=== PATIENT | male | born 1955 | race Caucasian/White ===

== ENCOUNTER 2018-03-23 12:25 | Emergency (ER) | payer MEDICARE, MEDICAID ==
--- NOTE | 2018-03-23 12:54 | ER Document Report ---
HPI - HPI Patient complains to provider of: tripped and fell in kitchen Pain Level: 3 Past Medical History - Past Medical History Cardiac Medical History: Reports: Hx Heart Attack Denies: Hx Congestive Heart Failure, Hx Hypertension, Hx Heart Murmur Pulmonary Medical History: Denies: Hx Asthma, Hx Bronchitis, Hx COPD, Hx Pneumonia, Hx Tuberculosis Neurological Medical History: Denies: Hx Cerebrovascular Accident, Hx Seizures Endocrine Medical History: Reports: Hx Diabetes Mellitus Type 2 GI Medical History: Reports: Hx Gastroesophageal Reflux Disease. Denies: Hx Hepatitis, Hx Hiatal Hernia, Hx Ulcer Musculoskeltal Medical History: Psychiatric Medical History: Reports: Hx Depression Infectious Medical History: Denies: Hx Hepatitis Past Surgical History: Reports: Hx Cardiac Catheterization, Hx Cardiac Surgery - stents, Hx Oral Surgery. Denies: Hx Open Heart Surgery, Hx Pacemaker - Immunizations Hx Diphtheria, Pertussis, Tetanus Vaccination: Yes Vertical Provider Document - INFECTION CONTROL TRAVEL OUTSIDE OF THE [place] IN LAST 30 DAYS: No Course - Vital Signs Vital signs: Temp Pulse Resp BP Pulse Ox 98.9 F 97 16 147/79 H 96 03/23/18 12:29 03/23/18 12:29 03/23/18 12:29 03/23/18 12:29 03/23/18 12:29 Discharge - Discharge Referrals: LEN LOMBARDO MD [Primary Care Provider] - Follow up as needed
--- NOTE | 2018-03-23 12:58 | ER Document Report ---
ED Medical Screen (RME) - General Chief Complaint: Elbow Injury Stated Complaint: ELBOW PAIN Time Seen by Provider: 03/23/18 12:51 Mode of Arrival: Ambulatory Information source: Patient Notes: 62-year-old male tripped in the kitchen and fell on his right elbow on Saturday. Since then his olecranon has gotten red warm and swollen. He does have a crusted abrasion over the olecranon. I cannot tell if this is inflamed bursitis or infected bursitis by physical exam. TRAVEL OUTSIDE OF THE [place] IN LAST 30 DAYS: No - Related Data Allergies/Adverse Reactions: chlorpromazine HCl [From Thorazine] Allergy (Verified 03/23/18 12:26) faints Past Medical History - Past Medical History Cardiac Medical History: Reports: Hx Heart Attack Denies: Hx Congestive Heart Failure, Hx Hypertension, Hx Heart Murmur Pulmonary Medical History: Denies: Hx Asthma, Hx Bronchitis, Hx COPD, Hx Pneumonia, Hx Tuberculosis Neurological Medical History: Denies: Hx Cerebrovascular Accident, Hx Seizures Endocrine Medical History: Reports: Hx Diabetes Mellitus Type 2 GI Medical History: Reports: Hx Gastroesophageal Reflux Disease. Denies: Hx Hepatitis, Hx Hiatal Hernia, Hx Ulcer Musculoskeltal Medical History: Psychiatric Medical History: Reports: Hx Depression Infectious Medical History: Denies: Hx Hepatitis Past Surgical History: Reports: Hx Cardiac Catheterization, Hx Cardiac Surgery - stents, Hx Oral Surgery. Denies: Hx Open Heart Surgery, Hx Pacemaker - Immunizations Hx Diphtheria, Pertussis, Tetanus Vaccination: Yes Physical Exam - Vital signs Vitals: Temp Pulse Resp BP Pulse Ox 98.9 F 97 16 147/79 H 96 03/23/18 12:29 03/23/18 12:29 03/23/18 12:29 03/23/18 12:29 03/23/18 12:29 Course - Vital Signs Vital signs: Temp Pulse Resp BP Pulse Ox 98.9 F 97 16 147/79 H 96 03/23/18 12:29 03/23/18 12:29 03/23/18 12:29 03/23/18 12:29 03/23/18 12:29 Doctor's Discharge - Discharge Referrals: LEN LOMBARDO MD [Primary Care Provider] - Follow up as needed
[2018-03-23 13:30] LABS: ABSOLUTE LYMPHOCYTES (AUTO) 2.1 10^3/uL (0.5-4.7); ABSOLUTE MONOCYTES (AUTO) 0.9 10^3/uL (0.1-1.4); ABSOLUTE NEUT (AUTO) 9.6 10^3/uL (1.7-8.2); BASOPHILS % (AUTO) 0.4 % (0-2); EOSINOPHILS % (AUTO) 0.3 % (0-6); HEMATOCRIT 42.5 % (37.9-51.0); HEMOGLOBIN 14.5 g/dL (13.5-17.0); LYMPHOCYTES % (AUTO) 16.6 % (13-45); MEAN CORPUSCULAR HEMOGLOBIN 32.1 pg (27.0-33.4); MEAN CORPUSCULAR VOLUME 95 fl (80-97); MONOCYTES % (AUTO) 7.2 % (3-13); PLATELET COUNT 230 10^3/uL (150-450); RED CELL DISTRIBUTION WIDTH 14.6 % (11.5-14.0); SEGMENTED NEUTROPHILS % (AUTO) 75.5 % (42-78); TOTAL CELLS COUNTED % (AUTO) 100 %; WHITE BLOOD COUNT 12.7 10^3/uL (4.0-10.5)
[2018-03-23] MEDS ORDERED: FENTANYL CITRATE INJ/PF 100 MCG/2 ML AMPUL IV ONE ×2 (13:44→15:34)
[2018-03-23 13:46] LABS: ALANINE AMINOTRANSFERASE 42 U/L (21-72); ALBUMIN 3.8 g/dL (3.5-5.0); ALKALINE PHOSPHATASE 136 U/L (38-126); ANION GAP 14 (5-19); ASPARTATE AMINO TRANSFERASE 20 U/L (17-59); BILIRUBIN,DIRECT 0.3 mg/dL (0.0-0.4); BILIRUBIN,TOTAL 0.6 mg/dL (0.2-1.3); BLOOD UREA NITROGEN 15 mg/dL (7-20); CALCIUM 10.2 mg/dL (8.4-10.2); CARBON DIOXIDE 27 mmol/L (22-30); CHLORIDE 97 mmol/L (98-107); POTASSIUM 4.6 mmol/L (3.6-5.0); SODIUM 137.5 mmol/L (137-145)
[2018-03-23 13:59] LABS: GLUCOSE 584 mg/dL (75-110)
[2018-03-23] MEDS ORDERED: NORMAL SALINE 1000 ML 2,000 ML IV PRN (14:04)
[2018-03-23 14:06] LABS: ERYTHROCYTE SEDIMENTATION RATE 42 mm/hr (0-20)
[2018-03-23] MEDS ORDERED: INSULIN REG, HUMAN 100 UNIT/ML 3 ML VIAL (PYX) IV ONE ×2 (14:06→14:07)
[2018-03-23] MEDS: NORMAL SALINE 1000 ML 1,000 ML IV PRN ×3 (14:25→15:55)
--- NOTE | 2018-03-23 14:31 | RADIOLOGY REPORT (SQ) ---
EXAM DESCRIPTION: ELBOW RIGHT OVER 2 VIEWS COMPLETED DATE/TIME: 03/23/2018 1:28 pm REASON FOR STUDY: fell on wed COMPARISON: None. NUMBER OF VIEWS: Four views right elbow. LIMITATIONS: None. FINDINGS: Soft tissue swelling overlying the olecranon. No underlying fracture. No suggestion of r etained radiopaque foreign body. Slight elevation of the anterior fat pad may reflect a small joint effusion. This can be seen with occult fracture among other etiologies. No fracture identified. OTHER: No other significant finding. IMPRESSION: Small joint effusion. Olecranon soft tissue swelling without underlying fracture. TECHNICAL DOCUMENTATION: JOB ID: [id number] Reading location - IP/workstation name: [email or web address]
--- NOTE | 2018-03-23 15:28 | ER Document Report ---
ED General - General Chief Complaint: Elbow Injury Stated Complaint: ELBOW PAIN Time Seen by Provider: 03/23/18 12:51 Mode of Arrival: Ambulatory Information source: Patient Notes: 62-year-old male diabetic presents with complaints of right elbow injury. Patient notes he had a mechanical fall landing on his elbow and that is swollen since. He denies any fevers or chills denies any nausea vomiting or area. Patient notes pain with range of motion of the elbow. TRAVEL OUTSIDE OF THE [place] IN LAST 30 DAYS: No - HPI Onset: Other Onset/Duration: Persistent Quality of pain: Achy Severity: Moderate Pain Level: 2 Associated symptoms: Body/muscle aches Exacerbated by: Movement Relieved by: Denies Similar symptoms previously: No Recently seen / treated by doctor: No - Related Data Allergies/Adverse Reactions: chlorpromazine HCl [From Thorazine] Allergy (Verified 03/23/18 12:26) faints Past Medical History - General Information source: Patient - Social History Smoking Status: Current Every Day Smoker Cigarette use (# per day): Yes Chew tobacco use (# tins/day): No Smoking Education Provided: No Frequency of alcohol use: None Drug Abuse: None Family History: Reviewed & Not Pertinent Patient has suicidal ideation: No Patient has homicidal ideation: No - Past Medical History Cardiac Medical History: Reports: Hx Heart Attack Denies: Hx Congestive Heart Failure, Hx Hypertension, Hx Heart Murmur Pulmonary Medical History: Denies: Hx Asthma, Hx Bronchitis, Hx COPD, Hx Pneumonia, Hx Tuberculosis Neurological Medical History: Denies: Hx Cerebrovascular Accident, Hx Seizures Endocrine Medical History: Reports: Hx Diabetes Mellitus Type 2 Renal/ Medical History: Denies: Hx Peritoneal Dialysis GI Medical History: Reports: Hx Gastroesophageal Reflux Disease. Denies: Hx Hepatitis, Hx Hiatal Hernia, Hx Ulcer Musculoskeltal Medical History: Psychiatric Medical History: Reports: Hx Depression Infectious Medical History: Denies: Hx Hepatitis Past Surgical History: Reports: Hx Cardiac Catheterization, Hx Cardiac Surgery - stents, Hx Oral Surgery. Denies: Hx Open Heart Surgery, Hx Pacemaker - Immunizations Hx Diphtheria, Pertussis, Tetanus Vaccination: Yes Review of Systems - Review of Systems Notes: REVIEW OF SYSTEMS: CONSTITUTIONAL : Denies fever, chills, or sweats. Denies recent illness. EENT: Denies eye, ear, throat, or mouth pain or symptoms. Denies nasal or sinus congestion or discharge. Denies throat, tongue, or mouth swelling or difficulty swallowing. CARDIOVASCULAR: Denies chest pain. Denies palpitations or racing or irregular heart beat. Denies ankle edema. RESPIRATORY: Denies cough, cold, or chest congestion. Denies shortness of breath, difficulty breathing, or wheezing. GASTROINTESTINAL: Denies abdominal pain or distention. Denies nausea, vomiting , or diarrhea. Denies blood in vomitus, stools, or per rectum. Denies black, tarry stools. Denies constipation. GENITOURINARY: Denies difficulty urinating, painful urination, burning, frequency, blood in urine, or discharge. MUSCULOSKELETAL: Right upper extremity pain SKIN: Denies rash, lesions or sores. HEMATOLOGIC : Denies easy bruising or bleeding. LYMPHATIC: Denies swollen, enlarged glands. NEUROLOGICAL: Denies confusion or altered mental status. Denies passing out or loss of consciousness. Denies dizziness or lightheadedness. Denies headache. Denies weakness or paralysis or loss of use of either side. Denies problems with gait or speech. Denies sensory loss, numbness, or tingling. Denies seizures. PSYCHIATRIC: Denies anxiety or stress. Denies depression, suicidal ideation, or homicidal ideation. ALL OTHER SYSTEMS REVIEWED AND NEGATIVE. Dictation was performed using [facility] voice recognition software PHYSICAL EXAMINATION: GENERAL: Well-appearing, well-nourished and in no acute distress. HEAD: Atraumatic, normocephalic. EYES: Pupils equal round and reactive to light, extraocular movements intact, sclera anicteric, conjunctiva are normal. ENT: Nares patent, oropharynx clear without exudates. Moist mucous membranes. NECK: Normal range of motion, supple without lymphadenopathy LUNGS: Breath sounds clear to auscultation bilaterally and equal. No wheezes rales or rhonchi. HEART: Regular rate and rhythm without murmurs ABDOMEN: Soft, nontender, nondistended abdomen. No guarding, no rebound. No masses appreciated. Musculoskeletal: Limited range of motion of right elbow secondary to pain NEUROLOGICAL: Cranial nerves grossly intact. Normal speech, normal gait. Normal sensory, motor exams PSYCH: Normal mood, normal affect. SKIN: Swelling of the right elbow bursae noted no erythema no drainage Physical Exam - Vital signs Vitals: Temp Pulse Resp BP Pulse Ox 98.9 F 97 16 147/79 H 96 06/10/18 12:29 03/23/18 12:29 03/23/18 12:29 03/23/18 12:29 03/23/18 12:29 Course - Re-evaluation Re-evalutation: 03/23/18 15:27 I spoke with the patient in regards to his significant hyperglycemia, he refuses to be admitted, I will treat him with IV fluids and insulin, Accu-Chek has been ordered he does not appear to have any signs of an infected bursitis, I believe the patient does have a fracture of his olecranon 03/23/18 16:46 Patient blood sugar has improved significantly, I have spoken to him in regards to my concerns about his blood sugar being so elevated and his hemoglobin A1c being greater than 14, patient instructed to follow-up with both orthopedics for the elbow as well as his primary care physician. I believe there is no occult fracture of the ulnar olecranon region and will have see them for this evaluation. I do not believe there is an infected bursitis the ESR is noted to be elevated though but there is no fever no drainage After performing a Medical Screening Examination, I estimate there is LOW risk for OPEN FRACTURE, COMPARTMENT SYNDROME, TENDON RUPTURE, ACUTE NEUROVASCULAR INJURY, or RETAINED FOREIGN BODY, thus I consider the discharge disposition reasonable. Also, there is no evidence or peritonitis, sepsis, or toxicity. I have reevaluated this patient multiple times and no significant life threatening changes are noted. The patient and I have discussed the diagnosis and risks, and we agree with discharging home with close follow-up with the understanding that symptoms and presentations can change. We also discussed returning to the Emergency Department immediately if new or worsening symptoms occur. We have discussed the symptoms which are most concerning (e.g., changing or worsening pain, fever, numbness, weakness, cool or painful digits) that necessitate immediate return. - Vital Signs Vital signs: Temp Pulse Resp BP Pulse Ox 98.9 F 97 16 147/79 H 96 03/23/18 12:29 03/23/18 12:29 03/23/18 12:29 03/23/18 12:29 03/23/18 12:29 - Laboratory Result Diagrams: 03/23/18 13:17 03/23/18 13:17 Laboratory results interpreted by me: 03/23/18 03/23/18 03/23/18 13:17 13:17 13:17 WBC 12.7 H RDW 14.6 H Absolute Neutrophils 9.6 H ESR 42 H Chloride 97 L Glucose 584 H* POC Glucose Hemoglobin A1c % > 14.0 H Alkaline Phosphatase 136 H 03/23/18 15:30 WBC RDW Absolute Neutrophils ESR Chloride Glucose POC Glucose 312 H Hemoglobin A1c % Alkaline Phosphatase - Diagnostic Test Radiology reviewed: Image reviewed - Possible occult fracture noted on x-ray right elbow 3 view, Reports reviewed Procedures - Immobilization Right Upper Elbow Time completed: 16:40 Pre-Proc Neuro Vasc Exam: Normal Immobilizer type: Long arm posterior Performed by: PCT Post-Proc Neuro Vasc Exam: Normal Alignment checked and good: Yes Critical Care Note - Critical Care Note Total time excluding time spent on procedures (mins): 35 Comments: 35 minutes of critical care time spent in direct contact evaluating and reevaluating the patient, treating symptoms, reviewing labs and studies and speaking with family and consultants excluding any procedures Discharge - Discharge Clinical Impression: Hyperglycemia Olecranon bursitis Qualifiers: Laterality: right Qualified Code(s): M70.21 - Olecranon bursitis, right elbow Elbow fracture, right Qualifiers: Encounter type: initial encounter Fracture type: closed Qualified Code(s): S42.401A - Unspecified fracture of lower end of right humerus, initial encounter for closed fracture Condition: Stable Disposition: HOME, SELF-CARE Instructions: Hyperglycemia ([facility]) Referrals: LEN LOMBARDO MD [EMERITUS] - Follow up as needed DIONISIO GUERRERO DO [Primary Care Provider] - Follow up tomorrow ERMELINDA COSME DO [ACTIVE STAFF] - Follow up tomorrow
[2018-03-23] MEDS ORDERED: NORMAL SALINE 1000 ML 1,000 ML IV PRN (15:34)
[2018-03-23 16:29] VITALS: BP 137/80
== END 2018-03-23 17:02 | disposition home or self-care (01) ==
LOC: ER 12:25
DX: S42.401A Unspecified fracture of lower end of right humerus, initial encounter for closed fracture (principal); W19.XXXA Unspecified fall, initial encounter; M70.21 Olecranon bursitis, right elbow; E11.65 Type 2 diabetes mellitus with hyperglycemia; F17.210 Nicotine dependence, cigarettes, uncomplicated; Z88.8 Allergy status to other drugs, medicaments and biological substances
CPT/HCPCS: 96376; 99285; 96361; 96374; 36415; 82962; 85025; 85652; 80053; 83036; 73080; 29105; J3010; A9270; J7030; J1815

== ENCOUNTER 2018-03-28 19:13 | Inpatient (IN) | payer MEDICARE, MEDICAID ==
--- NOTE | 2018-03-28 20:08 | ER Document Report ---
HPI - HPI Pain Level: 5 - ROS Systems Reviewed and Negative: Yes All other systems reviewed and negative Past Medical History - Social History Smoking Status: Unknown if Ever Smoked Family History: Reviewed & Not Pertinent - Past Medical History Cardiac Medical History: Reports: Hx Heart Attack Denies: Hx Congestive Heart Failure, Hx Hypertension, Hx Heart Murmur Pulmonary Medical History: Denies: Hx Asthma, Hx Bronchitis, Hx COPD, Hx Pneumonia, Hx Tuberculosis Neurological Medical History: Denies: Hx Cerebrovascular Accident, Hx Seizures Endocrine Medical History: Reports: Hx Diabetes Mellitus Type 2 Renal/ Medical History: Denies: Hx Peritoneal Dialysis GI Medical History: Reports: Hx Gastroesophageal Reflux Disease. Denies: Hx Hepatitis, Hx Hiatal Hernia, Hx Ulcer Musculoskeltal Medical History: Psychiatric Medical History: Reports: Hx Depression Infectious Medical History: Denies: Hx Hepatitis Past Surgical History: Reports: Hx Cardiac Catheterization, Hx Cardiac Surgery - stents, Hx Oral Surgery. Denies: Hx Open Heart Surgery, Hx Pacemaker - Immunizations Hx Diphtheria, Pertussis, Tetanus Vaccination: Yes Vertical Provider Document - CONSTITUTIONAL Agree With Documented VS: Yes - INFECTION CONTROL TRAVEL OUTSIDE OF THE [place] IN LAST 30 DAYS: No Course - Vital Signs Vital signs: Temp Pulse Resp BP Pulse Ox 98.8 F 94 16 125/82 97 03/28/18 19:28 03/28/18 19:28 03/28/18 19:28 03/28/18 19:28 03/28/18 19:28 Discharge - Discharge Referrals: DIONISIO GUERRERO DO [Primary Care Provider] - Follow up as needed
[2018-03-28] MEDS ORDERED: NORMAL SALINE 1000 ML 1,000 ML IV ONE (20:15)
--- NOTE | 2018-03-28 20:21 | ER Document Report ---
ED Medical Screen (RME) - General Chief Complaint: Arm Injury Stated Complaint: RIGHT ARM SWELLING Time Seen by Provider: 03/28/18 20:02 TRAVEL OUTSIDE OF THE [place] IN LAST 30 DAYS: No - HPI Notes: 03/28/18 20:18 Patient is a 62-year-old male with a history of hypertension, coronary artery disease, insulin-dependent diabetes who presents to the ED complaining of increasing swelling in his right hand over the last 2-3 days after his visit with orthopedics. Patient states that he was seen by or so earlier this week and they found the olecranon fracture in his elbow and placed him in a splint. Patient states that Ortho cannot place a cast until his swelling improves. Patient states that there was concern of possible infection to his elbow so I did start him on an antibiotic which she cannot remember the name of. Patient states that he does continue to have soreness and pain to the elbow, but is otherwise able to move his fingers any difficulties. He is still eating and drinking without difficulties. He is urinating normally and having normal bowel movements. Patient states that his sugars have been under better control since last week when he was seen in the ED. Patient states that his sugar this afternoon was 118. He has no other concerns or complaints at this time. Denies any headache, fever, URI, sore throat, chest pain, palpitations, syncope , cough, shortness of breath, wheeze, dyspnea, abdominal pain, nausea/vomiting/ diarrhea, urinary retention, dysuria, hematuria, numbness/tingling, muscle paralysis/weakness, or rash. I have treated and performed a rapid initial assessment of this patient. A comprehensive ED assessment and evaluation of the patient, analysis of test results and completion of medical decision making process will be conducted by additional ED providers. Dr. Bonner also eval'd this patient and is in agreement plan currently. PHYSICAL EXAMINATION: GENERAL: Well-appearing, well-nourished and in no acute distress. LUNGS: Breath sounds clear to auscultation bilaterally and equal. No wheezes rales or rhonchi. HEART: Regular rate and rhythm without murmurs, rubs, gallops. Musculoskeletal: Rt elbow: + swelling, erythema, warmth, tenderness. + pitting edema to hand. N/V intact distal otherwise. FROM to passive/active at the wrist/fingers. LROM to the elbow. Strength 5+/5. Extremities: + pitting edema to the Rt hand, No edema to LE's b/l. Peripheral pulses 2+. Capillary refill less than 3 seconds. NEUROLOGICAL: Normal speech, normal gait. Normal sensory, motor exams PSYCH: Normal mood, normal affect. SKIN: see above. - Related Data Allergies/Adverse Reactions: chlorpromazine HCl [From Thorazine] Allergy (Verified 03/23/18 12:26) faints Past Medical History - Past Medical History Cardiac Medical History: Reports: Hx Heart Attack Denies: Hx Congestive Heart Failure, Hx Hypertension, Hx Heart Murmur Pulmonary Medical History: Denies: Hx Asthma, Hx Bronchitis, Hx COPD, Hx Pneumonia, Hx Tuberculosis Neurological Medical History: Denies: Hx Cerebrovascular Accident, Hx Seizures Endocrine Medical History: Reports: Hx Diabetes Mellitus Type 2 Renal/ Medical History: Denies: Hx Peritoneal Dialysis GI Medical History: Reports: Hx Gastroesophageal Reflux Disease. Denies: Hx Hepatitis, Hx Hiatal Hernia, Hx Ulcer Musculoskeltal Medical History: Psychiatric Medical History: Reports: Hx Depression Infectious Medical History: Denies: Hx Hepatitis Past Surgical History: Reports: Hx Cardiac Catheterization, Hx Cardiac Surgery - stents, Hx Oral Surgery. Denies: Hx Open Heart Surgery, Hx Pacemaker - Immunizations Hx Diphtheria, Pertussis, Tetanus Vaccination: Yes Physical Exam - Vital signs Vitals: Temp Pulse Resp BP Pulse Ox 98.8 F 94 16 125/82 97 03/28/18 19:28 03/28/18 19:28 03/28/18 19:28 03/28/18 19:28 03/28/18 19:28 Course - Re-evaluation Re-evalutation: 03/28/18 20:37 [address] did speak [address] Dr[address] Morley for a quick consult. He recommends blood work and he wanted images texted to him which I sent. He believes that he may be able to remain as an outpatient with PO antibiotics and f/u Saturday in the office pending work up vs inpatient with IV antibiotics. - Vital Signs Vital signs: Temp Pulse Resp BP Pulse Ox 98.8 F 94 16 125/82 97 03/28/18 19:28 03/28/18 19:28 03/28/18 19:28 03/28/18 19:28 03/28/18 19:28 Doctor's Discharge - Discharge Referrals: DIONISIO GUERRERO DO [Primary Care Provider] - Follow up as needed
[2018-03-28] MEDS ORDERED: MORPHINE SULFATE 10 MG/ML INJ IV ONE (20:22)
[2018-03-28 20:52] LABS: ABSOLUTE LYMPHOCYTES (AUTO) 1.8 10^3/uL (0.5-4.7); ABSOLUTE MONOCYTES (AUTO) 0.8 10^3/uL (0.1-1.4); ABSOLUTE NEUT (AUTO) 7.1 10^3/uL (1.7-8.2); BASOPHILS % (AUTO) 0.4 % (0-2); EOSINOPHILS % (AUTO) 0.4 % (0-6); HEMATOCRIT 38.6 % (37.9-51.0); HEMOGLOBIN 12.9 g/dL (13.5-17.0); LYMPHOCYTES % (AUTO) 18.2 % (13-45); MEAN CORPUSCULAR HEMOGLOBIN 31.9 pg (27.0-33.4); MEAN CORPUSCULAR HGB CONC 33.5 g/dL (32.0-36.0); MEAN CORPUSCULAR VOLUME 95 fl (80-97); MONOCYTES % (AUTO) 8.3 % (3-13); PLATELET COUNT 297 10^3/uL (150-450); RED BLOOD COUNT 4.06 10^6/uL (4.35-5.55); RED CELL DISTRIBUTION WIDTH 14.8 % (11.5-14.0); SEGMENTED NEUTROPHILS % (AUTO) 72.7 % (42-78); TOTAL CELLS COUNTED % (AUTO) 100 %; VENOUS BLOOD BASE EXCESS 2.3 mmol/L; VENOUS BLOOD HCO3 28.3 mmol/L (20-32); VENOUS BLOOD PCO2 49.5 mmHg (35-63); VENOUS BLOOD PH 7.38 (7.30-7.42); WHITE BLOOD COUNT 9.8 10^3/uL (4.0-10.5)
--- NOTE | 2018-03-28 21:09 | ER Document Report ---
ED General - General Chief Complaint: Arm Injury Stated Complaint: RIGHT ARM SWELLING Time Seen by Provider: 03/28/18 20:02 Notes: The patient is a 62-year-old male, PMHx poorly controlled DM (A1C >14%), who presents with swelling and redness of his right elbow and arm over the past day. He had a elbow injury after a fall 5 days ago. When he followed up with orthopedics at [facility], he was told he had an olecranon fracture and splinted. Patient is continued to have worsening pain and now painful range of motion. Denies fevers, numbness, tingling, difficulty moving his hand or any other rash. TRAVEL OUTSIDE OF THE [place] IN LAST 30 DAYS: No - Related Data Allergies/Adverse Reactions: chlorpromazine HCl [From Thorazine] Allergy (Verified 03/23/18 12:26) faints Past Medical History - General Information source: Patient - Social History Smoking Status: Unknown if Ever Smoked Family History: Reviewed & Not Pertinent Patient has suicidal ideation: No Patient has homicidal ideation: No - Past Medical History Cardiac Medical History: Reports: Hx Heart Attack Denies: Hx Congestive Heart Failure, Hx Hypertension, Hx Heart Murmur Pulmonary Medical History: Denies: Hx Asthma, Hx Bronchitis, Hx COPD, Hx Pneumonia, Hx Tuberculosis Neurological Medical History: Denies: Hx Cerebrovascular Accident, Hx Seizures Endocrine Medical History: Reports: Hx Diabetes Mellitus Type 2 Renal/ Medical History: Denies: Hx Peritoneal Dialysis GI Medical History: Reports: Hx Gastroesophageal Reflux Disease. Denies: Hx Hepatitis, Hx Hiatal Hernia, Hx Ulcer Musculoskeltal Medical History: Psychiatric Medical History: Reports: Hx Depression Infectious Medical History: Denies: Hx Hepatitis Past Surgical History: Reports: Hx Cardiac Catheterization, Hx Cardiac Surgery - stents, Hx Oral Surgery. Denies: Hx Open Heart Surgery, Hx Pacemaker - Immunizations Hx Diphtheria, Pertussis, Tetanus Vaccination: Yes Review of Systems - Review of Systems Notes: REVIEW OF SYSTEMS: CONSTITUTIONAL: -fevers, -chills EENT: -eye pain, -difficulty swallowing, -nasal congestion CARDIOVASCULAR: -chest pain, -syncope. RESPIRATORY: -cough, -SOB GASTROINTESTINAL: -abdominal pain, -nausea, -vomiting, -diarrhea GENITOURINARY: -dysuria, -hematuria MUSCULOSKELETAL: +right elbow pain and swelling, -back pain, -neck pain SKIN: +right arm rash HEMATOLOGIC: -easy bruising or bleeding. LYMPHATIC: -swollen, enlarged glands. NEUROLOGICAL: -altered mental status or loss of consciousness, -headache, - neurologic symptoms PSYCHIATRIC: -anxiety, -depression. ALL OTHER SYSTEMS REVIEWED AND NEGATIVE. Physical Exam - Vital signs Vitals: Temp Pulse Resp BP Pulse Ox 98.8 F 94 16 125/82 97 03/28/18 19:28 03/28/18 19:28 03/28/18 19:28 03/28/18 19:28 03/28/18 19:28 - Notes Notes: PHYSICAL EXAMINATION: GENERAL: Well-appearing, well-nourished and in no acute distress. HEAD: Atraumatic, normocephalic. EYES: Pupils equal round and reactive to light, extraocular movements intact, sclera anicteric, conjunctiva are normal. ENT: nares patent, oropharynx clear without exudates. Moist mucous membranes. NECK: Normal range of motion, supple without lymphadenopathy LUNGS: Breath sounds clear to auscultation bilaterally and equal. No wheezes rales or rhonchi. HEART: Regular rate and rhythm without murmurs ABDOMEN: Soft, nontender, normoactive bowel sounds. No guarding, no rebound. No masses appreciated. EXTREMITIES: Swollen right elbow with streaking redness down the arm to mid forearm and to mid biceps. Painful right elbow flexion and extension. Strong radial pulses and brisk capillary refill. NEUROLOGICAL: Cranial nerves grossly intact. Normal speech, normal gait. Normal sensory and motor exams. PSYCH: Normal mood, normal affect. Course - Re-evaluation Re-evalutation: 03/28/18 21:50 Concern for septic joint with streaking redness, swelling and painful right elbow ROM. ESR and CRP are elevated. Patient is a very poorly controlled diabetic. Spoke to Dr. Morley (Ortho) and he will consult on the patient. Unable to tap the elbow in the ED due to the overlying cellulitis. With his poorly controlled diabetes, rapidly spreading cellulitis and concern for septic joint, will begin clindamycin and admit patient to the hospitalist. 03/28/18 22:[address] Serna who has agreed to admit the patient to Medicine floor. - Vital Signs Vital signs: Temp Pulse Resp BP Pulse Ox 98.8 F 94 16 125/82 97 03/28/18 19:28 03/28/18 19:28 03/28/18 19:28 03/28/18 19:28 03/28/18 19:28 - Laboratory Result Diagrams: 03/28/18 20:37 03/28/18 20:37 Laboratory results interpreted by me: 03/28/18 03/28/18 20:37 20:37 RBC 4.06 L Hgb 12.9 L RDW 14.8 H ESR 96 H Glucose 175 H C-Reactive Protein 86.2 H Albumin 3.1 L Discharge - Discharge Clinical Impression: Concern for Septic Joint, Cellulitis of arm, right, Poorly controlled diabetes mellitus Elbow fracture, right Qualifiers: Encounter type: initial encounter Fracture type: closed Qualified Code(s): S42.401A - Unspecified fracture of lower end of right humerus, initial encounter for closed fracture Condition: Stable Disposition: ADMITTED INPATIENT Admitting Provider: Hospitalist - [facility] Unit Admitted: Medical Floor Referrals: DIONISIO GUERRERO DO [Primary Care Provider] - Follow up as needed
[2018-03-28 21:10] LABS: ALANINE AMINOTRANSFERASE 28 U/L (21-72); ALBUMIN 3.1 g/dL (3.5-5.0); ALKALINE PHOSPHATASE 102 U/L (38-126); ANION GAP 10 (5-19); ASPARTATE AMINO TRANSFERASE 24 U/L (17-59); BILIRUBIN,DIRECT 0.3 mg/dL (0.0-0.4); BILIRUBIN,TOTAL 0.3 mg/dL (0.2-1.3); BLOOD UREA NITROGEN 12 mg/dL (7-20); C-REACTIVE PROTEIN 86.2 mg/L (<10.0); CALCIUM 9.3 mg/dL (8.4-10.2); CARBON DIOXIDE 30 mmol/L (22-30); CHLORIDE 103 mmol/L (98-107); GLUCOSE 175 mg/dL (75-110); POTASSIUM 4.5 mmol/L (3.6-5.0); SODIUM 143.2 mmol/L (137-145); TOTAL PROTEIN 6.5 g/dL (6.3-8.2)
[2018-03-28 21:29] LABS: ERYTHROCYTE SEDIMENTATION RATE 96 mm/hr (0-20)
[2018-03-28] MEDS ORDERED: FENTANYL CITRATE INJ/PF 100 MCG/2 ML AMPUL IV ONE (21:48)
[2018-03-28] MEDS ORDERED: ONDANSETRON HCL INJ/PF 4 MG/2 ML SDV IV PRN (22:37)
[2018-03-28] MEDS ORDERED: ACETAMINOPHEN 325 MG TABLET PO PRN (22:37)
[2018-03-28] MEDS ORDERED: AMPICILLIN SOD/SULBACTAM 3 GM VIAL IV ONE (22:41)
[2018-03-28] MEDS ORDERED: DEXTROSE 50%-WATER 25 GM/50 ML DISP.SYRIN IV PRN ×2 (22:42)
[2018-03-28] MEDS ORDERED: GLUCAGON,HUMAN RECOMB 1 MG INJ IM PRN (22:42)
[2018-03-28] MEDS ORDERED: DEXTROSE 40% GEL 15 GM TUBE PO PRN ×2 (22:42)
[2018-03-28] MEDS ORDERED: AMPICILLIN SOD/SULBACTAM 3 GM VIAL IV PRN (22:51)
--- NOTE | 2018-03-28 23:28 | PDOC H&P ---
History of Present Illness Admission Date/PCP: 03/28/18 22:45 DIONISIO GUERRERO DO History of Present Illness: GÓMEZ ENRIQUEZ is a 62 year old male patient with past medical history of hypertension, anxiety, active smoker, and poorly controlled diabetes mellitus with hemoglobin A1c of 14 presents with chief complaint of right arm swelling and tenderness. Patient reports this accidental fall 5 days ago and he injured his right arm for which he had seen orthopedic surgeon and he was found to have fracture of the right olecranon. The last 2 days patient continued to have tenderness worsening pain and full range of motion. He has subjective fever but no chills, cough, chest pain, nausea, vomiting or diarrhea. No headache or dizziness or blurry vision. Past Medical History Cardiac Medical History: Reports: Myocardial Infarction Denies: Congestive Heart Failure, Hypertension, Heart Murmur Pulmonary Medical History: Denies: Asthma, Bronchitis, Chronic Obstructive Pulmonary Disease (COPD), Pneumonia, Tuberculosis Neurological Medical History: Denies: Seizures Endocrine Medical History: Reports: Diabetes Mellitus Type 2 GI Medical History: Reports: Gastroesophageal Reflux Disease Denies: Hepatitis, Hiatal Hernia Musculoskeltal Medical History: Psychiatric Medical History: Reports: Depression Hematology: Denies: Anemia, Sickle Cell Disease Past Surgical History Past Surgical History: Reports: Cardiac Catheterization Denies: Pacemaker Social History Smoking Status: Current Every Day Smoker Hx Recreational Drug Use: No Hx Prescription Drug Abuse: No Family History Family History: Reviewed & Not Pertinent, DM, Hypertension Parental Family History Reviewed: Yes Children Family History Reviewed: Yes Sibling(s) Family History Reviewed.: Yes Medication/Allergy Home Medications: Citalopram Hydrobromide [Celexa 20 Mg Tablet] 20 mg PO DAILY 04/19/12 Glipizide [Glucotrol Xl] 10 mg PO DAILY 04/19/12 Metformin HCl [Glucophage 500 Mg Tablet] 500 mg PO DAILY 04/19/12 Omeprazole [Prilosec 40 mg Capsule] 40 mg PO DAILY 04/19/12 Nitroglycerin [Nitrostat SL 0.4 mg Tablet] 0.4 mg SL PRN PRN 06/11/12 Oxycodone HCl [Oxycodone HCl 10 MG Tablet] 5 mg PO Q6H #25 tablet 06/11/12 Simvastatin [Zocor 20 mg Tablet] 20 mg PO QHS 06/11/12 Allergies/Adverse Reactions: chlorpromazine HCl [From Thorazine] Allergy (Verified 03/23/18 12:26) faints Review of Systems Constitutional: ABSENT: chills, fever(s), headache(s), weight gain, weight loss Eyes: ABSENT: visual disturbances Cardiovascular: ABSENT: chest pain, dyspnea on exertion, edema, orthropnea, palpitations Respiratory: ABSENT: cough, hemoptysis Gastrointestinal: ABSENT: abdominal pain, constipation, diarrhea, hematemesis, hematochezia, nausea, vomiting Musculoskeletal: PRESENT: as per HPI Neurological: PRESENT: as per HPI Physical Exam Vital Signs: Temp Pulse Resp BP Pulse Ox 98.8 F 94 16 125/82 97 03/28/18 19:28 03/28/18 19:28 03/28/18 19:28 03/28/18 19:28 03/28/18 19:28 General appearance: PRESENT: no acute distress, well-developed, well-nourished Head exam: PRESENT: atraumatic, normocephalic Ear exam: PRESENT: normal external ear exam Neck exam: ABSENT: carotid bruit, JVD, lymphadenopathy, thyromegaly Respiratory exam: PRESENT: clear to auscultation divya. ABSENT: rales, rhonchi, wheezes Cardiovascular exam: PRESENT: RRR. ABSENT: diastolic murmur, rubs, systolic murmur GI/Abdominal exam: PRESENT: normal bowel sounds, soft. ABSENT: distended, guarding, mass, organolmegaly, rebound, tenderness Extremities exam: PRESENT: other - Right arm tender swollen particularly at the elbow joint and extending to his upper Neurological exam: PRESENT: alert, awake, oriented to time, oriented to situation Psychiatric exam: PRESENT: normal mood Assessment & Plan - Diagnosis (1) Cellulitis of arm, right Is this a current diagnosis for this admission?: Yes Plan: Patient has been started on Unasyn. Pain control. (2) Elbow fracture, right Qualifiers: Encounter type: initial encounter Fracture type: closed Qualified Code(s) : S42.401A - Unspecified fracture of lower end of right humerus, initial encounter for closed fracture Is this a current diagnosis for this admission?: Yes Plan: Gentle has follow-up with orthopedic surgeon. (3) Poorly controlled diabetes mellitus Is this a current diagnosis for this admission?: Yes Plan: We will put him on sliding scale and started his home medications. - Inpatient Certification Medical Necessity: Need for IV Antibiotics
[2018-03-29] MEDS ORDERED: AMPICILLIN SOD/SULBACTAM 3 GM VIAL ONE (00:48)
[2018-03-29] MEDS: OXYCODONE-ACETAMINOPHEN 5-325 MG TABLET PO PRN ×2 (01:16→09:27)
[2018-03-29 06:08] LABS: ABSOLUTE EOSINOPHILS # (AUTO) 0.1 10^3/uL (0.0-0.6); ABSOLUTE LYMPHOCYTES (AUTO) 2.4 10^3/uL (0.5-4.7); ABSOLUTE NEUT (AUTO) 6.3 10^3/uL (1.7-8.2); BASOPHILS % (AUTO) 0.5 % (0-2); EOSINOPHILS % (AUTO) 0.9 % (0-6); HEMATOCRIT 35.4 % (37.9-51.0); HEMOGLOBIN 11.8 g/dL (13.5-17.0); LYMPHOCYTES % (AUTO) 24.1 % (13-45); MEAN CORPUSCULAR HEMOGLOBIN 32.1 pg (27.0-33.4); MEAN CORPUSCULAR HGB CONC 33.3 g/dL (32.0-36.0); MEAN CORPUSCULAR VOLUME 96 fl (80-97); MONOCYTES % (AUTO) 10.2 % (3-13); PLATELET COUNT 265 10^3/uL (150-450); RED BLOOD COUNT 3.68 10^6/uL (4.35-5.55); RED CELL DISTRIBUTION WIDTH 14.5 % (11.5-14.0); SEGMENTED NEUTROPHILS % (AUTO) 64.3 % (42-78); TOTAL CELLS COUNTED % (AUTO) 100 %; WHITE BLOOD COUNT 9.8 10^3/uL (4.0-10.5)
[2018-03-29 06:18] LABS: ANION GAP 8 (5-19); BLOOD UREA NITROGEN 9 mg/dL (7-20); CALCIUM 8.6 mg/dL (8.4-10.2); CARBON DIOXIDE 28 mmol/L (22-30); CHLORIDE 104 mmol/L (98-107); GLUCOSE 262 mg/dL (75-110); POTASSIUM 4.4 mmol/L (3.6-5.0); SODIUM 139.5 mmol/L (137-145)
[2018-03-29] MEDS: ENOXAPARIN SODIUM INJ 40 MG/0.4 ML DISP.SYRIN SUBCUT SCH (09:23)
[2018-03-29] MEDS ORDERED: MORPHINE SULFATE 10 MG/ML INJ IV PRN (10:35)
[2018-03-29] MEDS ORDERED: IBUPROFEN 800 MG TABLET PO PRN (10:35)
[2018-03-29] MEDS ORDERED: VANCOMYCIN HCL 0 MG in DEXTROSE 5%-WATER 250 ML IV NR (10:45)
[2018-03-29] MEDS ORDERED: CEFTRIAXONE 1 GM/D5W RTU 1 GM/50 ML RTUPB IV SCH (11:00)
[2018-03-29] MEDS ORDERED: CEFTRIAXONE SODIUM 1,000 MG in DEXTROSE 5%-WATER 50 ML IV SCH ×2 (12:00→13:00)
[2018-03-29] MEDS: INSULIN LISPRO 100 UNIT/ML 3 ML VIAL SUBCUT PRN (12:26)
--- NOTE | 2018-03-29 12:38 | RADIOLOGY REPORT (SQ) ---
EXAM DESCRIPTION: ELBOW RIGHT AP/LAT COMPLETED DATE/TIME: 03/29/2018 11:52 am REASON FOR STUDY: history of fracture COMPARISON: Right elbow four views 03/23/2018 NUMBER OF VIEWS: Four views. TECHNIQUE: AP, lateral, and both oblique radiographic images acquired of the right elbow. LIMITATIONS: None. FINDINGS: MINERALIZATION: Normal. BONES: There is a nondisplaced right olecranon fracture with extension into the elbow joint space. R adial head, distal humerus intact. JOINT: No effusion. SOFT TISSUES: Dorsal elbow soft tissue swelling. No foreign body. OTHER: No other significant finding. IMPRESSION: Nondisplaced right olecranon fracture with intra-articular extension. Overlying soft ti ssue swelling. TECHNICAL DOCUMENTATION: JOB ID: [id number] [employer]- All Rights Reserved Reading location - IP/workstation name: [email or web address]
[2018-03-29] MEDS ORDERED: HYDROMORPHONE HCL INJ/PF 2 MG/ML AMPULE ONE (12:54)
--- NOTE | 2018-03-29 12:57 | PDOC CONSULTATION ---
Consultation Consult Date: 03/29/18 Consult reason:: Right olecranon fracture and concern cellulitis versus septic arthritis History of Present Illness Admission Date/PCP: 03/28/18 22:45 DIONISIO GUERRERO DO Patient complains of: Right elbow pain History of Present Illness: GÓMEZ ENRIQUEZ is a 62 year old male status post fall a week ago onto his right elbow. Diagnosed with a small olecranon process fracture of the right elbow. He started developing redness and swelling of the elbow. Complains of decreased range of motion. No complaints of fevers or chills. Denies any numbness or tingling or paresthesias. Came to the [facility] last night and admitted for IV antibiotics for cellulitis. Orthopedic consulted for the fracture and concern for septic arthritis. Past Medical History Cardiac Medical History: Reports: Myocardial Infarction Denies: Congestive Heart Failure, Hypertension, Heart Murmur Pulmonary Medical History: Denies: Asthma, Bronchitis, Chronic Obstructive Pulmonary Disease (COPD), Pneumonia, Tuberculosis Neurological Medical History: Denies: Seizures Endocrine Medical History: Reports: Diabetes Mellitus Type 2 GI Medical History: Reports: Gastroesophageal Reflux Disease Denies: Hepatitis, Hiatal Hernia Musculoskeltal Medical History: Psychiatric Medical History: Reports: Depression Hematology: Denies: Anemia, Sickle Cell Disease Past Surgical History Past Surgical History: Reports: Cardiac Catheterization Denies: Pacemaker Social History Smoking Status: Current Every Day Smoker Cigarettes Packs Per Day: 1 Number of Years Smokin Last Time Smoked: 03/28/18 Frequency of Alcohol Use: Occasional Hx Recreational Drug Use: No Hx Prescription Drug Abuse: No - Advance Directive Resuscitation Status: Full Code Family History Family History: Reviewed & Not Pertinent, DM, Hypertension Parental Family History Reviewed: No Children Family History Reviewed: No Sibling(s) Family History Reviewed.: No Medication/Allergy Home Medications: Nitroglycerin [Nitrostat SL 0.4 mg Tablet] 0.4 mg SL DAILYP PRN 06/11/12 Simvastatin [Zocor 20 mg Tablet] 20 mg PO QHS 06/11/12 Albuterol Sulfate [Ventolin Hfa] 2 puff IH Q4HP PRN 03/29/18 Citalopram Hydrobromide [Celexa 40 mg Tablet] 1 tab PO DAILY 03/29/18 Gabapentin [Neurontin 300 mg Capsule] 300 mg PO Q12 03/29/18 Insulin Aspart [Novolog Flexpen] 10 unit SQ AC 03/29/18 Insulin Glargine,Hum.rec.anlog [Basaglar Kwikpen U-100] 55 unit SQ QHS 03/29/18 Isosorbide Mononitrate [Isosorbide Mononitrate ER] 30 mg PO DAILY 03/29/18 Naproxen 500 mg PO Q12 03/29/18 Omeprazole 20 mg PO Q12 03/29/18 Oxycodone HCl/Acetaminophen [Percocet 10-325 mg Tablet] 1 tab PO Q6HP PRN Sitagliptin Phosphate [Januvia] 100 mg PO DAILY 03/29/18 Zolpidem Tartrate [Ambien] 10 mg PO QHS 03/29/18 Allergies/Adverse Reactions: chlorpromazine HCl [From Thorazine] Allergy (Verified 03/23/18 12:26) faints Review of Systems Constitutional: ABSENT: fever(s), headache(s), night sweats Eyes: ABSENT: visual disturbances Ears: ABSENT: hearing changes Nose, Mouth, and Throat: ABSENT: headache(s), sore throat Cardiovascular: ABSENT: chest pain, orthropnea, palpitations Respiratory: ABSENT: dyspnea, hemoptysis Gastrointestinal: ABSENT: diarrhea, nausea, vomiting Genitourinary: ABSENT: dysuria, hematuria Musculoskeletal: PRESENT: as per HPI Integumentary: PRESENT: as per HPI Neurological: ABSENT: abnormal gait, numbness, paresthesias Psychiatric: ABSENT: homidical ideation, suicidal ideation Endocrine: ABSENT: cold intolerance, heat intolerance Hematologic/Lymphatic: ABSENT: lymphadenopathy Allergic/Immunologic: ABSENT: seasonal rhinorrhea Physical Exam Vital Signs: Temp Pulse Resp BP Pulse Ox 36.8 C 77 16 130/85 H 100 03/29/18 07:25 03/29/18 07:25 03/29/18 07:25 03/29/18 07:25 03/29/18 07:25 Intake & Output 03/28/18 03/29/18 03/30/18 06:59 06:59 06:59 Intake Total 210 Balance 210 General appearance: PRESENT: no acute distress Head exam: PRESENT: atraumatic, normocephalic Eye exam: PRESENT: EOMI, PERRLA. ABSENT: nystagmus Ear exam: PRESENT: normal external ear exam Mouth exam: PRESENT: neck supple Neck exam: ABSENT: lymphadenopathy, thyromegaly Cardiovascular exam: PRESENT: RRR Pulses: PRESENT: normal radial pulses Vascular exam: PRESENT: normal capillary refill GI/Abdominal exam: PRESENT: soft. ABSENT: organolmegaly, tenderness Neurological exam: PRESENT: alert, awake, oriented to person, oriented to place , oriented to time, oriented to situation Psychiatric exam: PRESENT: appropriate affect, normal mood Adult Front & Back Image: 1 - Patient's right elbow range of motion is about -30 of extension to about 100 of flexion. Pronation and supination are intact. Good sensation to light touch distally with intact motor to the radial,ulnar, median nerve distribution. Patient does have a little dry peeling going on the olecranon process that I think inoculated the skin and has erythema over the olecranon process and proximal forearm. There is minimal collection to no collection in the olecranon bursa. The erythema looks that has receded from the original markings. Patient admits to this as well. Results Laboratory Results: 03/29/18 05:16 03/29/18 05:16 18 03/29/18 05:16 05:16 WBC 9.8 RBC 3.68 L Hgb 11.8 L Hct 35.4 L MCV 96 MCH 32.1 MCHC 33.3 RDW 14.5 H Plt Count 265 Seg Neutrophils % 64.3 Lymphocytes % 24.1 Monocytes % 10.2 Eosinophils % 0.9 Basophils % 0.5 Absolute Neutrophils 6.3 Absolute Lymphocytes 2.4 Absolute Monocytes 1.0 Absolute Eosinophils 0.1 Absolute Basophils 0.0 Sodium 139.5 Potassium 4.4 Chloride 104 Carbon Dioxide 28 Anion Gap 8 BUN 9 Creatinine 0.55 Est GFR ( Amer) > 60 Est GFR (Non-Af Amer) > 60 Glucose 262 H Calcium 8.6 Impressions: Elbow X-Ray 03/29/18 00:00 IMPRESSION: Nondisplaced right olecranon fracture with intra-articular extension. Overlying soft tissue swelling. Status: Image reviewed by me Assessment & Plan - Diagnosis (1) Cellulitis of arm, right Is this a current diagnosis for this admission?: Yes Plan: 62-year-old gentleman who has diabetes who suffered a nondisplaced olecranon fracture. He did have a scab over the olecranon process which I think caused a cellulitis and therefore IV antibiotics is appropriate. The meantime all he needs is a sling for the fracture. At this moment I think the patient has minimal to no olecranon bursitis and I think that he does not need any surgical excision of the bursa or incision of the bursa. At this point I think that just medical management with IV antibiotics and likely p.o. antibiotics should suffice. If symptoms plateau or worsen despite antibiotics I would be happy to come back and reevaluate and see the patient again.
[2018-03-29] MEDS: HYDROMORPHONE HCL INJ/PF 2 MG/ML AMPULE IV PRN ×2 (12:59→21:47)
--- NOTE | 2018-03-29 16:10 | PDOC PROGRESS REPORT ---
Subjective Progress Note for:: 03/29/18 Subjective:: GÓMEZ ENRIQUEZ is a 62 year old male patient with past medical history of HTN, anxiety, active smoker, and poorly controlled DM (Hgb A1c 14) presents with chief complaint of R elbow swelling and tenderness. Patient endorses an accidental fall 5 days ago, xrays revealed right olecranon fracture. The patient went to see orthopedic surgeon at [facility] who placed a splint. The patient states he came to the ED because he was experiencing increasing pain and worsening range of motion to the right elbow, as well as swelling and pain to his right hand. The patient was seen this morning on rounds, he is sitting up in bed on room air. He complains of right elbow pain, states that his pain is not being well controlled. The right elbow is erythematous with surrounding edema and red streaking down the forearm and up the posterior RUE. There is a small area of broken skin over the elbow, which the patient states formed within the last few days. The patient states it looked "kind of like a wart" and he states he was scratching and picking at it. There is no obvious drainage or puss. Reason For Visit: CELLULITIS OF RIGHT ARM Physical Exam Vital Signs: Temp Pulse Resp BP Pulse Ox 98.2 F 84 16 134/75 H 99 03/29/18 15:21 03/29/18 15:21 03/29/18 15:21 03/29/18 15:21 03/29/18 15:21 Intake & Output 03/28/18 03/29/18 03/30/18 06:59 06:59 06:59 Intake Total 210 Balance 210 General appearance: PRESENT: no acute distress, well-developed Eye exam: PRESENT: conjunctiva pink, PERRLA Mouth exam: PRESENT: moist Teeth exam: PRESENT: poor dentation Neck exam: PRESENT: full ROM Respiratory exam: PRESENT: clear to auscultation divya, symmetrical, unlabored Cardiovascular exam: PRESENT: +S1, +S2 Pulses: PRESENT: normal radial pulses, normal dorsalis pedis pul GI/Abdominal exam: PRESENT: normal bowel sounds, soft. ABSENT: tenderness Rectal exam: PRESENT: deferred Extremities exam: PRESENT: joint swelling - Right elbow. ABSENT: full ROM - Limited R OM 2 right elbow Musculoskeletal exam: PRESENT: ambulatory. ABSENT: full ROM - Limited R OM to right elbow Neurological exam: PRESENT: alert, awake, oriented to person, oriented to place , oriented to time, oriented to situation Psychiatric exam: PRESENT: appropriate affect Skin exam: PRESENT: dry. ABSENT: intact Results Laboratory Results: 03/29/18 05:16 03/29/18 05:16 03/29/18 03/29/18 05:16 05:16 WBC 9.8 RBC 3.68 L Hgb 11.8 L Hct 35.4 L MCV 96 MCH 32.1 MCHC 33.3 RDW 14.5 H Plt Count 265 Seg Neutrophils % 64.3 Lymphocytes % 24.1 Monocytes % 10.2 Eosinophils % 0.9 Basophils % 0.5 Absolute Neutrophils 6.3 Absolute Lymphocytes 2.4 Absolute Monocytes 1.0 Absolute Eosinophils 0.1 Absolute Basophils 0.0 Sodium 139.5 Potassium 4.4 Chloride 104 Carbon Dioxide 28 Anion Gap 8 BUN 9 Creatinine 0.55 Est GFR ( Amer) > 60 Est GFR (Non-Af Amer) > 60 Glucose 262 H Calcium 8.6 Impressions: Elbow X-Ray 03/29/18 00:00 IMPRESSION: Nondisplaced right olecranon fracture with intra-articular extension. Overlying soft tissue swelling. Status: Imported from PACS Assessment & Plan - Diagnosis (1) Cellulitis of arm, right Is this a current diagnosis for this admission?: Yes Plan: Secondary to infected abrasion over olecranon No evidence of drainage from abrasion. No leukocytosis, afebrile, nontoxic-appearing Initiated vancomycin and Rocephin for treatment of cellulitis (2) Elbow fracture, right Qualifiers: Encounter type: initial encounter Fracture type: closed Qualified Code(s) : S42.401A - Unspecified fracture of lower end of right humerus, initial encounter for closed fracture Is this a current diagnosis for this admission?: Yes Plan: Right olecranon fracture seen on x-ray. Ortho consulted, patient seen by Dr. Morley Does not recommend splint at the current time, states patient only requires RUE sling. No plan for surgical intervention, only IV antibiotics to treat suspected cellulitis IV dilaudid, Tylenol, and Mortin as needed for pain control (3) Poorly controlled diabetes mellitus Is this a current diagnosis for this admission?: Yes Plan: Initial Hgb A1c 14 Accu-Cheks before meals at bedtime Humalog sliding scale - Time Time Spent with patient: 15-24 minutes Medications reviewed and adjusted accordingly: Yes Anticipated discharge: Home - Inpatient Certification Based on my medical assessment, after consideration of the patient's comorbidities, presenting symptoms, or acuity I expect that the services needed warrant INPATIENT care.: Yes I certify that my determination is in accordance with my understanding of Medicare's requirements for reasonable and necessary INPATIENT services [42 CFR 412.3e].: Yes Medical Necessity: Need for IV Antibiotics - Plan Summary Plan Summary: IV antibiotic therapy to treat right elbow cellulitis
[2018-03-29] MEDS: VANCOMYCIN HCL 1,000 MG in DEXTROSE 5%-WATER 250 ML IV SCH ×2 (17:00→21:48)
[2018-03-29] MEDS ORDERED: ALBUTEROL SULFATE HFA (90 MCG/PUFF) 8 GM MDI (1 MDI/ER DISP) IH PRN (17:10)
[2018-03-29] MEDS: SIMVASTATIN 10 MG TABLET PO SCH (21:48)
[2018-03-29] MEDS: GABAPENTIN 300 MG CAPSULE PO SCH (21:48)
[2018-03-29] MEDS: ZOLPIDEM TARTRATE 5 MG TABLET PO SCH (21:48)
[2018-03-30] MEDS: VANCOMYCIN HCL 1,000 MG in DEXTROSE 5%-WATER 250 ML IV SCH ×3 (06:17→22:08)
[2018-03-30] MEDS: HYDROMORPHONE HCL INJ/PF 2 MG/ML AMPULE IV PRN ×2 (06:36→11:28)
[2018-03-30 07:09] LABS: HEMATOCRIT 39.2 % (37.9-51.0); HEMOGLOBIN 13.2 g/dL (13.5-17.0); MEAN CORPUSCULAR HEMOGLOBIN 31.9 pg (27.0-33.4); MEAN CORPUSCULAR HGB CONC 33.7 g/dL (32.0-36.0); MEAN CORPUSCULAR VOLUME 95 fl (80-97); PLATELET COUNT 324 10^3/uL (150-450); RED BLOOD COUNT 4.13 10^6/uL (4.35-5.55); RED CELL DISTRIBUTION WIDTH 14.1 % (11.5-14.0); WHITE BLOOD COUNT 9.7 10^3/uL (4.0-10.5)
[2018-03-30] MEDS: LANSOPRAZOLE 15 MG TAB.RAP.DR PO SCH ×2 (08:17→15:26)
[2018-03-30] MEDS ORDERED: ALBUTEROL SULFATE HFA (90 MCG/PUFF) 200 PUFF/8.5 GM MDI IH PRN (08:21)
[2018-03-30] MEDS: CITALOPRAM HYDROBROMIDE 20 MG TABLET PO SCH (09:04)
[2018-03-30] MEDS: ISOSORBIDE MONONITRATE 30 MG TAB.ER.24H PO SCH (09:04)
[2018-03-30] MEDS: ENOXAPARIN SODIUM INJ 40 MG/0.4 ML DISP.SYRIN SUBCUT SCH (09:04)
[2018-03-30] MEDS ORDERED: (PENDING PHARMACY ID) (Citalopram Hydrobromide [Celexa 40 Mg Tablet] 1 TAB) PO SCH (10:00)
[2018-03-30] MEDS: INSULIN LISPRO 100 UNIT/ML 3 ML VIAL SUBCUT PRN ×2 (12:45→17:37)
[2018-03-30 14:38] LABS: VANCOMYCIN,TROUGH 13.7 ug/mL (5.0-20.0)
[2018-03-30] MEDS: OXYCODONE HCL IR 5 MG TABLET PO PRN ×2 (15:26→22:10)
[2018-03-30] MEDS: FENTANYL CITRATE INJ/PF 100 MCG/2 ML AMPUL IV PRN ×2 (17:32→22:08)
[2018-03-30] MEDS: IMIPENEM/CILASTATIN SODIUM 500 MG in NORMAL SALINE 100 ML IV SCH (17:33)
--- NOTE | 2018-03-30 17:56 | PDOC PROGRESS REPORT ---
Subjective Progress Note for:: 03/30/18 Subjective:: GÓMEZ ENRIQUEZ is a 62 year old male patient with past medical history of HTN, anxiety, active smoker, and poorly controlled DM (Hgb A1c 14) presents with chief complaint of R elbow swelling and tenderness. Patient endorses an accidental fall 5 days ago, xrays revealed right olecranon fracture. The patient went to see orthopedic surgeon at [facility] who placed a splint. The patient states he came to the ED because he was experiencing increasing pain and worsening range of motion to the right elbow, as well as swelling and pain to his right hand. The patient was seen this morning on rounds, he is sitting up in bed on room air. He complains of right elbow pain, states that his pain is still not being well controlled. The right elbow looks worse today, the erythema and surrounding edema over the olecranon have worsened, however the red streaking down the forearm and up the posterior RUE has not spread. Reason For Visit: CELLULITIS OF RIGHT ARM Physical Exam Vital Signs: Temp Pulse Resp BP Pulse Ox 97.9 F 87 16 103/62 92 03/30/18 15:23 03/30/18 15:23 03/30/18 15:23 03/30/18 15:23 03/30/18 15:23 Intake & Output 03/29/18 03/30/18 03/31/18 06:59 06:59 06:59 Intake Total 1160 940 Output Total 400 Balance 760 940 General appearance: PRESENT: no acute distress Eye exam: PRESENT: PERRLA Teeth exam: PRESENT: poor dentation Neck exam: PRESENT: full ROM Respiratory exam: PRESENT: clear to auscultation divya, symmetrical, unlabored Cardiovascular exam: PRESENT: +S1, +S2 Pulses: PRESENT: normal radial pulses Vascular exam: PRESENT: normal capillary refill GI/Abdominal exam: PRESENT: normal bowel sounds, soft. ABSENT: tenderness Rectal exam: PRESENT: deferred Extremities exam: PRESENT: full ROM, joint swelling - R ELBOW, tenderness Musculoskeletal exam: PRESENT: ambulatory, full ROM Neurological exam: PRESENT: alert, awake, oriented to person, oriented to place , oriented to time, oriented to situation Psychiatric exam: PRESENT: appropriate affect Skin exam: PRESENT: dry, intact, warm Results Laboratory Results: 03/30/18 07:00 03/29/18 05:16 03/30/18 07:00 WBC 9.7 RBC 4.13 L Hgb 13.2 L Hct 39.2 MCV 95 MCH 31.9 MCHC 33.7 RDW 14.1 H Plt Count 324 Impressions: Elbow X-Ray 03/29/18 00:00 IMPRESSION: Nondisplaced right olecranon fracture with intra-articular extension. Overlying soft tissue swelling. Status: Imported from PACS Assessment & Plan - Diagnosis (1) Cellulitis of arm, right Is this a current diagnosis for this admission?: Yes Plan: Erythema and swelling over right elbow appears worse today. Secondary to infected abrasion over olecranon No evidence of drainage from abrasion. No leukocytosis, afebrile, nontoxic-appearing Continue vancomycin and d/c Rocephin, initiate imipenem for broader coverage of cellulitis in a diabetic patient (2) Elbow fracture, right Qualifiers: Encounter type: initial encounter Fracture type: closed Qualified Code(s) : S42.401A - Unspecified fracture of lower end of right humerus, initial encounter for closed fracture Is this a current diagnosis for this admission?: Yes Plan: Right olecranon fracture seen on x-ray. Ortho consulted, patient seen by Dr. Morley Does not recommend splint at the current time, states patient only requires RUE sling. No plan for surgical intervention, only IV antibiotics to treat suspected cellulitis IV fentanyl, oxycodone, and Motin as needed for pain control (3) Poorly controlled diabetes mellitus Is this a current diagnosis for this admission?: Yes Plan: Initial Hgb A1c 14 Accu-Cheks before meals at bedtime Humalog sliding scale (4) Pain management Is this a current diagnosis for this admission?: Yes Plan: Patient endorses history of chronic pain related to lower back injury. Reports he takes oxycodone 10 mg every 4-6 hours as needed for pain. The patient states he was taking his home dose pain medication in hopes of treating his right elbow pain, but it offered no relief. Initiated oxycodone 15mg every 46 hours as needed for pain as well as IV fentanyl for breakthrough pain - Time Time Spent with patient: 15-24 minutes Medications reviewed and adjusted accordingly: Yes Anticipated discharge: Home - Inpatient Certification Based on my medical assessment, after consideration of the patient's comorbidities, presenting symptoms, or acuity I expect that the services needed warrant INPATIENT care.: Yes I certify that my determination is in accordance with my understanding of Medicare's requirements for reasonable and necessary INPATIENT services [42 CFR 412.3e].: Yes Medical Necessity: Need for IV Antibiotics, Risk of Complication if Not Cared For in Hospital - Plan Summary Plan Summary: Expand antibiotic coverage. Continue to monitor.
[2018-03-30] MEDS ORDERED: OXYCODONE HCL SR 10 MG TABLET PO SCH (22:00)
[2018-03-30] MEDS: GABAPENTIN 300 MG CAPSULE PO SCH (22:09)
[2018-03-30] MEDS: SIMVASTATIN 10 MG TABLET PO SCH (22:09)
[2018-03-30] MEDS: ZOLPIDEM TARTRATE 5 MG TABLET PO SCH (22:10)
[2018-03-31] MEDS: IMIPENEM/CILASTATIN SODIUM 500 MG in NORMAL SALINE 100 ML IV SCH ×5 (00:04→23:51)
[2018-03-31] MEDS: OXYCODONE HCL IR 5 MG TABLET PO PRN ×3 (06:16→20:30)
[2018-03-31] MEDS: INSULIN LISPRO 100 UNIT/ML 3 ML VIAL SUBCUT PRN ×4 (06:17→22:59)
[2018-03-31] MEDS: VANCOMYCIN HCL 1,000 MG in DEXTROSE 5%-WATER 250 ML IV SCH ×3 (06:18→21:59)
[2018-03-31] MEDS: LANSOPRAZOLE 15 MG TAB.RAP.DR PO SCH ×2 (08:13→15:05)
[2018-03-31] MEDS: ISOSORBIDE MONONITRATE 30 MG TAB.ER.24H PO SCH (09:25)
[2018-03-31] MEDS: FENTANYL CITRATE INJ/PF 100 MCG/2 ML AMPUL IV PRN ×2 (09:25→15:00)
[2018-03-31] MEDS: CITALOPRAM HYDROBROMIDE 20 MG TABLET PO SCH (09:25)
[2018-03-31] MEDS: ENOXAPARIN SODIUM INJ 40 MG/0.4 ML DISP.SYRIN SUBCUT SCH (09:27)
--- NOTE | 2018-03-31 15:23 | RADIOLOGY REPORT (SQ) ---
EXAM DESCRIPTION: MRI RT UPPER EXTREMITY COMBO COMPLETED DATE/TIME: 03/31/2018 2:08 pm REASON FOR STUDY: poss abscess of r elbow COMPARISON: Right elbow films 03/23/2018, 03/29/2018 TECHNIQUE: Right elbow images acquired and stored on PACS. Multiplanar images to include fat sensit elli sequences as T1, fluid sensitive sequences as T2/STIR, cartilage sensitive sequences as FSPD, and gradient echo sequences. LIMITATIONS: None. FINDINGS: The olecranon soft tissues are diffusely abnormal. There is a 6.3 cm long by 3.4 cm trans verse by 1.8 cm AP fluid collection over the olecranon bursa with surrounding edema, skin thickening and surrounding contrast enhancement. This is worrisome for an infected olecranon bursa. Diffuse sk in thickening, and subcutaneous edema throughout the distal upper arm and proximal forearm is present from cellulitis. There is very subtle edema and contrast enhancement along the proximal aspect of the anconeus and fle xor digitorum profundus muscles, best shown on axial series 10, images 19-29. No intramuscular absce ss in the field of view. No underlying abnormal marrow edema or contrast enhancement of the bony olecranon. There is no under lying olecranon fracture. There is high signal in the distal triceps tendon on STIR image 19 and T1 image 19 without full-thick ness tendon tear. No significant elbow joint effusion. BONE MARROW: No olecranon fracture. No marrow signal abnormality worrisome for osteomyelitis JOINT EFFUSION: None noted. No loose bodies. ARTICULAR SURFACES: Normal. MEDIAL COLLATERAL LIGAMENT COMPLEX: Intact without edema or tear. MEDIAL EPICONDYLE AND COMMON FLEXOR TENDON: No tendinopathy. No partial or full-thickness tear. LATERAL COLLATERAL LIGAMENT: Intact without edema or tear. LATERAL EPICONDYLE AND COMMON EXTENSOR TENDON: No tendinopathy. No partial or full-thickness tear. LATERAL ULNAR COLLATERAL LIGAMENT: Intact without evidence for tear. BICEPS TENDON: Intact. No partial or full-thickness tendon tear. No muscle edema. TRICEPS TENDON: As above ULNAR NERVE: Grossly unremarkable ADJACENT SOFT TISSUES: As above OTHER: No other significant finding. IMPRESSION: Olecranon and fluid collection with surrounding inflammation/enhancement worrisome for i nfected olecranon bursa. Diffuse distal upper arm/proximal forearm cellulitis. No underlying bony olecranon marrow signal abnormalities or enhancement worrisome for osteomyelitis. No olecranon fracture. Minimal high signal in the distal most triceps tendon without full-thickness tendon tear. TECHNICAL DOCUMENTATION: JOB ID: [id number] [employer]- All Rights Reserved Reading location - IP/workstation name: [email or web address]
--- NOTE | 2018-03-31 17:05 | PDOC PROGRESS REPORT ---
Subjective Progress Note for:: 03/31/18 Subjective:: GÓMEZ ENRIQUEZ is a 62 year old male patient with past medical history of HTN, anxiety, active smoker, and poorly controlled DM (Hgb A1c 14) presents with chief complaint of R elbow swelling and tenderness. Patient endorses an accidental fall 5 days ago, xrays revealed right olecranon fracture. The patient went to see orthopedic surgeon at [facility] who placed a splint. The patient states he came to the ED because he was experiencing increasing pain and worsening range of motion to the right elbow, as well as swelling and pain to his right hand. The patient is seen on morning rounds; he is found resting in bed comfortably on room air. He complains of continued right elbow pain that is limiting his range of motion. He does report that this is slightly improved as compared to time of admission. He he tells me that the orthopedic surgeon today has recommended he have an MRI as there is concern that he may be developing an abscess. The patient's primary complaint is uncontrolled pain related to medication wearing off too quickly. He denies fever, chills, body aches, chest pain, dyspnea, abdominal pain, nausea , vomiting, diarrhea. Reason For Visit: CELLULITIS OF RIGHT ARM Physical Exam Vital Signs: Temp Pulse Resp BP Pulse Ox 98.5 F 81 12 118/68 98 03/31/18 11:59 03/31/18 11:59 03/31/18 11:59 03/31/18 11:59 03/31/18 11:59 Intake & Output 03/30/18 03/31/18 04/01/18 06:59 06:59 06:59 Intake Total 1160 6376 Output Total 400 Balance 760 6376 Weight 63.4 kg General appearance: PRESENT: no acute distress, thin, well-developed, well- nourished Head exam: PRESENT: atraumatic, normocephalic Eye exam: PRESENT: conjunctiva pink, EOMI, PERRLA. ABSENT: scleral icterus Mouth exam: PRESENT: moist, tongue midline Neck exam: ABSENT: carotid bruit, JVD, lymphadenopathy, thyromegaly Respiratory exam: PRESENT: clear to auscultation divya, symmetrical, unlabored. ABSENT: rales, rhonchi, wheezes Cardiovascular exam: PRESENT: RRR, +S1, +S2. ABSENT: diastolic murmur, rubs, systolic murmur Pulses: PRESENT: normal dorsalis pedis pul Vascular exam: PRESENT: normal capillary refill GI/Abdominal exam: PRESENT: normal bowel sounds, soft. ABSENT: distended, guarding, mass, organolmegaly, rebound, tenderness Rectal exam: PRESENT: deferred Extremities exam: PRESENT: joint swelling - Right elbow, other - Erythema extending from distal posterior third of right upper arm to mid forearm. ABSENT : calf tenderness, clubbing, full ROM - Limited range of motion right elbow, pedal edema Neurological exam: PRESENT: alert, awake, oriented to person, oriented to place , oriented to time, oriented to situation, CN II-XII grossly intact. ABSENT: motor sensory deficit Psychiatric exam: PRESENT: appropriate affect, normal mood. ABSENT: homicidal ideation, suicidal ideation Skin exam: PRESENT: dry, intact, warm. ABSENT: cyanosis, rash Results Laboratory Results: 03/30/18 07:00 03/29/18 05:16 Impressions: Elbow X-Ray 03/29/18 00:00 IMPRESSION: Nondisplaced right olecranon fracture with intra-articular extension. Overlying soft tissue swelling. Upper Extremity MRI 03/31/18 08:23 IMPRESSION: Olecranon and fluid collection with surrounding inflammation/ enhancement worrisome for infected olecranon bursa. Diffuse distal upper arm/ proximal forearm cellulitis. No underlying bony olecranon marrow signal abnormalities or enhancement worrisome for osteomyelitis. No olecranon fracture. Minimal high signal in the distal most triceps tendon without full-thickness tendon tear. Assessment & Plan - Diagnosis (1) Cellulitis of arm, right Is this a current diagnosis for this admission?: Yes Plan: Possibly worsening. T-max in last 48 hours is 99.0; WBC is normal. Erythema and edema to right elbow; extends from distal third of the upper arm to mid forearm. Erythema is most intense to the posterior side with edema of the olecranon process noted. Questionable area of drainage versus underlying purulent fluid (non-blanchable, fluctuant 0.5 cm round area noted to the posterior elbow) Blood cultures are negative at 48 hours. MRI reveals likely infected olecranon bursa. Continue vancomycin and imipenem. Aggressive blood sugar control. Orthopedics has been consulted; appreciate their evaluation recommendations. Pain management adjusted as follows: OxyContin 10 mg twice daily, oxycodone 15 mg every 6 hours as needed, IV fentanyl 25 mcg every 4 hours breakthrough pain only. Ideally will be able to discontinue fentanyl tomorrow, however, this may be dependent upon orthopedic surgery's plans for intervention. (2) Elbow fracture, right Qualifiers: Encounter type: initial encounter Fracture type: closed Qualified Code(s) : S42.401A - Unspecified fracture of lower end of right humerus, initial encounter for closed fracture Is this a current diagnosis for this admission?: Yes Plan: Right olecranon fracture seen on x-ray. Ortho consulted, patient seen by Dr. Morley Does not recommend splint at the current time, states patient only requires RUE sling. Remaining plan as above. (3) Poorly controlled diabetes mellitus Is this a current diagnosis for this admission?: Yes Plan: Hemoglobin A1c 14% Patient is placed on a consistent carb diet. Accu-Cheks before meals and at bedtime with Humalog for sliding scale coverage. Have resumed long acting insulin; Lantus 20 mg nightly. Holding oral antidiabetic's while inpatient. Will ask the prosthodontist/educator and advanced registered nurse to meet with patient. (4) Opiate dependence, continuous Is this a current diagnosis for this admission?: Yes Plan: Chronic opiate dependence with continuous use. The patient endorses a history of chronic back pain that is managed by oxycodone 10 mg 3-4 times daily. Recent oxycodone prescription was verified through the [place] controlled database system. Pain control now worsened secondary to recent right elbow fracture with overlying cellulitis. Pain medications adjusted as follows: OxyContin 10 mg twice daily, oxycodone 15 mg every 6 hours as needed, fentanyl 25 mcg for breakthrough pain only. Ideally will be able to discontinue fentanyl tomorrow, this may depend upon potential surgical interventions. Also anticipate patient may require increased OxyContin dosing to achieve effect. Recommend patient follow-up with outpatient paintings conservator at discharge. (5) Tobacco dependence Is this a current diagnosis for this admission?: Yes Plan: Smoking cessation is encouraged. Nicotine replacement therapies are offered; patient declines. - Time Time Spent with patient: 25-34 minutes Medications reviewed and adjusted accordingly: Yes Anticipated discharge: Home - Inpatient Certification Based on my medical assessment, after consideration of the patient's comorbidities, presenting symptoms, or acuity I expect that the services needed warrant INPATIENT care.: Yes I certify that my determination is in accordance with my understanding of Medicare's requirements for reasonable and necessary INPATIENT services [42 CFR 412.3e].: Yes Medical Necessity: Need for IV Antibiotics
--- NOTE | 2018-03-31 17:35 | PDOC PROGRESS REPORT ---
Subjective Progress Note for:: 03/31/18 Subjective:: Patient had no issues overnight. States that the swelling and erythema has not changed since yesterday. Reason For Visit: CELLULITIS OF RIGHT ARM Physical Exam Vital Signs: Temp Pulse Resp BP Pulse Ox 36.9 C 81 12 118/68 98 03/31/18 11:59 03/31/18 11:59 03/31/18 11:59 03/31/18 11:59 03/31/18 11:59 Intake & Output 03/30/18 03/31/18 04/01/18 06:59 06:59 06:59 Intake Total 1160 6376 Output Total 400 Balance 760 6376 Weight 63.4 kg General appearance: PRESENT: no acute distress Head exam: PRESENT: normocephalic Adult Front & Back Image: 1 - Patient has palpable olecranon bursal fluid with a 0.5 cm sinus drainage with just a tinge of purulent drainage. He is tender palpation of the olecranon process. Erythema improved since admission but now has plateaued and localized to the olecranon process and bursal region. Range of motion still is intact but painful with terminal flexion. Neurovascular intact distally. Results Laboratory Results: 03/30/18 07:00 03/29/18 05:16 Impressions: Elbow X-Ray 03/29/18 00:00 IMPRESSION: Nondisplaced right olecranon fracture with intra-articular extension. Overlying soft tissue swelling. Upper Extremity MRI 03/31/18 08:23 IMPRESSION: Olecranon and fluid collection with surrounding inflammation/ enhancement worrisome for infected olecranon bursa. Diffuse distal upper arm/ proximal forearm cellulitis. No underlying bony olecranon marrow signal abnormalities or enhancement worrisome for osteomyelitis. No olecranon fracture. Minimal high signal in the distal most triceps tendon without full-thickness tendon tear. Status: Image reviewed by me Assessment & Plan - Diagnosis (1) Cellulitis of arm, right Is this a current diagnosis for this admission?: Yes (2) Olecranon bursa abscess Qualifiers: Laterality: right Qualified Code(s): M71.021 - Abscess of bursa, right elbow Is this a current diagnosis for this admission?: Yes Plan: 62-year-old gentleman with cellulitis and a Vicryl bursitis second to infectious process. MRI was ordered today concerning purulent drainage and fluctuance in the olecranon process. Patient also has plateaued with these improvement with the antibiotics. MRI showed fluid collection in the olecranon bursal tissue and therefore will probably need I&D with bursectomy. Discussed the case with my partner Dr. Morgan who agreed to proceed to do the surgery tomorrow. I discussed the plan of action with the patient and he seems to understand and will consent for surgery. We will make him n.p.o. and consent him for surgery.
[2018-03-31] MEDS: ZOLPIDEM TARTRATE 5 MG TABLET PO SCH (21:58)
[2018-03-31] MEDS: GABAPENTIN 300 MG CAPSULE PO SCH (21:58)
[2018-03-31] MEDS: SIMVASTATIN 10 MG TABLET PO SCH (21:59)
[2018-03-31] MEDS: OXYCODONE HCL SR 10 MG TABLET PO SCH (21:59)
[2018-03-31] MEDS ORDERED: INSULIN GLARGINE,HUM.REC.ANLOG 300 UNIT/3 ML INSULN.PEN SUBCUT SCH (22:00)
[2018-04-01] MEDS: VANCOMYCIN HCL 1,000 MG in DEXTROSE 5%-WATER 250 ML IV SCH ×3 (05:48→22:27)
[2018-04-01 06:14] LABS: HEMATOCRIT 36.7 % (37.9-51.0); HEMOGLOBIN 12.4 g/dL (13.5-17.0); MEAN CORPUSCULAR HEMOGLOBIN 31.8 pg (27.0-33.4); MEAN CORPUSCULAR HGB CONC 33.7 g/dL (32.0-36.0); MEAN CORPUSCULAR VOLUME 95 fl (80-97); PLATELET COUNT 354 10^3/uL (150-450); RED BLOOD COUNT 3.88 10^6/uL (4.35-5.55); RED CELL DISTRIBUTION WIDTH 14.4 % (11.5-14.0); WHITE BLOOD COUNT 9.9 10^3/uL (4.0-10.5)
[2018-04-01] MEDS: FENTANYL CITRATE INJ/PF 100 MCG/2 ML AMPUL IV PRN (06:17)
[2018-04-01] MEDS: IMIPENEM/CILASTATIN SODIUM 500 MG in NORMAL SALINE 100 ML IV SCH ×3 (06:17→19:00)
[2018-04-01 06:30] LABS: ANION GAP 13 (5-19); BLOOD UREA NITROGEN 12 mg/dL (7-20); CALCIUM 9.9 mg/dL (8.4-10.2); CARBON DIOXIDE 30 mmol/L (22-30); CHLORIDE 97 mmol/L (98-107); GLUCOSE 265 mg/dL (75-110); POTASSIUM 4.5 mmol/L (3.6-5.0); SODIUM 139.5 mmol/L (137-145)
[2018-04-01] MEDS ORDERED: RINGERS SOLUTION,LACTATED 1,000 ML IV PRN (09:22)
[2018-04-01] MEDS: OXYCODONE HCL SR 10 MG TABLET PO SCH ×2 (11:36→22:27)
[2018-04-01] MEDS: CITALOPRAM HYDROBROMIDE 20 MG TABLET PO SCH (11:36)
[2018-04-01] MEDS: LANSOPRAZOLE 15 MG TAB.RAP.DR PO SCH ×2 (11:36→15:05)
[2018-04-01] MEDS: ISOSORBIDE MONONITRATE 30 MG TAB.ER.24H PO SCH (11:41)
[2018-04-01] MEDS: OXYCODONE HCL IR 5 MG TABLET PO PRN ×2 (14:25→22:27)
[2018-04-01] MEDS: INSULIN GLARGINE,HUM.REC.ANLOG 300 UNIT/3 ML INSULN.PEN SUBCUT ONE (14:25)
[2018-04-01] MEDS ORDERED: LORAZEPAM INJ 2 MG/1 ML VIAL IV PRN (14:39)
[2018-04-01] MEDS ORDERED: BACITRACIN INJ 50,000 UNIT VIAL ONE (14:41)
--- NOTE | 2018-04-01 14:47 | PDOC PROGRESS REPORT ---
Subjective Progress Note for:: 04/01/18 Subjective:: GÓMEZ ENRIQUEZ is a 62 year old male patient with past medical history of HTN, anxiety, active smoker, and poorly controlled DM (Hgb A1c 14) presents with chief complaint of R elbow swelling and tenderness. Patient endorses an accidental fall 5 days ago, xrays revealed right olecranon fracture. The patient went to see orthopedic surgeon at [facility] who placed a splint. The patient states he came to the ED because he was experiencing increasing pain and worsening range of motion to the right elbow, as well as swelling and pain to his right hand. The patient is seen on morning rounds; he is found resting in bed comfortably on room air. He complains of continued right elbow pain that is limiting his range of motion. He states that the current medication regiment is not controlling his pain; however, review of the MAR reveals that the patient is reporting 0-2 pain on the pain scale and has not been receiving the frequency of medications available to him. He is encouraged to talk with his nursing staff more openly about his comfort. He has no other questions or concerns today. He denies fever, chills, body aches, chest pain, dyspnea, abdominal pain, nausea , vomiting, diarrhea. Plan to go to OR with Orthopedics today. Reason For Visit: CELLULITIS OF RIGHT ARM Physical Exam Vital Signs: Temp Pulse Resp BP Pulse Ox 98.6 F 99 20 124/66 97 03/31/18 23:24 03/31/18 23:24 03/31/18 23:24 03/31/18 23:24 03/31/18 23:24 Intake & Output 03/31/18 04/01/18 04/02/18 06:59 06:59 06:59 Intake Total 6376 2411 Balance 6376 2411 Weight 63.4 kg 63.4 kg General appearance: PRESENT: no acute distress, thin, well-developed, well- nourished. ABSENT: cooperative Head exam: PRESENT: atraumatic, normocephalic Eye exam: PRESENT: conjunctiva pink, EOMI, PERRLA. ABSENT: scleral icterus Ear exam: PRESENT: normal external ear exam Mouth exam: PRESENT: moist, tongue midline Neck exam: ABSENT: carotid bruit, JVD, lymphadenopathy, thyromegaly Respiratory exam: PRESENT: clear to auscultation divya, symmetrical, unlabored. ABSENT: rales, rhonchi, wheezes Cardiovascular exam: PRESENT: RRR. ABSENT: diastolic murmur, rubs, systolic murmur Pulses: PRESENT: normal dorsalis pedis pul Vascular exam: PRESENT: normal capillary refill GI/Abdominal exam: PRESENT: normal bowel sounds, soft. ABSENT: distended, guarding, mass, organolmegaly, rebound, tenderness Rectal exam: PRESENT: deferred Extremities exam: PRESENT: joint swelling - R elbow, other - Erythema extending from distal posterior third of right upper arm to mid forearm. Fluctuant area to posterior elbow; no drainage.. ABSENT: calf tenderness, clubbing, pedal edema Neurological exam: PRESENT: alert, awake, oriented to person, oriented to place , oriented to time, oriented to situation, CN II-XII grossly intact. ABSENT: motor sensory deficit Psychiatric exam: PRESENT: agitated, appropriate affect, normal mood. ABSENT: homicidal ideation, suicidal ideation Skin exam: PRESENT: dry, intact, warm. ABSENT: cyanosis, rash Results Laboratory Results: 04/01/18 05:16 04/01/18 05:16 04/01/18 04/01/18 05:16 05:16 WBC 9.9 RBC 3.88 L Hgb 12.4 L Hct 36.7 L MCV 95 MCH 31.8 MCHC 33.7 RDW 14.4 H Plt Count 354 Sodium 139.5 Potassium 4.5 Chloride 97 L Carbon Dioxide 30 Anion Gap 13 BUN 12 Creatinine 0.59 Est GFR ( Amer) > 60 Est GFR (Non-Af Amer) > 60 Glucose 265 H Calcium 9.9 Impressions: Elbow X-Ray 03/29/18 00:00 IMPRESSION: Nondisplaced right olecranon fracture with intra-articular extension. Overlying soft tissue swelling. Upper Extremity MRI 03/31/18 08:23 IMPRESSION: Olecranon and fluid collection with surrounding inflammation/ enhancement worrisome for infected olecranon bursa. Diffuse distal upper arm/ proximal forearm cellulitis. No underlying bony olecranon marrow signal abnormalities or enhancement worrisome for osteomyelitis. No olecranon fracture. Minimal high signal in the distal most triceps tendon without full-thickness tendon tear. Assessment & Plan - Diagnosis (1) Cellulitis of arm, right Is this a current diagnosis for this admission?: Yes Plan: Unchanged. T-max in last 48 hours is 99.0; WBC is normal. Erythema and edema to right elbow; extends from distal third of the upper arm to mid forearm. Erythema is most intense to the posterior side with edema of the olecranon process noted. Non-blanchable, fluctuant 0.5 cm round area noted to the posterior elbow). Blood cultures are negative at 72 hours. MRI reveals likely infected olecranon bursa. Continue vancomycin and imipenem. Aggressive blood sugar control. Orthopedics has been consulted; appreciate their evaluation recommendations. Orthopedics plans to take patient to OR today. Pain management adjusted as follows: OxyContin 10 mg twice daily, oxycodone 15 mg every 6 hours as needed, IV fentanyl 25 mcg every 4 hours breakthrough pain only. (2) Elbow fracture, right Qualifiers: Encounter type: initial encounter Fracture type: closed Qualified Code(s) : S42.401A - Unspecified fracture of lower end of right humerus, initial encounter for closed fracture Is this a current diagnosis for this admission?: Yes Plan: Right olecranon fracture seen on x-ray. Ortho consulted, appreciate their evaluation and recommendation. Does not recommend splint at the current time, states patient only requires RUE sling. Remaining plan as above. (3) Poorly controlled diabetes mellitus Is this a current diagnosis for this admission?: Yes Plan: Hemoglobin A1c 13% Patient is placed on a consistent carb diet. Accu-Cheks before meals and at bedtime with Humalog for sliding scale coverage. Increased long acting insulin; Lantus 20 mg twice daily. Holding oral antidiabetic's while inpatient. Will ask the tobacco prevention health educator and registered radiologic technologist to meet with patient. Per nursing, patient has frequently been refusing insulin. (4) Opiate dependence, continuous Is this a current diagnosis for this admission?: Yes Plan: Chronic opiate dependence with continuous use. The patient endorses a history of chronic back pain that is managed by oxycodone 10 mg 3-4 times daily. Recent oxycodone prescription was verified through the [place] [employer] database system. Pain control now worsened secondary to recent right elbow fracture with overlying cellulitis. Pain medications adjusted as follows: OxyContin 10 mg twice daily, oxycodone 15 mg every 6 hours as needed, fentanyl 25 mcg for breakthrough pain only. Recommend patient follow-up with outpatient scene painter at discharge. (5) Tobacco dependence Is this a current diagnosis for this admission?: Yes Plan: Smoking cessation is encouraged. Nicotine replacement therapies are offered; patient declines. (6) Agitation Is this a current diagnosis for this admission?: Yes Plan: The patient is very confrontational and agitated today. Per nursing, he has been refusing insulin. Nursing also reports that the patient has been complaining that staff members are not communicating well between each other or with him and so he is being told numerous different things by different providers. Patient reports that his pain is uncontrolled, however, it appears that his pain is mostly reported as 0-2 and that his pain medication orders are not being utilized to their fullest extent. I have some unconfirmed suspicion that the patient may have more frequent alcohol use then was indicated on admission (informed nursing staff that he has occasional EtOH intake). Today would be day 3 of admission and so it is not unreasonable to prepare for potential EtOH withdrawal. We will have IV Ativan 1 mg every 4 available as needed for anxiety and agitation. Will escalate therapy should overt signs of withdrawal become present. Low threshold for Patient Advocacy involvement. - Time Time Spent with patient: 15-24 minutes Medications reviewed and adjusted accordingly: Yes Anticipated discharge: Home with Homehealth - Inpatient Certification Based on my medical assessment, after consideration of the patient's comorbidities, presenting symptoms, or acuity I expect that the services needed warrant INPATIENT care.: Yes I certify that my determination is in accordance with my understanding of Medicare's requirements for reasonable and necessary INPATIENT services [42 CFR 412.3e].: Yes Medical Necessity: Need for IV Antibiotics, Need for Surgery
[2018-04-01] MEDS ORDERED: MIDAZOLAM 2 MG/2 ML INJ ONE (17:01)
[2018-04-01] MEDS ORDERED: FENTANYL CITRATE INJ/PF 100 MCG/2 ML AMPUL ONE (17:02)
[2018-04-01] MEDS ORDERED: MORPHINE SULFATE 10 MG/ML INJ IV PRN (17:23)
[2018-04-01] MEDS ORDERED: FENTANYL CITRATE INJ/PF 100 MCG/2 ML AMPUL IV PRN ×3 (17:23)
[2018-04-01] MEDS ORDERED: DIPHENHYDRAMINE HCL 50 MG/ML VIAL IV PRN (17:23)
[2018-04-01] MEDS ORDERED: PROPOFOL INJ 200 MG/20 ML VIAL IV ONE (17:30)
[2018-04-01] MEDS: FENTANYL CITRATE INJ/PF 100 MCG/2 ML AMPUL ONE ×2 (18:00→18:05)
--- NOTE | 2018-04-01 18:16 | PDOC PROGRESS REPORT ---
Subjective Progress Note for:: 04/01/18 Subjective:: Patient seen on rounds this AM. Complains of pain in his right elbow. Pain is not improved over the past 24 hours. Notes fever and chills. Reason For Visit: CELLULITIS OF RIGHT ARM Physical Exam Vital Signs: Temp Pulse Resp BP Pulse Ox 98.2 F 87 16 120/81 98 04/01/18 17:45 04/01/18 17:55 04/01/18 17:55 04/01/18 17:55 04/01/18 17:55 Intake & Output 03/31/18 04/01/18 04/02/18 06:59 06:59 06:59 Intake Total 6376 2411 Balance 6376 2411 Weight 63.4 kg 63.4 kg Musculoskeletal exam: PRESENT: other - Right elbow: Small draining wound laterally. Palpable fluctuance with tenderness palpation. Notable erythema. Pain with attempted range of motion. No elbow effusion appreciated. Erythema distally slightly improved. Results Laboratory Results: 04/01/18 05:16 04/01/18 05:16 04/01/18 04/01/18 05:16 05:16 WBC 9.9 RBC 3.88 L Hgb 12.4 L Hct 36.7 L MCV 95 MCH 31.8 MCHC 33.7 RDW 14.4 H Plt Count 354 Sodium 139.5 Potassium 4.5 Chloride 97 L Carbon Dioxide 30 Anion Gap 13 BUN 12 Creatinine 0.59 Est GFR ( Amer) > 60 Est GFR (Non-Af Amer) > 60 Glucose 265 H Calcium 9.9 Impressions: Elbow X-Ray 03/29/18 00:00 IMPRESSION: Nondisplaced right olecranon fracture with intra-articular extension. Overlying soft tissue swelling. Upper Extremity MRI 03/31/18 08:23 IMPRESSION: Olecranon and fluid collection with surrounding inflammation/ enhancement worrisome for infected olecranon bursa. Diffuse distal upper arm/ proximal forearm cellulitis. No underlying bony olecranon marrow signal abnormalities or enhancement worrisome for osteomyelitis. No olecranon fracture. Minimal high signal in the distal most triceps tendon without full-thickness tendon tear. Assessment & Plan - Diagnosis (1) Olecranon bursa abscess Qualifiers: Laterality: right Qualified Code(s): M71.021 - Abscess of bursa, right elbow Is this a current diagnosis for this admission?: Yes Plan: Patient has evidence of septic olecranon bursitis. Attempted conservative measures without resolution. Patient had MRI demonstrating fluid collection. At this point we discussed treatment options and decision was made to proceed with operative treatment which includes irrigation and debridement right olecranon bursa. Risks and benefits were explained the patient risks including recurrent infection, postoperative pain, postoperative stiffness and need for future surgical intervention he has verbalized understanding consented for the procedure.
--- NOTE | 2018-04-01 18:19 | Operative Report ---
Operative Report DATE OF SURGERY: 04/01/18 PREOPERATIVE DIAGNOSIS: Right septic olecranon bursitis POSTOPERATIVE DIAGNOSIS: Same OPERATION: Excisional debridement right olecranon bursa with bursectomy SURGEON: ERMELINDA kaminski ANESTHESIA: GA TISSUE REMOVED OR ALTERED: Culture sent for aerobic, anaerobic, AFB and fungal COMPLICATIONS: None ESTIMATED BLOOD LOSS: Minimal PROCEDURE: Indication for above procedure: 62-year-old male who developed redness swelling and pain in his right elbow. Patient attempted conservative measures including IV antibiotics but failed to see improvement. MRI was done demonstrating nondisplaced fracture with underlying fluid collection at that point decision was made to proceed with operative treatment. Risks and benefits were explained to the patient, patient verbalized understanding consented for the procedure. Procedure In Detail: Patient was seen and evaluated in the preoperative holding area. The RIGHT upper extremity was initialized and marked. Patient received 2g of Ancef IV for bacterial prophylaxis. Patient was taken back to the operative room where transferred to the operative table and placed under general anesthesia. Once they were adequately anesthetized a nonsterile tourniquet was placed on the upper extremity. A surgical team debriefing was performed ensuring all instrumentation was available, the surgical procedure was discussed with possible concerns reviewed. The upper extremity was prepped with Betadine and draped in a sterile fashion. A timeout was done identifying correct patient, procedure and extremity everyone in attendance agree with this and verbalized no concerns. The extremity was elevated the tourniquet was inflated to 250 mmHg. Longitudinal skin incision was made along the olecranon bursa. Blunt dissection was performed. Copious amounts of purulence were encountered. The underlying olecranon bursa was identified and isolated. It was then removed until normal-appearing tissue was noted. Patient's fracture was not appreciated on direct visualization. Aerobic and anaerobic cultures were sent via swab. Soft tissue was sent for AFB and fungal. The wound was copiously irrigated with normal saline. It did track along the lateral border about 5 cm. I then placed a large [place] drains out the lateral aspect. Incision was closed with interrupted 3-0 nylon suture. Sponge counts, instrument counts, needle counts counts were correct. Patient was then awoken from anesthesia. Transferred from the operating room table to the operating room stretcher. There was no intraoperative complications patient tolerated procedure well stable to PACU. Postoperative plan: Patient will continue IV antibiotics. Anticipate discharge home on p.o. antibiotics in 48 hours.
[2018-04-01] MEDS: SIMVASTATIN 10 MG TABLET PO SCH (22:27)
[2018-04-01] MEDS: GABAPENTIN 300 MG CAPSULE PO SCH (22:27)
[2018-04-01] MEDS: ZOLPIDEM TARTRATE 5 MG TABLET PO SCH (22:27)
[2018-04-01] MEDS: INSULIN GLARGINE,HUM.REC.ANLOG 300 UNIT/3 ML INSULN.PEN SUBCUT SCH (22:32)
[2018-04-01] MEDS: INSULIN LISPRO 100 UNIT/ML 3 ML VIAL SUBCUT PRN (22:34)
[2018-04-02] MEDS: IMIPENEM/CILASTATIN SODIUM 500 MG in NORMAL SALINE 100 ML IV SCH ×3 (01:57→15:33)
[2018-04-02] MEDS: VANCOMYCIN HCL 1,000 MG in DEXTROSE 5%-WATER 250 ML IV SCH ×2 (06:42→15:33)
[2018-04-02 08:01] LABS: HEMATOCRIT 35.9 % (37.9-51.0); MEAN CORPUSCULAR HEMOGLOBIN 31.5 pg (27.0-33.4); MEAN CORPUSCULAR HGB CONC 33.5 g/dL (32.0-36.0); MEAN CORPUSCULAR VOLUME 94 fl (80-97); PLATELET COUNT 421 10^3/uL (150-450); RED BLOOD COUNT 3.82 10^6/uL (4.35-5.55); RED CELL DISTRIBUTION WIDTH 14.4 % (11.5-14.0); WHITE BLOOD COUNT 9.6 10^3/uL (4.0-10.5)
[2018-04-02] MEDS: INSULIN LISPRO 100 UNIT/ML 3 ML VIAL SUBCUT PRN ×4 (09:22→22:19)
[2018-04-02] MEDS: LANSOPRAZOLE 15 MG TAB.RAP.DR PO SCH ×2 (09:22→15:35)
[2018-04-02] MEDS: ISOSORBIDE MONONITRATE 30 MG TAB.ER.24H PO SCH (09:23)
[2018-04-02] MEDS: CITALOPRAM HYDROBROMIDE 20 MG TABLET PO SCH (09:23)
[2018-04-02] MEDS: OXYCODONE HCL SR 10 MG TABLET PO SCH ×2 (09:23→22:04)
[2018-04-02] MEDS: INSULIN GLARGINE,HUM.REC.ANLOG 300 UNIT/3 ML INSULN.PEN SUBCUT SCH ×2 (09:23→22:19)
--- NOTE | 2018-04-02 12:59 | PDOC PROGRESS REPORT ---
Subjective Progress Note for:: 04/02/18 Subjective:: No issues overnight. Patient states the pain is well controlled. He is eating bedside without issues. Reason For Visit: CELLULITIS OF RIGHT ARM Physical Exam Vital Signs: Temp Pulse Resp BP Pulse Ox 36.8 C 80 14 125/68 96 04/02/18 11:47 04/02/18 11:47 04/02/18 11:47 04/02/18 11:47 04/02/18 11:47 Intake & Output 04/01/18 04/02/18 04/03/18 06:59 06:59 06:59 Intake Total 2411 2802 Output Total 910 Balance 2411 1892 Weight 63.4 kg Adult Front & Back Image: 1 - Dressing is dry clean and intact. Good range of motion of the elbow. Neurovascular intact distally. Results Laboratory Results: 04/02/18 07:12 04/01/18 05:16 04/02/18 07:12 WBC 9.6 RBC 3.82 L Hgb 12.0 L Hct 35.9 L MCV 94 MCH 31.5 MCHC 33.5 RDW 14.4 H Plt Count 421 Impressions: Elbow X-Ray 03/29/18 00:00 IMPRESSION: Nondisplaced right olecranon fracture with intra-articular extension. Overlying soft tissue swelling. Upper Extremity MRI 03/31/18 08:23 IMPRESSION: Olecranon and fluid collection with surrounding inflammation/ enhancement worrisome for infected olecranon bursa. Diffuse distal upper arm/ proximal forearm cellulitis. No underlying bony olecranon marrow signal abnormalities or enhancement worrisome for osteomyelitis. No olecranon fracture. Minimal high signal in the distal most triceps tendon without full-thickness tendon tear. Assessment & Plan - Diagnosis (1) Cellulitis of arm, right Is this a current diagnosis for this admission?: Yes (2) Olecranon bursa abscess Qualifiers: Laterality: right Qualified Code(s): M71.021 - Abscess of bursa, right elbow Is this a current diagnosis for this admission?: Yes - Plan Summary Plan Summary: Patient will stay overnight for 1 more day of IV antibiotics and check of cultures. Okay to transition to p.o. and discharge tomorrow. Will change dressing prior to discharge. will follow-up and 7-10 days
--- NOTE | 2018-04-02 15:12 | Progress Note ---
Provider Note Provider Note: ID Consult Note Asked to review patient's chart. Pt not seen or examined. Mr. Herrera is a 62 year old man with HTN, tobacco use and poorly controlled DM who is admitted with septic R olecranon bursitis. Pt presented on 03/28/18 with redness, pain and swelling involving his R elbow following a fall at home. He also has a nondisplaced R olecranon fx that was managed with splinting. He was suspected of having an infection as an outpatient and was prescribed Keflex two days prior to admission, but the pain, redness and swelling persisted or worsened. Plain films showed the olecranon fx and overlying soft tissue swelling. MRI showed enhancement and inflammation about a fluid collection overlying the olecranon bursa. Blood cultures obtained on presentation have been negative. Unasyn was started on 03/28, then changed to Rocephin and vancomycin on 03/29, then to Primaxin and vancomycin on 03/30 to present. On 04/01, patient underwent excisional debridement and bursectomy for R septic olecranon bursitis, and culture from this has grown nothing in the past 1 day but the Gram stain shows GPCs. Impression/Recommendations The majority of septic bursitis cases are due to infection with Staph aureus, less commonly Strep species. Antibiotic therapy should be aimed at addressing these organisms. Typically treatment duration is 2 weeks, although if pt is immunocompetent and has had a bursectomy, even as little as one week may be curative. The patient's Gram stain from the OR showed GPCs. Without culture growth, it is not known whether these GPCs might represent MRSA. Recommend treating the patient with PO Bactrim 1 DS BID for 2 weeks to address the likely pathogens, including MRSA. If there ends up being culture growth and either MSSA or Strep species are recovered, PO dicloxacillin 500 mg PO QID could be an option. Aidan Montez MD [facility] Infectious Diseases pager [phone]
[2018-04-02] MEDS: OXYCODONE HCL IR 5 MG TABLET PO PRN (17:51)
--- NOTE | 2018-04-02 18:04 | PDOC PROGRESS REPORT ---
Subjective Progress Note for:: 04/02/18 Subjective:: GÓMEZ ENRIQUEZ is a 62 year old male patient with past medical history of HTN, anxiety, active smoker, and poorly controlled DM (Hgb A1c 14) presents with chief complaint of R elbow swelling and tenderness. Patient endorses an accidental fall 5 days ago, xrays revealed right olecranon fracture. The patient went to see orthopedic surgeon at [facility] who placed a splint. The patient states he came to the ED because he was experiencing increasing pain and worsening range of motion to the right elbow, as well as swelling and pain to his right hand. The patient is seen on morning rounds; he is found sitting up to the edge of the bed eating his lunch. He appears to be in better spirits today. He reports that his pain is much improved following incision and drainage by orthopedics last night. He does report intermittent chest wall discomfort is reproducible with deep breaths and cough. He denies cardiac typical symptoms of chest pain, palpitations, dyspnea, orthopnea. Overall, he is feeling much better and is hopeful to be discharged home later today. Late this afternoon, I received a phone call from patient's nurse reporting that his chest pain has worsened. He is now complaining of constant anterior chest pain, radiating to shoulders. Denies associated symptoms. Reason For Visit: CELLULITIS OF RIGHT ARM Physical Exam Vital Signs: Temp Pulse Resp BP Pulse Ox 98 F 78 14 140/71 H 97 04/02/18 16:34 04/02/18 16:34 04/02/18 16:34 04/02/18 16:34 04/02/18 16:34 Intake & Output 04/01/18 04/02/18 04/03/18 06:59 06:59 06:59 Intake Total 2411 2802 Output Total 910 Balance 2411 1892 Weight 63.4 kg General appearance: PRESENT: no acute distress, well-developed, well-nourished Head exam: PRESENT: atraumatic, normocephalic Eye exam: PRESENT: conjunctiva pink, EOMI, PERRLA. ABSENT: scleral icterus Mouth exam: PRESENT: moist, tongue midline Neck exam: ABSENT: carotid bruit, JVD, lymphadenopathy, thyromegaly Respiratory exam: PRESENT: clear to auscultation divya, symmetrical, unlabored. ABSENT: rales, rhonchi, wheezes Cardiovascular exam: PRESENT: RRR. ABSENT: diastolic murmur, rubs, systolic murmur Vascular exam: PRESENT: normal capillary refill GI/Abdominal exam: PRESENT: normal bowel sounds, soft. ABSENT: distended, guarding, mass, organolmegaly, rebound, tenderness Rectal exam: PRESENT: deferred Extremities exam: ABSENT: calf tenderness, clubbing, full ROM - Right elbow limited secondary to pain, pedal edema Neurological exam: PRESENT: alert, awake, oriented to person, oriented to place , oriented to time, oriented to situation, CN II-XII grossly intact. ABSENT: motor sensory deficit Psychiatric exam: PRESENT: appropriate affect, normal mood. ABSENT: homicidal ideation, suicidal ideation Skin exam: PRESENT: dry, warm. ABSENT: cyanosis, intact - Surgical incision not visualized; surgical dressing and Tommy wrap in place., rash Results Laboratory Results: 04/02/18 07:12 04/01/18 05:16 04/02/18 07:12 WBC 9.6 RBC 3.82 L Hgb 12.0 L Hct 35.9 L MCV 94 MCH 31.5 MCHC 33.5 RDW 14.4 H Plt Count 421 Impressions: Elbow X-Ray 03/29/18 00:00 IMPRESSION: Nondisplaced right olecranon fracture with intra-articular extension. Overlying soft tissue swelling. Upper Extremity MRI 03/31/18 08:23 IMPRESSION: Olecranon and fluid collection with surrounding inflammation/ enhancement worrisome for infected olecranon bursa. Diffuse distal upper arm/ proximal forearm cellulitis. No underlying bony olecranon marrow signal abnormalities or enhancement worrisome for osteomyelitis. No olecranon fracture. Minimal high signal in the distal most triceps tendon without full-thickness tendon tear. Assessment & Plan - Diagnosis (1) Cellulitis of arm, right Is this a current diagnosis for this admission?: Yes Plan: Improved; now status post surgical I&D by orthopedics. Afebrile 48 hours, WBCs normal. Blood cultures are negative at 4 days. Wound culture positive for gram-positive cocci. MRI reveals likely infected olecranon bursa. Infectious disease consulted secondary to limited microbial information and multiple IV antibiotics used prior to clinical improvement. Dr. Montez recommends initial trial of p.o. Bactrim. IV vancomycin and imipenem discontinued; initiating Bactrim. Aggressive blood sugar control. Orthopedics has been consulted; appreciate their evaluation recommendations. Pain management adjusted as follows: OxyContin 10 mg twice daily, oxycodone 15 mg every 6 hours as needed (2) Elbow fracture, right Qualifiers: Encounter type: initial encounter Fracture type: closed Qualified Code(s) : S42.401A - Unspecified fracture of lower end of right humerus, initial encounter for closed fracture Is this a current diagnosis for this admission?: Yes Plan: Right olecranon fracture seen on x-ray. Ortho consulted, appreciate their evaluation and recommendation. Does not recommend splint at the current time, states patient only requires RUE sling. Remaining plan as above. (3) Poorly controlled diabetes mellitus Is this a current diagnosis for this admission?: Yes Plan: Hemoglobin A1c 13% Patient is placed on a consistent carb diet. Accu-Cheks before meals and at bedtime with Humalog for sliding scale coverage. Increased long acting insulin; Lantus 22 mg twice daily. Holding oral antidiabetic's while inpatient. Will ask the ict educator and screening unit registered nurse to meet with patient. (4) Opiate dependence, continuous Is this a current diagnosis for this admission?: Yes Plan: Chronic opiate dependence with continuous use. The patient endorses a history of chronic back pain that is managed by oxycodone 10 mg 3-4 times daily. Recent oxycodone prescription was verified through the [place] controlled database system. Pain control now worsened secondary to recent right elbow fracture with overlying cellulitis. Pain medications adjusted as follows: OxyContin 10 mg twice daily, oxycodone 15 mg every 6 hours as needed Recommend patient follow-up with outpatient interior painter at discharge. Patient appears to be doing well with OxyContin use; may benefit from long- acting opiate medications as outpatient. (5) Tobacco dependence Is this a current diagnosis for this admission?: Yes Plan: Smoking cessation is encouraged. Nicotine replacement therapies are offered; patient declines. (6) Agitation Is this a current diagnosis for this admission?: Yes Plan: Much improved today; agitation was likely related to uncontrolled pain. IV Ativan as needed remains in place for acute anxiety or agitation. (7) Chest pain Qualifiers: Chest pain type: unspecified Qualified Code(s): R07.9 - Chest pain, unspecified Is this a current diagnosis for this admission?: Yes Plan: Atypical chest pain reported as anterior chest wall pain exacerbated by deep inspiration, cough, movements. The patient reports that his pain has gradually been worsening throughout the day and now radiates to bilateral shoulders. He denies associated symptoms. Although chest pain is most likely related to muscuoskeletal discomfort (recent right elbow fracture, cellulitis, surgical procedure positioning), he does have significant risk factors including male, age, tobacco history, hypertension, and diabetes mellitus. We will obtain EKG, chest x-ray, and trend troponins. - Time Time Spent with patient: 25-34 minutes Medications reviewed and adjusted accordingly: Yes Anticipated discharge: Home Within: within 24 hours
--- NOTE | 2018-04-02 18:55 | RADIOLOGY REPORT (SQ) ---
EXAM DESCRIPTION: CHEST SINGLE VIEW COMPLETED DATE/TIME: 04/02/2018 6:45 pm REASON FOR STUDY: chest pain COMPARISON: April 2011 EXAM PARAMETERS: NUMBER OF VIEWS: One view. TECHNIQUE: Single frontal radiographic view of the chest acquired. RADIATION DOSE: NA LIMITATIONS: None. FINDINGS: LUNGS AND PLEURA: No opacities, masses or pneumothorax. No pleural effusion. There is a m ild nonspecific prominence of the interstitial markings. MEDIASTINUM AND HILAR STRUCTURES: No masses. Contour normal. HEART AND VASCULAR STRUCTURES: Heart normal in size. Normal vasculature. BONES: No acute findings. HARDWARE: None in the chest. OTHER: No other significant finding. IMPRESSION: NO ACUTE RADIOGRAPHIC FINDING IN THE CHEST. TECHNICAL DOCUMENTATION: JOB ID: [id number] [employer]- All Rights Reserved Reading location - IP/workstation name: [email or web address]
[2018-04-02] MEDS: GABAPENTIN 300 MG CAPSULE PO SCH (22:04)
[2018-04-02] MEDS: SULFAMETHOXAZOLE/TRIMETHOPRIM 800-160 MG TABLET PO SCH (22:04)
[2018-04-02] MEDS: ZOLPIDEM TARTRATE 5 MG TABLET PO SCH (22:04)
[2018-04-02] MEDS: SIMVASTATIN 10 MG TABLET PO SCH (22:04)
--- NOTE | 2018-04-02 22:12 | EKG REPORT ---
SEVERITY:- NORMAL ECG - SINUS RHYTHM : Confirmed by: Divya Medellin 02-Apr-2018 22:11:40
[2018-04-03 06:41] LABS: HEMATOCRIT 36.1 % (37.9-51.0); HEMOGLOBIN 12.4 g/dL (13.5-17.0); MEAN CORPUSCULAR HEMOGLOBIN 32.3 pg (27.0-33.4); MEAN CORPUSCULAR HGB CONC 34.5 g/dL (32.0-36.0); MEAN CORPUSCULAR VOLUME 94 fl (80-97); PLATELET COUNT 371 10^3/uL (150-450); RED BLOOD COUNT 3.85 10^6/uL (4.35-5.55); RED CELL DISTRIBUTION WIDTH 14.4 % (11.5-14.0); WHITE BLOOD COUNT 9.1 10^3/uL (4.0-10.5)
[2018-04-03] MEDS: ISOSORBIDE MONONITRATE 30 MG TAB.ER.24H PO SCH (10:41)
[2018-04-03] MEDS: LANSOPRAZOLE 15 MG TAB.RAP.DR PO SCH ×2 (10:41→17:06)
[2018-04-03] MEDS: SULFAMETHOXAZOLE/TRIMETHOPRIM 800-160 MG TABLET PO SCH (10:41)
[2018-04-03] MEDS: CITALOPRAM HYDROBROMIDE 20 MG TABLET PO SCH (10:41)
[2018-04-03] MEDS: INSULIN GLARGINE,HUM.REC.ANLOG 300 UNIT/3 ML INSULN.PEN SUBCUT SCH (10:42)
[2018-04-03] MEDS: INSULIN LISPRO 100 UNIT/ML 3 ML VIAL SUBCUT PRN ×2 (10:42→17:06)
[2018-04-03] MEDS: OXYCODONE HCL SR 10 MG TABLET PO SCH (10:43)
--- NOTE | 2018-04-03 12:07 | PDOC CONSULTATION ---
Consultation Consult Date: 04/03/18 Attending physician:: JEROME AMARO Consult reason:: Chest pain History of Present Illness Admission Date/PCP: 03/28/18 22:45 DIONISIO GUERRERO DO Patient complains of: Patient claims to be doing fine from cardiac standpoint. History of Present Illness: GÓMEZ ENRIQUEZ is a 62 year old male patient with past medical history of hypertension, anxiety, active smoker, and poorly controlled diabetes mellitus with hemoglobin A1c of 14 presents with chief complaint of right arm swelling and tenderness. Patient reports this accidental fall 5 days ago and he injured his right arm for which he had seen orthopedic surgeon and he was found to have fracture of the right olecranon. The last 2 days patient continued to have tenderness worsening pain and full range of motion. He has subjective fever but no chills, cough, chest pain, nausea, vomiting or diarrhea. No headache or dizziness or blurry vision. This history obtained by the hospitalist on admission was reviewed with the patient and confirmed. Patient was noted to have some soreness in his both shoulders area and therefore a cardiology consult was obtained. So far his cardiac enzymes has been negative. EKGs has been relatively unremarkable. Patient on questioning claims that he has no heart problems. He describes that the soreness in his shoulders result from doing some pull-ups he has done by hooking his feet to the end of the bed rails and then doing sit ups. Patient does not want any cardiac evaluation at this point. Patient was informed that he does have significant cardiac risk factors therefore he may have underlying CAD. Past Medical History Cardiac Medical History: Reports: Myocardial Infarction Denies: Congestive Heart Failure, Hypertension, Heart Murmur Pulmonary Medical History: Denies: Asthma, Bronchitis, Chronic Obstructive Pulmonary Disease (COPD), Pneumonia, Tuberculosis Neurological Medical History: Denies: Seizures Endocrine Medical History: Reports: Diabetes Mellitus Type 2 GI Medical History: Reports: Gastroesophageal Reflux Disease Denies: Hepatitis, Hiatal Hernia Musculoskeltal Medical History: Psychiatric Medical History: Reports: Depression Hematology: Denies: Anemia, Sickle Cell Disease Past Surgical History Past Surgical History: Reports: Cardiac Catheterization Denies: Pacemaker Social History Information Source: Patient Smoking Status: Current Every Day Smoker Cigarettes Packs Per Day: 1 Number of Years Smokin Last Time Smoked: 03/28/18 Frequency of Alcohol Use: Occasional Hx Recreational Drug Use: No Hx Prescription Drug Abuse: No - Advance Directive Resuscitation Status: Full Code Family History Family History: Reviewed & Not Pertinent, DM, Hypertension Parental Family History Reviewed: Yes Children Family History Reviewed: Yes Sibling(s) Family History Reviewed.: Yes Medication/Allergy Home Medications: Nitroglycerin [Nitrostat SL 0.4 mg Tablet] 0.4 mg SL DAILYP PRN 06/11/12 Simvastatin [Zocor 20 mg Tablet] 20 mg PO QHS 06/11/12 Albuterol Sulfate [Ventolin Hfa] 2 puff IH Q4HP PRN 03/29/18 Citalopram Hydrobromide [Celexa 40 mg Tablet] 1 tab PO DAILY 03/29/18 Gabapentin [Neurontin 300 mg Capsule] 300 mg PO Q12 03/29/18 Insulin Aspart [Novolog Flexpen] 10 unit SQ AC 03/29/18 Insulin Glargine,Hum.rec.anlog [Basaglar Kwikpen U-100] 55 unit SQ QHS 03/29/18 Isosorbide Mononitrate [Isosorbide Mononitrate ER] 30 mg PO DAILY 03/29/18 Naproxen 500 mg PO Q12 03/29/18 Omeprazole 20 mg PO Q12 03/29/18 Oxycodone HCl/Acetaminophen [Percocet 10-325 mg Tablet] 1 tab PO Q6HP PRN Sitagliptin Phosphate [Januvia] 100 mg PO DAILY 03/29/18 Zolpidem Tartrate [Ambien] 10 mg PO QHS 03/29/18 Allergies/Adverse Reactions: chlorpromazine HCl [From Thorazine] Allergy (Verified 03/23/18 12:26) faints Review of Systems Review of Systems: Please see history of present illness and past medical history as wall. Constitutional: No fever or chills reported. Head : No recent chronic headaches, recent head injury. Eyes: No recent eye pain, diplopia, redness, discharge, acute visual changes. Ears: No recent chronic ear pain, acute hearing loss, ear discharge. Oral cavity: No recent ulcerations, bleeding, oral cavity discomfort. Neck: No recent acute neck pain reported. Hematologic: No recent easy bruising or bleeding. Lymphatic: No recent lymph node enlargement reported. Cardiovascular system review: See history of present illness. Respiratory system review: No hemoptysis or blood clots in the lungs reported. Mild Shortness of breath on exertion Gastrointestinal system review: Negative for any recent acute hematemesis, melena. Genitourinary system review: No recent acute or chronic hematuria, flank pain, UTI etc. reported. Skin system review: Negative for any recent abnormal bruising, no rash, no pruritus reported. Neurologic: No prior history of strokes, mini strokes, seizure disorder. Psychologic: No history of major psychosis or major depression reported. Musculoskeletal: Minor aches and pains reported. No acute joint swelling reported. Currently being treated for right elbow problem and infection. Endocrine: No recent polyuria, polydipsia, recent heat or cold intolerance. Physical Exam Vital Signs: Temp Pulse Resp BP Pulse Ox 98.6 F 74 16 115/81 99 04/03/18 08:34 04/03/18 08:34 04/03/18 08:34 04/03/18 08:34 04/03/18 08:34 Intake & Output 04/02/18 04/03/18 04/04/18 06:59 06:59 06:59 Intake Total 2802 1734 Output Total 910 Balance 1892 1734 Weight 66.6 kg Exam: GENERAL: well-nourished and in no acute distress. Alert and oriented x3 HEAD: Atraumatic, normocephalic. EYES: Pupils equal round and reactive to light, extraocular movements intact, sclera anicteric, conjunctiva are normal. ENT: TMs normal, nares patent, oropharynx clear without exudates. Moist mucous membranes. No oral ulcerations or bleeding gums noted NECK: supple without lymphadenopathy. Trachea is central. No cervical or axillary lymphadenopathy noted. Carotids are 2+, JVD WNL LUNGS: Respiration seems nonlabored, no significant accessory muscle action noted. Breath sounds clear to auscultation bilaterally and equal noted. No wheezes rales or rhonchi noted. No significant dullness noted on percussion. CHEST: Palpation of the chest wall shows no significant chest wall tenderness. HEART: [place] [employer], No PSH, 1/6 KYLE aortic area, 1/6 chi systolic murmur mitral area, no rubs, no gallops. ABDOMEN: Soft, no significant tenderness appreciated, normoactive bowel sounds. No guarding, no rebound. No rigidity noted . No masses appreciated. EXTREMITIES: Pedal pulses are 1-2+, no calf tenderness noted. No clubbing or cyanosis. negative pedal edema noted NEUROLOGICAL: Focused neurological exam showed no significant neurologic deficit. Normal speech, no focal weakness appreciated. PSYCH: Normal mood, normal affect. Judgment and insight within normal limits. SKIN: No significant ecchymosis, skin is noted to be warm. MUSCULOSKELETAL EXAM: No significant acute joint swelling noted. Patient has a open wound with some swelling and redness in the right elbow area. Results Laboratory Results: 04/03/18 05:39 04/01/18 05:16 04/03/18 05:39 WBC 9.1 RBC 3.85 L Hgb 12.4 L Hct 36.1 L MCV 94 MCH 32.3 MCHC 34.5 RDW 14.4 H Plt Count 371 04/02/18 04/03/18 04/03/18 17:54 00:12 05:39 Troponin I < 0.012 < 0.012 < 0.012 EKG Comments: Twelve-lead EKG was obtained. It shows sinus rhythm, no acute ST-T wave changes noted. Prior twelve-lead EKG was also reviewed and was noted to be unremarkable. Impressions: Elbow X-Ray 03/29/18 00:00 IMPRESSION: Nondisplaced right olecranon fracture with intra-articular extension. Overlying soft tissue swelling. Upper Extremity MRI 03/31/18 08:23 IMPRESSION: Olecranon and fluid collection with surrounding inflammation/ enhancement worrisome for infected olecranon bursa. Diffuse distal upper arm/ proximal forearm cellulitis. No underlying bony olecranon marrow signal abnormalities or enhancement worrisome for osteomyelitis. No olecranon fracture. Minimal high signal in the distal most triceps tendon without full-thickness tendon tear. Chest X-Ray 04/02/18 00:00 IMPRESSION: NO ACUTE RADIOGRAPHIC FINDING IN THE CHEST. Assessment & Plan - Diagnosis (1) Chest pain Qualifiers: Chest pain type: unspecified Qualified Code(s): R07.9 - Chest pain, unspecified Is this a current diagnosis for this admission?: Yes (2) Cellulitis of arm, right Is this a current diagnosis for this admission?: Yes (3) Olecranon bursa abscess Qualifiers: Laterality: right Qualified Code(s): M71.021 - Abscess of bursa, right elbow Is this a current diagnosis for this admission?: Yes (4) Poorly controlled diabetes mellitus Is this a current diagnosis for this admission?: Yes (5) Tobacco dependence Is this a current diagnosis for this admission?: Yes - Notes Notes: Chest pain: Patient does have significant cardiac risk factors. So far cardiac enzymes and EKGs have been unremarkable. Patient most likely has musculoskeletal pain given the exercise he did described in HPI. Patient nevertheless was advised to have a nuclear stress test because of his risk factors but he claims that he does not have a heart problem and does not want to pursue this. I believe that it can be done as an outpatient if he changes his mind. Patient in the meantime should be treated with statins, good control of his risk factors, tobacco cessation etc. Cellulitis of the right arm/olecranon bursa abscess: This is being managed by orthopedic surgeon. Tobacco dependence: Patient advised tobacco cessation but I believe he is not interested in it at this point. May need to be addressed as an outpatient and later on. Continue nicotine patch while inpatient. Diabetes mellitus: This is being expertly managed by the hospitalist. - Time Time Spent: 30 to 50 Minutes - More than 50% of the time spent coordinating care , discussing management plans with involved caregivers. Management plans discussed with involved personnels. Medical decision making was of moderate to high complexity, patient's has multiple comorbidities. Will sign off. Please reconsult if needed. Patient given my card should he wish to see me as an outpatient. May also consider making an appointment with my office on discharge. Medications reviewed and adjusted accordingly: Yes
[2018-04-03 17:40] VITALS: BP 128/68
--- NOTE | 2018-04-03 22:48 | EKG REPORT ---
SEVERITY:- NORMAL ECG - SINUS RHYTHM : Confirmed by: Divya Medellin 03-Apr-2018 22:47:55
--- NOTE | 2018-04-03 22:49 | PDOC DISCHARGE SUMMARY ---
General - Admit/Disc Date/PCP Admission Date/Primary Care Provider: 03/28/18 22:45 DIONISIO GUERRERODO Discharge Date: 04/03/18 - Discharge Diagnosis (1) Cellulitis of arm, right Is this a current diagnosis for this admission?: Yes Summary: Secondary to abrasion over the right olecranon process with underlying olecranon fracture. Blood cultures negative at 5 days. Wound culture (preliminary): gram positive cocci. The patient was initially placed on IV Unasyn. This was advanced to IV Vancamycin and Rocephin. The patient continued to have clinical worsening; therefore antibiotics were further escalated. Rocephin was discontinued, Vancomycin continued, and Imipenem initiated. Orthopedics was consulted; MRI was obtained and revealed infected olecranon bursa. The patient was taken to the OR for incision and drainage. Infectious disease was consulted; recommendations for po Bactrim. IV antibiotics were discontinued and Bactrim started. The patient was observed for an additional 24 hours. He remained afebrile with normal WBCs and continued clinical improvement. At time of discharge, the patient is in stable condition, afebrile, with well controlled pain. He is instructed to complete his course of antibiotics and to seek immediate care for worsening appearance of arm. He is advised to follow up with his primary care provider within 1 week and with orthopedics within 2 weeks. (2) Elbow fracture, right Is this a current diagnosis for this admission?: Yes Summary: Right olecranon fracture seen on x-ray. Orthopedics consulted and recommended wearing sling. (3) Poorly controlled diabetes mellitus Is this a current diagnosis for this admission?: Yes Summary: Hemoglobin A1c 13% Patient was placed on a consistent carb diet. He was placed on Lantus 22 units twice daily; dose slowly increased related to continued elevated fasting glucose. Accuchecks were monitored and sliding scale humalog provided. The patient educated and pediatric registered nurse were consulted. At discharge, the patient is instructed to continue Basaglar 28 units twice daily and to resume his home dosed humalog and Januvia. (4) Opiate dependence, continuous Is this a current diagnosis for this admission?: Yes Summary: Chronic opiate dependence with continuous use. The patient endorses a history of chronic back pain that is managed by oxycodone 10 mg 3-4 times daily. Recent oxycodone prescription was verified through the [place] controlled database system. Pain control now worsened secondary to recent right elbow fracture with overlying cellulitis. Pain medications were adjusted to OxyContin 10 mg twice daily and oxycodone 15 mg every 6 hours as needed, with fentanyl for breakthrough pain. Once Oxycontin was initiated, the patient no longer required fentanyl and his oxycodone requests were decreased to once daily; his pain was exceptionally well controlled with long acting Oxycontin. Recommend following up with primary care provider or set painter to discuss Oxycontin as a part of his chronic pain management plan. (5) Tobacco dependence Is this a current diagnosis for this admission?: Yes (6) Agitation Is this a current diagnosis for this admission?: Yes Summary: Resolved with adequate pain control. (7) Chest pain Is this a current diagnosis for this admission?: Yes Summary: Atypical chest pain reported as anterior chest wall pain exacerbated by deep inspiration, cough, movements. The patient reports that his pain has gradually been worsening throughout the day and now radiates to bilateral shoulders. He denies associated symptoms. Although chest pain is most likely related to muscuoskeletal discomfort (recent right elbow fracture, cellulitis, surgical procedure positioning), he does have significant risk factors including male, age, tobacco history, hypertension, and diabetes mellitus. EKG demonstrated NSR without evidence of ST segment elevation of depression. Chest xray was negative for acute findings. Serial troponins were negative x 3. The patient met with cardiology; declined to have stress testing done. The patient was advised on lifestyle modifications and encouraged to follow up with Cardiology as needed or report to the Emergency Department for acute chest pain. - Additional Information Resuscitation Status: Full Code Discharge Diet: Diabetic Discharge Activity: Activity As Tolerated, Balance Activity w/Rest Prescriptions: Insulin Glargine,Hum.rec.anlog [Basaglar Kwikpen U-100] 28 unit SQ BID #1 insuln.pen Oxycodone HCl [Oxy-Ir 5 mg Tablet] 5 mg PO Q4HP PRN #12 tablet PRN Reason: For Pain Oxycodone HCl [Oxycontin Sr 10 mg Tablet] 10 mg PO Q12 #6 tab.sr.12h Sulfamethoxazole/Trimethoprim [Septra-Ds 800-160 mg Tablet] 1 tab PO Q12 #28 tablet Home Medications: Nitroglycerin [Nitrostat 0.4 mg (1/150 Gr) Tabs 25/Bottle] 0.4 mg SL DAILYP PRN 06/11/12 Simvastatin [Zocor 20 mg Tablet] 20 mg PO QHS 06/11/12 Albuterol Sulfate [Ventolin Hfa] 2 puff IH Q4HP PRN 03/29/18 Citalopram Hydrobromide [Celexa 40 mg Tablet] 1 tab PO DAILY 03/29/18 Gabapentin [Neurontin 300 mg Capsule] 300 mg PO Q12 03/29/18 Insulin Aspart [Novolog Flexpen] 10 unit SQ AC 03/29/18 Isosorbide Mononitrate [Isosorbide Mononitrate ER] 30 mg PO DAILY 03/29/18 Naproxen 500 mg PO Q12 03/29/18 Omeprazole 20 mg PO Q12 03/29/18 Oxycodone HCl/Acetaminophen [Percocet 10-325 mg Tablet] 1 tab PO Q6HP PRN Sitagliptin Phosphate [Januvia] 100 mg PO DAILY 03/29/18 Zolpidem Tartrate [Ambien] 10 mg PO QHS 03/29/18 Acetaminophen [Tylenol 325 mg Tablet] 650 mg PO Q4HP PRN tablet 04/03/18 Insulin Glargine,Hum.rec.anlog [Basaglar Kwikpen U-100] 28 unit SQ BID #1 insuln.pen 04/03/18 Oxycodone HCl [Oxy-Ir 5 mg Tablet] 5 mg PO Q4HP PRN #12 tablet 04/03/18 Oxycodone HCl [Oxycontin Sr 10 mg Tablet] 10 mg PO Q12 #6 tab.sr.12h 04/03/18 Sulfamethoxazole/Trimethoprim [Septra-Ds 800-160 mg Tablet] 1 tab PO Q12 #28 tablet 04/03/18 History of Present Illness History of Present Illness: Per H&P by Dr. Alonzo: GÓMEZ ENRIQUEZ is a 62 year old male patient with past medical history of hypertension, anxiety, active smoker, and poorly controlled diabetes mellitus with hemoglobin A1c of 14 presents with chief complaint of right arm swelling and tenderness. Patient reports this accidental fall 5 days ago and he injured his right arm for which he had seen orthopedic surgeon and he was found to have fracture of the right olecranon. The last 2 days patient continued to have tenderness worsening pain and full range of motion. He has subjective fever but no chills, cough, chest pain, nausea, vomiting or diarrhea. No headache or dizziness or blurry vision. Physical Exam Vital Signs: Temp Pulse Resp BP Pulse Ox 98.4 F 88 16 128/68 H 99 04/03/18 17:38 04/03/18 17:38 04/03/18 17:38 04/03/18 17:38 04/03/18 17:38 Intake & Output 04/02/18 04/03/18 04/04/18 06:59 06:59 06:59 Intake Total 2802 1734 Output Total 910 Balance 1892 1734 Weight 66.6 kg General appearance: PRESENT: no acute distress, well-developed, well-nourished Head exam: PRESENT: atraumatic, normocephalic Eye exam: PRESENT: conjunctiva pink, EOMI, PERRLA. ABSENT: scleral icterus Mouth exam: PRESENT: moist, tongue midline Neck exam: ABSENT: carotid bruit, JVD, lymphadenopathy, thyromegaly Respiratory exam: PRESENT: clear to auscultation divya, symmetrical, unlabored. ABSENT: rales, rhonchi, wheezes Cardiovascular exam: PRESENT: RRR, +S1, +S2. ABSENT: diastolic murmur, rubs, systolic murmur Vascular exam: PRESENT: normal capillary refill Rectal exam: PRESENT: deferred Extremities exam: PRESENT: joint swelling - Rt elbow, other - Rt elbow ROM limited 2/2 pain and edema. Rt elbow erythema and edema; significant improvement from yesterday. Scant serosangenous drainage from I&D site.. ABSENT: calf tenderness, clubbing, full ROM, pedal edema Neurological exam: PRESENT: alert, awake, oriented to person, oriented to place , oriented to time, oriented to situation, CN II-XII grossly intact. ABSENT: motor sensory deficit Psychiatric exam: PRESENT: appropriate affect, normal mood. ABSENT: homicidal ideation, suicidal ideation Skin exam: PRESENT: dry, intact, warm. ABSENT: cyanosis, rash Results Laboratory Results: 04/03/18 05:39 04/01/18 05:16 04/03/18 05:39 WBC 9.1 RBC 3.85 L Hgb 12.4 L Hct 36.1 L MCV 94 MCH 32.3 MCHC 34.5 RDW 14.4 H Plt Count 371 04/02/18 04/03/18 04/03/18 17:54 00:12 05:39 Troponin I < 0.012 < 0.012 < 0.012 Impressions: Elbow X-Ray 03/29/18 00:00 IMPRESSION: Nondisplaced right olecranon fracture with intra-articular extension. Overlying soft tissue swelling. Upper Extremity MRI 03/31/18 08:23 IMPRESSION: Olecranon and fluid collection with surrounding inflammation/ enhancement worrisome for infected olecranon bursa. Diffuse distal upper arm/ proximal forearm cellulitis. No underlying bony olecranon marrow signal abnormalities or enhancement worrisome for osteomyelitis. No olecranon fracture. Minimal high signal in the distal most triceps tendon without full-thickness tendon tear. Chest X-Ray 04/02/18 00:00 IMPRESSION: NO ACUTE RADIOGRAPHIC FINDING IN THE CHEST. Qualifiers - * PATIENT BEING DISCHARGED WITH ANY OF THE FOLLOWING DIAGNOSIS: No Plan Discharge Plan: Discharge to home with Home Health nursing. Follow up with primary care provider within 1 week. Follow up with Orthopedics within 2 weeks or sooner as needed.
== END 2018-04-03 18:17 | disposition home health service (06) | DRG 501 ==
LOC: ER 19:13 → EH 22:45 → 4S 23:25
PROVIDERS: ADMIT Internal Medicine; ATTEND Internal Medicine
PROC: 0MB30ZZ Excision of Right Elbow Bursa and Ligament, Open Approach (ICD-10-PCS; principal; 2018-04-01 17:45)
DX: M71.021 Abscess of bursa, right elbow (principal); L03.113 Cellulitis of right upper limb; F11.20 Opioid dependence, uncomplicated; S52.024A Nondisplaced fracture of olecranon process without intraarticular extension of right ulna, initial encounter for closed fracture; M79.89 Other specified soft tissue disorders; E11.65 Type 2 diabetes mellitus with hyperglycemia; K21.9 Gastro-esophageal reflux disease without esophagitis; B95.61 Methicillin susceptible Staphylococcus aureus infection as the cause of diseases classified elsewhere; I10 Essential (primary) hypertension; R45.1 Restlessness and agitation; R07.9 Chest pain, unspecified; F41.9 Anxiety disorder, unspecified; F17.210 Nicotine dependence, cigarettes, uncomplicated; I25.2 Old myocardial infarction; W19.XXXA Unspecified fall, initial encounter; Y93.89 Activity, other specified; Y92.89 Other specified places as the place of occurrence of the external cause; Z79.84 Long term (current) use of oral hypoglycemic drugs; Z79.899 Other long term (current) drug therapy; Z91.14 Patient's other noncompliance with medication regimen
CPT/HCPCS: 01710; 36415; 71045; 80048; 80053; 80202; 82803; 82962; 83036; 83605; 84484; 85025; 85027; 85652; 86140; 87015; 87040; 87070; 87075; 87077; 87101; 87116; 87186; 87205; 87206; 93005; 93010; 96361; 96374; 96375; 99284; A9576; J0295; J0696; J0743; J1170; J1650; J1815; J2250; J2270; J2704; J3010; J3370; J3490; J7030; J7060; L3650

== ENCOUNTER 2018-06-30 12:26 | Emergency (ER) | payer MEDICARE, MEDICAID ==
[2018-06-30 13:19] VITALS: BP 114/77
[2018-06-30] MEDS ORDERED: KETOROLAC TROMETHAMINE 60 MG/2 ML SDV IM ONE (14:37)
--- NOTE | 2018-06-30 16:23 | RADIOLOGY REPORT (SQ) ---
EXAM DESCRIPTION: HIP RIGHT AP/LATERAL COMPLETED DATE/TIME: 06/30/2018 4:16 pm REASON FOR STUDY: right hip COMPARISON: None. NUMBER OF VIEWS: Two views. TECHNIQUE: AP pelvis and additional AP and frog-leg view of the right hip. LIMITATIONS: None. FINDINGS: MINERALIZATION: Normal. RIGHT HIP: No fracture or dislocation. No worrisome bone lesions. LEFT HIP: No fracture or dislocation. No worrisome bone lesions. PUBIS AND ISCHIUM: No fracture. PELVIS: No fracture. SACRUM: No fracture or dislocation. No worrisome bone lesions. LOWER LUMBAR SPINE: No fracture or dislocation. No worrisome bone lesions. No significant disc disea se. SOFT TISSUES: No findings. OTHER: No other significant finding. IMPRESSION: NEGATIVE STUDY OF THE RIGHT HIP. NO RADIOGRAPHIC EVIDENCE OF ACUTE INJURY. TECHNICAL DOCUMENTATION: JOB ID: [id number] [employer]- All Rights Reserved Reading location - IP/workstation name: [email or web address]
[2018-06-30] MEDS ORDERED: DEXAMETHASONE 4 MG TABLET PO ONE (16:31)
[2018-06-30] MEDS ORDERED: LIDOCAINE 5% (700 MG) TRANSDERMAL ADH..PATCH TP ONE (16:35)
--- NOTE | 2018-06-30 16:35 | ER Document Report ---
ED General - General Chief Complaint: Hip Injury Stated Complaint: FALL/RIGHT HIP PAIN Time Seen by Provider: 06/30/18 14:07 TRAVEL OUTSIDE OF THE [place] IN LAST 30 DAYS: No - HPI Patient complains to provider of: Right hip pain Notes: Patient has a history of DDD states had a fall a few days prior to evaluation here patient states follows greater than 48 hours. Patient denies any loss constant but states continues to have right hip pain. Patient denies any fevers chills nausea by diarrhea. Patient able to stand up despite stating that he is having difficulty in standing and difficulty walking. Patient was to be no obvious distress. - Related Data Allergies/Adverse Reactions: chlorpromazine HCl [From Thorazine] Allergy (Verified 06/30/18 12:37) faints Past Medical History - Social History Smoking Status: Current Some Day Smoker Chew tobacco use (# tins/day): No Frequency of alcohol use: Occasional Drug Abuse: None Family History: Reviewed & Not Pertinent, DM, Hypertension Patient has suicidal ideation: No Patient has homicidal ideation: No - Past Medical History Cardiac Medical History: Reports: Hx Heart Attack Denies: Hx Congestive Heart Failure, Hx Hypertension, Hx Heart Murmur Pulmonary Medical History: Denies: Hx Asthma, Hx Bronchitis, Hx COPD, Hx Pneumonia, Hx Tuberculosis Neurological Medical History: Denies: Hx Cerebrovascular Accident, Hx Seizures Endocrine Medical History: Reports: Hx Diabetes Mellitus Type 2 Renal/ Medical History: Denies: Hx Peritoneal Dialysis GI Medical History: Reports: Hx Gastroesophageal Reflux Disease. Denies: Hx Hepatitis, Hx Hiatal Hernia, Hx Ulcer Musculoskeletal Medical History: Psychiatric Medical History: Reports: Hx Depression Infectious Medical History: Denies: Hx Hepatitis Past Surgical History: Reports: Hx Cardiac Catheterization - +2 stents, Hx Cardiac Surgery - stents, Hx Oral Surgery. Denies: Hx Open Heart Surgery, Hx Pacemaker - Immunizations Hx Diphtheria, Pertussis, Tetanus Vaccination: Yes Review of Systems - Review of Systems Constitutional: No symptoms reported EENT: No symptoms reported Cardiovascular: No symptoms reported Respiratory: No symptoms reported Gastrointestinal: No symptoms reported Genitourinary: No symptoms reported Male Genitourinary: No symptoms reported Musculoskeletal: Other - Right hip pain Skin: No symptoms reported Hematologic/Lymphatic: No symptoms reported Neurological/Psychological: No symptoms reported Physical Exam - Vital signs Vitals: Temp Pulse Resp BP Pulse Ox 97.7 F 106 H 16 114/77 96 06/30/18 13:17 06/30/18 13:17 06/30/18 13:17 06/30/18 13:17 06/30/18 13:17 Interpretation: Normal - General General appearance: Appears well, Alert - HEENT Head: Normocephalic, Atraumatic Eyes: Normal Pupils: PERRL - Respiratory Respiratory status: No respiratory distress Chest status: Nontender Breath sounds: Normal Chest palpation: Normal - Cardiovascular Rhythm: Regular Heart sounds: Normal auscultation Murmur: No - Abdominal Inspection: Normal Distension: No distension Bowel sounds: Normal Tenderness: Nontender Organomegaly: No organomegaly - Back Back: Normal, Nontender - Extremities General upper extremity: Normal inspection, Nontender, Normal color, Normal ROM , Normal temperature General lower extremity: Normal inspection, Nontender, Normal color, Normal ROM , Normal temperature, Normal weight bearing. No: Kendra's sign - Neurological Neuro grossly intact: Yes Cognition: Normal Orientation: AAOx4 [place] Coma Scale Eye Opening: Spontaneous [place] Coma Scale Verbal: Oriented [place] Coma Scale Motor: Obeys Commands [place] Coma Scale Total: 15 Speech: Normal Motor strength normal: LUE, RUE, LLE, RLE Sensory: Normal - Psychological Associated symptoms: Normal affect, Normal mood - Skin Skin Temperature: Warm Skin Moisture: Dry Skin Color: Normal Course - Re-evaluation Re-evalutation: 06/30/18 21:05 Patient coming in for right hip pain. Patient receives oxycodone from his PCP 90 tablets each month. He normally fills in on the to the . Patient receives 90 tablets on June 06, 1990 tablets on May 09, 1990 tablets on April 07. Explained to patient that with his chronic pain being controlled by his PCP would recommend follow-up with PCP will try nonnarcotic methods of controlling his pain patient is to be discharged home follow-up with PCP - Vital Signs Vital signs: Temp Pulse Resp BP Pulse Ox 97.8 F 98 13 114/77 98 06/30/18 17:47 06/30/18 17:47 06/30/18 17:47 06/30/18 17:47 06/30/18 17:47 Discharge - Discharge Clinical Impression: Right hip pain Condition: Good Disposition: HOME, SELF-CARE Instructions: Arthralgia ([facility]), Sciatica ([facility]) Additional Instructions: X-ray does not showing signs of fracture or dislocation. Your examination is consistent with sciatic pain. We recommend continuing her home prescribed oxycodone. Please follow-up with your primary care physician at your next appointment. Return to ER symptoms worsen. Take the ketorolac as prescribed for pain control. Prescriptions: Ketorolac Tromethamine 10 mg PO TID #9 tablet Ketorolac Tromethamine 10 mg PO TID #12 tablet Referrals: DIONISIO GUERRERO DO [Primary Care Provider] - Follow up as needed
== END 2018-06-30 17:49 | disposition home or self-care (01) ==
LOC: ER 12:26
DX: M25.551 Pain in right hip (principal); W19.XXXA Unspecified fall, initial encounter; Y92.009 Unspecified place in unspecified non-institutional (private) residence as the place of occurrence of the external cause; G89.29 Other chronic pain; Z79.891 Long term (current) use of opiate analgesic; R26.2 Difficulty in walking, not elsewhere classified; F17.200 Nicotine dependence, unspecified, uncomplicated; E11.9 Type 2 diabetes mellitus without complications; I25.2 Old myocardial infarction; Z95.5 Presence of coronary angioplasty implant and graft; Z88.8 Allergy status to other drugs, medicaments and biological substances
CPT/HCPCS: 99283; 96372; 73502; A9270; J1885

== ENCOUNTER 2018-07-24 18:58 | Inpatient (IN) | payer MEDICARE, MEDICAID ==
[2018-07-24 19:34] LABS: ABSOLUTE BASOPHILS # (AUTO) 0.1 10^3/uL (0.0-0.2); ABSOLUTE EOSINOPHILS # (AUTO) 0.2 10^3/uL (0.0-0.6); ABSOLUTE LYMPHOCYTES (AUTO) 2.4 10^3/uL (0.5-4.7); ABSOLUTE MONOCYTES (AUTO) 1.2 10^3/uL (0.1-1.4); ABSOLUTE NEUT (AUTO) 9.5 10^3/uL (1.7-8.2); BASOPHILS % (AUTO) 0.5 % (0-2); EOSINOPHILS % (AUTO) 1.3 % (0-6); HEMATOCRIT 41.6 % (37.9-51.0); HEMOGLOBIN 13.7 g/dL (13.5-17.0); LYMPHOCYTES % (AUTO) 17.9 % (13-45); MEAN CORPUSCULAR HEMOGLOBIN 29.8 pg (27.0-33.4); MEAN CORPUSCULAR HGB CONC 33.1 g/dL (32.0-36.0); MEAN CORPUSCULAR VOLUME 90 fl (80-97); MONOCYTES % (AUTO) 8.7 % (3-13); PLATELET COUNT 422 10^3/uL (150-450); RED BLOOD COUNT 4.61 10^6/uL (4.35-5.55); RED CELL DISTRIBUTION WIDTH 16.7 % (11.5-14.0); SEGMENTED NEUTROPHILS % (AUTO) 71.6 % (42-78); TOTAL CELLS COUNTED % (AUTO) 100 %; WHITE BLOOD COUNT 13.3 10^3/uL (4.0-10.5)
[2018-07-24 19:36] LABS: VENOUS BLOOD BASE EXCESS -0.4 mmol/L; VENOUS BLOOD HCO3 26.1 mmol/L (20-32); VENOUS BLOOD PH 7.35 (7.30-7.42)
[2018-07-24 19:39] LABS: INTERNATIONAL RATION (INR) 1.05; PROTHROMBIN TIME 14.2 SEC (11.4-15.4)
[2018-07-24 19:51] LABS: ALANINE AMINOTRANSFERASE 23 U/L (21-72); ALBUMIN 3.3 g/dL (3.5-5.0); ALKALINE PHOSPHATASE 147 U/L (38-126); ANION GAP 13 (5-19); ASPARTATE AMINO TRANSFERASE 18 U/L (17-59); BILIRUBIN,DIRECT 0.4 mg/dL (0.0-0.4); BILIRUBIN,TOTAL 0.9 mg/dL (0.2-1.3); BLOOD UREA NITROGEN 27 mg/dL (7-20); CARBON DIOXIDE 27 mmol/L (22-30); CHLORIDE 91 mmol/L (98-107); CREATINE KINASE 41 U/L (55-170); POTASSIUM 5.1 mmol/L (3.6-5.0); SODIUM 130.9 mmol/L (137-145); TOTAL PROTEIN 6.8 g/dL (6.3-8.2)
[2018-07-24 19:59] LABS: GLUCOSE 503 mg/dL (75-110)
[2018-07-24 20:03] LABS: CREATINE KINASE MB 0.88 ng/mL (<4.55)
[2018-07-24] MEDS ORDERED: ONDANSETRON HCL INJ/PF 4 MG/2 ML SDV IV ONE (20:03)
[2018-07-24] MEDS ORDERED: NORMAL SALINE 1000 ML 1,000 ML IV ONE (20:03)
--- NOTE | 2018-07-24 20:05 | ER Document Report ---
ED General - General Chief Complaint: High Blood Sugar Stated Complaint: BLOOD SUGAR PROBLEM Time Seen by Provider: 07/24/18 19:40 Notes: Patient is a 62-year-old male with a past medical history of hypertension, hyperlipidemia, current smoker, who presents with multiple vague complaints. His primary complaint is 2 weeks of nausea, lack of appetite, weight loss, as well as several days of left lower abdominal pain. Describes it as an aching, cramping pain. Nothing improves or worsens his symptoms. He is unsure of whether or not he has had similar symptoms in the past. He has not seen his general doctor regarding today's concerns. He denies fever, vomiting, but has been quite nauseated. No chest pain. He states he always feels somewhat short of breath. TRAVEL OUTSIDE OF THE [place] IN LAST 30 DAYS: No - Related Data Allergies/Adverse Reactions: chlorpromazine HCl [From Thorazine] Allergy (Verified 06/30/18 12:37) faints Past Medical History - General Information source: Patient - Social History Smoking Status: Current Every Day Smoker Chew tobacco use (# tins/day): No Frequency of alcohol use: Occasional Drug Abuse: Marijuana Lives with: Family Family History: Reviewed & Not Pertinent, DM, Hypertension Patient has suicidal ideation: No Patient has homicidal ideation: No - Past Medical History Cardiac Medical History: Reports: Hx Heart Attack Denies: Hx Congestive Heart Failure, Hx Hypertension, Hx Heart Murmur Pulmonary Medical History: Denies: Hx Asthma, Hx Bronchitis, Hx COPD, Hx Pneumonia, Hx Tuberculosis Neurological Medical History: Denies: Hx Cerebrovascular Accident, Hx Seizures Endocrine Medical History: Reports: Hx Diabetes Mellitus Type 2 Renal/ Medical History: Denies: Hx Peritoneal Dialysis GI Medical History: Reports: Hx Gastroesophageal Reflux Disease. Denies: Hx Hepatitis, Hx Hiatal Hernia, Hx Ulcer Musculoskeletal Medical History: Psychiatric Medical History: Reports: Hx Depression Infectious Medical History: Denies: Hx Hepatitis Past Surgical History: Reports: Hx Cardiac Catheterization - +2 stents, Hx Cardiac Surgery - stents, Hx Oral Surgery. Denies: Hx Open Heart Surgery, Hx Pacemaker - Immunizations Hx Diphtheria, Pertussis, Tetanus Vaccination: Yes Review of Systems - Review of Systems Notes: Constitutional: Negative for fever. HENT: Negative for sore throat. Eyes: Negative for visual changes. Cardiovascular: Negative for chest pain. Respiratory: Positive for shortness of breath. Gastrointestinal: Positive for abdominal pain and nausea Genitourinary: Negative for dysuria. Musculoskeletal: Negative for back pain. Skin: Negative for rash. Neurological: Negative for headaches, weakness or numbness. 10 point ROS negative except as marked above and in HPI. Physical Exam - Vital signs Interpretation: Tachycardic Notes: PHYSICAL EXAMINATION: GENERAL: Well-appearing, well-nourished and in no acute distress. HEAD: Atraumatic, normocephalic. EYES: Pupils equal round and reactive to light, extraocular movements intact, sclera anicteric, conjunctiva are normal. ENT: nares patent, oropharynx clear without exudates. Mildly dry mucous membranes. NECK: Normal range of motion, supple without lymphadenopathy LUNGS: Breath sounds clear to auscultation bilaterally and equal. No wheezes rales or rhonchi. HEART: Irregular regular tachycardia without murmurs ABDOMEN: Soft, mild tenderness to the left lower quadrant with rebound tenderness, normoactive bowel sounds. No guarding no masses appreciated. EXTREMITIES: Normal range of motion, no pitting or edema. No cyanosis. NEUROLOGICAL: No focal neurological deficits. Moves all extremities spontaneously and on command. PSYCH: Normal mood, normal affect. SKIN: Warm, Dry, normal turgor, no rashes or lesions noted. Course - Re-evaluation Re-evalutation: 07/24/18 20:04 Patient presents with hyperglycemia, tachycardia with associated bigeminy, and multiple additional vague complaints including nausea, left lower quadrant abdominal pain and chronic low back and hip pain. Exam is notable for focal tenderness to the left lower quadrant, dry mucous membranes, irregular tachycardia. Broad differential given multiple complaints and lack of focality. Initial laboratories do show a mild leukocytosis, hyperglycemia without evidence of DKA or HHS. Will obtain CT abdomen pelvis to evaluate for the possibility of acute diverticulitis, abscess or colonic perforation. Will also obtain a chest x-ray. IV fluids have been initiated. 07/24/18 21:58 CT scan of the chest abdomen pelvis is unfortunately very worrisome for, stage IV lung cancer. The patient has multiple lymph nodes bilaterally in the lungs as well as in the adrenal glands that appear to be consistent with metastatic disease as well as a primary tumor in the left lung. Patient's laboratories do show a mildly elevated troponin at 0.049, patient does deny any chest pain. His heart rate continues to show bigeminy. Patient will require hospitalization given his elevated heart rate, new diagnosis of metastatic disease, elevated troponin. - Laboratory Result Diagrams: 07/24/18 19:13 07/24/18 19:13 Laboratory results interpreted by me: 07/24/18 07/24/18 07/24/18 19:13 19:13 20:16 WBC 13.3 H RDW 16.7 H Absolute Neutrophils 9.5 H Sodium 130.9 L Potassium 5.1 H Chloride 91 L BUN 27 H Glucose 503 H* Calcium 11.0 H Alkaline Phosphatase 147 H Creatine Kinase 41 L Albumin 3.3 L Urine Glucose (UA) >=500 H Urine Ketones 20 H Urine Blood SMALL H - Diagnostic Test Radiology reviewed: Reports reviewed Discharge - Discharge Clinical Impression: Elevated troponin, Tobacco dependence, Poorly controlled diabetes mellitus, Hyperglycemia Metastatic lung cancer (metastasis from lung to other site) Qualifiers: Laterality: left Qualified Code(s): C34.92 - Malignant neoplasm of unspecified part of left bronchus or lung Condition: Fair Disposition: ADMITTED INPATIENT Admitting Provider: Hospitalist Unit Admitted: Telemetry Referrals: DIONISIO GUERRERO DO [Primary Care Provider] - Follow up as needed
[2018-07-24 20:11] LABS: TROPONIN I 0.049 ng/mL
[2018-07-24] MEDS ORDERED: INSULIN REG, HUMAN 100 UNIT/ML 3 ML VIAL (PYX) SUBCUT ONE (20:24)
--- NOTE | 2018-07-24 20:26 | RADIOLOGY REPORT (SQ) ---
EXAM DESCRIPTION: CHEST SINGLE VIEW COMPLETED DATE/TIME: 07/24/2018 7:46 pm REASON FOR STUDY: sob COMPARISON: 04/02/2018 TECHNIQUE: Single frontal radiographic view of the chest acquired. NUMBER OF VIEWS: One view. LIMITATIONS: None. FINDINGS: LUNGS AND PLEURA: Increased left parahilar opacities -fullness. No pneumothorax. No pleur al effusion. MEDIASTINUM AND HILAR STRUCTURES: Increased left parahilar opacities -fullness. HEART AND VASCULAR STRUCTURES: Stable. BONES: No acute findings. HARDWARE: None in the chest. OTHER: No other significant finding. IMPRESSION: Increased left parahilar opacities -fullness. TECHNICAL DOCUMENTATION: JOB ID: [id number] [id number] 2010 [employer]- All Rights Reserved Reading location - IP/workstation name: [email or web address]
--- NOTE | 2018-07-24 21:29 | RADIOLOGY REPORT (SQ) ---
PROCEDURE: CT OF THE CHEST WITH INTRAVENOUS CONTRAST HISTORY: eval perihilar fullness ?mass Indication: Same as above Comparison: None Technique: The study was done on 07/24/2018 at 8:[address] of the chest was done with intravenous contrast, followed by orthogonal reconstructions. The patient was injected with radiographic contrast intravenously, without any documented immediate adverse reactions. This exam was performed according to our departmental dose-optimization program, which includes automated exposure control, adjustment of the mA and/or KV according to the patient's size and/or use of iterative reconstruction technique. FINDINGS: There are underlying changes of COPD. In addition there is presence of pathologically enlarged lymph nodes in the mediastinum and the subcarinal region, the largest of these lymph nodes measuring 21 mm in short axis dimension seen in the right paratracheal region and the largest subcarinal lymph node measuring 2.8 cm in short axis dimension. Pathologically enlarged lymph nodes are also seen in the bilateral hilar regions, worse on the left side. There is a 1.8 x 2.1 x 1.8 cm mass lesion in the left hilum surrounding the left lower lobe pulmonary artery and suspicious for a malignancy. There is presence of moderate size infiltrate/atelectasis in the left lower lobe of the lung extending to the left hilum. Minimal interstitial infiltrates are also seen in the lingula of the left lung. Note is made of a small ill-defined opacity in the right lung apex. There is no gross evidence of pulmonary embolism. There is no pleural effusion or pneumothorax There is no clinically significant thoracic aortic aneurysm or dissection. There is no clinically significant pericardial effusion. The visualized thoracic bony rib cage appears unremarkable. In the visualized upper abdomen there is presence of 13 mm right adrenal nodule and 18 mm left adrenal nodule IMPRESSION: There is presence of pathologically enlarged lymph nodes in the mediastinum and the subcarinal region, the largest of these lymph nodes measuring 21 mm in short axis dimension seen in the right paratracheal region and the largest subcarinal lymph node measuring 2.8 cm in short axis dimension. Pathologically enlarged lymph nodes are also seen in the bilateral hilar regions, worse on the left side. These lymph nodes are suspicious for a malignant process There is a 1.8 x 2.1 x 1.8 cm mass lesion in the left hilum surrounding the left lower lobe pulmonary artery and suspicious for a malignancy. There is presence of moderate size infiltrate/atelectasis in the left lower lobe of the lung extending to the left hilum. Minimal interstitial infiltrates are also seen in the lingula of the left lung. Note is made of a small ill-defined opacity in the right lung apex. Changes of COPD are seen in the bilateral lung mccoy In the visualized upper abdomen there is presence of 13 mm right adrenal nodule and 18 mm left adrenal nodule
--- NOTE | 2018-07-24 21:39 | RADIOLOGY REPORT (SQ) ---
PROCEDURE: CT OF THE ABDOMEN AND PELVIS WITH INTRAVENOUS CONTRAST HISTORY: llq pain Indication: Same as above Comparison: CT of the chest done concurrently . Technique: The study was done on 07/24/2018 at 8:[address] of the abdomen and pelvis was done with intravenous contrast. Images were obtained from the lung base to the level of the pubic symphysis in axial plane, followed by orthogonal sagittal and coronal reconstruction. Oral contrast was not given for the study. The patient was injected with radiographic contrast intravenously, without any documented immediate adverse reactions. This exam was performed according to our departmental dose-optimization program, which includes automated exposure control, adjustment of the mA and/or KV according to the patient's size and/or use of iterative reconstruction technique. FINDINGS: Images through the lung bases shows enlarged subcarinal lymph nodes and left lower lobe infiltrate/atelectasis. In the right anterior abdomen in the peritoneal cavity there is a 2.2 x 3.1 x 3.3 cm intraperitoneal mass abutting the proximal transverse colon. This lesion has slightly irregular margins and may represent an intraperitoneal desmoid tumor and less likely metastatic disease. In the adjacent anterior right subcutaneous fat there is an additional 13 mm well-circumscribed lesion, etiology uncertain. There is presence of a 13 mm right adrenal nodule and 18 mm left adrenal nodule. These could represent benign adrenal adenomas or metastatic disease and can be further assessed with dedicated CT of the adrenal glands using adrenal adenoma protocol. There is a 2.7 cm infrarenal abdominal aortic aneurysm, which can be followed up at five yearly intervals based on the size criteria. Extensive atherosclerotic changes are seen in the abdominal aorta and the bilateral common iliac and external iliac arteries The liver, gallbladder, pancreas and the spleen appear unremarkable. The bilateral kidneys enhance with contrast in a normal fashion. A benign cortical cyst is seen in the lateral upper pole of the right kidney The urinary bladder is unremarkable . The bilateral ureters and the bilateral periureteral soft tissues and fat planes are unremarkable. The small bowel appears unremarkable, without any evidence of small bowel obstruction or bowel wall thickening. The appendix is not visualized The ileocecal junction appears unremarkable. There is no CT evidence of acute colonic diverticulitis or colitis or large bowel obstruction. The splenic and portal veins are of normal caliber, without any filling defects. There is no pathological lymphadenopathy in the retroperitoneum or in the pelvic region. There is no evidence of free fluid or free air in the abdomen or the pelvic region. There is no clinically significant abdominal aortic aneurysm. There is no clinically significant inguinal or ventral hernia. The visualized lumbar spine shows multilevel degenerative change . The paravertebral soft tissues are unremarkable. The remainder of the pelvic structures are unremarkable. IMPRESSION: Images through the lung bases shows enlarged subcarinal lymph nodes and left lower lobe infiltrate/atelectasis. In the right anterior abdomen in the peritoneal cavity there is a 2.2 x 3.1 x 3.3 cm intraperitoneal mass abutting the proximal transverse colon. This lesion has slightly irregular margins and may represent an intraperitoneal desmoid tumor and less likely metastatic disease. In the adjacent anterior right subcutaneous fat there is an additional 13 mm well-circumscribed lesion, etiology uncertain. The findings in the CT chest, abdomen and pelvis can be further assessed with a CT PET examination There is presence of a 13 mm right adrenal nodule and 18 mm left adrenal nodule. These could represent benign adrenal adenomas or metastatic disease and can be further assessed with dedicated CT of the adrenal glands using adrenal adenoma protocol. There is a 2.7 cm infrarenal abdominal aortic aneurysm, which can be followed up at five yearly intervals based on the size criteria.. Location of Interpretation: [facility]iology
[2018-07-24 21:54] LABS: APPEARANCE,URINE CLEAR; BILIRUBIN,URINE NEGATIVE (NEGATIVE); COLOR,URINE STRAW; GLUCOSE, URINE >=500 mg/dL (NEGATIVE); KETONES,URINE 20 mg/dL (NEGATIVE); LEUKOCYTE ESTERASE,URINE NEGATIVE (NEGATIVE); NITRITE,URINE NEGATIVE (NEGATIVE); PROTEIN,URINE NEGATIVE (NEGATIVE); URINE SPECIFIC GRAVITY 1.028; UROBILINOGEN,URINE NEGATIVE mg/dL (<2.0)
[2018-07-24] MEDS ORDERED: IPRATROPIUM/ALBUTEROL 0.5-2.5 MG/3 ML AMPUL NEB PRN (22:09)
[2018-07-24] MEDS ORDERED: MAGNESIUM HYDROXIDE SUSP 30 ML UDCUP PO PRN (22:09)
[2018-07-24] MEDS ORDERED: ACETAMINOPHEN 325 MG TABLET PO PRN (22:09)
[2018-07-24] MEDS ORDERED: DEXTROSE 50%-WATER 25 GM/50 ML DISP.SYRIN IV PRN ×2 (22:09)
[2018-07-24] MEDS ORDERED: GLUCAGON,HUMAN RECOMB 1 MG INJ IM PRN (22:09)
[2018-07-24] MEDS ORDERED: MAG HYDROX/AL HYDROX/SIMETH SUSP 30 ML UDCUP PO PRN (22:09)
[2018-07-24] MEDS ORDERED: DEXTROSE 40% GEL 15 GM TUBE PO PRN ×2 (22:09)
[2018-07-24] MEDS ORDERED: NORMAL SALINE 1000 ML 1,000 ML IV SCH (22:15)
--- NOTE | 2018-07-24 22:26 | EKG REPORT ---
SEVERITY:- ABNORMAL ECG - SINUS TACHYCARDIA SUPRAVENTRICULAR BIGEMINY : Confirmed by: Yazmin Myers MD 24-Jul-2018 22:25:39
[2018-07-24] MEDS ORDERED: METOPROLOL TARTRATE PF/INJ 5 MG/5 ML SDV IV ONE (22:59)
[2018-07-24] MEDS ORDERED: METOPROLOL TARTRATE PF/INJ 5 MG/5 ML SDV IV PRN (23:17)
[2018-07-24] MEDS ORDERED: TRAZODONE HCL 50 MG TABLET PO PRN (23:19)
[2018-07-25] MEDS: IPRATROPIUM/ALBUTEROL 0.5-2.5 MG/3 ML AMPUL NEB SCH ×4 (00:28→23:43)
[2018-07-25] MEDS ORDERED: DILTIAZEM HCL 30 MG TABLET PO ONE ×2 (02:15→04:45)
[2018-07-25] MEDS ORDERED: DILTIAZEM HCL 30 MG TABLET ONE ×2 (02:59→04:51)
[2018-07-25] MEDS ORDERED: AMIODARONE HCL 150 MG in DEXTROSE 5%-WATER 100 ML IV ONE ×2 (04:40→10:45)
[2018-07-25] MEDS ORDERED: NORMAL SALINE 1000 ML 1,000 ML IV ONE (04:45)
[2018-07-25 05:10] LABS: ABSOLUTE BASOPHILS # (AUTO) 0.1 10^3/uL (0.0-0.2); ABSOLUTE EOSINOPHILS # (AUTO) 0.2 10^3/uL (0.0-0.6); ABSOLUTE LYMPHOCYTES (AUTO) 1.8 10^3/uL (0.5-4.7); ABSOLUTE MONOCYTES (AUTO) 0.9 10^3/uL (0.1-1.4); ABSOLUTE NEUT (AUTO) 7.5 10^3/uL (1.7-8.2); BASOPHILS % (AUTO) 0.6 % (0-2); EOSINOPHILS % (AUTO) 1.9 % (0-6); HEMATOCRIT 39.1 % (37.9-51.0); HEMOGLOBIN 12.7 g/dL (13.5-17.0); LYMPHOCYTES % (AUTO) 16.9 % (13-45); MEAN CORPUSCULAR HEMOGLOBIN 29.4 pg (27.0-33.4); MEAN CORPUSCULAR HGB CONC 32.5 g/dL (32.0-36.0); MEAN CORPUSCULAR VOLUME 91 fl (80-97); MONOCYTES % (AUTO) 8.8 % (3-13); PLATELET COUNT 316 10^3/uL (150-450); RED BLOOD COUNT 4.32 10^6/uL (4.35-5.55); RED CELL DISTRIBUTION WIDTH 16.3 % (11.5-14.0); SEGMENTED NEUTROPHILS % (AUTO) 71.8 % (42-78); TOTAL CELLS COUNTED % (AUTO) 100 %; WHITE BLOOD COUNT 10.5 10^3/uL (4.0-10.5)
[2018-07-25 05:34] LABS: ALANINE AMINOTRANSFERASE 22 U/L (21-72); ALBUMIN 2.9 g/dL (3.5-5.0); ALKALINE PHOSPHATASE 128 U/L (38-126); ANION GAP 10 (5-19); ASPARTATE AMINO TRANSFERASE 15 U/L (17-59); BILIRUBIN,DIRECT 0.2 mg/dL (0.0-0.4); BILIRUBIN,TOTAL 0.5 mg/dL (0.2-1.3); BLOOD UREA NITROGEN 19 mg/dL (7-20); CALCIUM 10.3 mg/dL (8.4-10.2); CARBON DIOXIDE 25 mmol/L (22-30); CHLORIDE 98 mmol/L (98-107); CREATINE KINASE 39 U/L (55-170); POTASSIUM 5.1 mmol/L (3.6-5.0); SODIUM 132.6 mmol/L (137-145)
[2018-07-25 05:43] LABS: GLUCOSE 471 mg/dL (75-110)
[2018-07-25] MEDS ORDERED: HEPARIN SOD (PORCINE) 5,000 UNIT/ML 1 ML SYRINGE SUBCUT SCH (06:00)
--- NOTE | 2018-07-25 06:31 | PDOC H&P ---
History of Present Illness Admission Date/PCP: 07/24/18 22:12 DIONISIO GUERRERO DO Patient complains of: Hyperglycemia and fatigue History of Present Illness: GÓMEZ ENRIQUEZ is a 62 year old male with a past medical history of diabetes, hypertension, COPD, opiate dependent chronic pain, tobacco dependence and noncompliance. He presents with 2-3 weeks of abdominal discomfort, fatigue, anorexia, nausea and weight loss. In the emergency room is found to have A. fib with RVR, hyperglycemia without acidosis, chest x-ray with hilar fullness prompting a CT revealing bilateral adenopathy, adrenal masses, intraperitoneal versus colonic mass. He denies chest pain. He is referred to the hospitalist for admission. Past Medical History Cardiac Medical History: Reports: Myocardial Infarction Denies: Congestive Heart Failure, Hypertension, Heart Murmur Pulmonary Medical History: Denies: Asthma, Bronchitis, Chronic Obstructive Pulmonary Disease (COPD), Pneumonia, Tuberculosis Neurological Medical History: Denies: Seizures Endocrine Medical History: Reports: Diabetes Mellitus Type 2 GI Medical History: Reports: Gastroesophageal Reflux Disease Denies: Hepatitis, Hiatal Hernia Musculoskeltal Medical History: Psychiatric Medical History: Reports: Depression, Substance Abuse, Tobacco Dependency Hematology: Denies: Anemia, Sickle Cell Disease Past Surgical History Past Surgical History: Reports: Cardiac Catheterization - +2 stents Denies: Pacemaker Social History Information Source: Patient Lives with: Family Smoking Status: Former Smoker Cigarettes Packs Per Day: 1 Number of Years Smokin Last Time Smoked: 4 days Frequency of Alcohol Use: Occasional Hx Recreational Drug Use: Yes Drugs: Marijuana Hx Prescription Drug Abuse: No Family History Family History: DM, Hypertension Parental Family History Reviewed: Yes - Negative for malignancy Children Family History Reviewed: Yes Sibling(s) Family History Reviewed.: Yes Medication/Allergy Home Medications: Nitroglycerin [Nitrostat 0.4 mg (1/150 Gr) Tabs 25/Bottle] 0.4 mg SL DAILYP PRN 06/11/12 Simvastatin [Zocor 20 mg Tablet] 20 mg PO QHS 06/11/12 Albuterol Sulfate [Ventolin Hfa] 2 puff IH Q4HP PRN 03/29/18 Citalopram Hydrobromide [Celexa 40 mg Tablet] 1 tab PO DAILY 03/29/18 Gabapentin [Neurontin 300 mg Capsule] 300 mg PO Q12 03/29/18 Insulin Aspart [Novolog Flexpen] 10 unit SQ AC 03/29/18 Isosorbide Mononitrate [Isosorbide Mononitrate ER] 30 mg PO DAILY 03/29/18 Naproxen 500 mg PO Q12 03/29/18 Omeprazole 20 mg PO Q12 03/29/18 Oxycodone HCl/Acetaminophen [Percocet 10-325 mg Tablet] 1 tab PO Q6HP PRN Sitagliptin Phosphate [Januvia] 100 mg PO DAILY 03/29/18 Zolpidem Tartrate [Ambien] 10 mg PO QHS 03/29/18 Acetaminophen [Tylenol 325 mg Tablet] 650 mg PO Q4HP PRN tablet 04/03/18 Insulin Glargine,Hum.rec.anlog [Basaglar Kwikpen U-100] 28 unit SQ BID #1 insuln.pen 04/03/18 Oxycodone HCl [Oxy-Ir 5 mg Tablet] 5 mg PO Q4HP PRN #12 tablet 04/03/18 Oxycodone HCl [Oxycontin Sr 10 mg Tablet] 10 mg PO Q12 #6 tab.sr.12h 04/03/18 Sulfamethoxazole/Trimethoprim [Septra-Ds 800-160 mg Tablet] 1 tab PO Q12 #28 tablet 04/03/18 Ketorolac Tromethamine 10 mg PO TID #12 tablet 06/30/18 Ketorolac Tromethamine 10 mg PO TID #9 tablet 06/30/18 Allergies/Adverse Reactions: chlorpromazine HCl [From Thorazine] Allergy (Verified 06/30/18 12:37) faints Review of Systems Constitutional: PRESENT: as per HPI, anorexia, fatigue, weight loss. ABSENT: fever(s), headache(s) Eyes: ABSENT: visual disturbances Ears: ABSENT: hearing changes Cardiovascular: PRESENT: dyspnea on exertion, palpitations. ABSENT: chest pain , edema, orthropnea Respiratory: PRESENT: cough, dyspnea Gastrointestinal: PRESENT: as per HPI, bloating, nausea. ABSENT: vomiting Genitourinary: ABSENT: dysuria, hematuria Musculoskeletal: PRESENT: muscle weakness. ABSENT: joint swelling Integumentary: ABSENT: rash, wounds Neurological: ABSENT: abnormal gait, abnormal speech, confusion, dizziness, focal weakness, syncope Psychiatric: ABSENT: anxiety, depression, homidical ideation, suicidal ideation Endocrine: ABSENT: cold intolerance, heat intolerance, polydipsia, polyuria Hematologic/Lymphatic: ABSENT: easy bleeding, easy bruising Physical Exam Vital Signs: Temp Pulse Resp BP Pulse Ox 98 F 126 H 17 101/57 L 93 07/25/18 04:00 07/25/18 04:00 07/25/18 04:00 07/25/18 04:00 07/25/18 04:00 Intake & Output 07/23/18 07/24/18 07/25/18 11:59 11:59 11:59 Intake Total 1242 Balance 1242 Weight 73.7 kg General appearance: PRESENT: cooperative, mild distress, thin. ABSENT: disheveled Head exam: PRESENT: atraumatic, normocephalic Eye exam: PRESENT: conjunctiva pink, EOMI, PERRLA. ABSENT: scleral icterus Ear exam: PRESENT: normal external ear exam Mouth exam: PRESENT: moist, tongue midline Neck exam: ABSENT: carotid bruit, JVD, lymphadenopathy, thyromegaly Respiratory exam: PRESENT: crackles, prolonged expiratory phas, symmetrical, unlabored. ABSENT: accessory muscle use, rales, retraction Cardiovascular exam: PRESENT: irregular rhythm, +S1, +S2, tachycardia. ABSENT: systolic murmur Pulses: PRESENT: normal dorsalis pedis pul Vascular exam: PRESENT: normal capillary refill GI/Abdominal exam: PRESENT: normal bowel sounds, soft. ABSENT: distended, guarding, mass, organolmegaly, rebound, tenderness Rectal exam: PRESENT: deferred Extremities exam: PRESENT: full ROM. ABSENT: calf tenderness, clubbing, pedal edema Musculoskeletal exam: PRESENT: other - Global muscular atrophy Neurological exam: PRESENT: alert, awake, oriented to person, oriented to place , oriented to time, oriented to situation, CN II-XII grossly intact. ABSENT: motor sensory deficit Psychiatric exam: PRESENT: appropriate affect, normal mood. ABSENT: homicidal ideation, suicidal ideation Skin exam: PRESENT: dry, intact, warm. ABSENT: cyanosis, rash Results Laboratory Results: 07/25/18 04:53 07/25/18 04:53 07/25/18 07/25/18 04:53 04:53 WBC 10.5 RBC 4.32 L Hgb 12.7 L Hct 39.1 MCV 91 MCH 29.4 MCHC 32.5 RDW 16.3 H Plt Count 316 Seg Neutrophils % 71.8 Lymphocytes % 16.9 Monocytes % 8.8 Eosinophils % 1.9 Basophils % 0.6 Absolute Neutrophils 7.5 Absolute Lymphocytes 1.8 Absolute Monocytes 0.9 Absolute Eosinophils 0.2 Absolute Basophils 0.1 Sodium 132.6 L Potassium 5.1 H Chloride 98 Carbon Dioxide 25 Anion Gap 10 BUN 19 Creatinine 0.80 Est GFR ( Amer) > 60 Est GFR (Non-Af Amer) > 60 Glucose 471 H* Calcium 10.3 H Total Bilirubin 0.5 AST 15 L ALT 22 Alkaline Phosphatase 128 H Total Protein 6.0 L Albumin 2.9 L 07/24/18 07/24/18 07/25/18 22:43 22:43 04:53 Creatine Kinase 35 L 39 L Troponin I 0.051 07/25/18 04:53 Creatine Kinase Troponin I 0.027 Impressions: Chest X-Ray 07/24/18 00:00 IMPRESSION: Increased left parahilar opacities -fullness. Abdomen/Pelvis CT 07/24/18 20:03 IMPRESSION: Images through the lung bases shows enlarged subcarinal lymph nodes and left lower lobe infiltrate/atelectasis. In the right anterior abdomen in the peritoneal cavity there is a 2.2 x 3.1 x 3.3 cm intraperitoneal mass abutting the proximal transverse colon. This lesion has slightly irregular margins and may represent an intraperitoneal desmoid tumor and less likely metastatic disease. In the adjacent anterior right subcutaneous fat there is an additional 13 mm well-circumscribed lesion, etiology uncertain. The findings in the CT chest, abdomen and pelvis can be further assessed with a CT PET examination There is presence of a 13 mm right adrenal nodule and 18 mm left adrenal nodule. These could represent benign adrenal adenomas or metastatic disease and can be further assessed with dedicated CT of the adrenal glands using adrenal adenoma protocol. There is a 2.7 cm infrarenal abdominal aortic aneurysm, which can be followed up at five yearly intervals based on the size criteria.. Location of Interpretation: T[facility]iology Chest CT 07/24/18 20:31 IMPRESSION: There is presence of pathologically enlarged lymph nodes in the mediastinum and the subcarinal region, the largest of these lymph nodes measuring 21 mm in short axis dimension seen in the right paratracheal region and the largest subcarinal lymph node measuring 2.8 cm in short axis dimension. Pathologically enlarged lymph nodes are also seen in the bilateral hilar regions, worse on the left side. These lymph nodes are suspicious for a malignant process There is a 1.8 x 2.1 x 1.8 cm mass lesion in the left hilum surrounding the left lower lobe pulmonary artery and suspicious for a malignancy. There is presence of moderate size infiltrate/atelectasis in the left lower lobe of the lung extending to the left hilum. Minimal interstitial infiltrates are also seen in the lingula of the left lung. Note is made of a small ill-defined opacity in the right lung apex. Changes of COPD are seen in the bilateral lung mccoy In the visualized upper abdomen there is presence of 13 mm right adrenal nodule and 18 mm left adrenal nodule Assessment & Plan - Diagnosis (1) Atrial fibrillation Is this a current diagnosis for this admission?: Yes Plan: Complicated by new diagnosis of stage IV lung cancer. Hydration, trial Cardizem consider amiodarone (2) Hyponatremia Is this a current diagnosis for this admission?: Yes Plan: Multifactorial secondary to hyperglycemia and chronic lung disease, follow-up chemistry (3) Elevated troponin Is this a current diagnosis for this admission?: Yes Plan: Secondary to #1, serial cardiac enzymes (4) Hyperglycemia Is this a current diagnosis for this admission?: Yes Plan: Secondary to diabetic noncompliance, outpatient regiment with Humalog sliding scale (5) Metastatic lung cancer (metastasis from lung to other site) Qualifiers: Laterality: left Qualified Code(s): C34.92 - Malignant neoplasm of unspecified part of left bronchus or lung Is this a current diagnosis for this admission?: Yes Plan: Follow-up oncology consult - Time Time Spent: 50 to 70 Minutes - Inpatient Certification Medical Necessity: Need Close Monitoring Due to Risk of Patient Decompensation
[2018-07-25] MEDS: INSULIN LISPRO 100 UNIT/ML 3 ML VIAL SUBCUT PRN ×3 (06:40→21:29)
--- NOTE | 2018-07-25 09:27 | PDOC CONSULTATION ---
Consultation Consult Date: 07/25/18 Consult reason:: Hematology/Oncology consultation was requested for patient with abnormal CT scans and hypercalcemia, suspicious for possible cancer. History of Present Illness Admission Date/PCP: 07/24/18 22:12 DIONISIO WILOCX DO History of Present Illness: GÓMEZ ENRIQUEZ is a 62 year old male who follows with Dr. Wilcox. He states that he was not feeling well at home and found his blood sugar to be >600. He presented to the ED and was found to be in A.fib. Otherwise, patient cannot tell me much and gets frustrated with my questioning him. He admits to some abdominal pain, poor appetite, but otherwise, only chronic issues including dizziness and back pain. Past Medical History Cardiac Medical History: Reports: Myocardial Infarction Denies: Congestive Heart Failure, Hypertension, Heart Murmur Pulmonary Medical History: Denies: Asthma, Bronchitis, Chronic Obstructive Pulmonary Disease (COPD), Pneumonia, Tuberculosis Neurological Medical History: Denies: Seizures Endocrine Medical History: Reports: Diabetes Mellitus Type 2 GI Medical History: Reports: Gastroesophageal Reflux Disease Denies: Hepatitis, Hiatal Hernia Musculoskeltal Medical History: Psychiatric Medical History: Reports: Depression, Substance Abuse, Tobacco Dependency Hematology: Denies: Anemia, Sickle Cell Disease Past Surgical History Past Surgical History: Reports: Cardiac Catheterization - +2 stents Denies: Pacemaker Social History Lives with: Family, Spouse/Significant other Smoking Status: Former Smoker Cigarettes Packs Per Day: 1 Number of Years Smokin Last Time Smoked: 4 days Frequency of Alcohol Use: Occasional Hx Recreational Drug Use: Yes Drugs: Marijuana Hx Prescription Drug Abuse: No Past Social History Note: 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 He has 1 child and 1 dog. Family History Family History: DM, Hypertension Parental Family History Reviewed: Yes - Both parents are , but patient unsure how. Children Family History Reviewed: Yes Sibling(s) Family History Reviewed.: Yes - He has 1 brother and 3 sisters, but is unaware of medical problems. Medication/Allergy Home Medications: Albuterol Sulfate [Ventolin HFA MDI 18 GM] 2 puff IH Q6HP PRN 07/25/18 Gabapentin [Neurontin 300 mg Capsule] 300 mg PO Q12 07/25/18 Insulin Aspart [Novolog Flexpen] 0 units SQ .SLIDINGSCALE 07/25/18 Insulin Glargine,Hum.rec.anlog [Basaglgisselle Metzgerpen U-100] 55 units SQ QHS Isosorbide Mononitrate [Isosorbide Mononitrate ER] 30 mg PO QAM 07/25/18 Naproxen [Naprosyn] 500 mg PO Q12 07/25/18 Nitroglycerin [Nitrostat] 0.4 mg SL Q5MP PRN 07/25/18 Omeprazole 20 mg PO BIDACBS 07/25/18 Oxycodone HCl/Acetaminophen [Endocet 5-325 Tablet] 1 tab PO Q6HP PRN 07/25/18 Simvastatin [Zocor 20 mg Tablet] 20 mg PO QHS 07/25/18 Sitagliptin Phosphate [Januvia] 100 mg PO DAILY 07/25/18 Zolpidem Tartrate [Ambien] 10 mg PO QHS 07/25/18 Allergies/Adverse Reactions: chlorpromazine HCl [From Thorazine] Allergy (Verified 06/30/18 12:37) faints Review of Systems Constitutional: PRESENT: headache(s). ABSENT: fever(s) Eyes: ABSENT: visual disturbances Ears: ABSENT: hearing changes Nose, Mouth, and Throat: ABSENT: sore throat Cardiovascular: ABSENT: chest pain Respiratory: ABSENT: dyspnea Gastrointestinal: PRESENT: abdominal pain Genitourinary: ABSENT: dysuria Musculoskeletal: PRESENT: back pain Integumentary: ABSENT: rash Neurological: PRESENT: vertigo Endocrine: PRESENT: flushing Hematologic/Lymphatic: ABSENT: lymphadenopathy Physical Exam Vital Signs: Temp Pulse Resp BP Pulse Ox 98 F 83 17 101/57 L 93 07/25/18 04:00 07/25/18 07:00 07/25/18 04:00 07/25/18 04:00 07/25/18 04:00 Intake & Output 07/24/18 07/25/18 07/26/18 06:59 06:59 06:59 Intake Total 1242 Balance 1242 Weight 73.7 kg General appearance: PRESENT: no acute distress, well-developed, well-nourished Exam: 62 year old male. Head exam: PRESENT: atraumatic, normocephalic Eye exam: PRESENT: EOMI Mouth exam: PRESENT: tongue midline Neck exam: ABSENT: lymphadenopathy, tenderness Respiratory exam: PRESENT: unlabored, wheezes Cardiovascular exam: PRESENT: RRR, systolic murmur Pulses: PRESENT: normal dorsalis pedis pul GI/Abdominal exam: PRESENT: soft. ABSENT: tenderness Extremities exam: ABSENT: pedal edema Musculoskeletal exam: PRESENT: normal inspection Neurological exam: PRESENT: alert, awake Psychiatric exam: PRESENT: appropriate affect Focused psych exam: ABSENT: restlessness Skin exam: PRESENT: normal color Results Laboratory Results: 07/25/18 04:53 07/25/18 04:53 07/25/18 07/25/18 04:53 04:53 WBC 10.5 RBC 4.32 L Hgb 12.7 L Hct 39.1 MCV 91 MCH 29.4 MCHC 32.5 RDW 16.3 H Plt Count 316 Seg Neutrophils % 71.8 Lymphocytes % 16.9 Monocytes % 8.8 Eosinophils % 1.9 Basophils % 0.6 Absolute Neutrophils 7.5 Absolute Lymphocytes 1.8 Absolute Monocytes 0.9 Absolute Eosinophils 0.2 Absolute Basophils 0.1 Sodium 132.6 L Potassium 5.1 H Chloride 98 Carbon Dioxide 25 Anion Gap 10 BUN 19 Creatinine 0.80 Est GFR ( Amer) > 60 Est GFR (Non-Af Amer) > 60 Glucose 471 H* Calcium 10.3 H Total Bilirubin 0.5 AST 15 L ALT 22 Alkaline Phosphatase 128 H Total Protein 6.0 L Albumin 2.9 L 07/24/18 07/24/18 07/25/18 22:43 22:43 04:53 Creatine Kinase 35 L 39 L Troponin I 0.051 07/25/18 04:53 Creatine Kinase Troponin I 0.027 Impressions: Chest X-Ray 07/24/18 00:00 IMPRESSION: Increased left parahilar opacities -fullness. Abdomen/Pelvis CT 07/24/18 20:03 IMPRESSION: Images through the lung bases shows enlarged subcarinal lymph nodes and left lower lobe infiltrate/atelectasis. In the right anterior abdomen in the peritoneal cavity there is a 2.2 x 3.1 x 3.3 cm intraperitoneal mass abutting the proximal transverse colon. This lesion has slightly irregular margins and may represent an intraperitoneal desmoid tumor and less likely metastatic disease. In the adjacent anterior right subcutaneous fat there is an additional 13 mm well-circumscribed lesion, etiology uncertain. The findings in the CT chest, abdomen and pelvis can be further assessed with a CT PET examination There is presence of a 13 mm right adrenal nodule and 18 mm left adrenal nodule. These could represent benign adrenal adenomas or metastatic disease and can be further assessed with dedicated CT of the adrenal glands using adrenal adenoma protocol. There is a 2.7 cm infrarenal abdominal aortic aneurysm, which can be followed up at five yearly intervals based on the size criteria.. Location of Interpretation: T[facility]adiology Chest CT 07/24/18 20:31 IMPRESSION: There is presence of pathologically enlarged lymph nodes in the mediastinum and the subcarinal region, the largest of these lymph nodes measuring 21 mm in short axis dimension seen in the right paratracheal region and the largest subcarinal lymph node measuring 2.8 cm in short axis dimension. Pathologically enlarged lymph nodes are also seen in the bilateral hilar regions, worse on the left side. These lymph nodes are suspicious for a malignant process There is a 1.8 x 2.1 x 1.8 cm mass lesion in the left hilum surrounding the left lower lobe pulmonary artery and suspicious for a malignancy. There is presence of moderate size infiltrate/atelectasis in the left lower lobe of the lung extending to the left hilum. Minimal interstitial infiltrates are also seen in the lingula of the left lung. Note is made of a small ill-defined opacity in the right lung apex. Changes of COPD are seen in the bilateral lung mccoy In the visualized upper abdomen there is presence of 13 mm right adrenal nodule and 18 mm left adrenal nodule Status: Image reviewed by me Assessment & Plan - Diagnosis (1) Atrial fibrillation Is this a current diagnosis for this admission?: Yes Plan: Heart now sounds regular. Most likely secondary to another metabolic process. (2) Hypercalcemia Is this a current diagnosis for this admission?: Yes Plan: I will repeat BMP, check Ionized calcium and check PTH. (3) Acute hyperkalemia Is this a current diagnosis for this admission?: Yes Plan: Repeat BMP now and treat as appropriate. He has been receiving fluids. (4) Abnormal CT of the chest Is this a current diagnosis for this admission?: Yes Plan: Patient denies prior history of cancer. I discussed possible biopsy with the patient. This may be lung cancer, or lymphoma, or a benign process. I spoke with Dr. Bey and she believe she will be able to biopsy the periumbilical LN. I will arrange today. (5) Tobacco dependence Is this a current diagnosis for this admission?: Yes - Plan Summary Plan Summary: Patient was discussed with Dr. Morales. Further recommendations based on biopsy results. I will continue to follow. Please call me with questions or concerns.
[2018-07-25] MEDS ORDERED: DEXTROSE 50%-WATER 25 GM/50 ML DISP.SYRIN IV PRN ×2 (09:46)
[2018-07-25] MEDS ORDERED: GLUCAGON,HUMAN RECOMB 1 MG INJ SUBCUT PRN (09:46)
[2018-07-25] MEDS ORDERED: DEXTROSE 40% GEL 15 GM TUBE PO PRN ×2 (09:46)
[2018-07-25] MEDS ORDERED: INSULIN GLARGINE,HUM.REC.ANLOG 300 UNIT/3 ML INSULN.PEN SUBCUT SCH (10:00)
[2018-07-25] MEDS: INSULIN LISPRO 100 UNIT/ML 3 ML VIAL SUBCUT SCH ×3 (10:48→17:58)
[2018-07-25] MEDS: DOCUSATE SODIUM 100 MG CAPSULE PO SCH ×2 (10:48→18:06)
[2018-07-25] MEDS: GABAPENTIN 300 MG CAPSULE PO SCH ×2 (10:48→21:09)
[2018-07-25] MEDS: CITALOPRAM HYDROBROMIDE 20 MG TABLET PO SCH (10:48)
[2018-07-25] MEDS: ISOSORBIDE MONONITRATE 30 MG TAB.ER.24H PO SCH (10:48)
[2018-07-25] MEDS: DEXTROSE 5%-WATER 500 ML with AMIODARONE HCL 900 MG IV PRN ×2 (10:51)
[2018-07-25 11:16] LABS: ALANINE AMINOTRANSFERASE 20 U/L (21-72); ALBUMIN 2.8 g/dL (3.5-5.0); ALKALINE PHOSPHATASE 134 U/L (38-126); ANION GAP 9 (5-19); ASPARTATE AMINO TRANSFERASE 19 U/L (17-59); BILIRUBIN,DIRECT 0.3 mg/dL (0.0-0.4); BILIRUBIN,TOTAL 0.7 mg/dL (0.2-1.3); BLOOD UREA NITROGEN 15 mg/dL (7-20); CALCIUM 10.4 mg/dL (8.4-10.2); CARBON DIOXIDE 25 mmol/L (22-30); CHLORIDE 99 mmol/L (98-107); POTASSIUM 4.3 mmol/L (3.6-5.0); SODIUM 133.3 mmol/L (137-145); TOTAL PROTEIN 6.1 g/dL (6.3-8.2)
[2018-07-25 11:21] LABS: GLUCOSE 443 mg/dL (75-110)
[2018-07-25] MEDS ORDERED: INSULIN LISPRO 100 UNIT/ML 3 ML VIAL SUBCUT ONE (11:30)
--- NOTE | 2018-07-25 13:00 | PDOC PROGRESS REPORT ---
Subjective Progress Note for:: 07/25/18 Subjective:: OTILIA ENRIQUEZ is a 62 year old male with a past medical history of diabetes, hypertension, COPD, opiate dependent chronic pain, tobacco dependence and noncompliance. He presents with 2-3 weeks of abdominal discomfort, fatigue, anorexia, nausea and weight loss. In the emergency room is found to have A. fib with RVR, hyperglycemia without acidosis, chest x-ray with hilar fullness prompting a CT revealing bilateral adenopathy, adrenal masses, intraperitoneal versus colonic mass. He denies chest pain. He is referred to the hospitalist for admission. Patient is currently on amiodarone drip due to persistent A. fib. I have requested cardiology consult. Patient is also scheduled to have biopsy done today. After being seen by Dr. Gonzales she thinks this may be possibly lymphoma and so she suggested an excisional biopsy to be done. His heparin will be placed on hold pending biopsy. Reason For Visit: LUNG MASS W METS, HYPERKALEMIA, HYPONATREMIA Physical Exam Vital Signs: Temp Pulse Resp BP Pulse Ox 98 F 83 17 101/57 L 93 07/25/18 04:00 07/25/18 07:00 07/25/18 04:00 07/25/18 04:00 07/25/18 04:00 Intake & Output 07/24/18 07/25/18 07/26/18 06:59 06:59 06:59 Intake Total 1242 Balance 1242 Weight 73.7 kg General appearance: PRESENT: no acute distress, well-developed, well-nourished Head exam: PRESENT: atraumatic, normocephalic Eye exam: PRESENT: conjunctiva pink, EOMI, PERRLA. ABSENT: scleral icterus Ear exam: PRESENT: normal external ear exam Mouth exam: PRESENT: moist, tongue midline Neck exam: ABSENT: carotid bruit, JVD, lymphadenopathy, thyromegaly Respiratory exam: PRESENT: clear to auscultation divya. ABSENT: rales, rhonchi, wheezes Cardiovascular exam: PRESENT: irregular rhythm, +S1, +S2. ABSENT: diastolic murmur, rubs, systolic murmur Pulses: PRESENT: normal dorsalis pedis pul Vascular exam: PRESENT: normal capillary refill GI/Abdominal exam: PRESENT: normal bowel sounds, soft. ABSENT: distended, guarding, mass, organolmegaly, rebound, tenderness Rectal exam: PRESENT: deferred Extremities exam: PRESENT: full ROM. ABSENT: calf tenderness, clubbing, pedal edema Neurological exam: PRESENT: alert, awake, oriented to person, oriented to place , oriented to time, oriented to situation, CN II-XII grossly intact. ABSENT: motor sensory deficit Psychiatric exam: PRESENT: appropriate affect, normal mood. ABSENT: homicidal ideation, suicidal ideation Skin exam: PRESENT: dry, intact, warm. ABSENT: cyanosis, rash Results Laboratory Results: 07/25/18 04:53 07/25/18 04:53 07/25/18 07/25/18 04:53 04:53 WBC 10.5 RBC 4.32 L Hgb 12.7 L Hct 39.1 MCV 91 MCH 29.4 MCHC 32.5 RDW 16.3 H Plt Count 316 Seg Neutrophils % 71.8 Lymphocytes % 16.9 Monocytes % 8.8 Eosinophils % 1.9 Basophils % 0.6 Absolute Neutrophils 7.5 Absolute Lymphocytes 1.8 Absolute Monocytes 0.9 Absolute Eosinophils 0.2 Absolute Basophils 0.1 Sodium 132.6 L Potassium 5.1 H Chloride 98 Carbon Dioxide 25 Anion Gap 10 BUN 19 Creatinine 0.80 Est GFR ( Amer) > 60 Est GFR (Non-Af Amer) > 60 Glucose 471 H* Calcium 10.3 H Total Bilirubin 0.5 AST 15 L ALT 22 Alkaline Phosphatase 128 H Total Protein 6.0 L Albumin 2.9 L 07/24/18 07/24/18 07/25/18 22:43 22:43 04:53 Creatine Kinase 35 L 39 L Troponin I 0.051 07/25/18 04:53 Creatine Kinase Troponin I 0.027 Impressions: Chest X-Ray 07/24/18 00:00 IMPRESSION: Increased left parahilar opacities -fullness. Abdomen/Pelvis CT 07/24/18 20:03 IMPRESSION: Images through the lung bases shows enlarged subcarinal lymph nodes and left lower lobe infiltrate/atelectasis. In the right anterior abdomen in the peritoneal cavity there is a 2.2 x 3.1 x 3.3 cm intraperitoneal mass abutting the proximal transverse colon. This lesion has slightly irregular margins and may represent an intraperitoneal desmoid tumor and less likely metastatic disease. In the adjacent anterior right subcutaneous fat there is an additional 13 mm well-circumscribed lesion, etiology uncertain. The findings in the CT chest, abdomen and pelvis can be further assessed with a CT PET examination There is presence of a 13 mm right adrenal nodule and 18 mm left adrenal nodule. These could represent benign adrenal adenomas or metastatic disease and can be further assessed with dedicated CT of the adrenal glands using adrenal adenoma protocol. There is a 2.7 cm infrarenal abdominal aortic aneurysm, which can be followed up at five yearly intervals based on the size criteria.. Location of Interpretation: [facility]iology Chest CT 07/24/18 20:31 IMPRESSION: There is presence of pathologically enlarged lymph nodes in the mediastinum and the subcarinal region, the largest of these lymph nodes measuring 21 mm in short axis dimension seen in the right paratracheal region and the largest subcarinal lymph node measuring 2.8 cm in short axis dimension. Pathologically enlarged lymph nodes are also seen in the bilateral hilar regions, worse on the left side. These lymph nodes are suspicious for a malignant process There is a 1.8 x 2.1 x 1.8 cm mass lesion in the left hilum surrounding the left lower lobe pulmonary artery and suspicious for a malignancy. There is presence of moderate size infiltrate/atelectasis in the left lower lobe of the lung extending to the left hilum. Minimal interstitial infiltrates are also seen in the lingula of the left lung. Note is made of a small ill-defined opacity in the right lung apex. Changes of COPD are seen in the bilateral lung mccoy In the visualized upper abdomen there is presence of 13 mm right adrenal nodule and 18 mm left adrenal nodule Assessment & Plan - Diagnosis (1) Atrial fibrillation Is this a current diagnosis for this admission?: Yes Plan: Cardiology consult pending. This is likely secondary to his acute illness. (2) Elevated troponin Is this a current diagnosis for this admission?: Yes Plan: Likely secondary to atrial fibrillation with a rapid ventricular response his troponin has peaked and it is coming down. (3) Hyponatremia Is this a current diagnosis for this admission?: Yes (4) Metastatic lung cancer (metastasis from lung to other site) Qualifiers: Laterality: left Qualified Code(s): C34.92 - Malignant neoplasm of unspecified part of left bronchus or lung Is this a current diagnosis for this admission?: Yes Plan: Biopsy scheduled for this afternoon. I appreciate Dr. Gonzales's input (5) Poorly controlled diabetes mellitus Is this a current diagnosis for this admission?: Yes Plan: We will readjust his insulin for optimal blood sugar control (6) Hypercalcemia Is this a current diagnosis for this admission?: Yes Plan: Either HHM or secondary to dehydration. We will just hydrate him and recheck. Other management will depend on his response to IV fluids. - Time Time Spent with patient: 15-24 minutes Medications reviewed and adjusted accordingly: Yes Anticipated discharge: Home Within: within 72 hours - Inpatient Certification Based on my medical assessment, after consideration of the patient's comorbidities, presenting symptoms, or acuity I expect that the services needed warrant INPATIENT care.: Yes Medical Necessity: Need For Continuous Telemetry Monitoring, Risk of Complication if Not Cared For in Hospital
[2018-07-25] MEDS ORDERED: LIDOCAINE 1% INJ-PF (10 MG/ML) 30 ML SDV ONE (13:06)
[2018-07-25] MEDS ORDERED: METOPROLOL TARTRATE PF/INJ 5 MG/5 ML SDV IV PRN (13:07)
[2018-07-25] MEDS: METOPROLOL SUCCINATE 25 MG TAB.SR.24H PO SCH ×2 (14:32→21:10)
--- NOTE | 2018-07-25 14:42 | RADIOLOGY REPORT (SQ) ---
EXAM DESCRIPTION: U/S BIOPSY SUPERFIC LYMPH NODE COMPLETED DATE/TIME: 07/25/2018 2:25 pm REASON FOR STUDY: abnormal LN. Discussed with Dr. Bey. COMPARISON: CT abdomen pelvis 07/24/2018 TECHNIQUE: The procedure was discussed with the patient and the patient agreed to proceed. The patient was scanned and the nodule of interest in the periumbilical right anterior abdominal wall was localized. This correlates with the area of concern on prior imaging studies. This area was tar geted for ultrasound-guided core biopsy. After sterile skin prep and 5 mL local lidocaine 1% for skin and deep tissue anesthesia, a 14 gauge c oaxial core biopsy needle was used to obtain two cores of tissue from the lesion. Under ultrasound g uidance, a ribbon clip was placed in the areas sampled. There were no immediate post-procedure compl ications. Specimens were received by Mandy from cytology Pathology is pending at the time of dictation LIMITATIONS: None. FINDINGS: Ultrasound guided anterior abdominal wall nodule biopsy as described above. Pathology is pending IMPRESSION: ULTRASOUND-GUIDED CORE BIOPSY OF THE PERIUMBILICAL SOFT TISSUE NODULE IN THE ANTERIOR AB DOMINAL WALL. POST BIOPSY CLIP PLACEMENT. PATHOLOGY IS PENDING COMMENT: Patient medication list reviewed: Yes- Quality ID# [id number]:Eligible professional attests to doc umenting in the medical record they obtained, updated, or reviewed the patient's current medications. TECHNICAL DOCUMENTATION: JOB ID: [id number] [employer]- All Rights Reserved Reading location - IP/workstation name: [facility]-RR
[2018-07-25] MEDS: OXYCODONE-ACETAMINOPHEN 5-325 MG TABLET PO PRN ×2 (15:01→19:26)
[2018-07-25 16:01] LABS: APPEARANCE,URINE CLEAR; BILIRUBIN,URINE NEGATIVE (NEGATIVE); COLOR,URINE STRAW; GLUCOSE, URINE >=500 mg/dL (NEGATIVE); KETONES,URINE NEGATIVE (NEGATIVE); LEUKOCYTE ESTERASE,URINE NEGATIVE (NEGATIVE); NITRITE,URINE NEGATIVE (NEGATIVE); PROTEIN,URINE NEGATIVE (NEGATIVE); URINE SPECIFIC GRAVITY 1.023; UROBILINOGEN,URINE NEGATIVE mg/dL (<2.0)
[2018-07-25] MEDS: INSULIN GLARGINE,HUM.REC.ANLOG 300 UNIT/3 ML INSULN.PEN SUBCUT SCH (17:59)
[2018-07-25] MEDS: ENOXAPARIN SODIUM INJ 80 MG/0.8 ML DISP.SYRIN SUBCUT SCH (21:11)
[2018-07-25] MEDS ORDERED: NORMAL SALINE 1000 ML 1,000 ML IV PRN (21:19)
--- NOTE | 2018-07-25 22:37 | EKG REPORT ---
SEVERITY:- OTHERWISE NORMAL ECG - SINUS RHYTHM LOW VOLTAGE IN FRONTAL LEADS : Confirmed by: Yazmin Myers MD 25-Jul-2018 22:36:53
[2018-07-26 05:36] LABS: ANION GAP 8 (5-19); BLOOD UREA NITROGEN 10 mg/dL (7-20); CALCIUM 10.7 mg/dL (8.4-10.2); CARBON DIOXIDE 28 mmol/L (22-30); CHLORIDE 100 mmol/L (98-107); GLUCOSE 200 mg/dL (75-110)
[2018-07-26] MEDS: INSULIN LISPRO 100 UNIT/ML 3 ML VIAL SUBCUT SCH ×3 (07:48→16:59)
[2018-07-26] MEDS ORDERED: PAMIDRONATE DISODIUM INJ 30 MG/10 ML VIAL IV ONE (08:08)
[2018-07-26] MEDS: IPRATROPIUM/ALBUTEROL 0.5-2.5 MG/3 ML AMPUL NEB SCH ×3 (08:40→23:44)
[2018-07-26] MEDS: ISOSORBIDE MONONITRATE 30 MG TAB.ER.24H PO SCH (09:00)
[2018-07-26] MEDS: INSULIN GLARGINE,HUM.REC.ANLOG 300 UNIT/3 ML INSULN.PEN SUBCUT SCH ×2 (09:04→17:00)
[2018-07-26] MEDS: ENOXAPARIN SODIUM INJ 80 MG/0.8 ML DISP.SYRIN SUBCUT SCH ×2 (09:04→22:33)
[2018-07-26] MEDS: GABAPENTIN 300 MG CAPSULE PO SCH ×2 (09:04→21:57)
[2018-07-26] MEDS: METOPROLOL SUCCINATE 25 MG TAB.SR.24H PO SCH (09:04)
[2018-07-26] MEDS: DOCUSATE SODIUM 100 MG CAPSULE PO SCH (09:04)
[2018-07-26] MEDS: CITALOPRAM HYDROBROMIDE 20 MG TABLET PO SCH (09:04)
--- NOTE | 2018-07-26 09:27 | PDOC PROGRESS REPORT ---
Subjective Progress Note for:: 07/26/18 Subjective:: Patient states that he is still feeling terrible. He had episode of vomiting and diarrhea in the night. He is still not feeling like eating. He has some pain in his side. Otherwise, very vague answers to my questions. ROS: no cough. No swelling. Reason For Visit: LUNG MASS W METS, HYPERKALEMIA, HYPONATREMIA Physical Exam Vital Signs: Temp Pulse Resp BP Pulse Ox 98.4 F 84 16 114/73 95 07/26/18 07:37 07/26/18 08:41 07/26/18 08:41 07/26/18 07:37 07/26/18 08:41 Intake & Output 07/25/18 07/26/18 07/27/18 06:59 06:59 06:59 Intake Total 1242 2748 Output Total 1825 Balance 1242 923 Weight 73.7 kg 75.1 kg General appearance: PRESENT: no acute distress, thin Head exam: PRESENT: normocephalic Respiratory exam: PRESENT: unlabored Extremities exam: ABSENT: pedal edema Neurological exam: PRESENT: alert, awake Psychiatric exam: PRESENT: appropriate affect Skin exam: PRESENT: normal color Results Laboratory Results: 07/25/18 04:53 07/26/18 04:24 07/25/18 07/25/18 07/25/18 10:28 10:28 15:40 Sodium 133.3 L Potassium 4.3 Chloride 99 Carbon Dioxide 25 Anion Gap 9 BUN 15 Creatinine 0.65 Est GFR ( Amer) > 60 Est GFR (Non-Af Amer) > 60 Glucose 443 H* Calcium 10.4 H Ionized Calcium Jessica 1.37 H Magnesium Total Bilirubin 0.7 AST 19 ALT 20 L Alkaline Phosphatase 134 H Total Protein 6.1 L Albumin 2.8 L Urine Color STRAW Urine Appearance CLEAR Urine pH 5.0 Ur Specific Halsey 1.023 Urine Protein NEGATIVE Urine Glucose (UA) >=500 H Urine Ketones NEGATIVE Urine Blood SMALL H Urine Nitrite NEGATIVE Ur Leukocyte Esterase NEGATIVE Urine RBC (Auto) 1 07/26/18 04:24 Sodium 136.0 L Potassium 5.0 Chloride 100 Carbon Dioxide 28 Anion Gap 8 BUN 10 Creatinine 0.66 Est GFR ( Amer) > 60 Est GFR (Non-Af Amer) > 60 Glucose 200 H Calcium 10.7 H Ionized Calcium Jessica Magnesium 1.7 Total Bilirubin AST ALT Alkaline Phosphatase Total Protein Albumin Urine Color Urine Appearance Urine pH Ur Specific Halsey Urine Protein Urine Glucose (UA) Urine Ketones Urine Blood Urine Nitrite Ur Leukocyte Esterase Urine RBC (Auto) 07/24/18 07/24/18 07/25/18 22:43 22:43 04:53 Creatine Kinase 35 L 39 L Troponin I 0.051 07/25/18 07/25/18 07/25/18 04:53 10:28 10:28 Creatine Kinase 34 L Troponin I 0.027 0.022 Impressions: Chest X-Ray 07/24/18 00:00 IMPRESSION: Increased left parahilar opacities -fullness. Abdomen/Pelvis CT 07/24/18 20:03 IMPRESSION: Images through the lung bases shows enlarged subcarinal lymph nodes and left lower lobe infiltrate/atelectasis. In the right anterior abdomen in the peritoneal cavity there is a 2.2 x 3.1 x 3.3 cm intraperitoneal mass abutting the proximal transverse colon. This lesion has slightly irregular margins and may represent an intraperitoneal desmoid tumor and less likely metastatic disease. In the adjacent anterior right subcutaneous fat there is an additional 13 mm well-circumscribed lesion, etiology uncertain. The findings in the CT chest, abdomen and pelvis can be further assessed with a CT PET examination There is presence of a 13 mm right adrenal nodule and 18 mm left adrenal nodule. These could represent benign adrenal adenomas or metastatic disease and can be further assessed with dedicated CT of the adrenal glands using adrenal adenoma protocol. There is a 2.7 cm infrarenal abdominal aortic aneurysm, which can be followed up at five yearly intervals based on the size criteria.. Location of Interpretation: [facility]iology Chest CT 07/24/18 20:31 IMPRESSION: There is presence of pathologically enlarged lymph nodes in the mediastinum and the subcarinal region, the largest of these lymph nodes measuring 21 mm in short axis dimension seen in the right paratracheal region and the largest subcarinal lymph node measuring 2.8 cm in short axis dimension. Pathologically enlarged lymph nodes are also seen in the bilateral hilar regions, worse on the left side. These lymph nodes are suspicious for a malignant process There is a 1.8 x 2.1 x 1.8 cm mass lesion in the left hilum surrounding the left lower lobe pulmonary artery and suspicious for a malignancy. There is presence of moderate size infiltrate/atelectasis in the left lower lobe of the lung extending to the left hilum. Minimal interstitial infiltrates are also seen in the lingula of the left lung. Note is made of a small ill-defined opacity in the right lung apex. Changes of COPD are seen in the bilateral lung mccoy In the visualized upper abdomen there is presence of 13 mm right adrenal nodule and 18 mm left adrenal nodule Lymph Node Biopsy Ultrasound 07/25/18 09:46 IMPRESSION: ULTRASOUND-GUIDED CORE BIOPSY OF THE PERIUMBILICAL SOFT TISSUE NODULE IN THE ANTERIOR ABDOMINAL WALL. POST BIOPSY CLIP PLACEMENT. PATHOLOGY IS PENDING Assessment & Plan - Diagnosis (1) Atrial fibrillation Is this a current diagnosis for this admission?: Yes (2) Hypercalcemia Is this a current diagnosis for this admission?: Yes Plan: May be hypercalcemia of malignancy. I have ordered Pamidronate today. PTH still pending. (3) Acute hyperkalemia Is this a current diagnosis for this admission?: Yes (4) Abnormal CT of the chest Is this a current diagnosis for this admission?: Yes Plan: Underwent biopsy yesterday. Await final pathology report and I will be happy to review these results with the patient once available, either here or as outpatient. (5) Tobacco dependence Is this a current diagnosis for this admission?: Yes - Plan Summary Plan Summary: All of patient's questions were answered to the best of my ability. I will be available by phone tomorrow and will return on Saturday. Please call me if needed.
--- NOTE | 2018-07-26 10:41 | XCELERA REPORT ---
[address] [address] Transthoracic Echocardiogram Report Name: GÓMEZ ENRIQUEZ Age: 62 yrs Gender: Male : 1955 Patient Status: Inpatient Patient Location: [address] [place], [place] [address] Study Date: 07/25/2018 08:09 PM Height: 70 in Weight: 155 lb BSA: 1.9 m2 Procedure: A complete two-dimensional transthoracic echocardiogram was performed (2D, M-mode, spectral and color flow Doppler). The study was technically adequate with some images being suboptimal in quality. Reason For Study: afib with rvr Ordering Physician: DIVYA MCCORMICK Performed By: Briseida Meyer Interpretation Summary The left ventricular ejection fraction is normal. There is borderline concentric left ventricular hypertrophy. The left ventricle is grossly normal size. Doppler measurements suggest impaired left ventricular relaxation, which is associated with grade I/IV or mild diastolic dysfunction Wall motion cannot be accurately commented on, but no definite regional wall motion abnormalities noted. The right ventricular systolic function is normal. The right ventricle is grossly normal size. The right atrium is normal in size The left atrial size is normal. There is a mild amount of mitral regurgitation There is no mitral valve stenosis. There is no aortic valve stenosis No aortic regurgitation is present. There is no tricuspid stenosis. No tricuspid regurgitation. The aortic root is not well visualized but is probably normal size. The inferior vena cava appeared normal and decreased > 50% with respiration (RAP 5-10 mmHg) There is no pericardial effusion. MMode/2D Measurements & Calculations RVDd: 2.8 cm LVIDd: 4.3 cm FS: 33.4 % Ao root diam: 2.9 cm IVSd: 1.1 cm LVIDs: 2.8 cm EDV(Teich): 82.0 ml Ao root area: 6.4 cm2 LVPWd: 1.0 cm ESV(Teich): 30.8 ml LA dimension: 3.4 cm EF(Teich): 62.4 % Doppler Measurements & Calculations MV E max lacho: MV P1/2t max lacho: Ao V2 max: LV V1 max P.7 cm/sec 73.3 cm/sec 152.2 cm/sec 4.6 mmHg MV A max lacho: MV P1/2t: 52.0 msec Ao max PG: LV V1 max: 70.1 cm/sec MVA(P1/2t): 4.2 cm2 9.3 mmHg 107.6 cm/sec MV E/A: 0.85 MV dec slope: 413.0 cm/sec2 MV dec time: 0.19 sec PA V2 max: PI end-d lacho: TR max lacho: MV P1/2t-pr_phl: 92.0 cm/sec 101.0 cm/sec 185.5 cm/sec 52.0 msec PA max PG: TR max P.4 mmHg 13.8 mmHg Left Ventricle The left ventricle is grossly normal size. There is borderline concentric left ventricular hypertrophy. The left ventricular ejection fraction is normal. Doppler measurements suggest impaired left ventricular relaxation, which is associated with grade I/IV or mild diastolic dysfunction. Wall motion cannot be accurately commented on, but no definite regional wall motion abnormalities noted. Right Ventricle The right ventricle is grossly normal size. There is normal right ventricular wall thickness. The right ventricular systolic function is normal. Atria The right atrium is normal in size. The left atrial size is normal. Interarterial septum not well visualized and not well dopplered. Cannot comment on ASD/PFO presence. Mitral Valve The mitral valve is grossly normal. There is no mitral valve stenosis. There is a mild amount of mitral regurgitation. Aortic Valve The aortic valve is grossly normal. There is no aortic valve stenosis. No aortic regurgitation is present. Tricuspid Valve The tricuspid valve is not well visualized, but is grossly normal. There is no tricuspid stenosis. No tricuspid regurgitation. Pulmonic Valve The pulmonic valve is not well visualized. Great Vessels The aortic root is not well visualized but is probably normal size. The inferior vena cava appeared normal and decreased > 50% with respiration (RAP 5-10 mmHg). Effusions There is no pericardial effusion. : DIVYA MCCORMICK > Divya Mccormick
[2018-07-26] MEDS: DEXTROSE 5%-WATER 500 ML with AMIODARONE HCL 900 MG IV PRN ×2 (10:50)
--- NOTE | 2018-07-26 10:54 | PDOC CONSULTATION ---
Consultation Consult Date: 07/25/18 Attending physician:: HENRRY BRUNER Consult reason:: Atrial fibrillation with rapid ventricular response History of Present Illness Admission Date/PCP: 07/24/18 22:12 DIONISIO GUERRERO DO Patient complains of: Palpitations History of Present Illness: GÓMEZ ENRIQUEZ is a 62 year old male with a past medical history of diabetes, hypertension, COPD, opiate dependent chronic pain, tobacco dependence and noncompliance. He presents with 2-3 weeks of abdominal discomfort, fatigue, anorexia, nausea and weight loss. In the emergency room is found to have A. fib with RVR, hyperglycemia without acidosis, chest x-ray with hilar fullness prompting a CT revealing bilateral adenopathy, adrenal masses, intraperitoneal versus colonic mass. He denies chest pain. He is referred to the hospitalist for admission. This history obtained by the hospitalist was reviewed and confirmed. On repeated questioning patient denied any chest pain. When initially seen he will had heart rate in the 140s with atrial fibrillation. Patient was already started on amiodarone bolus and drip protocol by the hospitalist. I wrote orders for IV Lopressor 5 mg every 5 minutes x3 until heart rate less than 110. Patient also given metoprolol succinate 25 mg p.o. twice daily. Orders for as needed Lopressor also given. A 2D echo was also ordered. Past Medical History Cardiac Medical History: Reports: Myocardial Infarction Denies: Congestive Heart Failure, Hypertension, Heart Murmur Pulmonary Medical History: Denies: Asthma, Bronchitis, Chronic Obstructive Pulmonary Disease (COPD), Pneumonia, Tuberculosis Neurological Medical History: Denies: Seizures Endocrine Medical History: Reports: Diabetes Mellitus Type 2 GI Medical History: Reports: Gastroesophageal Reflux Disease Denies: Hepatitis, Hiatal Hernia Musculoskeltal Medical History: Psychiatric Medical History: Reports: Depression, Substance Abuse, Tobacco Dependency Hematology: Denies: Anemia, Sickle Cell Disease Past Surgical History Past Surgical History: Reports: Cardiac Catheterization - +2 stents Denies: Pacemaker Social History Information Source: Patient Lives with: Family, Spouse/Significant other Smoking Status: Former Smoker Cigarettes Packs Per Day: 1 Number of Years Smokin Last Time Smoked: 4 days Frequency of Alcohol Use: Occasional Hx Recreational Drug Use: Yes Drugs: Marijuana Hx Prescription Drug Abuse: No - Advance Directive Resuscitation Status: Full Code Surrogate healthcare decision maker:: Patient's Family History Family History: DM, Hypertension Parental Family History Reviewed: Yes Children Family History Reviewed: Yes Sibling(s) Family History Reviewed.: Yes Medication/Allergy Home Medications: Albuterol Sulfate [Ventolin HFA MDI 18 GM] 2 puff IH Q6HP PRN 07/25/18 Gabapentin [Neurontin 300 mg Capsule] 300 mg PO Q12 07/25/18 Insulin Aspart [Novolog Flexpen] 0 units SQ .SLIDINGSCALE 07/25/18 Insulin Glargine,Hum.rec.anlog [Basaglar Kwikpen U-100] 55 units SQ QHS Isosorbide Mononitrate [Isosorbide Mononitrate ER] 30 mg PO QAM 07/25/18 Naproxen [Naprosyn] 500 mg PO Q12 07/25/18 Nitroglycerin [Nitrostat] 0.4 mg SL Q5MP PRN 07/25/18 Omeprazole 20 mg PO BIDACBS 07/25/18 Oxycodone HCl/Acetaminophen [Endocet 5-325 Tablet] 1 tab PO Q6HP PRN 07/25/18 Simvastatin [Zocor 20 mg Tablet] 20 mg PO QHS 07/25/18 Sitagliptin Phosphate [Januvia] 100 mg PO DAILY 07/25/18 Zolpidem Tartrate [Ambien] 10 mg PO QHS 07/25/18 Allergies/Adverse Reactions: chlorpromazine HCl [From Thorazine] Allergy (Verified 06/30/18 12:37) faints Review of Systems Review of Systems: Please see history of present illness and past medical history as wall. Constitutional: No fever or chills reported. Head : No recent chronic headaches, recent head injury. Eyes: No recent eye pain, diplopia, redness, discharge, acute visual changes. Ears: No recent chronic ear pain, acute hearing loss, ear discharge. Oral cavity: No recent ulcerations, bleeding, oral cavity discomfort. Neck: No recent acute neck pain reported. Hematologic: No recent easy bruising or bleeding. Lymphatic: No recent lymph node enlargement reported. Cardiovascular system review: See history of present illness. Respiratory system review: No hemoptysis or blood clots in the lungs reported. Mild Shortness of breath on exertion Gastrointestinal system review: Negative for any recent acute hematemesis, melena. Genitourinary system review: No recent acute or chronic hematuria, flank pain, UTI etc. reported. Skin system review: Negative for any recent abnormal bruising, no rash, no pruritus reported. Neurologic: No prior history of strokes, mini strokes, seizure disorder. Psychologic: No history of major psychosis or major depression reported. Musculoskeletal: Minor aches and pains reported. No acute joint swelling reported. Endocrine: No recent polyuria, polydipsia, recent heat or cold intolerance. Physical Exam Vital Signs: Temp Pulse Resp BP Pulse Ox 98.4 F 91 16 119/67 95 07/26/18 07:37 07/26/18 10:00 07/26/18 08:41 07/26/18 10:00 07/26/18 08:41 Intake & Output 07/25/18 07/26/18 07/27/18 06:59 06:59 06:59 Intake Total 1242 2748 Output Total 1825 Balance 1242 923 Weight 73.7 kg 75.1 kg Exam: GENERAL: well-nourished and in no acute distress. Alert and oriented x3 HEAD: Atraumatic, normocephalic. EYES: Pupils equal round and reactive to light, extraocular movements intact, sclera anicteric, conjunctiva are normal. ENT: TMs normal, nares patent, oropharynx clear without exudates. Moist mucous membranes. No oral ulcerations or bleeding gums noted NECK: supple without lymphadenopathy. Trachea is central. No cervical or axillary lymphadenopathy noted. Carotids are 2+, JVD WNL LUNGS: Respiration seems nonlabored, no significant accessory muscle action noted. Breath sounds clear to auscultation bilaterally and equal noted. No wheezes rales or rhonchi noted. No significant dullness noted on percussion. CHEST: Palpation of the chest wall shows no significant chest wall tenderness. 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 ABDOMEN: Soft, no significant tenderness appreciated, normoactive bowel sounds. No guarding, no rebound. No rigidity noted . No masses appreciated. EXTREMITIES: Pedal pulses are 1-2+, no calf tenderness noted. No clubbing or cyanosis. negative pedal edema noted NEUROLOGICAL: Focused neurological exam showed no significant neurologic deficit. Normal speech, no focal weakness appreciated. PSYCH: Normal mood, normal affect. Judgment and insight within normal limits. SKIN: No significant ecchymosis, skin is noted to be warm. MUSCULOSKELETAL EXAM: No significant acute joint swelling noted. Results Laboratory Results: 07/25/18 04:53 07/26/18 04:24 07/25/18 07/25/18 07/25/18 10:28 10:28 15:40 Sodium 133.3 L Potassium 4.3 Chloride 99 Carbon Dioxide 25 Anion Gap 9 BUN 15 Creatinine 0.65 Est GFR ( Amer) > 60 Est GFR (Non-Af Amer) > 60 Glucose 443 H* Calcium 10.4 H Ionized Calcium Jessica 1.37 H Magnesium Total Bilirubin 0.7 AST 19 ALT 20 L Alkaline Phosphatase 134 H Total Protein 6.1 L Albumin 2.8 L Urine Color STRAW Urine Appearance CLEAR Urine pH 5.0 Ur Specific [place] 1.023 Urine Protein NEGATIVE Urine Glucose (UA) >=500 H Urine Ketones NEGATIVE Urine Blood SMALL H Urine Nitrite NEGATIVE Ur Leukocyte Esterase NEGATIVE Urine RBC (Auto) 1 07/26/18 04:24 Sodium 136.0 L Potassium 5.0 Chloride 100 Carbon Dioxide 28 Anion Gap 8 BUN 10 Creatinine 0.66 Est GFR ( Amer) > 60 Est GFR (Non-Af Amer) > 60 Glucose 200 H Calcium 10.7 H Ionized Calcium Jessica Magnesium 1.7 Total Bilirubin AST ALT Alkaline Phosphatase Total Protein Albumin Urine Color Urine Appearance Urine pH Ur Specific [place] Urine Protein Urine Glucose (UA) Urine Ketones Urine Blood Urine Nitrite Ur Leukocyte Esterase Urine RBC (Auto) 07/24/18 07/24/18 07/25/18 22:43 22:43 04:53 Creatine Kinase 35 L 39 L Troponin I 0.051 07/25/18 07/25/18 07/25/18 04:53 10:28 10:28 Creatine Kinase 34 L Troponin I 0.027 0.022 EKG Comments: EKG strip shows atrial fibrillation. EKG shows sinus rhythm with frequent APCs , which was noted on admission. Impressions: Chest X-Ray 07/24/18 00:00 IMPRESSION: Increased left parahilar opacities -fullness. Abdomen/Pelvis CT 07/24/18 20:03 IMPRESSION: Images through the lung bases shows enlarged subcarinal lymph nodes and left lower lobe infiltrate/atelectasis. In the right anterior abdomen in the peritoneal cavity there is a 2.2 x 3.1 x 3.3 cm intraperitoneal mass abutting the proximal transverse colon. This lesion has slightly irregular margins and may represent an intraperitoneal desmoid tumor and less likely metastatic disease. In the adjacent anterior right subcutaneous fat there is an additional 13 mm well-circumscribed lesion, etiology uncertain. The findings in the CT chest, abdomen and pelvis can be further assessed with a CT PET examination There is presence of a 13 mm right adrenal nodule and 18 mm left adrenal nodule. These could represent benign adrenal adenomas or metastatic disease and can be further assessed with dedicated CT of the adrenal glands using adrenal adenoma protocol. There is a 2.7 cm infrarenal abdominal aortic aneurysm, which can be followed up at five yearly intervals based on the size criteria.. Location of Interpretation: [facility] Chest CT 07/24/18 20:31 IMPRESSION: There is presence of pathologically enlarged lymph nodes in the mediastinum and the subcarinal region, the largest of these lymph nodes measuring 21 mm in short axis dimension seen in the right paratracheal region and the largest subcarinal lymph node measuring 2.8 cm in short axis dimension. Pathologically enlarged lymph nodes are also seen in the bilateral hilar regions, worse on the left side. These lymph nodes are suspicious for a malignant process There is a 1.8 x 2.1 x 1.8 cm mass lesion in the left hilum surrounding the left lower lobe pulmonary artery and suspicious for a malignancy. There is presence of moderate size infiltrate/atelectasis in the left lower lobe of the lung extending to the left hilum. Minimal interstitial infiltrates are also seen in the lingula of the left lung. Note is made of a small ill-defined opacity in the right lung apex. Changes of COPD are seen in the bilateral lung mccoy In the visualized upper abdomen there is presence of 13 mm right adrenal nodule and 18 mm left adrenal nodule Lymph Node Biopsy Ultrasound 07/25/18 09:46 IMPRESSION: ULTRASOUND-GUIDED CORE BIOPSY OF THE PERIUMBILICAL SOFT TISSUE NODULE IN THE ANTERIOR ABDOMINAL WALL. POST BIOPSY CLIP PLACEMENT. 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 transplanted heart: [place] heart Associated angina: angina presence unspecified Qualified Code(s): I25.10 - Atherosclerotic heart disease of [place] coronary artery without angina pectoris Is this a current diagnosis for this admission?: Yes (5) Lung mass Is this a current diagnosis for this admission?: Yes - Notes Notes: Atrial fibrillation: New onset, possibly precipitated by lung mass, atelectasis. A stat 2D echo ordered. Agree with amiodarone therapy. Since patient has history of coronary artery disease, beta-blockers would be preferred agent for rate control. This was started. As regards chronic anticoagulation, patient would be considered a candidate for chronic anticoagulation. This decision will be made after review of 2D echo. Right now patient may end up needing lot of procedures as he is been diagnosed to have lung mass. In the short-term just use Lovenox or heparin. Long-term anticoagulation to be decided later after full discussion with the patient. Recommend Eliquis/Xarelto/Pradaxa therapy to be considered on discharge. Diabetes: Currently uncontrolled but coming under better control. Hypertension: Satisfactorily controlled. Coronary artery disease: Currently stable without any angina or angina equivalent symptoms. Treat with statins, aspirin, beta-kamilah. Lung mass: To be evaluated further, oncology following. - Time Time Spent: 30 to 50 Minutes - CODE STATUS was discussed, patient remains full code. Multiple medical problems were addressed. More than 50% of the time spent coordinating care, discussing management plans with involved caregivers. Management plans discussed with involved personnels. Medical decision making was of moderate to high complexity, patient's has multiple comorbidities. Medications reviewed and adjusted accordingly: Yes
[2018-07-26] MEDS ORDERED: PAMIDRONATE DISODIUM 90 MG in NORMAL SALINE 1000 ML 1,000 ML IV ONE (11:00)
[2018-07-26] MEDS: AMIODARONE HCL 200 MG TABLET PO SCH ×2 (11:36→17:00)
[2018-07-26] MEDS ORDERED: ALBUTEROL SULFATE HFA (90 MCG/PUFF) 8 GM MDI (1 MDI/ER DISP) IH PRN (11:46)
[2018-07-26] MEDS ORDERED: HYDROMORPHONE HCL INJ/PF 2 MG/ML AMPULE IV SCH (12:00)
--- NOTE | 2018-07-26 13:22 | PDOC PROGRESS REPORT ---
Subjective Progress Note for:: 07/26/18 Subjective:: Patient is struggling with some nausea and vomiting. He has not been able to eat well. He is taking his regular oxycodone but without food that makes him nauseated. No significant chest pain or difficulty breathing. He is having some right flank discomfort. No dysuria or hematuria. No confusion. No fever or chills. No palpitations, no cough. He and his are extremely concerned about the possibility of widely metastatic cancer. Reason For Visit: LUNG MASS W METS, HYPERKALEMIA, HYPONATREMIA Physical Exam Vital Signs: Temp Pulse Resp BP Pulse Ox 98.7 F 90 19 108/67 97 07/26/18 11:44 07/26/18 11:44 07/26/18 11:44 07/26/18 11:44 07/26/18 11:44 Intake & Output 07/25/18 07/26/18 07/27/18 06:59 06:59 06:59 Intake Total 1242 2748 1827 Output Total 1825 250 Balance 5396 143 4103 Weight 73.7 kg 75.1 kg General appearance: PRESENT: cooperative, mild distress Head exam: PRESENT: atraumatic, normocephalic Eye exam: PRESENT: EOMI. ABSENT: scleral icterus Ear exam: PRESENT: normal external ear exam Mouth exam: PRESENT: moist Respiratory exam: PRESENT: decreased breath sounds, unlabored. ABSENT: rales, rhonchi, wheezes Cardiovascular exam: PRESENT: RRR. ABSENT: systolic murmur Pulses: PRESENT: normal radial pulses GI/Abdominal exam: PRESENT: hyperactive bowel sounds, soft. ABSENT: distended, tenderness Rectal exam: PRESENT: deferred Extremities exam: ABSENT: pedal edema Musculoskeletal exam: ABSENT: deformity Neurological exam: PRESENT: alert, awake, oriented to person, oriented to place , oriented to situation, CN II-XII grossly intact Psychiatric exam: PRESENT: appropriate affect. ABSENT: anxious Skin exam: PRESENT: dry, intact, warm, other - Few scattered bruises Results Laboratory Results: 07/25/18 04:53 07/26/18 04:24 07/25/18 07/26/18 15:40 04:24 Sodium 136.0 L Potassium 5.0 Chloride 100 Carbon Dioxide 28 Anion Gap 8 BUN 10 Creatinine 0.66 Est GFR ( Amer) > 60 Est GFR (Non-Af Amer) > 60 Glucose 200 H Calcium 10.7 H Magnesium 1.7 Urine Color STRAW Urine Appearance CLEAR Urine pH 5.0 Ur Specific [place] 1.023 Urine Protein NEGATIVE Urine Glucose (UA) >=500 H Urine Ketones NEGATIVE Urine Blood SMALL H Urine Nitrite NEGATIVE Ur Leukocyte Esterase NEGATIVE Urine RBC (Auto) 1 07/24/18 07/24/18 07/25/18 22:43 22:43 04:53 Creatine Kinase 35 L 39 L Troponin I 0.051 07/25/18 07/25/18 07/25/18 04:53 10:28 10:28 Creatine Kinase 34 L Troponin I 0.027 0.022 Impressions: Chest X-Ray 07/24/18 00:00 IMPRESSION: Increased left parahilar opacities -fullness. Abdomen/Pelvis CT 07/24/18 20:03 IMPRESSION: Images through the lung bases shows enlarged subcarinal lymph nodes and left lower lobe infiltrate/atelectasis. In the right anterior abdomen in the peritoneal cavity there is a 2.2 x 3.1 x 3.3 cm intraperitoneal mass abutting the proximal transverse colon. This lesion has slightly irregular margins and may represent an intraperitoneal desmoid tumor and less likely metastatic disease. In the adjacent anterior right subcutaneous fat there is an additional 13 mm well-circumscribed lesion, etiology uncertain. The findings in the CT chest, abdomen and pelvis can be further assessed with a CT PET examination There is presence of a 13 mm right adrenal nodule and 18 mm left adrenal nodule. These could represent benign adrenal adenomas or metastatic disease and can be further assessed with dedicated CT of the adrenal glands using adrenal adenoma protocol. There is a 2.7 cm infrarenal abdominal aortic aneurysm, which can be followed up at five yearly intervals based on the size criteria.. [facility] 07/24/18 20:31 IMPRESSION: There is presence of pathologically enlarged lymph nodes in the mediastinum and the subcarinal region, the largest of these lymph nodes measuring 21 mm in short axis dimension seen in the right paratracheal region and the largest subcarinal lymph node measuring 2.8 cm in short axis dimension. Pathologically enlarged lymph nodes are also seen in the bilateral hilar regions, worse on the left side. These lymph nodes are suspicious for a malignant process There is a 1.8 x 2.1 x 1.8 cm mass lesion in the left hilum surrounding the left lower lobe pulmonary artery and suspicious for a malignancy. There is presence of moderate size infiltrate/atelectasis in the left lower lobe of the lung extending to the left hilum. Minimal interstitial infiltrates are also seen in the lingula of the left lung. Note is made of a small ill-defined opacity in the right lung apex. Changes of COPD are seen in the bilateral lung mccoy In the visualized upper abdomen there is presence of 13 mm right adrenal nodule and 18 mm left adrenal nodule Lymph Node Biopsy Ultrasound 07/25/18 09:46 IMPRESSION: ULTRASOUND-GUIDED CORE BIOPSY OF THE PERIUMBILICAL SOFT TISSUE NODULE IN THE ANTERIOR ABDOMINAL WALL. POST BIOPSY CLIP PLACEMENT. PATHOLOGY IS PENDING Assessment & Plan - Diagnosis (1) Abdominal mass Qualifiers: Abdominal location: other location Qualified Code(s): R19.09 - Other intra- abdominal and pelvic swelling, mass and lump Is this a current diagnosis for this admission?: Yes Plan: There is a mass in the intra-abdominal cavity abutting the transverse colon, possibly the cause of his right flank pain. He also has bilateral adrenal masses. He has a lung mass and signal and adenopathy. Patient is being evaluated for etiology. Lymph node biopsy performed yesterday and results are still pending. Patient is being followed by Dr. Pickering. (2) Lung mass Is this a current diagnosis for this admission?: Yes Plan: Please see "abdominal mass" (3) Atrial fibrillation Qualifiers: Atrial fibrillation type: unspecified Qualified Code(s): I48.91 - Unspecified atrial fibrillation Is this a current diagnosis for this admission?: Yes Plan: Patient is now rate controlled on diltiazem and amiodarone. He is anticoagulated with therapeutic Lovenox and will not transition to orals until we know what treatments will be indicated for his possible cancer. (4) Coronary artery disease Qualifiers: Coronary Disease-Associated Artery/Lesion type: [place] artery [place] vs. transplanted heart: [place] heart Associated angina: angina presence unspecified Qualified Code(s): I25.10 - Atherosclerotic heart disease of [place] coronary artery without angina pectoris Is this a current diagnosis for this admission?: Yes Plan: Patient may have had a non-ST elevation [place]. Mild. Symptom free. Continue his cardiac meds. Continue cardiology consult. 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 We will continue with long-acting Lantus, pre- meal short-acting and bolus short acting. Of note today I changed his diet to a regular diet as he is having a hard time eating much of anything and so I wanted to liberalize his options. We will keep close track of blood sugar. He agrees with this change and understands that it may impact his blood sugar. (6) Elevated troponin Is this a current diagnosis for this admission?: Yes Plan: Possible non-ST elevation GA, resolving, continue cardiac meds and now is hemodynamically stable. (7) Opiate dependence, continuous Is this a current diagnosis for this admission?: Yes Plan: Secondary to nausea and vomiting she has been unable to tolerate his oxycodone which she normally takes for chronic pain. I have converted his oxycodone to Dilaudid 0.5 mg IV every 6 hours scheduled and 0.5 mg IV every 4 hours as needed severe pain. I have also ordered hold parameters for the Dilaudid. - Time Time Spent with patient: 25-34 minutes Medications reviewed and adjusted accordingly: Yes - Inpatient Certification Based on my medical assessment, after consideration of the patient's comorbidities, presenting symptoms, or acuity I expect that the services needed warrant INPATIENT care.: Yes I certify that my determination is in accordance with my understanding of Medicare's requirements for reasonable and necessary INPATIENT services [42 CFR 412.3e].: Yes Medical Necessity: Significant Comorbidiites Make Outpatient Treatment Too Risky , Need Close Monitoring Due to Risk of Patient Decompensation
[2018-07-26] MEDS ORDERED: AMIODARONE HCL INJ 150 MG/3 ML VIAL IV ONE (17:17)
[2018-07-26] MEDS ORDERED: METOPROLOL TARTRATE PF/INJ 5 MG/5 ML SDV IV ONE (17:57)
[2018-07-26] MEDS ORDERED: METOPROLOL SUCCINATE 25 MG TAB.SR.24H PO SCH (17:59)
[2018-07-26] MEDS ORDERED: METOPROLOL SUCCINATE 25 MG TAB.SR.24H PO ONE (18:00)
[2018-07-26] MEDS ORDERED: AMIODARONE HCL 150 MG in DEXTROSE 5%-WATER 100 ML IV ONE (18:00)
--- NOTE | 2018-07-26 18:00 | PDOC PROGRESS REPORT ---
Subjective Progress Note for:: 07/26/18 Subjective:: Patient seems to be doing better with gradual improvement. Pt is denying any chest arm or neck discomfort. Patient denying any PND, orthopnea. Patient denied any sustained palpitations, dizziness, syncope, near syncope. Patient denying any fever chills. Patient denying any other significant discomfort. Patient is maintaining sinus rhythm. Review of systems: Rest review of systems negative. Medications: Medications have been reviewed. Reason For Visit: LUNG MASS W METS, HYPERKALEMIA, HYPONATREMIA Physical Exam Vital Signs: Temp Pulse Resp BP Pulse Ox 98.1 F 83 16 110/67 96 07/26/18 15:12 07/26/18 15:56 07/26/18 15:56 07/26/18 15:12 07/26/18 15:56 Intake & Output 07/25/18 07/26/18 07/27/18 06:59 06:59 06:59 Intake Total 1242 2748 2804 Output Total 1825 750 Balance 9614 906 4285 Weight 73.7 kg 75.1 kg Exam: GENERAL: well-nourished and in no acute distress. Alert and oriented x3 HEAD: Atraumatic, normocephalic. EYES: Pupils equal round and reactive to light, extraocular movements intact, sclera anicteric, conjunctiva are normal. ENT: TMs normal, nares patent, oropharynx clear without exudates. Moist mucous membranes. No oral ulcerations or bleeding gums noted NECK: supple without lymphadenopathy. Trachea is central. No cervical or axillary lymphadenopathy noted. Carotids are 2+, JVD WNL LUNGS: Respiration seems nonlabored, no significant accessory muscle action noted. Breath sounds clear to auscultation bilaterally and equal noted. No wheezes rales or rhonchi noted. No significant dullness noted on percussion. CHEST: Palpation of the chest wall shows no significant chest wall tenderness. HEART: [place] [employer], No PSH, 1/6 KYLE aortic area, 1/6 chi systolic murmur mitral area, no rubs, no gallops. ABDOMEN: Soft, no significant tenderness appreciated, normoactive bowel sounds. No guarding, no rebound. No rigidity noted . No masses appreciated. EXTREMITIES: Pedal pulses are 1-2+, no calf tenderness noted. No clubbing or cyanosis. negative pedal edema noted NEUROLOGICAL: Focused neurological exam showed no significant neurologic deficit. Normal speech, no focal weakness appreciated. PSYCH: Normal mood, normal affect. Judgment and insight within normal limits. SKIN: No significant ecchymosis, skin is noted to be warm. MUSCULOSKELETAL EXAM: No significant acute joint swelling noted. Results Laboratory Results: 07/25/18 04:53 07/26/18 04:24 07/26/18 04:24 Sodium 136.0 L Potassium 5.0 Chloride 100 Carbon Dioxide 28 Anion Gap 8 BUN 10 Creatinine 0.66 Est GFR ( Amer) > 60 Est GFR (Non-Af Amer) > 60 Glucose 200 H Calcium 10.7 H Magnesium 1.7 07/24/18 07/24/18 07/25/18 22:43 22:43 04:53 Creatine Kinase 35 L 39 L Troponin I 0.051 07/25/18 07/25/18 07/25/18 04:53 10:28 10:28 Creatine Kinase 34 L Troponin I 0.027 0.022 EKG Comments: Telemetry shows sinus rhythm. Impressions: Chest X-Ray 07/24/18 00:00 IMPRESSION: Increased left parahilar opacities -fullness. Abdomen/Pelvis CT 07/24/18 20:03 IMPRESSION: Images through the lung bases shows enlarged subcarinal lymph nodes and left lower lobe infiltrate/atelectasis. In the right anterior abdomen in the peritoneal cavity there is a 2.2 x 3.1 x 3.3 cm intraperitoneal mass abutting the proximal transverse colon. This lesion has slightly irregular margins and may represent an intraperitoneal desmoid tumor and less likely metastatic disease. In the adjacent anterior right subcutaneous fat there is an additional 13 mm well-circumscribed lesion, etiology uncertain. The findings in the CT chest, abdomen and pelvis can be further assessed with a CT PET examination There is presence of a 13 mm right adrenal nodule and 18 mm left adrenal nodule. These could represent benign adrenal adenomas or metastatic disease and can be further assessed with dedicated CT of the adrenal glands using adrenal adenoma protocol. There is a 2.7 cm infrarenal abdominal aortic aneurysm, which can be followed up at five yearly intervals based on the size criteria.. Location of Interpretation: Teleradiology Chest CT 07/24/18 20:31 IMPRESSION: There is presence of pathologically enlarged lymph nodes in the mediastinum and the subcarinal region, the largest of these lymph nodes measuring 21 mm in short axis dimension seen in the right paratracheal region and the largest subcarinal lymph node measuring 2.8 cm in short axis dimension. Pathologically enlarged lymph nodes are also seen in the bilateral hilar regions, worse on the left side. These lymph nodes are suspicious for a malignant process There is a 1.8 x 2.1 x 1.8 cm mass lesion in the left hilum surrounding the left lower lobe pulmonary artery and suspicious for a malignancy. There is presence of moderate size infiltrate/atelectasis in the left lower lobe of the lung extending to the left hilum. Minimal interstitial infiltrates are also seen in the lingula of the left lung. Note is made of a small ill-defined opacity in the right lung apex. Changes of COPD are seen in the bilateral lung mccoy In the visualized upper abdomen there is presence of 13 mm right adrenal nodule and 18 mm left adrenal nodule Lymph Node Biopsy Ultrasound 07/25/18 09:46 IMPRESSION: ULTRASOUND-GUIDED CORE BIOPSY OF THE PERIUMBILICAL SOFT TISSUE NODULE IN THE ANTERIOR ABDOMINAL WALL. POST BIOPSY CLIP PLACEMENT. PATHOLOGY IS PENDING Assessment & Plan - Diagnosis (1) Atrial fibrillation Qualifiers: Atrial fibrillation type: unspecified Qualified Code(s): I48.91 - Unspecified atrial fibrillation Is this a current diagnosis for this admission?: Yes (2) Diabetes Qualifiers: Diabetes mellitus type: type 2 Diabetes mellitus halfway insulin use: unspecified halfway insulin use status Diabetes mellitus complication status : with unspecified complications Qualified Code(s): E11.8 - Type 2 diabetes mellitus with unspecified complications Is this a current diagnosis for this admission?: Yes (3) Hypertension Qualifiers: Hypertension type: essential hypertension Qualified Code(s): I10 - Essential (primary) hypertension Is this a current diagnosis for this admission?: Yes (4) Coronary artery disease Qualifiers: Coronary Disease-Associated Artery/Lesion type: [place] artery [place] vs. transplanted heart: [place] heart Associated angina: angina presence unspecified Qualified Code(s): I25.10 - Atherosclerotic heart disease of [place] coronary artery without angina pectoris Is this a current diagnosis for this admission?: Yes (5) Lung mass Is this a current diagnosis for this admission?: Yes - Notes Notes: Atrial fibrillation: New onset, possibly precipitated by lung mass, atelectasis. 2D echo shows normal LVEF. Started p.o. amiodarone therapy. Since patient has history of coronary artery disease, beta-blockers would be preferred agent for rate control. Consider increasing it as tolerated. As regards chronic anticoagulation, patient would be considered a candidate for chronic anticoagulation. Right now patient may end up needing lot of procedures as he is been diagnosed to have lung mass. In the short-term just use Lovenox or heparin. Recommend Eliquis/Xarelto/Pradaxa therapy to be started on discharge. Diabetes: Currently uncontrolled but coming under better control. Hypertension: Satisfactorily controlled. Coronary artery disease: Currently stable without any angina or angina equivalent symptoms. Treat with statins, aspirin, beta-kamilah. Lung mass: To be evaluated further, oncology following. Addendum: At around 5: 40 PM was called that patient had reverted back to atrial fibrillation. Patient refused to get an EKG done. Have ordered nurse to give amiodarone 150 mg IV bolus, Lopressor 5 mg IV every 5 until heart rate less than 110, and increased metoprolol succinate to 50 mg p.o. twice daily. - Time Time with patient: Greater than 35 minutes - CODE STATUS was discussed, patient remains full code. Surrogate decision-maker patient's . Multiple medical problems were addressed. More than 50% of the time spent coordinating care, discussing management plans with involved caregivers. Management plans discussed with involved personnels. Medical decision making was of moderate to high complexity, patient's has multiple comorbidities. Medications reviewed and adjusted accordingly: Yes
[2018-07-26] MEDS: METOPROLOL TARTRATE PF/INJ 5 MG/5 ML SDV IV PRN ×2 (18:05→18:16)
[2018-07-26] MEDS: HYDROMORPHONE HCL INJ/PF 2 MG/ML AMPULE IV PRN ×2 (18:11→21:58)
[2018-07-26] MEDS ORDERED: GABAPENTIN 300 MG CAPSULE PO SCH (22:00)
[2018-07-26] MEDS: INSULIN LISPRO 100 UNIT/ML 3 ML VIAL SUBCUT PRN (22:30)
[2018-07-26] MEDS ORDERED: LACTULOSE SYRUP 20 GM/30 ML UDCUP PO ONE (22:45)
[2018-07-26] MEDS ORDERED: DOCUSATE SODIUM 100 MG CAPSULE PO ONE (23:00)
[2018-07-27 05:48] LABS: ANION GAP 11 (5-19); BLOOD UREA NITROGEN 8 mg/dL (7-20); CALCIUM 11.2 mg/dL (8.4-10.2); CARBON DIOXIDE 24 mmol/L (22-30); CHLORIDE 99 mmol/L (98-107); GLUCOSE 153 mg/dL (75-110); POTASSIUM 4.4 mmol/L (3.6-5.0); SODIUM 134.3 mmol/L (137-145)
[2018-07-27] MEDS: HYDROMORPHONE HCL INJ/PF 2 MG/ML AMPULE IV PRN ×2 (06:28→16:40)
[2018-07-27] MEDS: INSULIN LISPRO 100 UNIT/ML 3 ML VIAL SUBCUT PRN ×3 (07:50→21:18)
[2018-07-27] MEDS: INSULIN LISPRO 100 UNIT/ML 3 ML VIAL SUBCUT SCH ×3 (07:50→16:33)
[2018-07-27] MEDS: IPRATROPIUM/ALBUTEROL 0.5-2.5 MG/3 ML AMPUL NEB SCH ×2 (08:26→16:16)
[2018-07-27] MEDS ORDERED: ONDANSETRON HCL INJ/PF 4 MG/2 ML SDV ONE (08:37)
[2018-07-27] MEDS: ENOXAPARIN SODIUM INJ 80 MG/0.8 ML DISP.SYRIN SUBCUT SCH ×2 (09:39→21:12)
[2018-07-27] MEDS: METOPROLOL SUCCINATE 50 MG TAB.SR.24H PO SCH ×2 (09:40→21:11)
[2018-07-27] MEDS: INSULIN GLARGINE,HUM.REC.ANLOG 300 UNIT/3 ML INSULN.PEN SUBCUT SCH ×2 (09:40→18:07)
[2018-07-27] MEDS: AMIODARONE HCL 200 MG TABLET PO SCH ×2 (09:40→18:07)
[2018-07-27] MEDS: GABAPENTIN 300 MG CAPSULE PO SCH ×2 (09:40→21:11)
[2018-07-27] MEDS: SENNOSIDES/DOCUSATE 8.6-50 MG 1 EACH TABLET PO SCH (09:40)
[2018-07-27] MEDS: ISOSORBIDE MONONITRATE 30 MG TAB.ER.24H PO SCH (09:40)
[2018-07-27] MEDS ORDERED: DOCUSATE SODIUM 100 MG CAPSULE PO SCH (10:00)
[2018-07-27] MEDS ORDERED: METOPROLOL SUCCINATE 50 MG TAB.SR.24H PO SCH (10:00)
--- NOTE | 2018-07-27 10:25 | RADIOLOGY REPORT (SQ) ---
EXAM DESCRIPTION: CT HEAD WITHOUT COMPLETED DATE/TIME: 07/27/2018 10:07 am REASON FOR STUDY: eval for brain mets COMPARISON: None. TECHNIQUE: Axial images acquired through the brain without intravenous contrast. Images reviewed wi th bone, brain and subdural windows. Additional sagittal and coronal reconstructions were generated. Images stored on PACS. All CT scanners at this facility use dose modulation, iterative reconstruction, and/or weight based d osing when appropriate to reduce radiation dose to as low as reasonably achievable (ALARA). [facility]: Dose Right [facility]: CareDose [facility]: Dose Right [facility]: Teradose 4D [facility]: Smart Classana RADIATION DOSE: CT Rad equipment meets quality standard of care and radiation dose reduction techniq ues were employed. CTDIvol: 53.2 mGy. DLP: 991 mGy-cm. mGy. LIMITATIONS: None. FINDINGS: VENTRICLES: Normal size and contour. CEREBRUM: No masses. No hemorrhage. No midline shift. No evidence for acute infarction. Normal gra y/white matter differentiation. No areas of low density in the white matter. CEREBELLUM: No masses. No hemorrhage. No alteration of density. No evidence for acute infarction. EXTRAAXIAL SPACES: No fluid collections. No masses. ORBITS AND GLOBE: No intra- or extraconal masses. Normal contour of globe without masses. CALVARIUM: No fracture. PARANASAL SINUSES: No fluid or mucosal thickening. SOFT TISSUES: No mass or hematoma. OTHER: No other significant finding. IMPRESSION: NORMAL BRAIN CT WITHOUT CONTRAST. EVIDENCE OF ACUTE STROKE: NO. COMMENT: Quality ID # [id number]: Final reports with documentation of one or more dose reduction techniques (e.g., Automated exposure control, adjustment of the mA and/or kV according to patient size, use of iterative reconstruction technique) TECHNICAL DOCUMENTATION: JOB ID: [id number] [place]- All Rights Reserved Reading location - IP/workstation name: [email or web address]
--- NOTE | 2018-07-27 12:52 | PDOC PROGRESS REPORT ---
Subjective Progress Note for:: 07/27/18 Subjective:: Pt has been vomiting this am, has not bene able to et, montoya small loose BM, now is feeling sleepy. Reason For Visit: LUNG MASS W METS, HYPERKALEMIA, HYPONATREMIA Physical Exam Vital Signs: Temp Pulse Resp BP Pulse Ox 100.1 F 110 H 19 99/66 L 96 07/27/18 11:42 07/27/18 11:42 07/27/18 11:42 07/27/18 11:42 07/27/18 11:42 Intake & Output 07/26/18 07/27/18 07/28/18 06:59 06:59 06:59 Intake Total 2748 2804 177 Output Total 1825 1375 300 Balance 923 1429 -123 Weight 75.1 kg 74.8 kg General appearance: PRESENT: no acute distress, cooperative Head exam: PRESENT: atraumatic, normocephalic Respiratory exam: PRESENT: unlabored. ABSENT: wheezes Cardiovascular exam: PRESENT: RRR Extremities exam: ABSENT: pedal edema Neurological exam: PRESENT: oriented to person, oriented to place, oriented to situation Skin exam: PRESENT: dry, intact, warm Results Laboratory Results: 07/25/18 04:53 07/27/18 04:19 07/27/18 04:19 Sodium 134.3 L Potassium 4.4 Chloride 99 Carbon Dioxide 24 Anion Gap 11 BUN 8 Creatinine 0.56 Est GFR ( Amer) > 60 Est GFR (Non-Af Amer) > 60 Glucose 153 H Calcium 11.2 H 07/24/18 07/24/18 07/25/18 22:43 22:43 04:53 Creatine Kinase 35 L 39 L Troponin I 0.051 07/25/18 07/25/18 07/25/18 04:53 10:28 10:28 Creatine Kinase 34 L Troponin I 0.027 0.022 Impressions: Chest X-Ray 07/24/18 00:00 IMPRESSION: Increased left parahilar opacities -fullness. Abdomen/Pelvis CT 07/24/18 20:03 IMPRESSION: Images through the lung bases shows enlarged subcarinal lymph nodes and left lower lobe infiltrate/atelectasis. In the right anterior abdomen in the peritoneal cavity there is a 2.2 x 3.1 x 3.3 cm intraperitoneal mass abutting the proximal transverse colon. This lesion has slightly irregular margins and may represent an intraperitoneal desmoid tumor and less likely metastatic disease. In the adjacent anterior right subcutaneous fat there is an additional 13 mm well-circumscribed lesion, etiology uncertain. The findings in the CT chest, abdomen and pelvis can be further assessed with a CT PET examination There is presence of a 13 mm right adrenal nodule and 18 mm left adrenal nodule. These could represent benign adrenal adenomas or metastatic disease and can be further assessed with dedicated CT of the adrenal glands using adrenal adenoma protocol. There is a 2.7 cm infrarenal abdominal aortic aneurysm, which can be followed up at five yearly intervals based on the size criteria.. Location of Interpretation: T[facility]adiology Chest CT 07/24/18 20:31 IMPRESSION: There is presence of pathologically enlarged lymph nodes in the mediastinum and the subcarinal region, the largest of these lymph nodes measuring 21 mm in short axis dimension seen in the right paratracheal region and the largest subcarinal lymph node measuring 2.8 cm in short axis dimension. Pathologically enlarged lymph nodes are also seen in the bilateral hilar regions, worse on the left side. These lymph nodes are suspicious for a malignant process There is a 1.8 x 2.1 x 1.8 cm mass lesion in the left hilum surrounding the left lower lobe pulmonary artery and suspicious for a malignancy. There is presence of moderate size infiltrate/atelectasis in the left lower lobe of the lung extending to the left hilum. Minimal interstitial infiltrates are also seen in the lingula of the left lung. Note is made of a small ill-defined opacity in the right lung apex. Changes of COPD are seen in the bilateral lung mccoy In the visualized upper abdomen there is presence of 13 mm right adrenal nodule and 18 mm left adrenal nodule Lymph Node Biopsy Ultrasound 07/25/18 09:46 IMPRESSION: ULTRASOUND-GUIDED CORE BIOPSY OF THE PERIUMBILICAL SOFT TISSUE NODULE IN THE ANTERIOR ABDOMINAL WALL. POST BIOPSY CLIP PLACEMENT. PATHOLOGY IS PENDING Head CT 07/27/18 00:00 IMPRESSION: NORMAL BRAIN CT WITHOUT CONTRAST. EVIDENCE OF ACUTE STROKE: NO. Assessment & Plan - Diagnosis (1) Abdominal mass Qualifiers: Abdominal location: other location Qualified Code(s): R19.09 - Other intra- abdominal and pelvic swelling, mass and lump Is this a current diagnosis for this admission?: Yes Plan: we are awaiting biopsy result and will proceed from there, mass in abd may be contributing to emesis, may be developing bowel obstruction, will monitor closely for this (2) Lung mass Is this a current diagnosis for this admission?: Yes Plan: we are awaiting biopsy results, no respiratory distress now, continue to monitor closely (3) Atrial fibrillation Qualifiers: Atrial fibrillation type: unspecified Qualified Code(s): I48.91 - Unspecified atrial fibrillation Is this a current diagnosis for this admission?: Yes Plan: last night went back into RVR, Lacie Peterson amiodarone 150 mg IV x 1, increased toprol XK to 50 BID from 25 BID, gave metoprolol 5 mg IV x 3. Rate in 90's this am. Pt refused EKG. No report of CP. (4) Coronary artery disease Qualifiers: Coronary Disease-Associated Artery/Lesion type: [place] artery [place] vs. transplanted heart: [place] heart Associated angina: angina presence unspecified Qualified Code(s): I25.10 - Atherosclerotic heart disease of [place] coronary artery without angina pectoris Is this a current diagnosis for this admission?: Yes Plan: slight elevation of trop on admit with RVR. Will rechk cardiac enzymes given new RVR last night and new N/V. Cont toprol XL, isoborbide. Consider add asa and statin once pt eating and drinking well. (5) Diabetes Qualifiers: Diabetes mellitus type: type 2 Diabetes mellitus technician terminal and repeater insulin use: unspecified [facility] insulin use status Diabetes mellitus complication status : with unspecified complications Qualified Code(s): E11.8 - Type 2 diabetes mellitus with unspecified complications Is this a current diagnosis for this admission?: Yes Plan: poor po intake, premeal boluses held, is getting lantus and SSI short acting. Will montior CBG closely. (6) Elevated troponin Is this a current diagnosis for this admission?: Yes Plan: another set being checked due to recurrence RVR and nausea. HR is 90's to about 100 now. (7) Opiate dependence, continuous Is this a current diagnosis for this admission?: Yes Plan: po opiate on hold, cont IV dialudid which seems to be controlling his pain well. - Time Time Spent with patient: 25-34 minutes - Inpatient Certification Based on my medical assessment, after consideration of the patient's comorbidities, presenting symptoms, or acuity I expect that the services needed warrant INPATIENT care.: Yes I certify that my determination is in accordance with my understanding of Medicare's requirements for reasonable and necessary INPATIENT services [42 CFR 412.3e].: Yes Medical Necessity: Significant Comorbidiites Make Outpatient Treatment Too Risky , Need Close Monitoring Due to Risk of Patient Decompensation, Need For IV Fluids, Need for Pain Control, Risk of Complication if Not Cared For in Hospital
[2018-07-27] MEDS: NORMAL SALINE 1000 ML 1,000 ML IV PRN ×2 (13:49→21:14)
--- NOTE | 2018-07-27 14:35 | PDOC PROGRESS REPORT ---
Subjective Progress Note for:: 07/27/18 Subjective:: Patient seen on morning rounds. He has noted some nausea and sleepiness. Pt is denying any chest arm or neck discomfort. Patient denying any PND, orthopnea. Patient denied any sustained palpitations, dizziness, syncope, near syncope. Patient denying any fever chills. Patient denying any other significant discomfort. Patient is maintaining sinus rhythm. Patient had transient atrial fibrillation yesterday afternoon and converted back to sinus rhythm. Review of systems: Rest review of systems negative. Medications: Medications have been reviewed. Reason For Visit: LUNG MASS W METS, HYPERKALEMIA, HYPONATREMIA Physical Exam Vital Signs: Temp Pulse Resp BP Pulse Ox 100.1 F 111 H 19 99/66 L 96 07/27/18 11:42 07/27/18 14:00 07/27/18 11:42 07/27/18 11:42 07/27/18 11:42 Intake & Output 07/26/18 07/27/18 07/28/18 06:59 06:59 06:59 Intake Total 2748 2804 1177 Output Total 1825 1375 300 Balance 923 1429 877 Weight 75.1 kg 74.8 kg Exam: GENERAL: well-nourished and in no acute distress. Alert and oriented x3 HEAD: Atraumatic, normocephalic. EYES: Pupils equal round and reactive to light, extraocular movements intact, sclera anicteric, conjunctiva are normal. ENT: TMs normal, nares patent, oropharynx clear without exudates. Moist mucous membranes. No oral ulcerations or bleeding gums noted NECK: supple without lymphadenopathy. Trachea is central. No cervical or axillary lymphadenopathy noted. Carotids are 2+, JVD WNL LUNGS: Respiration seems nonlabored, no significant accessory muscle action noted. Few bibasilar coarse crackles are noted. No wheezes rales or rhonchi noted. No significant dullness noted on percussion. CHEST: Palpation of the chest wall shows no significant chest wall tenderness. 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 ABDOMEN: Soft, no significant tenderness appreciated, normoactive bowel sounds. No guarding, no rebound. No rigidity noted . No masses appreciated. EXTREMITIES: Pedal pulses are 1-2+, no calf tenderness noted. No clubbing or cyanosis. negative pedal edema noted NEUROLOGICAL: Focused neurological exam showed no significant neurologic deficit. Normal speech, no focal weakness appreciated. PSYCH: Normal mood, normal affect. Judgment and insight within normal limits. SKIN: No significant ecchymosis, skin is noted to be warm. MUSCULOSKELETAL EXAM: No significant acute joint swelling noted. Results Laboratory Results: 07/25/18 04:53 07/27/18 04:19 07/27/18 04:19 Sodium 134.3 L Potassium 4.4 Chloride 99 Carbon Dioxide 24 Anion Gap 11 BUN 8 Creatinine 0.56 Est GFR ( Amer) > 60 Est GFR (Non-Af Amer) > 60 Glucose 153 H Calcium 11.2 H 07/24/18 07/24/18 07/25/18 22:43 22:43 04:53 Creatine Kinase 35 L 39 L Troponin I 0.051 07/25/18 07/25/18 07/25/18 04:53 10:28 10:28 Creatine Kinase 34 L Troponin I 0.027 0.022 EKG Comments: Telemetry shows sinus rhythm without any sustained tachycardia or bradycardia since conversion to sinus rhythm yesterday afternoon. Impressions: Chest X-Ray 07/24/18 00:00 IMPRESSION: Increased left parahilar opacities -fullness. Abdomen/Pelvis CT 07/24/18 20:03 IMPRESSION: Images through the lung bases shows enlarged subcarinal lymph nodes and left lower lobe infiltrate/atelectasis. In the right anterior abdomen in the peritoneal cavity there is a 2.2 x 3.1 x 3.3 cm intraperitoneal mass abutting the proximal transverse colon. This lesion has slightly irregular margins and may represent an intraperitoneal desmoid tumor and less likely metastatic disease. In the adjacent anterior right subcutaneous fat there is an additional 13 mm well-circumscribed lesion, etiology uncertain. The findings in the CT chest, abdomen and pelvis can be further assessed with a CT PET examination There is presence of a 13 mm right adrenal nodule and 18 mm left adrenal nodule. These could represent benign adrenal adenomas or metastatic disease and can be further assessed with dedicated CT of the adrenal glands using adrenal adenoma protocol. There is a 2.7 cm infrarenal abdominal aortic aneurysm, which can be followed up at five yearly intervals based on the size criteria.. Location of Interpretation: [facility] Chest CT 07/24/18 20:31 IMPRESSION: There is presence of pathologically enlarged lymph nodes in the mediastinum and the subcarinal region, the largest of these lymph nodes measuring 21 mm in short axis dimension seen in the right paratracheal region and the largest subcarinal lymph node measuring 2.8 cm in short axis dimension. Pathologically enlarged lymph nodes are also seen in the bilateral hilar regions, worse on the left side. These lymph nodes are suspicious for a malignant process There is a 1.8 x 2.1 x 1.8 cm mass lesion in the left hilum surrounding the left lower lobe pulmonary artery and suspicious for a malignancy. There is presence of moderate size infiltrate/atelectasis in the left lower lobe of the lung extending to the left hilum. Minimal interstitial infiltrates are also seen in the lingula of the left lung. Note is made of a small ill-defined opacity in the right lung apex. Changes of COPD are seen in the bilateral lung mccoy In the visualized upper abdomen there is presence of 13 mm right adrenal nodule and 18 mm left adrenal nodule Lymph Node Biopsy Ultrasound 07/25/18 09:46 IMPRESSION: ULTRASOUND-GUIDED CORE BIOPSY OF THE PERIUMBILICAL SOFT TISSUE NODULE IN THE ANTERIOR ABDOMINAL WALL. POST BIOPSY CLIP PLACEMENT. PATHOLOGY IS PENDING Head CT 07/27/18 00:00 IMPRESSION: NORMAL BRAIN CT WITHOUT CONTRAST. EVIDENCE OF ACUTE STROKE: NO. 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 transplanted heart: [place] heart Associated angina: angina presence unspecified Qualified Code(s): I25.10 - Atherosclerotic heart disease of [place] coronary artery without angina pectoris Is this a current diagnosis for this admission?: Yes (5) Lung mass Is this a current diagnosis for this admission?: Yes - Notes Notes: Atrial fibrillation: Paroxysmal, possibly precipitated by lung mass, atelectasis. 2D echo shows normal LVEF. Continue with p.o. amiodarone therapy. Should patient go back into atrial fibrillation consider re-bolusing 150 mg IV. Since patient has history of coronary artery disease, beta-blockers would be preferred agent for rate control. Consider increasing it as tolerated. As regards chronic anticoagulation, patient would be considered a candidate for chronic anticoagulation. Right now patient may end up needing lot of procedures as he is been diagnosed to have lung mass. In the short-term just use Lovenox or heparin. Recommend Eliquis/Xarelto/Pradaxa therapy to be started on discharge. Diabetes: Currently uncontrolled but coming under better control. Hypertension: Satisfactorily controlled. Coronary artery disease: Currently stable without any angina or angina equivalent symptoms. Treat with statins, aspirin, beta-kamilah. Lung mass: To be evaluated further, oncology following. Patient had CT scan performed today which was negative for acute stroke. - Time Time with patient: 15-25 minutes - CODE STATUS was discussed, patient remains full code. Surrogate decision-maker unchanged. Multiple medical problems were addressed. More than 50% of the time spent coordinating care, discussing management plans with involved caregivers. Management plans discussed with involved personnels. Medical decision making was of moderate to high complexity , patient's has multiple comorbidities. Medications reviewed and adjusted accordingly: Yes
[2018-07-27 15:34] LABS: HEMATOCRIT 37.8 % (37.9-51.0); HEMOGLOBIN 12.7 g/dL (13.5-17.0); MEAN CORPUSCULAR HGB CONC 33.5 g/dL (32.0-36.0); MEAN CORPUSCULAR VOLUME 89 fl (80-97); PLATELET COUNT 339 10^3/uL (150-450); RED BLOOD COUNT 4.23 10^6/uL (4.35-5.55); RED CELL DISTRIBUTION WIDTH 16.5 % (11.5-14.0); WHITE BLOOD COUNT 11.1 10^3/uL (4.0-10.5)
[2018-07-27 15:54] LABS: TROPONIN I 0.021 ng/mL
[2018-07-27 15:59] LABS: CREATINE KINASE MB < 0.22 ng/mL (<4.55)
--- NOTE | 2018-07-27 17:22 | RADIOLOGY REPORT (SQ) ---
EXAM DESCRIPTION: KUB/ABDOMEN (SINGLE VIEW) COMPLETED DATE/TIME: 07/27/2018 3:08 pm REASON FOR STUDY: nausea and vomiting COMPARISON: None. NUMBER OF VIEWS: Two views. TECHNIQUE: Supine and erect/decubitus radiographic images of the abdomen acquired. LIMITATIONS: None. FINDINGS: FREE AIR: None. No abnormal gas collections. LUNG BASES: Clear. BOWEL GAS PATTERN: Nonobstructive pattern. No dilated loops or air fluid levels. CONSTIPATION: Mild CALCIFICATIONS: No suspicious calcifications. SOFT TISSUES: No gross mass or suggestion of organomegaly. HARDWARE: None in the abdomen. BONES: No acute fracture. No worrisome bone lesions. OTHER: No other significant finding. IMPRESSION: NO RADIOGRAPHIC EVIDENCE FOR ACUTE ABDOMINAL DISEASE. CONSTIPATION. TECHNICAL DOCUMENTATION: JOB ID: [id number] [id number] [employer]- All Rights Reserved Reading location - IP/workstation name: [email or web address]
[2018-07-27 18:28] LABS: APPEARANCE,URINE CLEAR; BILIRUBIN,URINE NEGATIVE (NEGATIVE); COLOR,URINE YELLOW; GLUCOSE, URINE >=500 mg/dL (NEGATIVE); KETONES,URINE TRACE mg/dL (NEGATIVE); LEUKOCYTE ESTERASE,URINE NEGATIVE (NEGATIVE); NITRITE,URINE NEGATIVE (NEGATIVE); PROTEIN,URINE NEGATIVE (NEGATIVE); URINE SPECIFIC GRAVITY 1.016
[2018-07-27] MEDS ORDERED: BISACODYL 10 MG SUPP.RECT PR ONE (19:00)
[2018-07-27 19:36] LABS: TROPONIN I 0.016 ng/mL
[2018-07-27 19:37] LABS: CREATINE KINASE MB < 0.22 ng/mL (<4.55)
--- NOTE | 2018-07-27 20:05 | RADIOLOGY REPORT (SQ) ---
EXAM DESCRIPTION: CHEST SINGLE VIEW COMPLETED DATE/TIME: 07/27/2018 7:54 pm REASON FOR STUDY: fever COMPARISON: None. EXAM PARAMETERS: NUMBER OF VIEWS: One view. TECHNIQUE: Single frontal radiographic view of the chest acquired. RADIATION DOSE: NA LIMITATIONS: None. FINDINGS: LUNGS AND PLEURA: Known left hilar mass and mediastinal adenopathy. Increasing airspace d isease left lower lobe. MEDIASTINUM AND HILAR STRUCTURES: See above. HEART AND VASCULAR STRUCTURES: Heart normal in size. Normal vasculature. BONES: No acute findings. HARDWARE: None in the chest. OTHER: No other significant finding. IMPRESSION: Left lower lobe pneumonia. TECHNICAL DOCUMENTATION: JOB ID: [id number] [employer]- All Rights Reserved Reading location - IP/workstation name: [email or web address]
[2018-07-28] MEDS: IPRATROPIUM/ALBUTEROL 0.5-2.5 MG/3 ML AMPUL NEB SCH ×4 (00:18→23:54)
[2018-07-28 01:23] LABS: TROPONIN I 0.023 ng/mL
[2018-07-28 01:30] LABS: CREATINE KINASE MB < 0.22 ng/mL (<4.55)
[2018-07-28] MEDS: NORMAL SALINE 1000 ML 1,000 ML IV PRN ×2 (03:41→23:51)
[2018-07-28] MEDS ORDERED: METOPROLOL TARTRATE PF/INJ 5 MG/5 ML SDV IV ONE (03:45)
[2018-07-28] MEDS ORDERED: LACTULOSE SYRUP 20 GM/30 ML UDCUP PO ONE (04:49)
[2018-07-28 05:18] LABS: HEMATOCRIT 35.4 % (37.9-51.0); HEMOGLOBIN 11.8 g/dL (13.5-17.0); MEAN CORPUSCULAR HEMOGLOBIN 29.9 pg (27.0-33.4); MEAN CORPUSCULAR HGB CONC 33.2 g/dL (32.0-36.0); MEAN CORPUSCULAR VOLUME 90 fl (80-97); PLATELET COUNT 282 10^3/uL (150-450); RED BLOOD COUNT 3.94 10^6/uL (4.35-5.55); RED CELL DISTRIBUTION WIDTH 16.3 % (11.5-14.0); WHITE BLOOD COUNT 7.5 10^3/uL (4.0-10.5)
[2018-07-28 05:40] LABS: ANION GAP 9 (5-19); BLOOD UREA NITROGEN 8 mg/dL (7-20); CARBON DIOXIDE 24 mmol/L (22-30); CHLORIDE 101 mmol/L (98-107); GLUCOSE 127 mg/dL (75-110); POTASSIUM 4.2 mmol/L (3.6-5.0); SODIUM 133.6 mmol/L (137-145)
[2018-07-28] MEDS ORDERED: LEVOFLOXACIN 750 MG/D5W RTU 750 MG/150 ML RTUPB IV ONE (06:00)
[2018-07-28] MEDS: HYDROMORPHONE HCL INJ/PF 2 MG/ML AMPULE IV PRN ×3 (06:10→21:15)
[2018-07-28] MEDS: INSULIN LISPRO 100 UNIT/ML 3 ML VIAL SUBCUT SCH ×3 (08:08→19:25)
[2018-07-28] MEDS: INSULIN LISPRO 100 UNIT/ML 3 ML VIAL SUBCUT PRN (08:10)
--- NOTE | 2018-07-28 08:27 | PDOC PROGRESS REPORT ---
Subjective Progress Note for:: 07/28/18 Subjective:: Patient has had headache. He was not able to eat anything yesterday. Still not feeling well, but difficult for me to establish why he is not feeling well. Reason For Visit: LUNG MASS W METS, HYPERKALEMIA, HYPONATREMIA Physical Exam Vital Signs: Temp Pulse Resp BP Pulse Ox 98.4 F 73 20 111/51 L 93 07/28/18 07:59 07/28/18 07:59 07/28/18 07:59 07/28/18 07:59 07/28/18 07:59 Intake & Output 07/27/18 07/28/18 07/29/18 06:59 06:59 06:59 Intake Total 2804 3295 Output Total 1375 1125 Balance 1429 2170 Weight 74.8 kg 75.4 kg General appearance: PRESENT: no acute distress, thin Exam: Sitting up on side of bed eating breakfast. Head exam: PRESENT: normocephalic Respiratory exam: PRESENT: clear to auscultation divya, unlabored Cardiovascular exam: PRESENT: RRR Extremities exam: ABSENT: pedal edema Neurological exam: PRESENT: alert, awake Skin exam: PRESENT: normal color Results Laboratory Results: 07/28/18 04:37 07/28/18 04:37 07/27/18 07/27/18 07/28/18 14:51 17:41 04:37 WBC 11.1 H 7.5 RBC 4.23 L 3.94 L Hgb 12.7 L 11.8 L Hct 37.8 L 35.4 L MCV 89 90 MCH 30.0 29.9 MCHC 33.5 33.2 RDW 16.5 H 16.3 H Plt Count 339 282 Sodium Potassium Chloride Carbon Dioxide Anion Gap BUN Creatinine Est GFR ( Amer) Est GFR (Non-Af Amer) Glucose Calcium Urine Color YELLOW Urine Appearance CLEAR Urine pH 5.0 Ur Specific [place] 1.016 Urine Protein NEGATIVE Urine Glucose (UA) >=500 H Urine Ketones TRACE H Urine Blood MODERATE H Urine Nitrite NEGATIVE Ur Leukocyte Esterase NEGATIVE Urine WBC (Auto) 2 Urine RBC (Auto) 4 07/28/18 04:37 WBC RBC Hgb Hct MCV MCH MCHC RDW Plt Count Sodium 133.6 L Potassium 4.2 Chloride 101 Carbon Dioxide 24 Anion Gap 9 BUN 8 Creatinine 0.64 Est GFR ( Amer) > 60 Est GFR (Non-Af Amer) > 60 Glucose 127 H Calcium 10.0 Urine Color Urine Appearance Urine pH Ur Specific [place] Urine Protein Urine Glucose (UA) Urine Ketones Urine Blood Urine Nitrite Ur Leukocyte Esterase Urine WBC (Auto) Urine RBC (Auto) 07/24/18 07/24/18 07/25/18 22:43 22:43 04:53 Creatine Kinase 35 L 39 L CK-MB (CK-2) Troponin I 0.051 07/25/18 07/25/18 07/25/18 04:53 10:28 10:28 Creatine Kinase 34 L CK-MB (CK-2) Troponin I 0.027 0.022 07/27/18 07/27/18 07/27/18 14:51 14:51 18:57 Creatine Kinase 23 L < 20 L CK-MB (CK-2) < 0.22 Troponin I 0.021 07/27/18 07/28/18 07/28/18 18:57 00:43 00:43 Creatine Kinase 21 L CK-MB (CK-2) < 0.22 < 0.22 Troponin I 0.016 0.023 Impressions: Abdomen/Pelvis CT 07/24/18 20:03 IMPRESSION: Images through the lung bases shows enlarged subcarinal lymph nodes and left lower lobe infiltrate/atelectasis. In the right anterior abdomen in the peritoneal cavity there is a 2.2 x 3.1 x 3.3 cm intraperitoneal mass abutting the proximal transverse colon. This lesion has slightly irregular margins and may represent an intraperitoneal desmoid tumor and less likely metastatic disease. In the adjacent anterior right subcutaneous fat there is an additional 13 mm well-circumscribed lesion, etiology uncertain. The findings in the CT chest, abdomen and pelvis can be further assessed with a CT PET examination There is presence of a 13 mm right adrenal nodule and 18 mm left adrenal nodule. These could represent benign adrenal adenomas or metastatic disease and can be further assessed with dedicated CT of the adrenal glands using adrenal adenoma protocol. There is a 2.7 cm infrarenal abdominal aortic aneurysm, which can be followed up at five yearly intervals based on the size criteria.. Location of Interpretation: [facility] Chest CT 07/24/18 20:31 IMPRESSION: There is presence of pathologically enlarged lymph nodes in the mediastinum and the subcarinal region, the largest of these lymph nodes measuring 21 mm in short axis dimension seen in the right paratracheal region and the largest subcarinal lymph node measuring 2.8 cm in short axis dimension. Pathologically enlarged lymph nodes are also seen in the bilateral hilar regions, worse on the left side. These lymph nodes are suspicious for a malignant process There is a 1.8 x 2.1 x 1.8 cm mass lesion in the left hilum surrounding the left lower lobe pulmonary artery and suspicious for a malignancy. There is presence of moderate size infiltrate/atelectasis in the left lower lobe of the lung extending to the left hilum. Minimal interstitial infiltrates are also seen in the lingula of the left lung. Note is made of a small ill-defined opacity in the right lung apex. Changes of COPD are seen in the bilateral lung mccoy In the visualized upper abdomen there is presence of 13 mm right adrenal nodule and 18 mm left adrenal nodule Lymph Node Biopsy Ultrasound 07/25/18 09:46 IMPRESSION: ULTRASOUND-GUIDED CORE BIOPSY OF THE PERIUMBILICAL SOFT TISSUE NODULE IN THE ANTERIOR ABDOMINAL WALL. POST BIOPSY CLIP PLACEMENT. PATHOLOGY IS PENDING Chest X-Ray 07/27/18 00:00 IMPRESSION: Left lower lobe pneumonia. Head CT 07/27/18 00:00 IMPRESSION: NORMAL BRAIN CT WITHOUT CONTRAST. EVIDENCE OF ACUTE STROKE: NO. KUB X-Ray 07/27/18 00:00 IMPRESSION: NO RADIOGRAPHIC EVIDENCE FOR ACUTE ABDOMINAL DISEASE. CONSTIPATION. Assessment & Plan - Diagnosis (1) Atrial fibrillation Qualifiers: Atrial fibrillation type: unspecified Qualified Code(s): I48.91 - Unspecified atrial fibrillation Is this a current diagnosis for this admission?: Yes (2) Hypercalcemia Is this a current diagnosis for this admission?: Yes Plan: Improved after pamidronate. (3) Acute hyperkalemia Is this a current diagnosis for this admission?: Yes (4) Abnormal CT of the chest Is this a current diagnosis for this admission?: Yes Plan: Await pathology report from biopsy performed on Saturday. (5) Tobacco dependence Is this a current diagnosis for this admission?: Yes - Plan Summary Plan Summary: I will check MRI brain today to complete staging and for the headaches. Please call with any questions or concerns. Hope to have prelim path report later today.
[2018-07-28] MEDS: ENOXAPARIN SODIUM INJ 80 MG/0.8 ML DISP.SYRIN SUBCUT SCH ×2 (09:28→23:50)
[2018-07-28] MEDS: INSULIN GLARGINE,HUM.REC.ANLOG 300 UNIT/3 ML INSULN.PEN SUBCUT SCH ×2 (09:29→21:03)
[2018-07-28] MEDS: ISOSORBIDE MONONITRATE 30 MG TAB.ER.24H PO SCH (09:30)
[2018-07-28] MEDS: METOPROLOL SUCCINATE 50 MG TAB.SR.24H PO SCH ×2 (09:30→23:49)
[2018-07-28] MEDS: AMIODARONE HCL 200 MG TABLET PO SCH ×2 (09:30→20:59)
[2018-07-28] MEDS: SENNOSIDES/DOCUSATE 8.6-50 MG 1 EACH TABLET PO SCH (09:30)
[2018-07-28] MEDS: GABAPENTIN 300 MG CAPSULE PO SCH ×2 (09:31→23:49)
--- NOTE | 2018-07-28 13:50 | PDOC PROGRESS REPORT ---
Subjective Progress Note for:: 07/28/18 Subjective:: No adverse events overnight. No new complaints. He says he has some persistent ill-defined nausea but he looked very comfortable when I came to see him in the room. He cannot really describe to me in what way he feels poorly. He denies any shortness of breath. Reason For Visit: LUNG MASS W METS, HYPERKALEMIA, HYPONATREMIA Physical Exam Vital Signs: Temp Pulse Resp BP Pulse Ox 98.4 F 86 20 99/61 L 98 07/28/18 11:29 07/28/18 11:29 07/28/18 11:29 07/28/18 11:29 07/28/18 11:29 Intake & Output 07/27/18 07/28/18 07/29/18 06:59 06:59 06:59 Intake Total 2804 3295 859 Output Total 1375 1125 Balance 1429 2170 859 Weight 74.8 kg 75.4 kg General appearance: PRESENT: no acute distress, cooperative Respiratory exam: PRESENT: clear to auscultation divya, unlabored. ABSENT: accessory muscle use, crackles, rhonchi, tachypnea, wheezes Cardiovascular exam: PRESENT: RRR, +S1, +S2. ABSENT: diastolic murmur, systolic murmur GI/Abdominal exam: PRESENT: normal bowel sounds, soft. ABSENT: distended, guarding, rebound, tenderness Extremities exam: ABSENT: calf tenderness, pedal edema Musculoskeletal exam: PRESENT: normal inspection. ABSENT: deformity Neurological exam: PRESENT: alert, awake, oriented to person, oriented to place , oriented to time Results Laboratory Results: 07/28/18 04:37 07/28/18 04:37 07/27/18 07/27/18 07/28/18 14:51 17:41 04:37 WBC 11.1 H 7.5 RBC 4.23 L 3.94 L Hgb 12.7 L 11.8 L Hct 37.8 L 35.4 L MCV 89 90 MCH 30.0 29.9 MCHC 33.5 33.2 RDW 16.5 H 16.3 H Plt Count 339 282 Sodium Potassium Chloride Carbon Dioxide Anion Gap BUN Creatinine Est GFR ( Amer) Est GFR (Non-Af Amer) Glucose Calcium Urine Color YELLOW Urine Appearance CLEAR Urine pH 5.0 Ur Specific [place] 1.016 Urine Protein NEGATIVE Urine Glucose (UA) >=500 H Urine Ketones TRACE H Urine Blood MODERATE H Urine Nitrite NEGATIVE Ur Leukocyte Esterase NEGATIVE Urine WBC (Auto) 2 Urine RBC (Auto) 4 07/28/18 04:37 WBC RBC Hgb Hct MCV MCH MCHC RDW Plt Count Sodium 133.6 L Potassium 4.2 Chloride 101 Carbon Dioxide 24 Anion Gap 9 BUN 8 Creatinine 0.64 Est GFR ( Amer) > 60 Est GFR (Non-Af Amer) > 60 Glucose 127 H Calcium 10.0 Urine Color Urine Appearance Urine pH Ur Specific [place] Urine Protein Urine Glucose (UA) Urine Ketones Urine Blood Urine Nitrite Ur Leukocyte Esterase Urine WBC (Auto) Urine RBC (Auto) 07/24/18 07/24/18 07/25/18 22:43 22:43 04:53 Creatine Kinase 35 L 39 L CK-MB (CK-2) Troponin I 0.051 07/25/18 07/25/18 07/25/18 04:53 10:28 10:28 Creatine Kinase 34 L CK-MB (CK-2) Troponin I 0.027 0.022 07/27/18 07/27/18 07/27/18 14:51 14:51 18:57 Creatine Kinase 23 L < 20 L CK-MB (CK-2) < 0.22 Troponin I 0.021 07/27/18 07/28/18 07/28/18 18:57 00:43 00:43 Creatine Kinase 21 L CK-MB (CK-2) < 0.22 < 0.22 Troponin I 0.016 0.023 Impressions: Abdomen/Pelvis CT 07/24/18 20:03 IMPRESSION: Images through the lung bases shows enlarged subcarinal lymph nodes and left lower lobe infiltrate/atelectasis. In the right anterior abdomen in the peritoneal cavity there is a 2.2 x 3.1 x 3.3 cm intraperitoneal mass abutting the proximal transverse colon. This lesion has slightly irregular margins and may represent an intraperitoneal desmoid tumor and less likely metastatic disease. In the adjacent anterior right subcutaneous fat there is an additional 13 mm well-circumscribed lesion, etiology uncertain. The findings in the CT chest, abdomen and pelvis can be further assessed with a CT PET examination There is presence of a 13 mm right adrenal nodule and 18 mm left adrenal nodule. These could represent benign adrenal adenomas or metastatic disease and can be further assessed with dedicated CT of the adrenal glands using adrenal adenoma protocol. There is a 2.7 cm infrarenal abdominal aortic aneurysm, which can be followed up at five yearly intervals based on the size criteria.. Location of Interpretation: [facility] Chest CT 07/24/18 20:31 IMPRESSION: There is presence of pathologically enlarged lymph nodes in the mediastinum and the subcarinal region, the largest of these lymph nodes measuring 21 mm in short axis dimension seen in the right paratracheal region and the largest subcarinal lymph node measuring 2.8 cm in short axis dimension. Pathologically enlarged lymph nodes are also seen in the bilateral hilar regions, worse on the left side. These lymph nodes are suspicious for a malignant process There is a 1.8 x 2.1 x 1.8 cm mass lesion in the left hilum surrounding the left lower lobe pulmonary artery and suspicious for a malignancy. There is presence of moderate size infiltrate/atelectasis in the left lower lobe of the lung extending to the left hilum. Minimal interstitial infiltrates are also seen in the lingula of the left lung. Note is made of a small ill-defined opacity in the right lung apex. Changes of COPD are seen in the bilateral lung mccoy In the visualized upper abdomen there is presence of 13 mm right adrenal nodule and 18 mm left adrenal nodule Lymph Node Biopsy Ultrasound 07/25/18 09:46 IMPRESSION: ULTRASOUND-GUIDED CORE BIOPSY OF THE PERIUMBILICAL SOFT TISSUE NODULE IN THE ANTERIOR ABDOMINAL WALL. POST BIOPSY CLIP PLACEMENT. PATHOLOGY IS PENDING Chest X-Ray 07/27/18 00:00 IMPRESSION: Left lower lobe pneumonia. Head CT 07/27/18 00:00 IMPRESSION: NORMAL BRAIN CT WITHOUT CONTRAST. EVIDENCE OF ACUTE STROKE: NO. KUB X-Ray 07/27/18 00:00 IMPRESSION: NO RADIOGRAPHIC EVIDENCE FOR ACUTE ABDOMINAL DISEASE. CONSTIPATION. Assessment & Plan - Diagnosis (1) Abdominal mass Qualifiers: Abdominal location: other location Qualified Code(s): R19.09 - Other intra- abdominal and pelvic swelling, mass and lump Is this a current diagnosis for this admission?: Yes Plan: Biopsy results pending. Dr. Peralta has been consulted. (2) Hypercalcemia Is this a current diagnosis for this admission?: Yes Plan: Resolved (3) Atrial fibrillation Qualifiers: Atrial fibrillation type: unspecified Qualified Code(s): I48.91 - Unspecified atrial fibrillation Is this a current diagnosis for this admission?: Yes Plan: Resolved. Will follow with cardiology regarding the recommendation of whether or not to anticoagulate. (4) Lung mass Is this a current diagnosis for this admission?: Yes Plan: Biopsy results are pending. Oncology has been consulted. - Time Time Spent with patient: 25-34 minutes
--- NOTE | 2018-07-28 14:55 | RADIOLOGY REPORT (SQ) ---
EXAM DESCRIPTION: MRI HEAD COMBO COMPLETED DATE/TIME: 07/28/2018 1:21 pm REASON FOR STUDY: Lung cncer with headache. Rule out brain mets. COMPARISON: CT brain 07/27/2018 TECHNIQUE: Multiplanar imaging includes noncontrasted T1, T2, FLAIR, diffusion with ADC map and post gadolinium contrast T1 sequences. Images stored on PACS. CONTRAST TYPE AND DOSE: 15 mL Dotarem. RENAL FUNCTION: GFR > 60. LIMITATIONS: None. FINDINGS: ANATOMY: No developmental anomalies. Normal vascular flow voids. Pituitary fossa normal. CSF SPACES: Normal in size and contour. No hemorrhage. CEREBRUM: There are multiple small peripheral rim enhancing brain parenchymal lesions with peripheral vasogenic edema worrisome for metastatic disease give a history of lung cancer as follows: Right precentral gyrus frontal lobe sandra-white junction 7 mm diameter Left frontal sandra-white junction perisylvian 7 mm in diameter Left frontal perisylvian sandra-white junction 3 mm in diameter An 8 mm diameter focus of increased T1 signal is present on precontrast image 16. Post-contrast ther e is a halo of surrounding enhancement of to 11 mm in diameter. Surrounding vasogenic edema is prese nt. This likely represents a left caudate metastatic lesion with subacute methemoglobin staining. POSTERIOR FOSSA: No signal alteration. No hemorrhage. No edema, masses, or mass effect. Internal tiki tory canals, cerebellopontine angles, mastoids normal. No enhancing lesions. No abnormal enhancement post contrast. DIFFUSION IMAGING: Negative for acute or subacute infarction. ORBITS: No masses. Globes normal. PARANASAL SINUSES: No fluid levels. Mucosa normal. OTHER: No other significant finding. IMPRESSION: Brain metastatic lesions at the bifrontal sandra-white junction regions 11 mm metastatic lesion left caudate, with small amount of lesion subacute hemorrhage. No diffuse vasquez barachnoid or intraventricular hemorrhage. No hydrocephalus. EVIDENCE OF ACUTE STROKE: NO. TECHNICAL DOCUMENTATION: JOB ID: [id number] [facility]- All Rights Reserved Reading location - IP/workstation name: [email or web address]
--- NOTE | 2018-07-28 19:37 | PDOC PROGRESS REPORT ---
Subjective Progress Note for:: 07/28/18 Subjective:: Patient seen on morning rounds. He has noted some nausea and sleepiness. Patient just feels nonspecifically unwell. Is supposed to have some kind of biopsies and cancer workup. Pt is denying any chest arm or neck discomfort. Patient denying any PND, orthopnea. Patient denied any sustained palpitations, dizziness, syncope, near syncope. Patient denying any fever chills. Patient denying any other significant discomfort. Patient is maintaining sinus rhythm. Patient has paroxysmal atrial fibrillation. However for the last 24 hours has maintained sinus rhythm. Review of systems: Rest review of systems negative. Medications: Medications have been reviewed. Reason For Visit: LUNG MASS W METS, HYPERKALEMIA, HYPONATREMIA Physical Exam Vital Signs: Temp Pulse Resp BP Pulse Ox 98.4 F 82 16 99/61 L 93 07/28/18 11:29 07/28/18 15:52 07/28/18 15:52 07/28/18 11:29 07/28/18 15:52 Intake & Output 07/27/18 07/28/18 07/29/18 06:59 06:59 06:59 Intake Total 2804 3295 1568 Output Total 1375 1125 300 Balance 1429 2170 1268 Weight 74.8 kg 75.4 kg Exam: GENERAL: well-nourished and in no acute distress. Alert and oriented x3 HEAD: Atraumatic, normocephalic. EYES: Pupils equal round and reactive to light, extraocular movements intact, sclera anicteric, conjunctiva are normal. ENT: TMs normal, nares patent, oropharynx clear without exudates. Moist mucous membranes. No oral ulcerations or bleeding gums noted NECK: supple without lymphadenopathy. Trachea is central. No cervical or axillary lymphadenopathy noted. Carotids are 2+, JVD WNL LUNGS: Respiration seems nonlabored, no significant accessory muscle action noted. Breath sounds clear to auscultation bilaterally and equal noted. No wheezes rales or rhonchi noted. No significant dullness noted on percussion. CHEST: Palpation of the chest wall shows no significant chest wall tenderness. 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 ABDOMEN: Soft, no significant tenderness appreciated, normoactive bowel sounds. No guarding, no rebound. No rigidity noted . No masses appreciated. EXTREMITIES: Pedal pulses are 1-2+, no calf tenderness noted. No clubbing or cyanosis. negative pedal edema noted NEUROLOGICAL: Focused neurological exam showed no significant neurologic deficit. Normal speech, no focal weakness appreciated. PSYCH: Normal mood, normal affect. Judgment and insight within normal limits. SKIN: No significant ecchymosis, skin is noted to be warm. MUSCULOSKELETAL EXAM: No significant acute joint swelling noted. Results Laboratory Results: 07/28/18 04:37 07/28/18 04:37 07/28/18 07/28/18 04:37 04:37 WBC 7.5 RBC 3.94 L Hgb 11.8 L Hct 35.4 L MCV 90 MCH 29.9 MCHC 33.2 RDW 16.3 H Plt Count 282 Sodium 133.6 L Potassium 4.2 Chloride 101 Carbon Dioxide 24 Anion Gap 9 BUN 8 Creatinine 0.64 Est GFR ( Amer) > 60 Est GFR (Non-Af Amer) > 60 Glucose 127 H Calcium 10.0 07/24/18 07/24/18 07/25/18 22:43 22:43 04:53 Creatine Kinase 35 L 39 L CK-MB (CK-2) Troponin I 0.051 07/25/18 07/25/18 07/25/18 04:53 10:28 10:28 Creatine Kinase 34 L CK-MB (CK-2) Troponin I 0.027 0.022 07/27/18 07/27/18 07/27/18 14:51 14:51 18:57 Creatine Kinase 23 L < 20 L CK-MB (CK-2) < 0.22 Troponin I 0.021 07/27/18 07/28/18 07/28/18 18:57 00:43 00:43 Creatine Kinase 21 L CK-MB (CK-2) < 0.22 < 0.22 Troponin I 0.016 0.023 EKG Comments: Shows sinus rhythm. No significant cardiac dysrhythmia noted in the last 24 hours. Impressions: Abdomen/Pelvis CT 07/24/18 20:03 IMPRESSION: Images through the lung bases shows enlarged subcarinal lymph nodes and left lower lobe infiltrate/atelectasis. In the right anterior abdomen in the peritoneal cavity there is a 2.2 x 3.1 x 3.3 cm intraperitoneal mass abutting the proximal transverse colon. This lesion has slightly irregular margins and may represent an intraperitoneal desmoid tumor and less likely metastatic disease. In the adjacent anterior right subcutaneous fat there is an additional 13 mm well-circumscribed lesion, etiology uncertain. The findings in the CT chest, abdomen and pelvis can be further assessed with a CT PET examination There is presence of a 13 mm right adrenal nodule and 18 mm left adrenal nodule. These could represent benign adrenal adenomas or metastatic disease and can be further assessed with dedicated CT of the adrenal glands using adrenal adenoma protocol. There is a 2.7 cm infrarenal abdominal aortic aneurysm, which can be followed up at five yearly intervals based on the size criteria.. Location of Interpretation: Teleradiology Chest CT 07/24/18 20:31 IMPRESSION: There is presence of pathologically enlarged lymph nodes in the mediastinum and the subcarinal region, the largest of these lymph nodes measuring 21 mm in short axis dimension seen in the right paratracheal region and the largest subcarinal lymph node measuring 2.8 cm in short axis dimension. Pathologically enlarged lymph nodes are also seen in the bilateral hilar regions, worse on the left side. These lymph nodes are suspicious for a malignant process There is a 1.8 x 2.1 x 1.8 cm mass lesion in the left hilum surrounding the left lower lobe pulmonary artery and suspicious for a malignancy. There is presence of moderate size infiltrate/atelectasis in the left lower lobe of the lung extending to the left hilum. Minimal interstitial infiltrates are also seen in the lingula of the left lung. Note is made of a small ill-defined opacity in the right lung apex. Changes of COPD are seen in the bilateral lung mccoy In the visualized upper abdomen there is presence of 13 mm right adrenal nodule and 18 mm left adrenal nodule Lymph Node Biopsy Ultrasound 07/25/18 09:46 IMPRESSION: ULTRASOUND-GUIDED CORE BIOPSY OF THE PERIUMBILICAL SOFT TISSUE NODULE IN THE ANTERIOR ABDOMINAL WALL. POST BIOPSY CLIP PLACEMENT. PATHOLOGY IS PENDING Chest X-Ray 07/27/18 00:00 IMPRESSION: Left lower lobe pneumonia. Head CT 07/27/18 00:00 IMPRESSION: NORMAL BRAIN CT WITHOUT CONTRAST. EVIDENCE OF ACUTE STROKE: NO. KUB X-Ray 07/27/18 00:00 IMPRESSION: NO RADIOGRAPHIC EVIDENCE FOR ACUTE ABDOMINAL DISEASE. CONSTIPATION. Head MRI 07/28/18 00:00 IMPRESSION: Brain metastatic lesions at the bifrontal sandra-white junction regions 11 mm metastatic lesion left caudate, with small amount of lesion subacute hemorrhage. No diffuse subarachnoid or intraventricular hemorrhage. No hydrocephalus. EVIDENCE OF ACUTE STROKE: NO. Assessment & Plan - Diagnosis (1) Atrial fibrillation Qualifiers: Atrial fibrillation type: unspecified Qualified Code(s): I48.91 - Unspecified atrial fibrillation Is this a current diagnosis for this admission?: Yes (2) Diabetes Qualifiers: Diabetes mellitus type: type 2 Diabetes mellitus retirement insulin use: unspecified retirement insulin use status Diabetes mellitus complication status : with unspecified complications Qualified Code(s): E11.8 - Type 2 diabetes mellitus with unspecified complications Is this a current diagnosis for this admission?: Yes (3) Hypertension Qualifiers: Hypertension type: essential hypertension Qualified Code(s): I10 - Essential (primary) hypertension Is this a current diagnosis for this admission?: Yes (4) Coronary artery disease Qualifiers: Coronary Disease-Associated Artery/Lesion type: [place] artery [place] vs. transplanted heart: [place] heart Associated angina: angina presence unspecified Qualified Code(s): I25.10 - Atherosclerotic heart disease of [place] coronary artery without angina pectoris Is this a current diagnosis for this admission?: Yes (5) Lung mass Is this a current diagnosis for this admission?: Yes - Notes Notes: Patient has remained generally stable from cardiac standpoint with normal rhythm but he has a lot of other complaints. At this point will see patient on as needed basis. Please call us if new symptom, cardiac related arises. Will recommend amiodarone therapy for just a month and then it could be stopped. As recommended before, continue Eliquis therapy on discharge unless some contraindication appears. Oncologist may be a good source regarding this. Atrial fibrillation: Paroxysmal, possibly precipitated by lung mass, atelectasis. 2D echo shows normal LVEF. Continue with p.o. amiodarone therapy. Should patient go back into atrial fibrillation consider re-bolusing 150 mg IV. Since patient has history of coronary artery disease, beta-blockers would be preferred agent for rate control. Consider increasing it as tolerated. As regards chronic anticoagulation, patient would be considered a candidate for chronic anticoagulation. Right now patient may end up needing lot of procedures as he is been diagnosed to have lung mass. In the short-term just use Lovenox or heparin. Recommend Eliquis/Xarelto/Pradaxa therapy to be started on discharge. Diabetes: Currently uncontrolled but coming under better control. Hypertension: Satisfactorily controlled. Coronary artery disease: Currently stable without any angina or angina equivalent symptoms. Treat with statins, aspirin, beta-kamilah. Lung mass: To be evaluated further, oncology following. Patient had CT scan performed today which was negative for acute stroke. - Time Time with patient: Greater than 35 minutes - More than 50% of the time spent coordinating care, discussing management plans with involved caregivers. Management plans discussed with involved personnels. Medical decision making was of moderate to high complexity, patient's has multiple comorbidities. Medications reviewed and adjusted accordingly: Yes
[2018-07-28] MEDS: DEXAMETHASONE 4 MG TABLET PO SCH (20:59)
[2018-07-28] MEDS: FAMOTIDINE 20 MG TABLET PO SCH (23:50)
[2018-07-29 03:02] LABS: APPEARANCE,URINE CLEAR; BILIRUBIN,URINE NEGATIVE (NEGATIVE); COLOR,URINE YELLOW; GLUCOSE, URINE >=500 mg/dL (NEGATIVE); KETONES,URINE TRACE mg/dL (NEGATIVE); LEUKOCYTE ESTERASE,URINE NEGATIVE (NEGATIVE); NITRITE,URINE NEGATIVE (NEGATIVE); PROTEIN,URINE NEGATIVE (NEGATIVE); URINE SPECIFIC GRAVITY 1.014
[2018-07-29] MEDS: NORMAL SALINE 1000 ML 1,000 ML IV PRN (06:18)
[2018-07-29] MEDS: IPRATROPIUM/ALBUTEROL 0.5-2.5 MG/3 ML AMPUL NEB SCH ×2 (08:02→15:47)
[2018-07-29] MEDS: INSULIN LISPRO 100 UNIT/ML 3 ML VIAL SUBCUT SCH ×3 (08:42→17:37)
[2018-07-29] MEDS: LEVOFLOXACIN 750 MG/D5W RTU 750 MG/150 ML RTUPB IV SCH (08:43)
[2018-07-29] MEDS: INSULIN LISPRO 100 UNIT/ML 3 ML VIAL SUBCUT PRN ×4 (08:43→22:41)
--- NOTE | 2018-07-29 08:43 | PDOC PROGRESS REPORT ---
Subjective Progress Note for:: 07/29/18 Subjective:: Patient states he is feeling much better today. His headache is much better and his appetite has improved. ROS: No dyspnea. No abdominal pain. Reason For Visit: LUNG MASS W METS, HYPERKALEMIA, HYPONATREMIA Physical Exam Vital Signs: Temp Pulse Resp BP Pulse Ox 98.1 F 73 20 119/65 96 07/29/18 07:18 07/29/18 07:18 07/29/18 07:18 07/29/18 07:18 07/29/18 07:18 Intake & Output 07/28/18 07/29/18 07/30/18 06:59 06:59 06:59 Intake Total 3295 3836 Output Total 1125 2150 Balance 2170 1686 Weight 75.4 kg 76.7 kg General appearance: PRESENT: no acute distress, well-developed, well-nourished Exam: He has now had a haircut and his gallegos has been shaved. Respiratory exam: PRESENT: clear to auscultation divya, unlabored Cardiovascular exam: PRESENT: RRR GI/Abdominal exam: PRESENT: soft. ABSENT: tenderness Neurological exam: PRESENT: alert, awake, oriented to person, oriented to place , oriented to time, oriented to situation Psychiatric exam: PRESENT: appropriate affect Skin exam: PRESENT: other - Echymoses over abdomen at sight of biopsy. Results Laboratory Results: 07/28/18 04:37 07/28/18 04:37 07/29/18 00:12 Urine Color YELLOW Urine Appearance CLEAR Urine pH 6.0 Ur Specific [place] 1.014 Urine Protein NEGATIVE Urine Glucose (UA) >=500 H Urine Ketones TRACE H Urine Blood MODERATE H Urine Nitrite NEGATIVE Ur Leukocyte Esterase NEGATIVE Urine WBC (Auto) 1 Urine RBC (Auto) 6 07/24/18 07/24/18 07/25/18 22:43 22:43 04:53 Creatine Kinase 35 L 39 L CK-MB (CK-2) Troponin I 0.051 07/25/18 07/25/18 07/25/18 04:53 10:28 10:28 Creatine Kinase 34 L CK-MB (CK-2) Troponin I 0.027 0.022 07/27/18 07/27/18 07/27/18 14:51 14:51 18:57 Creatine Kinase 23 L < 20 L CK-MB (CK-2) < 0.22 Troponin I 0.021 07/27/18 07/28/18 07/28/18 18:57 00:43 00:43 Creatine Kinase 21 L CK-MB (CK-2) < 0.22 < 0.22 Troponin I 0.016 0.023 Impressions: Abdomen/Pelvis CT 07/24/18 20:03 IMPRESSION: Images through the lung bases shows enlarged subcarinal lymph nodes and left lower lobe infiltrate/atelectasis. In the right anterior abdomen in the peritoneal cavity there is a 2.2 x 3.1 x 3.3 cm intraperitoneal mass abutting the proximal transverse colon. This lesion has slightly irregular margins and may represent an intraperitoneal desmoid tumor and less likely metastatic disease. In the adjacent anterior right subcutaneous fat there is an additional 13 mm well-circumscribed lesion, etiology uncertain. The findings in the CT chest, abdomen and pelvis can be further assessed with a CT PET examination There is presence of a 13 mm right adrenal nodule and 18 mm left adrenal nodule. These could represent benign adrenal adenomas or metastatic disease and can be further assessed with dedicated CT of the adrenal glands using adrenal adenoma protocol. There is a 2.7 cm infrarenal abdominal aortic aneurysm, which can be followed up at five yearly intervals based on the size criteria.. Location of Interpretation: Teleradiology Chest CT 07/24/18 20:31 IMPRESSION: There is presence of pathologically enlarged lymph nodes in the mediastinum and the subcarinal region, the largest of these lymph nodes measuring 21 mm in short axis dimension seen in the right paratracheal region and the largest subcarinal lymph node measuring 2.8 cm in short axis dimension. Pathologically enlarged lymph nodes are also seen in the bilateral hilar regions, worse on the left side. These lymph nodes are suspicious for a malignant process There is a 1.8 x 2.1 x 1.8 cm mass lesion in the left hilum surrounding the left lower lobe pulmonary artery and suspicious for a malignancy. There is presence of moderate size infiltrate/atelectasis in the left lower lobe of the lung extending to the left hilum. Minimal interstitial infiltrates are also seen in the lingula of the left lung. Note is made of a small ill-defined opacity in the right lung apex. Changes of COPD are seen in the bilateral lung mccoy In the visualized upper abdomen there is presence of 13 mm right adrenal nodule and 18 mm left adrenal nodule Lymph Node Biopsy Ultrasound 07/25/18 09:46 IMPRESSION: ULTRASOUND-GUIDED CORE BIOPSY OF THE PERIUMBILICAL SOFT TISSUE NODULE IN THE ANTERIOR ABDOMINAL WALL. POST BIOPSY CLIP PLACEMENT. PATHOLOGY IS PENDING Chest X-Ray 07/27/18 00:00 IMPRESSION: Left lower lobe pneumonia. Head CT 07/27/18 00:00 IMPRESSION: NORMAL BRAIN CT WITHOUT CONTRAST. EVIDENCE OF ACUTE STROKE: NO. KUB X-Ray 07/27/18 00:00 IMPRESSION: NO RADIOGRAPHIC EVIDENCE FOR ACUTE ABDOMINAL DISEASE. CONSTIPATION. Head MRI 07/28/18 00:00 IMPRESSION: Brain metastatic lesions at the bifrontal sandra-white junction regions 11 mm metastatic lesion left caudate, with small amount of lesion subacute hemorrhage. No diffuse subarachnoid or intraventricular hemorrhage. No hydrocephalus. EVIDENCE OF ACUTE STROKE: NO. Assessment & Plan - Diagnosis (1) Atrial fibrillation Qualifiers: Atrial fibrillation type: unspecified Qualified Code(s): I48.91 - Unspecified atrial fibrillation Is this a current diagnosis for this admission?: Yes (2) Hypercalcemia Is this a current diagnosis for this admission?: Yes (3) Acute hyperkalemia Is this a current diagnosis for this admission?: Yes (4) Abnormal CT of the chest Is this a current diagnosis for this admission?: Yes (5) Tobacco dependence Is this a current diagnosis for this admission?: Yes (6) Metastatic lung cancer (metastasis from lung to other site) Qualifiers: Laterality: left Qualified Code(s): C34.92 - Malignant neoplasm of unspecified part of left bronchus or lung Is this a current diagnosis for this admission?: Yes Plan: Preliminary pathology report shows non-small cell lung cancer. This was discuss in detail with the patient. We discussed the fact that because it is in several different areas of the body, I have to assume that it is all over and in his blood stream. Therefore, he will need systemic chemotherapy of some type. We also discussed the fact that this is not curable, but it is treatable. All of his questions were answered. I am awaiting final pathology report to determine which systemic therapy will be the best. This cannot start until after brain radiation. (7) Brain metastases Is this a current diagnosis for this admission?: Yes Plan: Sadly, the MRI of the brain did show multiple brain metastases. He was started on Dexamethasone last night and his symptoms have greatly improved this morning. He saw Dr. Bautista last night and CT simulation was performed in preparation to begin whole brain radiation today. I have explained that if he is able, further treatment could be given as outpatient as long as he has transportation for his treatments every day. However, patient states that this will be very difficult and he does not have transportation. He will continue dexamethasone for now. (8) Diabetes Qualifiers: Diabetes mellitus type: type 2 Diabetes mellitus [facility] insulin use: unspecified roasterman insulin use status Diabetes mellitus complication status : with unspecified complications Qualified Code(s): E11.8 - Type 2 diabetes mellitus with unspecified complications Is this a current diagnosis for this admission?: Yes Plan: Will need to cover with Sliding scale insulin while on Dexamethasone. - Plan Summary Plan Summary: OK to discharge from my standpoint when medically stable and able to provide transportation to treatment. I will continue to follow him while he is here and after discharge.
[2018-07-29] MEDS: HYDROMORPHONE HCL INJ/PF 2 MG/ML AMPULE IV PRN ×3 (09:04→22:35)
[2018-07-29] MEDS: ONDANSETRON HCL INJ/PF 4 MG/2 ML SDV IV PRN (09:09)
[2018-07-29] MEDS: SENNOSIDES/DOCUSATE 8.6-50 MG 1 EACH TABLET PO SCH (10:25)
[2018-07-29] MEDS: METOPROLOL SUCCINATE 50 MG TAB.SR.24H PO SCH ×2 (10:25→22:34)
[2018-07-29] MEDS: DEXAMETHASONE 4 MG TABLET PO SCH ×2 (10:25→17:37)
[2018-07-29] MEDS: AMIODARONE HCL 200 MG TABLET PO SCH ×2 (10:26→17:37)
[2018-07-29] MEDS: ISOSORBIDE MONONITRATE 30 MG TAB.ER.24H PO SCH (10:27)
[2018-07-29] MEDS: GABAPENTIN 300 MG CAPSULE PO SCH ×2 (10:28→22:34)
[2018-07-29] MEDS: INSULIN GLARGINE,HUM.REC.ANLOG 300 UNIT/3 ML INSULN.PEN SUBCUT SCH ×2 (10:28→17:37)
[2018-07-29] MEDS: FAMOTIDINE 20 MG TABLET PO SCH ×2 (10:29→23:31)
[2018-07-29] MEDS: ENOXAPARIN SODIUM INJ 80 MG/0.8 ML DISP.SYRIN SUBCUT SCH ×2 (10:30→22:50)
--- NOTE | 2018-07-29 15:40 | PDOC PROGRESS REPORT ---
Subjective Progress Note for:: 07/29/18 Subjective:: No adverse events overnight. No new complaints. Says his belly is feeling better. He was started on some Decadron last night and his appetite has improved. He ate all of his breakfast and his lunch today. Reason For Visit: LUNG MASS W METS, HYPERKALEMIA, HYPONATREMIA Physical Exam Vital Signs: Temp Pulse Resp BP Pulse Ox 97.7 F 89 20 116/60 95 07/29/18 11:29 07/29/18 11:29 07/29/18 11:29 07/29/18 11:29 07/29/18 11:29 Intake & Output 07/28/18 07/29/18 07/30/18 06:59 06:59 06:59 Intake Total 3295 3836 2146 Output Total 1125 2150 Balance 2170 1686 2146 Weight 75.4 kg 76.7 kg General appearance: PRESENT: no acute distress, cooperative Respiratory exam: PRESENT: clear to auscultation divya, unlabored. ABSENT: accessory muscle use, crackles, rhonchi, tachypnea, wheezes Cardiovascular exam: PRESENT: RRR, +S1, +S2. ABSENT: diastolic murmur, systolic murmur GI/Abdominal exam: PRESENT: normal bowel sounds, soft. ABSENT: distended, guarding, rebound, tenderness Extremities exam: ABSENT: calf tenderness, pedal edema Musculoskeletal exam: PRESENT: normal inspection. ABSENT: deformity Neurological exam: PRESENT: alert, awake, oriented to person, oriented to place , oriented to time Results Laboratory Results: 07/28/18 04:37 07/28/18 04:37 07/29/18 00:12 Urine Color YELLOW Urine Appearance CLEAR Urine pH 6.0 Ur Specific [place] 1.014 Urine Protein NEGATIVE Urine Glucose (UA) >=500 H Urine Ketones TRACE H Urine Blood MODERATE H Urine Nitrite NEGATIVE Ur Leukocyte Esterase NEGATIVE Urine WBC (Auto) 1 Urine RBC (Auto) 6 07/24/18 07/24/18 07/25/18 22:43 22:43 04:53 Creatine Kinase 35 L 39 L CK-MB (CK-2) Troponin I 0.051 07/25/18 07/25/18 07/25/18 04:53 10:28 10:28 Creatine Kinase 34 L CK-MB (CK-2) Troponin I 0.027 0.022 07/27/18 07/27/18 07/27/18 14:51 14:51 18:57 Creatine Kinase 23 L < 20 L CK-MB (CK-2) < 0.22 Troponin I 0.021 07/27/18 07/28/18 07/28/18 18:57 00:43 00:43 Creatine Kinase 21 L CK-MB (CK-2) < 0.22 < 0.22 Troponin I 0.016 0.023 Impressions: Abdomen/Pelvis CT 07/24/18 20:03 IMPRESSION: Images through the lung bases shows enlarged subcarinal lymph nodes and left lower lobe infiltrate/atelectasis. In the right anterior abdomen in the peritoneal cavity there is a 2.2 x 3.1 x 3.3 cm intraperitoneal mass abutting the proximal transverse colon. This lesion has slightly irregular margins and may represent an intraperitoneal desmoid tumor and less likely metastatic disease. In the adjacent anterior right subcutaneous fat there is an additional 13 mm well-circumscribed lesion, etiology uncertain. The findings in the CT chest, abdomen and pelvis can be further assessed with a CT PET examination There is presence of a 13 mm right adrenal nodule and 18 mm left adrenal nodule. These could represent benign adrenal adenomas or metastatic disease and can be further assessed with dedicated CT of the adrenal glands using adrenal adenoma protocol. There is a 2.7 cm infrarenal abdominal aortic aneurysm, which can be followed up at five yearly intervals based on the size criteria.. Location of Interpretation: [facility] Chest CT 07/24/18 20:31 IMPRESSION: There is presence of pathologically enlarged lymph nodes in the mediastinum and the subcarinal region, the largest of these lymph nodes measuring 21 mm in short axis dimension seen in the right paratracheal region and the largest subcarinal lymph node measuring 2.8 cm in short axis dimension. Pathologically enlarged lymph nodes are also seen in the bilateral hilar regions, worse on the left side. These lymph nodes are suspicious for a malignant process There is a 1.8 x 2.1 x 1.8 cm mass lesion in the left hilum surrounding the left lower lobe pulmonary artery and suspicious for a malignancy. There is presence of moderate size infiltrate/atelectasis in the left lower lobe of the lung extending to the left hilum. Minimal interstitial infiltrates are also seen in the lingula of the left lung. Note is made of a small ill-defined opacity in the right lung apex. Changes of COPD are seen in the bilateral lung mccoy In the visualized upper abdomen there is presence of 13 mm right adrenal nodule and 18 mm left adrenal nodule Lymph Node Biopsy Ultrasound 07/25/18 09:46 IMPRESSION: ULTRASOUND-GUIDED CORE BIOPSY OF THE PERIUMBILICAL SOFT TISSUE NODULE IN THE ANTERIOR ABDOMINAL WALL. POST BIOPSY CLIP PLACEMENT. PATHOLOGY IS PENDING Chest X-Ray 07/27/18 00:00 IMPRESSION: Left lower lobe pneumonia. Head CT 07/27/18 00:00 IMPRESSION: NORMAL BRAIN CT WITHOUT CONTRAST. EVIDENCE OF ACUTE STROKE: NO. KUB X-Ray 07/27/18 00:00 IMPRESSION: NO RADIOGRAPHIC EVIDENCE FOR ACUTE ABDOMINAL DISEASE. CONSTIPATION. Head MRI 07/28/18 00:00 IMPRESSION: Brain metastatic lesions at the bifrontal sandra-white junction regions 11 mm metastatic lesion left caudate, with small amount of lesion subacute hemorrhage. No diffuse subarachnoid or intraventricular hemorrhage. No hydrocephalus. EVIDENCE OF ACUTE STROKE: NO. Assessment & Plan - Diagnosis (1) Abdominal mass Qualifiers: Abdominal location: other location Qualified Code(s): R19.09 - Other intra- abdominal and pelvic swelling, mass and lump Is this a current diagnosis for this admission?: Yes Plan: Biopsy looks like a non-small cell lung cancer. Dr. Peralta has been consulted. He will need outpatient follow-up. (2) Hypercalcemia Is this a current diagnosis for this admission?: Yes Plan: Resolved (3) Atrial fibrillation Qualifiers: Atrial fibrillation type: unspecified Qualified Code(s): I48.91 - Unspecified atrial fibrillation Is this a current diagnosis for this admission?: Yes Plan: Resolved. Cardiology recommends amiodarone times 1 month discontinue. Also recommend continuing a beta-kamilah. I would like for him to continue on Eliquis but giving he has metastatic tumors in the brain, it might be too risky to anticoagulate him. (4) Lung mass Is this a current diagnosis for this admission?: Yes Plan: Likely non-small cell lung cancer. He is going to need systemic chemotherapy. He will follow with Dr. Peralta as an outpatient. (5) Brain metastases Is this a current diagnosis for this admission?: Yes Plan: Starting whole brain radiation today. He is scheduled to get 10 days worth. Were making arrangements for him to have transportation to and from his radiation sessions. He supposed to get radiation tomorrow at 12:30 PM, and then we can probably discharge him home after that. - Time Time Spent with patient: 25-34 minutes
[2018-07-30] MEDS: IPRATROPIUM/ALBUTEROL 0.5-2.5 MG/3 ML AMPUL NEB SCH ×2 (00:10→08:54)
[2018-07-30 05:27] LABS: HEMATOCRIT 32.9 % (37.9-51.0); MEAN CORPUSCULAR HEMOGLOBIN 29.6 pg (27.0-33.4); MEAN CORPUSCULAR HGB CONC 33.3 g/dL (32.0-36.0); MEAN CORPUSCULAR VOLUME 89 fl (80-97); PLATELET COUNT 315 10^3/uL (150-450); RED CELL DISTRIBUTION WIDTH 16.3 % (11.5-14.0); WHITE BLOOD COUNT 13.3 10^3/uL (4.0-10.5)
--- NOTE | 2018-07-30 08:21 | PDOC PROGRESS REPORT ---
Subjective Progress Note for:: 07/30/18 Subjective:: Patient sleeping comfortably. Arouses only somewhat. Nurses report no new issues. He underwent first XRT treatment last night. Second is planned for today. Reason For Visit: LUNG MASS W METS, HYPERKALEMIA, HYPONATREMIA Physical Exam Vital Signs: Temp Pulse Resp BP Pulse Ox 97.3 F 75 20 98/45 L 89 L 07/29/18 23:21 07/30/18 03:39 07/30/18 03:39 07/30/18 03:39 07/30/18 03:39 Intake & Output 07/29/18 07/30/18 07/31/18 06:59 06:59 06:59 Intake Total 3836 2605 Output Total 2150 Balance 1686 2605 Weight 76.7 kg 75.4 kg General appearance: PRESENT: no acute distress, well-developed, well-nourished Head exam: PRESENT: normocephalic Respiratory exam: PRESENT: clear to auscultation divya, unlabored Cardiovascular exam: PRESENT: RRR Skin exam: PRESENT: normal color Results Laboratory Results: 07/30/18 04:36 07/28/18 04:37 07/30/18 04:36 WBC 13.3 H RBC 3.70 L Hgb 11.0 L Hct 32.9 L MCV 89 MCH 29.6 MCHC 33.3 RDW 16.3 H Plt Count 315 07/24/18 07/24/18 07/25/18 22:43 22:43 04:53 Creatine Kinase 35 L 39 L CK-MB (CK-2) Troponin I 0.051 07/25/18 07/25/18 07/25/18 04:53 10:28 10:28 Creatine Kinase 34 L CK-MB (CK-2) Troponin I 0.027 0.022 07/27/18 07/27/18 07/27/18 14:51 14:51 18:57 Creatine Kinase 23 L < 20 L CK-MB (CK-2) < 0.22 Troponin I 0.021 07/27/18 07/28/18 07/28/18 18:57 00:43 00:43 Creatine Kinase 21 L CK-MB (CK-2) < 0.22 < 0.22 Troponin I 0.016 0.023 Impressions: Abdomen/Pelvis CT 07/24/18 20:03 IMPRESSION: Images through the lung bases shows enlarged subcarinal lymph nodes and left lower lobe infiltrate/atelectasis. In the right anterior abdomen in the peritoneal cavity there is a 2.2 x 3.1 x 3.3 cm intraperitoneal mass abutting the proximal transverse colon. This lesion has slightly irregular margins and may represent an intraperitoneal desmoid tumor and less likely metastatic disease. In the adjacent anterior right subcutaneous fat there is an additional 13 mm well-circumscribed lesion, etiology uncertain. The findings in the CT chest, abdomen and pelvis can be further assessed with a CT PET examination There is presence of a 13 mm right adrenal nodule and 18 mm left adrenal nodule. These could represent benign adrenal adenomas or metastatic disease and can be further assessed with dedicated CT of the adrenal glands using adrenal adenoma protocol. There is a 2.7 cm infrarenal abdominal aortic aneurysm, which can be followed up at five yearly intervals based on the size criteria.. Location of Interpretation: [facility] Chest CT 07/24/18 20:31 IMPRESSION: There is presence of pathologically enlarged lymph nodes in the mediastinum and the subcarinal region, the largest of these lymph nodes measuring 21 mm in short axis dimension seen in the right paratracheal region and the largest subcarinal lymph node measuring 2.8 cm in short axis dimension. Pathologically enlarged lymph nodes are also seen in the bilateral hilar regions, worse on the left side. These lymph nodes are suspicious for a malignant process There is a 1.8 x 2.1 x 1.8 cm mass lesion in the left hilum surrounding the left lower lobe pulmonary artery and suspicious for a malignancy. There is presence of moderate size infiltrate/atelectasis in the left lower lobe of the lung extending to the left hilum. Minimal interstitial infiltrates are also seen in the lingula of the left lung. Note is made of a small ill-defined opacity in the right lung apex. Changes of COPD are seen in the bilateral lung mccoy In the visualized upper abdomen there is presence of 13 mm right adrenal nodule and 18 mm left adrenal nodule Lymph Node Biopsy Ultrasound 07/25/18 09:46 IMPRESSION: ULTRASOUND-GUIDED CORE BIOPSY OF THE PERIUMBILICAL SOFT TISSUE NODULE IN THE ANTERIOR ABDOMINAL WALL. POST BIOPSY CLIP PLACEMENT. PATHOLOGY IS PENDING Chest X-Ray 07/27/18 00:00 IMPRESSION: Left lower lobe pneumonia. Head CT 07/27/18 00:00 IMPRESSION: NORMAL BRAIN CT WITHOUT CONTRAST. EVIDENCE OF ACUTE STROKE: NO. KUB X-Ray 07/27/18 00:00 IMPRESSION: NO RADIOGRAPHIC EVIDENCE FOR ACUTE ABDOMINAL DISEASE. CONSTIPATION. Head MRI 07/28/18 00:00 IMPRESSION: Brain metastatic lesions at the bifrontal sandra-white junction regions 11 mm metastatic lesion left caudate, with small amount of lesion subacute hemorrhage. No diffuse subarachnoid or intraventricular hemorrhage. No hydrocephalus. EVIDENCE OF ACUTE STROKE: NO. Assessment & Plan - Diagnosis (1) Atrial fibrillation Qualifiers: Atrial fibrillation type: unspecified Qualified Code(s): I48.91 - Unspecified atrial fibrillation Is this a current diagnosis for this admission?: Yes (2) Hypercalcemia Is this a current diagnosis for this admission?: Yes Plan: s/p bisphosphonate. Will repeat Ca in AM. Most likely due to the cancer. (3) Acute hyperkalemia Is this a current diagnosis for this admission?: Yes (4) Abnormal CT of the chest Is this a current diagnosis for this admission?: Yes (5) Tobacco dependence Is this a current diagnosis for this admission?: Yes (6) Metastatic lung cancer (metastasis from lung to other site) Qualifiers: Laterality: left Qualified Code(s): C34.92 - Malignant neoplasm of unspecified part of left bronchus or lung Is this a current diagnosis for this admission?: Yes Plan: Await final pathology with genetic tumor markers. Systemic therapy to begin as outpatient once brain XRT has completed. (7) Brain metastases Is this a current diagnosis for this admission?: Yes Plan: He will complete brain radiation as outpatient. Continue Dexamethasone 8 mg po BID for at least another week and then we will taper as outpatient. Please make sure he has Rx for at least 30 days supply at this dose. (8) Diabetes Qualifiers: Diabetes mellitus type: type 2 Diabetes mellitus termination clerk insulin use: unspecified halfway insulin use status Diabetes mellitus complication status : with unspecified complications Qualified Code(s): E11.8 - Type 2 diabetes mellitus with unspecified complications Is this a current diagnosis for this admission?: Yes - Plan Summary Plan Summary: I will see him in the office in 2 weeks. Please call with questions.
[2018-07-30] MEDS: INSULIN LISPRO 100 UNIT/ML 3 ML VIAL SUBCUT SCH ×2 (08:37→13:18)
[2018-07-30] MEDS: INSULIN LISPRO 100 UNIT/ML 3 ML VIAL SUBCUT PRN ×2 (08:38→13:18)
[2018-07-30] MEDS: LEVOFLOXACIN 750 MG/D5W RTU 750 MG/150 ML RTUPB IV SCH (08:38)
[2018-07-30] MEDS: HYDROMORPHONE HCL INJ/PF 2 MG/ML AMPULE IV PRN (08:55)
[2018-07-30] MEDS: METOPROLOL SUCCINATE 50 MG TAB.SR.24H PO SCH (09:25)
[2018-07-30] MEDS: DEXAMETHASONE 4 MG TABLET PO SCH (09:25)
[2018-07-30] MEDS: GABAPENTIN 300 MG CAPSULE PO SCH (09:25)
[2018-07-30] MEDS: INSULIN GLARGINE,HUM.REC.ANLOG 300 UNIT/3 ML INSULN.PEN SUBCUT SCH (09:25)
[2018-07-30] MEDS: FAMOTIDINE 20 MG TABLET PO SCH (09:25)
[2018-07-30] MEDS: SENNOSIDES/DOCUSATE 8.6-50 MG 1 EACH TABLET PO SCH (09:25)
[2018-07-30] MEDS: ISOSORBIDE MONONITRATE 30 MG TAB.ER.24H PO SCH (09:26)
[2018-07-30] MEDS: AMIODARONE HCL 200 MG TABLET PO SCH (09:26)
[2018-07-30] MEDS: ENOXAPARIN SODIUM INJ 80 MG/0.8 ML DISP.SYRIN SUBCUT SCH (09:26)
[2018-07-30] MEDS ORDERED: ALBUTEROL SULFATE HFA (90 MCG/PUFF) 200 PUFF/8.5 GM MDI IH PRN (10:45)
[2018-07-30] MEDS: ONDANSETRON HCL INJ/PF 4 MG/2 ML SDV IV PRN (10:56)
[2018-07-30 14:19] VITALS: BP 111/51
--- NOTE | 2018-07-30 15:45 | PDOC DISCHARGE SUMMARY ---
General - Admit/Disc Date/PCP Admission Date/Primary Care Provider: 07/24/18 22:12 DIONISIO GUERRERO, DO Discharge Date: 07/30/18 - Discharge Diagnosis (1) Abdominal mass Is this a current diagnosis for this admission?: Yes Summary: Biopsy shown as non-small cell lung cancer. Further tests are pending. He will follow-up with oncology as an outpatient. (2) Hypercalcemia Is this a current diagnosis for this admission?: Yes Summary: Resolved. Due to malignancy. (3) Atrial fibrillation Is this a current diagnosis for this admission?: Yes Summary: This resolved as well. He was started on a beta-kamilah, as well as amiodarone. Cardiology recommended continuing the amiodarone for a month and then stopping it. He is also starting on anticoagulation. (4) Lung mass Is this a current diagnosis for this admission?: Yes Summary: Biopsy of the abdominal mass has shown that this is a non-small cell lung cancer. He is following up with oncology. (5) Brain metastases Is this a current diagnosis for this admission?: Yes Summary: He has started whole brain radiation. He is on Decadron and GI prophylaxis. He is scheduled to get 10 treatments. - Additional Information Resuscitation Status: Full Code Discharge Diet: Diabetic Discharge Activity: Activity As Tolerated, Walk Frequently Prescriptions: Amiodarone HCl [Cordarone 200 mg Tablet] 200 mg PO BID #60 tablet Apixaban [Eliquis 5 mg Tablet] 5 mg PO BID #60 tablet Dexamethasone [Decadron 4 mg Tablet] 8 mg PO BID #120 tablet Famotidine [Pepcid 20 mg Tablet] 20 mg PO Q12 #60 tablet Metoprolol Succinate [Toprol Xl 50 mg Tab.sr] 50 mg PO Q12 #60 tab.sr.24h Home Medications: Albuterol Sulfate [Ventolin HFA MDI 18 GM] 2 puff IH Q6HP PRN 07/25/18 Gabapentin [Neurontin 300 mg Capsule] 300 mg PO Q12 07/25/18 Insulin Aspart [Novolog Flexpen] 0 units SQ .SLIDINGSCALE 07/25/18 Insulin Glargine,Hum.rec.anlog [Basaglar Kwikpen U-100] 55 units SQ QHS Isosorbide Mononitrate [Isosorbide Mononitrate ER] 30 mg PO QAM 07/25/18 Naproxen [Naprosyn] 500 mg PO Q12 07/25/18 Nitroglycerin [Nitrostat] 0.4 mg SL Q5MP PRN 07/25/18 Omeprazole 20 mg PO BIDACBS 07/25/18 Oxycodone HCl/Acetaminophen [Endocet 5-325 Tablet] 1 tab PO Q6HP PRN 07/25/18 Simvastatin [Zocor 20 mg Tablet] 20 mg PO QHS 07/25/18 Sitagliptin Phosphate [Januvia] 100 mg PO DAILY 07/25/18 Zolpidem Tartrate [Ambien] 10 mg PO QHS 07/25/18 Amiodarone HCl [Cordarone 200 mg Tablet] 200 mg PO BID #60 tablet 07/30/18 Apixaban [Eliquis 5 mg Tablet] 5 mg PO BID #60 tablet 07/30/18 Dexamethasone [Decadron 4 mg Tablet] 8 mg PO BID #120 tablet 07/30/18 Famotidine [Pepcid 20 mg Tablet] 20 mg PO Q12 #60 tablet 07/30/18 Metoprolol Succinate [Toprol Xl 50 mg Tab.sr] 50 mg PO Q12 #60 tab.sr.24h History of Present Illness History of Present Illness: GÓMEZ ENRIQUEZ is a 62 year old male with a past medical history of diabetes, hypertension, COPD, opiate dependent chronic pain, tobacco dependence and noncompliance. He presents with 2-3 weeks of abdominal discomfort, fatigue, anorexia, nausea and weight loss. In the emergency room is found to have A. fib with RVR, hyperglycemia without acidosis, chest x-ray with hilar fullness prompting a CT revealing bilateral adenopathy, adrenal masses, intraperitoneal versus colonic mass. He denies chest pain. He is referred to the hospitalist for admission. Hospital Course Hospital Course: He actually presented with some nausea and abdominal pain and was found to have atrial fibrillation with RVR. He was treated with beta-kamilah and was anticoagulated, and was put on amiodarone at one point. Cardiology has since recommended that he stay on the amiodarone for a month and then stop it. He is to continue the beta-kamilah and Eliquis. Chest x-ray shows some hilar fullness and so his chest was scanned and he was found to have a lung mass. Further imaging showed an abdominal mass as well. The abdominal mass was easy to be biopsied and so it was. It turned out to be a non-small cell lung cancer. Further testing is done to see if he would be suitable for immunotherapy. For further staging he had an MRI of his brain which showed multiple metastases. He has had whole brain radiation started here, and will continue for a total of 10 treatments. He was obviously followed by oncology as an inpatient will continue to do so after he leaves the hospital. His labs and examination were reassuring he was discharged in good condition. Physical Exam Vital Signs: Temp Pulse Resp BP Pulse Ox 98.3 F 76 16 111/51 L 94 07/30/18 14:16 07/30/18 14:16 07/30/18 14:16 07/30/18 14:16 07/30/18 14:16 Intake & Output 07/29/18 07/30/18 07/31/18 06:59 06:59 06:59 Intake Total 3836 2605 825 Output Total 2150 400 Balance 1686 2605 425 Weight 76.7 kg 75.4 kg General appearance: PRESENT: no acute distress, cooperative Respiratory exam: PRESENT: clear to auscultation divya, unlabored. ABSENT: accessory muscle use, crackles, rhonchi, tachypnea, wheezes Cardiovascular exam: PRESENT: RRR, +S1, +S2. ABSENT: diastolic murmur, systolic murmur GI/Abdominal exam: PRESENT: normal bowel sounds, soft. ABSENT: distended, guarding, rebound, tenderness Extremities exam: ABSENT: calf tenderness, pedal edema Musculoskeletal exam: PRESENT: normal inspection. ABSENT: deformity Neurological exam: PRESENT: alert, awake, oriented to person, oriented to place , oriented to time Results Laboratory Results: 07/30/18 04:36 07/28/18 04:37 07/30/18 04:36 WBC 13.3 H RBC 3.70 L Hgb 11.0 L Hct 32.9 L MCV 89 MCH 29.6 MCHC 33.3 RDW 16.3 H Plt Count 315 07/24/18 07/24/18 07/25/18 22:43 22:43 04:53 Creatine Kinase 35 L 39 L CK-MB (CK-2) Troponin I 0.051 07/25/18 07/25/18 07/25/18 04:53 10:28 10:28 Creatine Kinase 34 L CK-MB (CK-2) Troponin I 0.027 0.022 07/27/18 07/27/18 07/27/18 14:51 14:51 18:57 Creatine Kinase 23 L < 20 L CK-MB (CK-2) < 0.22 Troponin I 0.021 07/27/18 07/28/18 07/28/18 18:57 00:43 00:43 Creatine Kinase 21 L CK-MB (CK-2) < 0.22 < 0.22 Troponin I 0.016 0.023 Impressions: Abdomen/Pelvis CT 07/24/18 20:03 IMPRESSION: Images through the lung bases shows enlarged subcarinal lymph nodes and left lower lobe infiltrate/atelectasis. In the right anterior abdomen in the peritoneal cavity there is a 2.2 x 3.1 x 3.3 cm intraperitoneal mass abutting the proximal transverse colon. This lesion has slightly irregular margins and may represent an intraperitoneal desmoid tumor and less likely metastatic disease. In the adjacent anterior right subcutaneous fat there is an additional 13 mm well-circumscribed lesion, etiology uncertain. The findings in the CT chest, abdomen and pelvis can be further assessed with a CT PET examination There is presence of a 13 mm right adrenal nodule and 18 mm left adrenal nodule. These could represent benign adrenal adenomas or metastatic disease and can be further assessed with dedicated CT of the adrenal glands using adrenal adenoma protocol. There is a 2.7 cm infrarenal abdominal aortic aneurysm, which can be followed up at five yearly intervals based on the size criteria.. Location of Interpretation: [facility] Chest CT 07/24/18 20:31 IMPRESSION: There is presence of pathologically enlarged lymph nodes in the mediastinum and the subcarinal region, the largest of these lymph nodes measuring 21 mm in short axis dimension seen in the right paratracheal region and the largest subcarinal lymph node measuring 2.8 cm in short axis dimension. Pathologically enlarged lymph nodes are also seen in the bilateral hilar regions, worse on the left side. These lymph nodes are suspicious for a malignant process There is a 1.8 x 2.1 x 1.8 cm mass lesion in the left hilum surrounding the left lower lobe pulmonary artery and suspicious for a malignancy. There is presence of moderate size infiltrate/atelectasis in the left lower lobe of the lung extending to the left hilum. Minimal interstitial infiltrates are also seen in the lingula of the left lung. Note is made of a small ill-defined opacity in the right lung apex. Changes of COPD are seen in the bilateral lung mccoy In the visualized upper abdomen there is presence of 13 mm right adrenal nodule and 18 mm left adrenal nodule Lymph Node Biopsy Ultrasound 07/25/18 09:46 IMPRESSION: ULTRASOUND-GUIDED CORE BIOPSY OF THE PERIUMBILICAL SOFT TISSUE NODULE IN THE ANTERIOR ABDOMINAL WALL. POST BIOPSY CLIP PLACEMENT. PATHOLOGY IS PENDING Chest X-Ray 07/27/18 00:00 IMPRESSION: Left lower lobe pneumonia. Head CT 07/27/18 00:00 IMPRESSION: NORMAL BRAIN CT WITHOUT CONTRAST. EVIDENCE OF ACUTE STROKE: NO. KUB X-Ray 07/27/18 00:00 IMPRESSION: NO RADIOGRAPHIC EVIDENCE FOR ACUTE ABDOMINAL DISEASE. CONSTIPATION. Head MRI 07/28/18 00:00 IMPRESSION: Brain metastatic lesions at the bifrontal sandra-white junction regions 11 mm metastatic lesion left caudate, with small amount of lesion subacute hemorrhage. No diffuse subarachnoid or intraventricular hemorrhage. No hydrocephalus. EVIDENCE OF ACUTE STROKE: NO. Qualifiers - * PATIENT BEING DISCHARGED WITH ANY OF THE FOLLOWING DIAGNOSIS: No
== END 2018-07-30 15:20 | disposition home or self-care (01) | DRG 987 ==
LOC: ER 18:58 → EH 22:12 → 4N 07-25 01:00 → 3W 07-25 10:01
PROVIDERS: ADMIT Internal Medicine; ATTEND Internal Medicine
PROC: 0WBF3ZX Excision of Abdominal Wall, Percutaneous Approach, Diagnostic (ICD-10-PCS; principal; 2018-07-25)
PROC: 3E0F73Z Introduction of Anti-inflammatory into Respiratory Tract, Via Natural or Artificial Opening (ICD-10-PCS; 2018-07-25)
PROC: 3E02340 Introduction of Influenza Vaccine into Muscle, Percutaneous Approach (ICD-10-PCS; 2018-07-30)
DX: C34.92 Malignant neoplasm of unspecified part of left bronchus or lung (principal); J18.9 Pneumonia, unspecified organism; E87.1 Hypo-osmolality and hyponatremia; C79.31 Secondary malignant neoplasm of brain; F11.20 Opioid dependence, uncomplicated; E87.5 Hyperkalemia; E83.52 Hypercalcemia; I48.0 Paroxysmal atrial fibrillation; E11.65 Type 2 diabetes mellitus with hyperglycemia; I10 Essential (primary) hypertension; J44.9 Chronic obstructive pulmonary disease, unspecified; G89.29 Other chronic pain; R59.9 Enlarged lymph nodes, unspecified; I71.4 Abdominal aortic aneurysm, without rupture; K59.00 Constipation, unspecified; F32.9 Major depressive disorder, single episode, unspecified; K21.9 Gastro-esophageal reflux disease without esophagitis; I25.10 Atherosclerotic heart disease of native coronary artery without angina pectoris; F17.210 Nicotine dependence, cigarettes, uncomplicated; E78.00 Pure hypercholesterolemia, unspecified; I25.2 Old myocardial infarction; Z23 Encounter for immunization; Z79.899 Other long term (current) drug therapy; Z91.19 Patient's noncompliance with other medical treatment and regimen; Z95.5 Presence of coronary angioplasty implant and graft; Z88.8 Allergy status to other drugs, medicaments and biological substances; Z79.4 Long term (current) use of insulin; Z91.14 Patient's other noncompliance with medication regimen; Z82.49 Family history of ischemic heart disease and other diseases of the circulatory system; Z83.3 Family history of diabetes mellitus
CPT/HCPCS: 36415; 38505; 70450; 70553; 71045; 71260; 74018; 74177; 80048; 80053; 81001; 82330; 82397; 82550; 82553; 82803; 82962; 83615; 83735; 84484; 85025; 85027; 85610; 87040; 88305; 88313; 88341; 88342; 90686; 93005; 93010; 93306; 94640; 96361; 96374; 99285; A9576; J0282; J1170; J1644; J1650; J1815; J1956; J2405; J2430; J3490; J7030; J7060; J7620

== ENCOUNTER 2018-08-05 17:51 | Inpatient (IN) | payer MEDICARE, MEDICAID ==
--- NOTE | 2018-08-05 18:36 | ER Document Report ---
ED Medical Screen (RME) - General Chief Complaint: Chest Pain Stated Complaint: CHEST PAIN Time Seen by Provider: 08/05/18 18:32 Notes: Patient is a 62-year-old male with history of lung carcinoma that presents to the emergency department for chief complaint of chest pain, shortness of breath and fatigue. Patient was reportedly receiving radiation therapy, and became more short of breath complaining of chest pain was noted to be hypoxic therefore he was sent to the emergency department. ROS: Unless otherwise stated in this report the patient's positive and negative responses for review of systems for constitutional, eyes, ENT, cardiovascular, respiratory, gastrointestinal, neurological, genitourinary, musculoskeletal, and integumentary systems and related systems to the presenting problem are either as stated in the HPI or were not pertinent or were negative for the symptoms and/or complaints related to the presenting medical problem. PHYSICAL EXAMINATION: Vital signs reviewed. GENERAL: Chronically ill-appearing male, no immediate distress HEAD: Atraumatic, normocephalic. EYES: Pupils equal round extraocular movements intact, conjunctiva are normal. ENT: Nares patent NECK: Normal range of motion CV: Heart regular rate and rhythm LUNGS: No respiratory distress, shallow breathing, severely diminished lung sounds in the left lung base, clear in the upper lung mccoy Musculoskeletal: Normal range of motion NEUROLOGICAL: Normal speech PSYCH: Normal mood, normal affect. MDM: Patient seen and examined for rapid initial assessment. Vital signs reviewed. A comprehensive ED assessment and evaluation of the patient, analysis of test results and completion of the medical decision making process will be conducted by additional ED providers. *Note is created using voice recognition software and may contain spelling, syntax or grammatical errors. TRAVEL OUTSIDE OF THE [place] IN LAST 30 DAYS: No - Related Data Allergies/Adverse Reactions: chlorpromazine HCl [From Thorazine] Allergy (Verified 06/30/18 12:37) faints Past Medical History - Social History Chew tobacco use (# tins/day): No Drug Abuse: None - Past Medical History Cardiac Medical History: Reports: Hx Heart Attack Denies: Hx Congestive Heart Failure, Hx Hypertension, Hx Heart Murmur Pulmonary Medical History: Denies: Hx Asthma, Hx Bronchitis, Hx COPD, Hx Pneumonia, Hx Tuberculosis Neurological Medical History: Denies: Hx Cerebrovascular Accident, Hx Seizures Endocrine Medical History: Reports: Hx Diabetes Mellitus Type 2 Renal/ Medical History: Denies: Hx Peritoneal Dialysis GI Medical History: Reports: Hx Gastroesophageal Reflux Disease. Denies: Hx Hepatitis, Hx Hiatal Hernia, Hx Ulcer Musculoskeltal Medical History: Psychiatric Medical History: Reports: Hx Depression Infectious Medical History: Denies: Hx Hepatitis Past Surgical History: Reports: Hx Cardiac Catheterization - +2 stents, Hx Cardiac Surgery - stents, Hx Oral Surgery. Denies: Hx Open Heart Surgery, Hx Pacemaker - Immunizations Hx Diphtheria, Pertussis, Tetanus Vaccination: Yes History of Influenza Vaccine for 07/2017 - 12/2017 Season: Yes Influenza Administration Date for 07/2017 - 12/2017 Season: 07/14/17 Physical Exam - Vital signs Vitals: Temp Pulse Resp BP Pulse Ox 97.5 F 71 16 112/62 93 08/05/18 18:26 08/05/18 18:26 08/05/18 18:26 08/05/18 18:26 08/05/18 18:26 Course - Vital Signs Vital signs: Temp Pulse Resp BP Pulse Ox 97.5 F 71 16 112/62 93 08/05/18 18:26 08/05/18 18:26 08/05/18 18:26 08/05/18 18:26 08/05/18 18:26 Doctor's Discharge - Discharge Referrals: DIONISIO GUERRERO DO [Primary Care Provider] - Follow up as needed
--- NOTE | 2018-08-05 19:18 | ER Document Report ---
ED Cardiac - General Chief Complaint: Chest Pain Stated Complaint: CHEST PAIN Time Seen by Provider: 08/05/18 18:32 Mode of Arrival: Wheelchair Information source: Patient TRAVEL OUTSIDE OF THE [place] IN LAST 30 DAYS: No - HPI Patient complains to provider of: Other - This 62-year-old man with a history of metastatic lung disease presents for evaluation of shortness of breath as well as chest tightness which is developed worsening today after his radiation therapy. He is undergone radiation therapy every day since being discharged from the hospital with his new diagnosis of lung cancer 1 week prior. He denies fevers or chills does endorse chest tightness a cough increasing dyspnea denies abdominal pain does endorse some abdominal fullness and bruising to the abdomen. Nothing is seem to make this any better or worse. - Related Data Allergies/Adverse Reactions: chlorpromazine HCl [From Thorazine] Allergy (Verified 06/30/18 12:37) faints Past Medical History - General Information source: Patient - Social History Smoking Status: Former Smoker Chew tobacco use (# tins/day): No Drug Abuse: None Family History: DM, Hypertension Patient has suicidal ideation: No Patient has homicidal ideation: No - Past Medical History Cardiac Medical History: Reports: Hx Heart Attack Denies: Hx Congestive Heart Failure, Hx Hypertension, Hx Heart Murmur Pulmonary Medical History: Denies: Hx Asthma, Hx Bronchitis, Hx COPD, Hx Pneumonia, Hx Tuberculosis Neurological Medical History: Denies: Hx Cerebrovascular Accident, Hx Seizures Endocrine Medical History: Reports: Hx Diabetes Mellitus Type 2 Renal/ Medical History: Denies: Hx Peritoneal Dialysis GI Medical History: Reports: Hx Gastroesophageal Reflux Disease. Denies: Hx Hepatitis, Hx Hiatal Hernia, Hx Ulcer Musculoskeletal Medical History: Psychiatric Medical History: Reports: Hx Depression Infectious Medical History: Denies: Hx Hepatitis Past Surgical History: Reports: Hx Cardiac Catheterization - +2 stents, Hx Cardiac Surgery - stents, Hx Oral Surgery. Denies: Hx Open Heart Surgery, Hx Pacemaker - Immunizations Hx Diphtheria, Pertussis, Tetanus Vaccination: Yes Review of Systems - Review of Systems -: Yes All other systems reviewed and negative Physical Exam - Vital signs Vitals: Temp Pulse Resp BP Pulse Ox 97.5 F 71 16 112/62 93 08/05/18 18:26 08/05/18 18:26 08/05/18 18:26 08/05/18 18:26 08/05/18 18:26 - General General appearance: Appears well, Anxious In distress: Mild - HEENT Head: Normocephalic Eyes: Normal Conjunctiva: Normal Cornea: Normal Extraocular movements intact: Yes Eyelashes: Normal Pupils: PERRL - Respiratory Respiratory status: Pursed lip breathing, Tachypnea Chest status: Tender Breath sounds: Other - Decreased breath sounds in the left lower lung field, rhonchi scattered throughout all lung mccoy, wheezes in the apices bilaterally - Cardiovascular Rhythm: Tachycardia Heart sounds: Normal auscultation Murmur: No - Back Back: Normal - Extremities General upper extremity: Normal inspection, Nontender, Normal strength, Normal temperature General lower extremity: Normal inspection, Nontender, Normal strength, Normal temperature - Neurological Neuro grossly intact: Yes Cognition: Normal Orientation: AAOx4 [place] Coma Scale Eye Opening: Spontaneous [place] Coma Scale Verbal: Oriented [place] Coma Scale Motor: Obeys Commands [place] Coma Scale Total: 15 Speech: Normal Cranial nerves: Normal Motor strength normal: LUE, RUE, LLE, RLE - Psychological Associated symptoms: Normal affect Course - Re-evaluation Re-evalutation: 08/06/18 00:14 62-year-old man that presents for worsening dyspnea and chest tightness in the setting of having being treated for metastatic lung cancer. Patient is also on high-dose dexamethasone for brain metastases. Patient's glucose is markedly elevated to the greater than 500 range, will initiate treatment with fluids as well as insulin. He does not have an appreciable anion gap acidosis. Patient's x-ray is difficult to interpret in the setting of his known lung cancer. He does have what appears to be chronic changes. He does have slight edema though his fluid status seems to be dehydrated. He does have a BUN which is markedly elevated in comparison to his creatinine suggestive of a prerenal azotemia, have administered fluids. Will initiate treatment with DuoNeb. Did obtain a CT of the abdomen and pelvis for possible retroperitoneal hematoma as he had had a biopsy with some swelling in the abdomen, no obvious retroperitoneal hematoma or intraperitoneal bleed. Patient is on Eliquis and does have some risk factors for bleeding. Have contacted the on-call hospitalist who agrees to admission of this patient for his elevated work of breathing profound hyperglycemia as well as worsening failure to thrive. - Vital Signs Vital signs: Temp Pulse Resp BP Pulse Ox 97.5 F 71 16 117/88 H 95 08/05/18 18:26 08/05/18 18:26 08/05/18 22:01 08/05/18 22:01 08/05/18 22:07 - Laboratory Result Diagrams: 08/05/18 19:35 08/05/18 19:35 Laboratory results interpreted by me: 08/05/18 08/05/18 08/05/18 19:35 19:35 19:35 WBC 23.3 H RDW 17.4 H Plt Count 513 H Seg Neuts % (Manual) 95 H Lymphocytes % (Manual) 3 L Monocytes % (Manual) 2 L Abs Neuts (Manual) 22.1 H Sodium 131.9 L Potassium 5.3 H Chloride 91 L BUN 41 H Glucose 507 H* POC Glucose Alkaline Phosphatase 233 H Creatine Kinase 42 L NT-Pro-B Natriuret Pep 2680 H 08/05/18 23:28 WBC RDW Plt Count Seg Neuts % (Manual) Lymphocytes % (Manual) Monocytes % (Manual) Abs Neuts (Manual) Sodium Potassium Chloride BUN Glucose POC Glucose 345 H Alkaline Phosphatase Creatine Kinase NT-Pro-B Natriuret Pep Discharge - Discharge Clinical Impression: Hyperglycemia Dyspnea Qualifiers: Dyspnea type: unspecified Qualified Code(s): R06.00 - Dyspnea, unspecified Diabetes Qualifiers: Diabetes mellitus type: other specified (including ELSIE) 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 insulin use status Diabetes mellitus complication status: with unspecified complications Qualified Code(s): E13.8 - Other specified diabetes mellitus with unspecified complications Metastatic lung cancer (metastasis from lung to other site) Qualifiers: Laterality: unspecified laterality Qualified Code(s): C34.90 - Malignant neoplasm of unspecified part of unspecified bronchus or lung Chest pain Qualifiers: Chest pain type: unspecified Qualified Code(s): R07.9 - Chest pain, unspecified Condition: Stable Disposition: ADMITTED INPATIENT Admitting Provider: Hospitalist Unit Admitted: IMCU Referrals: DIONISIO GUERRERO DO [Primary Care Provider] - Follow up as needed
--- NOTE | 2018-08-05 19:19 | RADIOLOGY REPORT (SQ) ---
EXAM DESCRIPTION: CHEST SINGLE VIEW COMPLETED DATE/TIME: 08/05/2018 7:07 pm REASON FOR STUDY: shortness of breath, hypoxia COMPARISON: Chest x-ray dated 07/27/2018. Chest CT dated 07/24/2018. EXAM PARAMETERS: NUMBER OF VIEWS: One view. TECHNIQUE: Single frontal radiographic view of the chest acquired. RADIATION DOSE: NA LIMITATIONS: None. FINDINGS: LUNGS AND PLEURA: Diffuse interstitial prominence. Hazy patchy airspace disease. No larg e pleural effusion. No pneumothorax. MEDIASTINUM AND HILAR STRUCTURES: Hilar and mediastinal adenopathy. HEART AND VASCULAR STRUCTURES: Cardiomegaly. BONES: No acute findings. HARDWARE: None in the chest. OTHER: No other significant finding. IMPRESSION: HILAR AND MEDIASTINAL ADENOPATHY. SEEN ON RECENT CT CHEST. CARDIOMEGALY. MILD INTERST ITIAL PROMINENCE MAY BE DUE TO INTERSTITIAL EDEMA. PATCHY AIRSPACE DISEASE, CANNOT EXCLUDE SUPERIMPO SED INFECTION. TECHNICAL DOCUMENTATION: JOB ID: [id number] [employer]- All Rights Reserved Reading location - IP/workstation name: [email or web address]
[2018-08-05 19:52] LABS: HEMATOCRIT 43.2 % (37.9-51.0); HEMOGLOBIN 14.2 g/dL (13.5-17.0); MEAN CORPUSCULAR HEMOGLOBIN 29.3 pg (27.0-33.4); MEAN CORPUSCULAR HGB CONC 32.8 g/dL (32.0-36.0); MEAN CORPUSCULAR VOLUME 89 fl (80-97); PLATELET COUNT 513 10^3/uL (150-450); RED BLOOD COUNT 4.84 10^6/uL (4.35-5.55); RED CELL DISTRIBUTION WIDTH 17.4 % (11.5-14.0); WHITE BLOOD COUNT 23.3 10^3/uL (4.0-10.5)
[2018-08-05 20:05] LABS: ALANINE AMINOTRANSFERASE 22 U/L (21-72); ALBUMIN 3.6 g/dL (3.5-5.0); ALKALINE PHOSPHATASE 233 U/L (38-126); ANION GAP 11 (5-19); ASPARTATE AMINO TRANSFERASE 24 U/L (17-59); BILIRUBIN,DIRECT 0.4 mg/dL (0.0-0.4); BILIRUBIN,TOTAL 0.9 mg/dL (0.2-1.3); BLOOD UREA NITROGEN 41 mg/dL (7-20); CALCIUM 9.5 mg/dL (8.4-10.2); CARBON DIOXIDE 30 mmol/L (22-30); CHLORIDE 91 mmol/L (98-107); CREATINE KINASE 42 U/L (55-170); POTASSIUM 5.3 mmol/L (3.6-5.0); SODIUM 131.9 mmol/L (137-145); TOTAL PROTEIN 7.1 g/dL (6.3-8.2)
[2018-08-05 20:16] LABS: GLUCOSE 507 mg/dL (75-110); NT PRO BNP 2680 pg/mL (5-900)
[2018-08-05 20:17] LABS: ABSOLUTE LYMPHOCYTES# (MANUAL) 0.7 10^3/uL (0.5-4.7); ABSOLUTE MONOCYTES # (MANUAL) 0.5 10^3/uL (0.1-1.4); ABSOLUTE NEUTROPHILS# (MANUAL) 22.1 10^3/uL (1.7-8.2); ANISOCYTOSIS 1+; BASOPHILS % (MANUAL) 0 % (0-2); EOSINOPHILS % (MANUAL) 0 % (0-6); LYMPHOCYTES % (MANUAL) 3 % (13-45); MONOCYTES % (MANUAL) 2 % (3-13); PLATELET CLUMPS PRESENT; PLATELET COMMENT INCREASED; PLATELET GIANT PRESENT; PLATELET LARGE PRESENT; POLYCHROMASIA SLIGHT; SEGMENTED NEUTROPHILS % (MAN) 95 % (42-78); TOTAL CELLS COUNTED 100; TOXIC VACUOLATION PRESENT; TROPONIN I < 0.012 ng/mL
[2018-08-05] MEDS ORDERED: INSULIN REG, HUMAN 100 UNIT/ML 3 ML VIAL (PYX) IV ONE (20:29)
--- NOTE | 2018-08-05 21:00 | EKG REPORT ---
SEVERITY:- NORMAL ECG - SINUS RHYTHM : Confirmed by: Divya Medellin 05-Aug-2018 21:00:02
[2018-08-05] MEDS: NORMAL SALINE 1000 ML 1,000 ML IV PRN ×2 (21:01→21:57)
[2018-08-05] MEDS: IPRATROPIUM/ALBUTEROL 0.5-2.5 MG/3 ML AMPUL NEB ONE ×2 (22:55→23:00)
[2018-08-05] MEDS ORDERED: ALBUTEROL SULFATE 0.083% NEB 2.5 MG/3 ML AMPUL NEB ONE (22:56)
--- NOTE | 2018-08-05 23:09 | RADIOLOGY REPORT (SQ) ---
CT ABDOMEN PELVIS WITH IV CONTRAST HISTORY: Evaluate for retroperitoneal hemorrhage. COMPARISON: None. TECHNIQUE: CT scan of the abdomen and pelvis with contrast. This exam was performed according to our departmental dose-optimization program, which includes automated exposure control, adjustment of the mA and/or kV according to patient size and/or use of iterative reconstruction technique. FINDINGS: Diffuse groundglass opacity at the lung bases, right greater than left. Gallbladder, spleen, and pancreas are unremarkable. 2.5 x 1.9 cm hypodense lesion in the right hepatic lobe. 2.3 x 2.4 cm left adrenal nodule and 1.4 x 2.0 cm right adrenal nodule. Mild left hydronephrosis. 2.6 cm right renal cyst. Pelvic organs are unremarkable. No bowel obstruction. Prominent periaortic lymph nodes are present. Multiple subcutaneous changes nodules scattered throughout the body wall. Descending thoracic aorta measures 2.8 cm and contains calcifications in intraluminal fibrofatty plaque. Degenerative changes of the spine. IMPRESSION: No evidence of retroperitoneal hemorrhage. Bilateral adrenal nodules, nonspecific. Scattered subcutaneous nodules throughout the body wall. Correlate with clinical history.
[2018-08-05] MEDS ORDERED: DEXTROSE 40% GEL 15 GM TUBE PO PRN ×2 (23:16)
[2018-08-05] MEDS ORDERED: ACETAMINOPHEN 325 MG TABLET PO PRN (23:16)
[2018-08-05] MEDS ORDERED: GLUCAGON,HUMAN RECOMB 1 MG INJ IM PRN (23:16)
[2018-08-05] MEDS ORDERED: HYDRALAZINE HCL INJ/PF 20 MG/1 ML SDV IV PRN (23:16)
[2018-08-05] MEDS ORDERED: DEXTROSE 50%-WATER 25 GM/50 ML DISP.SYRIN IV PRN ×2 (23:16)
[2018-08-05] MEDS ORDERED: IPRATROPIUM/ALBUTEROL 0.5-2.5 MG/3 ML AMPUL NEB PRN (23:16)
[2018-08-05 23:45] LABS: VENOUS BLOOD BASE EXCESS 0.6 mmol/L; VENOUS BLOOD HCO3 26.6 mmol/L (20-32); VENOUS BLOOD PCO2 48.7 mmHg (35-63); VENOUS BLOOD PH 7.36 (7.30-7.42)
[2018-08-06] MEDS ORDERED: APIXABAN 5 MG TABLET PO ONE
[2018-08-06] MEDS ORDERED: GABAPENTIN 300 MG CAPSULE PO ONE
[2018-08-06] MEDS ORDERED: HEPARIN SOD (PORCINE) 5,000 UNIT/ML 1 ML SYRINGE SUBCUT ONE
[2018-08-06] MEDS ORDERED: LEVOFLOXACIN 750 MG/D5W RTU 750 MG/150 ML RTUPB IV ONE
[2018-08-06] MEDS ORDERED: AMIODARONE HCL 200 MG TABLET PO ONE
[2018-08-06] MEDS ORDERED: DEXAMETHASONE 4 MG TABLET PO ONE
[2018-08-06] MEDS ORDERED: LACTULOSE SYRUP 20 GM/30 ML UDCUP PO ONE (01:00)
[2018-08-06] MEDS ORDERED: APIXABAN 5 MG TABLET ONE (01:28)
[2018-08-06] MEDS ORDERED: INSULIN GLARGINE,HUM.REC.ANLOG 300 UNIT/3 ML INSULN.PEN SUBCUT ONE ×2 (01:29)
[2018-08-06] MEDS: INSULIN LISPRO 100 UNIT/ML 3 ML VIAL SUBCUT PRN ×4 (02:04→22:09)
[2018-08-06] MEDS: IPRATROPIUM/ALBUTEROL 0.5-2.5 MG/3 ML AMPUL NEB SCH ×4 (02:30→20:47)
[2018-08-06] MEDS: HEPARIN SOD (PORCINE) 5,000 UNIT/ML 1 ML SYRINGE SUBCUT SCH ×2 (05:28→13:19)
--- NOTE | 2018-08-06 05:37 | PDOC H&P ---
History of Present Illness Admission Date/PCP: 08/05/18 23:40 DIONISIO GUERRERO DO Patient complains of: Chest pain History of Present Illness: GÓMEZ ENRIQUEZ is a 62 year old male with a past medical history of recently diagnosed stage IV, non-small cell lung cancer with brain metastasis, undergoing radiation. Patient presents with 1 hour of retrosternal chest pain associated with shortness of breath. In the emergency room he is found to have leukocytosis, uncontrolled hyperglycemia, hyperkalemia without peak T waves. He is referred to the hospitalist for admission. His pain is intermittent, dull , 3 out of 5 intensity, retrosternal, nonradiating increased with exertion. he denies palpitations he admits nausea without vomiting. In the emergency room he is asleep but arousable denying pain. CTA chest negative for pulmonary emboli. Past Medical History Cardiac Medical History: Reports: Myocardial Infarction Denies: Congestive Heart Failure, Hypertension, Heart Murmur Pulmonary Medical History: Denies: Asthma, Bronchitis, Chronic Obstructive Pulmonary Disease (COPD), Pneumonia, Tuberculosis Neurological Medical History: Denies: Seizures Endocrine Medical History: Reports: Diabetes Mellitus Type 2 GI Medical History: Reports: Gastroesophageal Reflux Disease Denies: Hepatitis, Hiatal Hernia Musculoskeltal Medical History: Psychiatric Medical History: Reports: Depression Hematology: Denies: Anemia, Sickle Cell Disease Past Surgical History Past Surgical History: Reports: Cardiac Catheterization - +2 stents Denies: Pacemaker Social History Information Source: Patient, [facility] Records Smoking Status: Former Smoker Number of Years Smokin Last Time Smoked: 07/2018 Frequency of Alcohol Use: None Hx Recreational Drug Use: No Drugs: Marijuana Hx Prescription Drug Abuse: No - Advance Directive Resuscitation Status: Do Not Resuscitate Family History Family History: DM, Hypertension Parental Family History Reviewed: Yes Children Family History Reviewed: Yes Sibling(s) Family History Reviewed.: Yes Medication/Allergy Home Medications: Albuterol Sulfate [Ventolin HFA MDI 18 GM] 2 puff IH Q6HP PRN 07/25/18 Gabapentin [Neurontin 300 mg Capsule] 300 mg PO Q12 07/25/18 Insulin Aspart [Novolog Flexpen] 0 units SQ .SLIDINGSCALE 07/25/18 Insulin Glargine,Hum.rec.anlog [Basaglar Kwikpen U-100] 55 units SQ QHS Isosorbide Mononitrate [Isosorbide Mononitrate ER] 30 mg PO QAM 07/25/18 Naproxen [Naprosyn] 500 mg PO Q12 07/25/18 Nitroglycerin [Nitrostat] 0.4 mg SL Q5MP PRN 07/25/18 Omeprazole 20 mg PO BIDACBS 07/25/18 Oxycodone HCl/Acetaminophen [Endocet 5-325 Tablet] 1 tab PO Q6HP PRN 07/25/18 Simvastatin [Zocor 20 mg Tablet] 20 mg PO QHS 07/25/18 Sitagliptin Phosphate [Januvia] 100 mg PO DAILY 07/25/18 Zolpidem Tartrate [Ambien] 10 mg PO QHS 07/25/18 Amiodarone HCl [Cordarone 200 mg Tablet] 200 mg PO BID #60 tablet 07/30/18 Apixaban [Eliquis 5 mg Tablet] 5 mg PO BID #60 tablet 07/30/18 Dexamethasone [Decadron 4 mg Tablet] 8 mg PO BID #120 tablet 07/30/18 Famotidine [Pepcid 20 mg Tablet] 20 mg PO Q12 #60 tablet 07/30/18 Metoprolol Succinate [Toprol Xl 50 mg Tab.sr] 50 mg PO Q12 #60 tab.sr.24h Allergies/Adverse Reactions: chlorpromazine HCl [From Thorazine] Allergy (Verified 06/30/18 12:37) faints Review of Systems Constitutional: PRESENT: as per HPI, anorexia, fatigue, weakness. ABSENT: fever (s), headache(s) Eyes: ABSENT: visual disturbances Ears: ABSENT: hearing changes Cardiovascular: PRESENT: as per HPI, chest pain, dyspnea on exertion. ABSENT: edema, orthropnea, palpitations Respiratory: PRESENT: as per HPI, cough, dyspnea. ABSENT: sputum Gastrointestinal: PRESENT: constipation. ABSENT: abdominal pain, diarrhea, hematemesis, hematochezia, nausea, vomiting Genitourinary: ABSENT: dysuria, hematuria Musculoskeletal: ABSENT: joint swelling Integumentary: ABSENT: rash, wounds Neurological: ABSENT: abnormal gait, abnormal speech, confusion, dizziness, focal weakness, syncope Psychiatric: PRESENT: anxiety, depression. ABSENT: homidical ideation, suicidal ideation Endocrine: ABSENT: cold intolerance, heat intolerance, polydipsia, polyuria Hematologic/Lymphatic: ABSENT: easy bleeding, easy bruising Physical Exam Vital Signs: Temp Pulse Resp BP Pulse Ox 97.4 F 75 22 H 121/60 92 08/06/18 01:37 08/06/18 01:37 08/06/18 01:37 08/06/18 01:37 08/06/18 01:50 Intake & Output 08/04/18 08/05/18 08/06/18 11:59 11:59 11:59 Intake Total 150 Balance 150 Weight 70.7 kg General appearance: PRESENT: no acute distress, cooperative, thin Head exam: PRESENT: atraumatic, normocephalic Eye exam: PRESENT: conjunctiva pink, EOMI, PERRLA. ABSENT: scleral icterus Ear exam: PRESENT: normal external ear exam Mouth exam: PRESENT: moist, tongue midline Neck exam: ABSENT: carotid bruit, JVD, lymphadenopathy, thyromegaly Respiratory exam: PRESENT: crackles, prolonged expiratory phas. ABSENT: decreased breath sounds Cardiovascular exam: PRESENT: RRR, other - Reproducible chest wall pain to palpation. ABSENT: diastolic murmur, rubs, systolic murmur Pulses: PRESENT: normal dorsalis pedis pul Vascular exam: PRESENT: normal capillary refill GI/Abdominal exam: PRESENT: normal bowel sounds, soft. ABSENT: distended, guarding, mass, organolmegaly, rebound, tenderness Rectal exam: PRESENT: deferred Extremities exam: PRESENT: full ROM. ABSENT: calf tenderness, clubbing, pedal edema Neurological exam: PRESENT: alert, awake, oriented to person, oriented to place , oriented to time, oriented to situation, CN II-XII grossly intact. ABSENT: motor sensory deficit Psychiatric exam: PRESENT: anxious, depressed, flat affect Skin exam: PRESENT: dry, intact, warm. ABSENT: cyanosis, rash Results Impressions: Chest X-Ray 08/05/18 18:34 IMPRESSION: HILAR AND MEDIASTINAL ADENOPATHY. SEEN ON RECENT CT CHEST. CARDIOMEGALY. MILD INTERSTITIAL PROMINENCE MAY BE DUE TO INTERSTITIAL EDEMA. PATCHY AIRSPACE DISEASE, CANNOT EXCLUDE SUPERIMPOSED INFECTION. Abdomen/Pelvis CT 08/05/18 19:18 IMPRESSION: No evidence of retroperitoneal hemorrhage. Bilateral adrenal nodules, nonspecific. Scattered subcutaneous nodules throughout the body wall. Correlate with clinical history. Assessment & Plan - Diagnosis (1) Chest pain Qualifiers: Chest pain type: unspecified Qualified Code(s): R07.9 - Chest pain, unspecified Is this a current diagnosis for this admission?: Yes Plan: Likely multifactorial secondary to lung mass, chest wall metastasis, coronary artery disease. Given terminal stage lung cancer on palliative care, continue supportive care. Follow-up cardiac enzymes, hospice consult (2) Hyperkalemia Is this a current diagnosis for this admission?: Yes Plan: Likely secondary to hyperglycemia versus constipation, no peak T waves. 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 half-way insulin use status Diabetes mellitus complication status: with unspecified complications Qualified Code(s) : E13.8 - Other specified diabetes mellitus with unspecified complications Is this a current diagnosis for this admission?: Yes Plan: Outpatient regiment with Humalog sliding scale (4) Hyperglycemia Is this a current diagnosis for this admission?: Yes Plan: Secondary to diabetes, comp gated by Decadron, outpatient regiment with Humalog sliding scale (5) Metastatic lung cancer (metastasis from lung to other site) Qualifiers: Laterality: unspecified laterality Qualified Code(s): C34.90 - Malignant neoplasm of unspecified part of unspecified bronchus or lung Is this a current diagnosis for this admission?: Yes Plan: Supportive care, oncology and hospice consult - Time Time Spent: 50 to 70 Minutes - Inpatient Certification Medical Necessity: Need Close Monitoring Due to Risk of Patient Decompensation
[2018-08-06 06:11] LABS: HEMATOCRIT 38.4 % (37.9-51.0); HEMOGLOBIN 12.8 g/dL (13.5-17.0); MEAN CORPUSCULAR HEMOGLOBIN 29.4 pg (27.0-33.4); MEAN CORPUSCULAR HGB CONC 33.3 g/dL (32.0-36.0); MEAN CORPUSCULAR VOLUME 88 fl (80-97); PLATELET COUNT 381 10^3/uL (150-450); RED BLOOD COUNT 4.35 10^6/uL (4.35-5.55); RED CELL DISTRIBUTION WIDTH 17.2 % (11.5-14.0)
[2018-08-06 06:20] LABS: ANION GAP 8 (5-19); BLOOD UREA NITROGEN 28 mg/dL (7-20); CALCIUM 8.8 mg/dL (8.4-10.2); CARBON DIOXIDE 28 mmol/L (22-30); CHLORIDE 100 mmol/L (98-107); GLUCOSE 305 mg/dL (75-110); POTASSIUM 5.2 mmol/L (3.6-5.0); SODIUM 135.6 mmol/L (137-145)
[2018-08-06 06:34] LABS: ABSOLUTE LYMPHOCYTES# (MANUAL) 0.2 10^3/uL (0.5-4.7); ABSOLUTE MONOCYTES # (MANUAL) 1.4 10^3/uL (0.1-1.4); ABSOLUTE NEUTROPHILS# (MANUAL) 22.3 10^3/uL (1.7-8.2); BAND NEUTROPHILS % (MANUAL) 1 % (3-5); BASOPHILS % (MANUAL) 0 % (0-2); EOSINOPHILS % (MANUAL) 0 % (0-6); HYPERSEGMENTED NEUTROPHILS PRESENT; LYMPHOCYTES % (MANUAL) 1 % (13-45); MONOCYTES % (MANUAL) 6 % (3-13); SEGMENTED NEUTROPHILS % (MAN) 92 % (42-78); TOTAL CELLS COUNTED 100; TOXIC GRANULATION SLIGHT
[2018-08-06 06:35] LABS: ANISOCYTOSIS 2+; PLATELET COMMENT ADEQUATE; POIKILOCYTOSIS SLIGHT; POLYCHROMASIA SLIGHT; TARGET CELLS SLIGHT; TOXIC VACUOLATION PRESENT
[2018-08-06] MEDS: DEXAMETHASONE 4 MG TABLET PO SCH ×2 (09:15→17:17)
[2018-08-06] MEDS: APIXABAN 5 MG TABLET PO SCH ×2 (09:16→17:17)
[2018-08-06] MEDS: GABAPENTIN 300 MG CAPSULE PO SCH ×2 (09:16→22:08)
[2018-08-06] MEDS: FAMOTIDINE 20 MG TABLET PO SCH ×2 (09:16→22:07)
[2018-08-06] MEDS: AMIODARONE HCL 200 MG TABLET PO SCH ×2 (09:16→17:17)
[2018-08-06] MEDS: FLUTICASONE NASAL SPRAY 50 MCG/SPRY 120 SPRAY/16 GM NASL SCH ×2 (09:17→22:08)
[2018-08-06] MEDS: METOPROLOL SUCCINATE 50 MG TAB.SR.24H PO SCH ×2 (09:23→22:08)
[2018-08-06] MEDS ORDERED: HYDROMORPHONE HCL INJ/PF 2 MG/ML AMPULE ONE ×2 (10:49→14:23)
[2018-08-06] MEDS ORDERED: HYDROCODONE/ACETAMINOPHEN 7.5-325 MG TABLET PO PRN ×2 (13:59→14:36)
[2018-08-06 14:52] LABS: ANION GAP 10 (5-19); BLOOD UREA NITROGEN 29 mg/dL (7-20); CALCIUM 9.2 mg/dL (8.4-10.2); CARBON DIOXIDE 24 mmol/L (22-30); CHLORIDE 99 mmol/L (98-107); POTASSIUM 5.7 mmol/L (3.6-5.0); SODIUM 132.7 mmol/L (137-145)
[2018-08-06 15:03] LABS: GLUCOSE 439 mg/dL (75-110)
[2018-08-06] MEDS: HYDROMORPHONE HCL INJ/PF 2 MG/ML AMPULE IV PRN ×2 (15:17→20:15)
[2018-08-06] MEDS ORDERED: INSULIN LISPRO 100 UNIT/ML 3 ML VIAL SUBCUT ONE (16:00)
--- NOTE | 2018-08-06 16:18 | PDOC PROGRESS REPORT ---
Subjective Progress Note for:: 08/06/18 Subjective:: Mr. 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 Patient says he has been having these symptoms for weeks now but worsened after he underwent another radiotherapy yesterday. This morning, he complained he still has chest pain which he describes as a vague type of pain associated with the SOB. He says his SOB is better compared to when he came in yesterday. He expressed he wants to be full code and want to pursue all treatment options including the radiotherapy. Reason For Visit: COPD EXACERBATION LUNG CA PNA Physical Exam Vital Signs: Temp Pulse Resp BP Pulse Ox 97.4 F 76 24 H 93/53 L 88 L 08/06/18 07:21 08/06/18 08:04 08/06/18 08:04 08/06/18 07:21 08/06/18 08:04 Intake & Output 08/05/18 08/06/18 08/07/18 06:59 06:59 06:59 Intake Total 150 Output Total 250 Balance -100 Weight 155 lb 13.869 oz General appearance: PRESENT: no acute distress Eye exam: PRESENT: conjunctiva pink, EOMI, PERRLA. ABSENT: scleral icterus Ear exam: PRESENT: normal external ear exam Mouth exam: PRESENT: moist, tongue midline Neck exam: ABSENT: carotid bruit, JVD, lymphadenopathy, thyromegaly Respiratory exam: PRESENT: clear to auscultation divya, rhonchi - occasional rhonchi on the bases. ABSENT: rales, wheezes Cardiovascular exam: PRESENT: RRR. ABSENT: diastolic murmur, rubs, systolic murmur Pulses: PRESENT: normal dorsalis pedis pul GI/Abdominal exam: PRESENT: normal bowel sounds, soft. ABSENT: distended, guarding, mass, organolmegaly, rebound, tenderness Rectal exam: PRESENT: deferred Neurological exam: PRESENT: alert, awake, oriented to person, oriented to place , oriented to time, oriented to situation, CN II-XII grossly intact. ABSENT: motor sensory deficit Results Laboratory Results: 08/06/18 05:41 08/06/18 05:41 08/06/18 08/06/18 05:41 05:41 WBC 24.0 H RBC 4.35 Hgb 12.8 L Hct 38.4 MCV 88 MCH 29.4 MCHC 33.3 RDW 17.2 H Plt Count 381 Seg Neutrophils % Not Reportable Lymphocytes % Not Reportable Monocytes % Not Reportable Eosinophils % Not Reportable Basophils % Not Reportable Absolute Neutrophils Not Reportable Absolute Lymphocytes Not Reportable Absolute Monocytes Not Reportable Absolute Eosinophils Not Reportable Absolute Basophils Not Reportable Sodium 135.6 L Potassium 5.2 H Chloride 100 Carbon Dioxide 28 Anion Gap 8 BUN 28 H Creatinine 0.76 Est GFR ( Amer) > 60 Est GFR (Non-Af Amer) > 60 Glucose 305 H Calcium 8.8 Impressions: Chest X-Ray 08/05/18 18:34 IMPRESSION: HILAR AND MEDIASTINAL ADENOPATHY. SEEN ON RECENT CT CHEST. CARDIOMEGALY. MILD INTERSTITIAL PROMINENCE MAY BE DUE TO INTERSTITIAL EDEMA. PATCHY AIRSPACE DISEASE, CANNOT EXCLUDE SUPERIMPOSED INFECTION. Abdomen/Pelvis CT 08/05/18 19:18 IMPRESSION: No evidence of retroperitoneal hemorrhage. Bilateral adrenal nodules, nonspecific. Scattered subcutaneous nodules throughout the body wall. Correlate with clinical history. Assessment & Plan - Diagnosis (1) Chest pain Qualifiers: Chest pain type: unspecified Qualified Code(s): R07.9 - Chest pain, unspecified Is this a current diagnosis for this admission?: Yes Plan: Initial troponin was normal with no findings suggestive of ischemia or infarction on EKG. Will recheck another troponin. Patient says he takes his Eliquis for his Afib. Due to worsening SOB and chest pain, will rule out PE despite being on Eliquis as he remains hypercoagulable with his metastatic lung CA. If cardiac and PE work-up is negative, his chest pain is likely related to progression of his lung CA as he does have intrapulmonary metastases aside from the brain mets. He did not get significant relief from [place]. Will add dilaudid prn. He was on oxycodone at home but says this gives him stomach upset. Will add MS Contin if he continues to have poorly controlled pain. (2) Metastatic lung cancer (metastasis from lung to other site) Qualifiers: Laterality: unspecified laterality Qualified Code(s): C34.90 - Malignant neoplasm of unspecified part of unspecified bronchus or lung Is this a current diagnosis for this admission?: Yes Plan: Discussed with patient and he does say he wants to be a full code and wants to continue radiotherapy. Discussed with Dr. Peralta and Dr. Bautista as well on the phone regarding plan of care. Patient will continue radiotherapy treatments. (3) Hyperglycemia Is this a current diagnosis for this admission?: Yes Plan: Patient has poorly controlled hyperglycemia from uncontrolled diabetes and likely worsened by him being started on steroids at home for his brain mets. He did not receive his Lantus last night. Continue sliding scale coverage and Lantus will be administered tonight. (4) Hyperkalemia Is this a current diagnosis for this admission?: Yes Plan: Will give a dose of kayexalate. Will administer IV insulin, dextrose and calcium regimen pending a repeat accucheck as patient just received 12 u of Humalog. (5) Atrial fibrillation Qualifiers: Atrial fibrillation type: unspecified Qualified Code(s): I48.91 - Unspecified atrial fibrillation Is this a current diagnosis for this admission?: Yes Plan: Rate controlled. Continue Eliquis, lopressor and amiodarone. - Time Time Spent with patient: 25-34 minutes
[2018-08-06] MEDS ORDERED: SODIUM POLYSTYRENE SULFONATE 15 GM/60 ML PO ONE (16:30)
[2018-08-06] MEDS ORDERED: CALCIUM GLUCONATE 1000 MG/10 ML INJ IV ONE (17:00)
[2018-08-06] MEDS ORDERED: INSULIN REG, HUMAN 100 UNIT/ML 3 ML VIAL (PYX) IV ONE ×2 (17:00→22:00)
--- NOTE | 2018-08-06 17:40 | PDOC CONSULTATION ---
Consultation Consult Date: 08/06/18 Consult reason:: Hematology Oncology consultation was requested for patient with metastatic lung cancer. History of Present Illness Admission Date/PCP: 08/05/18 23:40 DIONISIO GUERRERO DO History of Present Illness: GÓMEZ ENRIQUEZ is a 62 year old male who presented to [facility] earlier this month and was found to have NSCLC with mets to the brain, liver, and skin. He was started on radiation therapy to the brain. He has not yet received any systemic therapy. After radiation therapy yesterday, he became more dyspnic. He was sent to the ED and has been admitted with COPD exacerbation. Currently, his K+ is high and he is receiving therapy for this. He tells me that he is very tired, but other than fatigue, he believes the radiation is going well. Past Medical History Cardiac Medical History: Reports: Myocardial Infarction Denies: Congestive Heart Failure, Hypertension, Heart Murmur Pulmonary Medical History: Denies: Asthma, Bronchitis, Chronic Obstructive Pulmonary Disease (COPD), Pneumonia, Tuberculosis Neurological Medical History: Denies: Seizures Endocrine Medical History: Reports: Diabetes Mellitus Type 2 GI Medical History: Reports: Gastroesophageal Reflux Disease Denies: Hepatitis, Hiatal Hernia Musculoskeltal Medical History: Psychiatric Medical History: Reports: Depression Hematology: Denies: Anemia, Sickle Cell Disease Past Surgical History Past Surgical History: Reports: Cardiac Catheterization - +2 stents Denies: Pacemaker Social History Smoking Status: Former Smoker Number of Years Smokin Last Time Smoked: 07/2018 Frequency of Alcohol Use: None Hx Recreational Drug Use: No Drugs: Marijuana Hx Prescription Drug Abuse: No - Advance Directive Resuscitation Status: Do Not Resuscitate Family History Family History: DM, Hypertension Parental Family History Reviewed: Yes Children Family History Reviewed: No Sibling(s) Family History Reviewed.: Yes Medication/Allergy Home Medications: Albuterol Sulfate [Ventolin HFA MDI 18 GM] 2 puff IH Q6HP PRN 07/25/18 Gabapentin [Neurontin 300 mg Capsule] 300 mg PO Q12 07/25/18 Insulin Aspart [Novolog Flexpen] 0 units SQ .PERSLIDINGSCALE 07/25/18 Insulin Glargine,Hum.rec.anlog [Basaglar Kwikpen U-100] 55 units SQ QHS Isosorbide Mononitrate [Isosorbide Mononitrate ER] 30 mg PO QAM 07/25/18 Naproxen [Naprosyn] 500 mg PO Q12 07/25/18 Nitroglycerin [Nitrostat] 0.4 mg SL Q5MP PRN 07/25/18 Omeprazole 20 mg PO BIDACBS 07/25/18 Oxycodone HCl/Acetaminophen [Endocet 5-325 Tablet] 1 tab PO Q6HP PRN 07/25/18 Simvastatin [Zocor 20 mg Tablet] 20 mg PO QHS 07/25/18 Sitagliptin Phosphate [Januvia] 100 mg PO DAILY 07/25/18 Zolpidem Tartrate [Ambien] 10 mg PO QHS 07/25/18 Amiodarone HCl [Cordarone 200 mg Tablet] 200 mg PO BID #60 tablet 07/30/18 Apixaban [Eliquis 5 mg Tablet] 5 mg PO BID #60 tablet 07/30/18 Dexamethasone [Decadron 4 mg Tablet] 8 mg PO BID #120 tablet 07/30/18 Famotidine [Pepcid 20 mg Tablet] 20 mg PO Q12 #60 tablet 07/30/18 Metoprolol Succinate [Toprol Xl 50 mg Tab.sr] 50 mg PO Q12 #60 tab.sr.24h Allergies/Adverse Reactions: chlorpromazine HCl [From Thorazine] Allergy (Verified 06/30/18 12:37) faints Review of Systems Constitutional: ABSENT: fever(s), headache(s) Eyes: ABSENT: visual disturbances Nose, Mouth, and Throat: ABSENT: sore throat Cardiovascular: ABSENT: chest pain Respiratory: PRESENT: dyspnea Gastrointestinal: ABSENT: abdominal pain Integumentary: ABSENT: rash Neurological: ABSENT: memory loss, weakness Psychiatric: ABSENT: anxiety, depression Endocrine: PRESENT: other - Fatigue Physical Exam Vital Signs: Temp Pulse Resp BP Pulse Ox 97.8 F 81 20 124/65 91 L 08/06/18 11:02 08/06/18 14:00 08/06/18 13:39 08/06/18 11:02 08/06/18 16:32 Intake & Output 08/05/18 08/06/18 08/07/18 06:59 06:59 06:59 Intake Total 150 625 Output Total 250 400 Balance -100 225 Weight 70.7 kg General appearance: PRESENT: mild distress, well-developed, well-nourished Exam: 62 year old male. Head exam: PRESENT: atraumatic, normocephalic Eye exam: PRESENT: EOMI Mouth exam: PRESENT: neck supple Neck exam: ABSENT: lymphadenopathy, tenderness Respiratory exam: PRESENT: decreased breath sounds - Left base Cardiovascular exam: PRESENT: RRR GI/Abdominal exam: PRESENT: soft. ABSENT: tenderness Extremities exam: ABSENT: pedal edema Neurological exam: PRESENT: alert, awake Psychiatric exam: PRESENT: appropriate affect Skin exam: PRESENT: normal color Results Laboratory Results: 08/06/18 05:41 08/06/18 14:09 08/06/18 08/06/18 08/06/18 05:41 05:41 14:09 WBC 24.0 H RBC 4.35 Hgb 12.8 L Hct 38.4 MCV 88 MCH 29.4 MCHC 33.3 RDW 17.2 H Plt Count 381 Seg Neutrophils % Not Reportable Lymphocytes % Not Reportable Monocytes % Not Reportable Eosinophils % Not Reportable Basophils % Not Reportable Absolute Neutrophils Not Reportable Absolute Lymphocytes Not Reportable Absolute Monocytes Not Reportable Absolute Eosinophils Not Reportable Absolute Basophils Not Reportable Sodium 135.6 L 132.7 L Potassium 5.2 H 5.7 H Chloride 100 99 Carbon Dioxide 28 24 Anion Gap 8 10 BUN 28 H 29 H Creatinine 0.76 0.67 Est GFR ( Amer) > 60 > 60 Est GFR (Non-Af Amer) > 60 > 60 Glucose 305 H 439 H* Calcium 8.8 9.2 08/06/18 16:30 Troponin I < 0.012 Impressions: Chest X-Ray 08/05/18 18:34 IMPRESSION: HILAR AND MEDIASTINAL ADENOPATHY. SEEN ON RECENT CT CHEST. CARDIOMEGALY. MILD INTERSTITIAL PROMINENCE MAY BE DUE TO INTERSTITIAL EDEMA. PATCHY AIRSPACE DISEASE, CANNOT EXCLUDE SUPERIMPOSED INFECTION. Abdomen/Pelvis CT 08/05/18 19:18 IMPRESSION: No evidence of retroperitoneal hemorrhage. Bilateral adrenal nodules, nonspecific. Scattered subcutaneous nodules throughout the body wall. Correlate with clinical history. Status: Image reviewed by me Assessment & Plan - Diagnosis (1) Metastatic lung cancer (metastasis from lung to other site) Qualifiers: Laterality: unspecified laterality Qualified Code(s): C34.90 - Malignant neoplasm of unspecified part of unspecified bronchus or lung Is this a current diagnosis for this admission?: Yes Plan: I discussed the final pathology report with the patient and a copy was given to him. He is Positive for PD-L1 which means he should be a good candidate for Keytruda. I will discuss this more after discharge. Plan to start after radiation therapy has completed. Continue radiation therapy per Dr. Bautista. continue Dexamethasone 8 mg BID for now. (2) Hyperkalemia Is this a current diagnosis for this admission?: Yes Plan: with hyponatremia, hyperglycemia and normal Calcium. This may be signs of tumor lysis syndrome. Continue to support with fluid restriction, insulin, etc. I will defer to primary team. This also may be due to adrenal dysfunction. - Plan Summary Plan Summary: Patient was discussed with both Dr. Khoury and Dr. Bautista. I will continue to follow with you.
[2018-08-06] MEDS: INSULIN GLARGINE,HUM.REC.ANLOG 300 UNIT/3 ML INSULN.PEN SUBCUT SCH (18:21)
[2018-08-06 20:50] LABS: ANION GAP 12 (5-19); BLOOD UREA NITROGEN 27 mg/dL (7-20); CALCIUM 9.7 mg/dL (8.4-10.2); CARBON DIOXIDE 25 mmol/L (22-30); CHLORIDE 97 mmol/L (98-107); POTASSIUM 5.3 mmol/L (3.6-5.0); SODIUM 134.3 mmol/L (137-145)
[2018-08-06 21:03] LABS: GLUCOSE 409 mg/dL (75-110)
--- NOTE | 2018-08-06 21:50 | RADIOLOGY REPORT (SQ) ---
PROCEDURE: CT OF THE CHEST WITH INTRAVENOUS CONTRAST HISTORY: CHEST PAIN, SOB CONCERN FOR PE Indication: Same as above Comparison: None Technique: The study was done on 08/06/2018 at 9:[address] of the chest was done with intravenous contrast followed by CT angiography of the pulmonary arteries. Coronal, Sagittal and 3D volumetric MIP reconstructions were generated from the acquired data. The patient was injected with radiographic contrast intravenously, without any documented immediate adverse reactions. This exam was performed according to our departmental dose-optimization program, which includes automated exposure control, adjustment of the mA and/or KV according to the patient's size and/or use of iterative reconstruction technique. FINDINGS: There is no visualization of filling defects in the main pulmonary trunk, main right and left pulmonary arteries or their lower order branches to suggest pulmonary embolism. The bilateral main pulmonary arteries are normal in caliber. There is no evidence of interventricular septal deviation or filling defects in the cardiac chambers. There is presence of a large left perihilar mass measuring 5.3 x 3.3 cm and surrounding the left perihilar vasculature and suspicious for malignancy. This mass extends posteriorly and inferiorly to the level of the adjacent medial left posterior chest wall and the left lower lobe of the lung. There are several pathologically enlarged lymph nodes in the mediastinum, the largest of these lymph nodes measuring 26 mm in short axis dimension and seen in the right paratracheal region pathologically enlarged lymph nodes are also seen in the subhepatic carinal region, with the largest lymph node measuring 28 mm in the short axis dimension. Pathological lymphadenopathy is also seen in the bilateral hilar regions. Few reactive enlarged lymph nodes are seen in the bilateral axillary region. There is nodular enlargement of the bilateral adrenal glands which may be due to metastatic disease or due to benign nodular adrenal hyperplasia and can be further assessed with a dedicated MRI of the adrenals. There is an ill-defined 1.8 x 1.6 cm low-attenuation lesion in the subcutaneous diaphragmatic surface of the left lobe of the liver which may represent a benign cyst/hemangioma or liver metastasis Diffuse interstitial infiltrates are seen in the bilateral lung mccoy, significantly worse on the right than the left side. In addition several reticular nodular infiltrates are seen in the left upper and lower lobes of the lung. The possibilities of the bilateral lung infiltrates representing metastatic disease including the possibility of lymphangitic carcinomatosis in the right lung exists. There is no pleural effusion or pneumothorax There is no gross evidence of clinically significant thoracic aortic aneurysm or thoracic aortic dissection. There is no clinically significant pericardial effusion. The thoracic bony rib cage appears grossly unremarkable. The visualized thoracic spine shows mild multilevel degenerative change. Limited evaluation of the evaluated upper abdomen does not show any gross abnormalities. IMPRESSION: There is no pulmonary embolism There is presence of a large left perihilar mass measuring 5.3 x 3.3 cm and surrounding the left perihilar vasculature and suspicious for malignancy. This mass extends posteriorly and inferiorly to the level of the adjacent medial left posterior chest wall and the left lower lobe of the lung. Diffuse interstitial infiltrates are seen in the bilateral lung mccoy, significantly worse on the right than the left side. In addition several reticular nodular infiltrates are seen in the left upper and lower lobes of the lung. The possibilities of the bilateral lung infiltrates representing metastatic disease including the possibility of lymphangitic carcinomatosis in the right lung exists. There are several pathologically enlarged lymph nodes in the mediastinum and the bilateral hilar region. Few reactive enlarged lymph nodes are seen in the bilateral axillary region. There is nodular enlargement of the bilateral adrenal glands which may be due to metastatic disease or due to benign nodular adrenal hyperplasia and can be further assessed with a dedicated MRI of the adrenals. There is an ill-defined 1.8 x 1.6 cm low-attenuation lesion in the subcutaneous diaphragmatic surface of the left lobe of the liver which may represent a benign cyst/hemangioma or liver metastasis
[2018-08-06] MEDS ORDERED: LEVOFLOXACIN 750 MG/D5W RTU 750 MG/150 ML RTUPB IV SCH (22:00)
[2018-08-06] MEDS ORDERED: INSULIN GLARGINE,HUM.REC.ANLOG 300 UNIT/3 ML INSULN.PEN SUBCUT SCH (22:00)
[2018-08-07] MEDS: IPRATROPIUM/ALBUTEROL 0.5-2.5 MG/3 ML AMPUL NEB SCH ×3 (02:14→14:02)
[2018-08-07 07:52] LABS: ANION GAP 9 (5-19); BLOOD UREA NITROGEN 29 mg/dL (7-20); CALCIUM 9.7 mg/dL (8.4-10.2); CARBON DIOXIDE 29 mmol/L (22-30); CHLORIDE 96 mmol/L (98-107); GLUCOSE 279 mg/dL (75-110); POTASSIUM 5.2 mmol/L (3.6-5.0); SODIUM 133.6 mmol/L (137-145)
[2018-08-07] MEDS: INSULIN LISPRO 100 UNIT/ML 3 ML VIAL SUBCUT PRN ×3 (07:57→17:32)
[2018-08-07] MEDS: HYDROMORPHONE HCL INJ/PF 2 MG/ML AMPULE IV PRN (07:58)
--- NOTE | 2018-08-07 09:05 | Physician Advisory Note ---
Physician Advisor ProgressNote .: Pursuant to the plan for [facility], I have reviewed the medical record for this patient. Physician Advisor Statement: REally nice documentation of suspected cause(s) CP. Please document, if you believe pt has: 1. "Acute Hypoxemic Respiratory Failure, evidenced by retractions & tachypnea w /hypoxemia, sats 92% on 5L O2" , &/or "Chronic Hypoxemic Respiratory failure, requiring ___L O2 at baseline now to keep sats >___%" 2. "suspected protein-calorie malnutrition [state mild/mod/ sev] with BMI __, appetite loss, " - & state all supporting evidence you can: A. Loss of subcut fat is mild/mod/sev, B. Loss of muscle mass is mild/mod/sev C. Configuration Release Manager strength noticeably reduced (or not) D. Amt weight lost over the past week/mo/3mo/6mo/year (note usual wt) E. Intake <50% of estimated energy requirements for 5-7 days, or <75% of estimated energy requirements for 1+mo.s ? -Seed Buyer can document this if consulted. - & clinical importance such as: A. clinical account executive consult ordered, B. modified diet/supplements ordered, C. additional labs ordered, D. prolonged wound healing time, E. delayed infxn clearance] Thanks! CK
[2018-08-07] MEDS: APIXABAN 5 MG TABLET PO SCH ×2 (09:09→17:31)
[2018-08-07] MEDS: METOPROLOL SUCCINATE 50 MG TAB.SR.24H PO SCH (09:09)
[2018-08-07] MEDS: AMIODARONE HCL 200 MG TABLET PO SCH ×2 (09:10→17:31)
[2018-08-07] MEDS: GABAPENTIN 300 MG CAPSULE PO SCH (09:10)
[2018-08-07] MEDS: FAMOTIDINE 20 MG TABLET PO SCH (09:10)
[2018-08-07] MEDS: FLUTICASONE NASAL SPRAY 50 MCG/SPRY 120 SPRAY/16 GM NASL SCH (09:11)
[2018-08-07] MEDS: DEXAMETHASONE 4 MG TABLET PO SCH ×2 (09:11→17:31)
[2018-08-07] MEDS ORDERED: INSULIN GLARGINE,HUM.REC.ANLOG 1,000 UNIT/10 ML UNIT SUBCUT ONE (10:45)
[2018-08-07] MEDS ORDERED: MORPHINE SULFATE SR 15 MG TABLET PO SCH (10:45)
[2018-08-07] MEDS: INSULIN GLARGINE,HUM.REC.ANLOG 300 UNIT/3 ML INSULN.PEN SUBCUT SCH (17:31)
[2018-08-07 17:40] LABS: HEMATOCRIT 38.3 % (37.9-51.0); HEMOGLOBIN 12.8 g/dL (13.5-17.0); MEAN CORPUSCULAR HEMOGLOBIN 29.3 pg (27.0-33.4); MEAN CORPUSCULAR HGB CONC 33.5 g/dL (32.0-36.0); MEAN CORPUSCULAR VOLUME 88 fl (80-97); PLATELET COUNT 351 10^3/uL (150-450); RED BLOOD COUNT 4.38 10^6/uL (4.35-5.55); RED CELL DISTRIBUTION WIDTH 17.7 % (11.5-14.0); WHITE BLOOD COUNT 29.2 10^3/uL (4.0-10.5)
[2018-08-07 17:44] VITALS: BP 121/60
--- NOTE | 2018-08-07 18:04 | PDOC DISCHARGE SUMMARY ---
General - Admit/Disc Date/PCP Admission Date/Primary Care Provider: 08/05/18 23:40 DIONISIO GUERRERO, Discharge Date: 08/07/18 - Discharge Diagnosis (1) Chest pain Is this a current diagnosis for this admission?: Yes (2) Metastatic lung cancer (metastasis from lung to other site) Is this a current diagnosis for this admission?: Yes (3) Hyperglycemia Is this a current diagnosis for this admission?: Yes (4) Hyperkalemia Is this a current diagnosis for this admission?: Yes (5) Atrial fibrillation Is this a current diagnosis for this admission?: Yes (6) Protein calorie malnutrition Is this a current diagnosis for this admission?: Yes (7) Acute respiratory failure with hypoxia Is this a current diagnosis for this admission?: Yes - Additional Information Resuscitation Status: Do Not Resuscitate Prescriptions: Insulin Glargine,Hum.rec.anlog [Basaglar Kwikpen U-100] 55 units SQ QHS #2 insuln.pen Insulin Glargine,Hum.rec.anlog [Basaglar Kwikpen U-100] 20 unit SQ QAM #1 insuln.pen Home Medications: Albuterol Sulfate [Ventolin HFA MDI 18 GM] 2 puff IH Q6HP PRN 07/25/18 Gabapentin [Neurontin 300 mg Capsule] 300 mg PO Q12 07/25/18 Isosorbide Mononitrate [Isosorbide Mononitrate ER] 30 mg PO QAM 07/25/18 Nitroglycerin [Nitrostat] 0.4 mg SL Q5MP PRN 07/25/18 Omeprazole 20 mg PO BIDACBS 07/25/18 Simvastatin [Zocor 20 mg Tablet] 20 mg PO QHS 07/25/18 Sitagliptin Phosphate [Januvia] 100 mg PO DAILY 07/25/18 Zolpidem Tartrate [Ambien] 10 mg PO QHS 07/25/18 Amiodarone HCl [Cordarone 200 mg Tablet] 200 mg PO BID #60 tablet 07/30/18 Apixaban [Eliquis 5 mg Tablet] 5 mg PO BID #60 tablet 07/30/18 Dexamethasone [Decadron 4 mg Tablet] 8 mg PO BID #120 tablet 07/30/18 Metoprolol Succinate [Toprol Xl 50 mg Tab.sr] 50 mg PO Q12 #60 tab.sr.24h 10/17/ 18 Insulin Glargine,Hum.rec.anlog [Basaglar Kwikpen U-100] 20 unit SQ QAM #1 insuln.pen 08/07/18 Insulin Glargine,Hum.rec.anlog [Basaglar Kwikpen U-100] 55 units SQ QHS #2 insuln.pen 08/07/18 Naproxen [Naprosyn] 500 mg PO BID 08/08/18 History of Present Illness History of Present Illness: GÓMEZ ENRIQUEZ is a 62 year old male with a past medical history of recently diagnosed stage IV, non-small cell lung cancer with brain metastasis, undergoing radiation. Patient presents with 1 hour of retrosternal chest pain associated with shortness of breath. He complained of worsening chest pain and SOB after radiotherapy. His pain is intermittent, dull, 3 out of 5 intensity, nonradiating increased with exertion. He denies palpitations he admits nausea without vomiting. Hospital Course Hospital Course: Patient was admitted primarily because of chest pain and SOB. Upon re- examination, he does say he has been having chronic chest pain and SOB but this worsened after the radiotherapy the day of admission. His cardiac enzymes and EKGs were cycled and they were negative. Chest CTA was negative for PE but did show worsening of pulmonary infiltrates with likely pulmonary carcinomatosis. His chest pain and SOB are likely from progression of his metastatic lung CA. He refused Percocet and says this gives him stomach upset. He also did not relief from Burke. Pain was eventually well controlled with MS Contin and prn dilaudid. Code status was rediscussed with his daughter on bedside and both verbalized he wants to be full code for now and continue radiotherapy treatments. He did require O2 support and will be sent home on oxygen. Discussed as well with Dr. Peralta and Dr. Bautista. Tumor markers previously sent are still pending. He will ff-up with Dr. Peralta for further cancer care. Patient's sugars were also poorly controlled. He is only on Lantus 55 u HS. His regimen was revised and Lantus 20 u qAM was added. Physical Exam Vital Signs: Temp Pulse Resp BP Pulse Ox 97.7 F 78 16 117/62 93 08/07/18 11:18 08/07/18 14:02 08/07/18 14:02 08/07/18 11:18 08/07/18 14:02 Intake & Output 08/06/18 08/07/18 08/08/18 06:59 06:59 06:59 Intake Total 150 1447 Output Total 250 1925 Balance -100 -478 Weight 155 lb 13.869 oz 150 lb 9.211 oz General appearance: PRESENT: no acute distress, well-developed, well-nourished Head exam: PRESENT: atraumatic, normocephalic Eye exam: PRESENT: conjunctiva pink, EOMI, PERRLA. ABSENT: scleral icterus Ear exam: PRESENT: normal external ear exam Mouth exam: PRESENT: moist, tongue midline Neck exam: ABSENT: carotid bruit, JVD, lymphadenopathy, thyromegaly Respiratory exam: PRESENT: rhonchi. ABSENT: rales, wheezes Cardiovascular exam: PRESENT: RRR. ABSENT: diastolic murmur, rubs, systolic murmur Pulses: PRESENT: normal dorsalis pedis pul GI/Abdominal exam: PRESENT: normal bowel sounds, soft. ABSENT: distended, guarding, mass, organolmegaly, rebound, tenderness Rectal exam: PRESENT: deferred Neurological exam: PRESENT: alert, awake, oriented to person, oriented to place , oriented to time, oriented to situation, CN II-XII grossly intact. ABSENT: motor sensory deficit Results Laboratory Results: 08/06/18 05:41 08/07/18 07:05 08/06/18 08/07/18 20:09 07:05 Sodium 134.3 L 133.6 L Potassium 5.3 H 5.2 H Chloride 97 L 96 L Carbon Dioxide 25 29 Anion Gap 12 9 BUN 27 H 29 H Creatinine 0.62 0.57 Est GFR ( Amer) > 60 > 60 Est GFR (Non-Af Amer) > 60 > 60 Glucose 409 H* 279 H Calcium 9.7 9.7 08/06/18 16:30 Troponin I < 0.012 Impressions: Chest X-Ray 08/05/18 18:34 IMPRESSION: HILAR AND MEDIASTINAL ADENOPATHY. SEEN ON RECENT CT CHEST. CARDIOMEGALY. MILD INTERSTITIAL PROMINENCE MAY BE DUE TO INTERSTITIAL EDEMA. PATCHY AIRSPACE DISEASE, CANNOT EXCLUDE SUPERIMPOSED INFECTION. Abdomen/Pelvis CT 08/05/18 19:18 IMPRESSION: No evidence of retroperitoneal hemorrhage. Bilateral adrenal nodules, nonspecific. Scattered subcutaneous nodules throughout the body wall. Correlate with clinical history. Chest/Abdomen CTA 08/06/18 00:00 IMPRESSION: There is no pulmonary embolism There is presence of a large left perihilar mass measuring 5.3 x 3.3 cm and surrounding the left perihilar vasculature and suspicious for malignancy. This mass extends posteriorly and inferiorly to the level of the adjacent medial left posterior chest wall and the left lower lobe of the lung. Diffuse interstitial infiltrates are seen in the bilateral lung mccoy, significantly worse on the right than the left side. In addition several reticular nodular infiltrates are seen in the left upper and lower lobes of the lung. The possibilities of the bilateral lung infiltrates representing metastatic disease including the possibility of lymphangitic carcinomatosis in the right lung exists. There are several pathologically enlarged lymph nodes in the mediastinum and the bilateral hilar region. Few reactive enlarged lymph nodes are seen in the bilateral axillary region. There is nodular enlargement of the bilateral adrenal glands which may be due to metastatic disease or due to benign nodular adrenal hyperplasia and can be further assessed with a dedicated MRI of the adrenals. There is an ill-defined 1.8 x 1.6 cm low-attenuation lesion in the subcutaneous diaphragmatic surface of the left lobe of the liver which may represent a benign cyst/hemangioma or liver metastasis Qualifiers - * PATIENT BEING DISCHARGED WITH ANY OF THE FOLLOWING DIAGNOSIS: No
[2018-08-07 18:29] LABS: ABSOLUTE LYMPHOCYTES# (MANUAL) 1.2 10^3/uL (0.5-4.7); BASOPHILS % (MANUAL) 0 % (0-2); EOSINOPHILS % (MANUAL) 0 % (0-6); LYMPHOCYTES % (MANUAL) 4 % (13-45); MONOCYTES % (MANUAL) 0 % (3-13); SEGMENTED NEUTROPHILS % (MAN) 96 % (42-78); TOTAL CELLS COUNTED 100
[2018-08-07 18:30] LABS: ANISOCYTOSIS 1+; PLATELET COMMENT ADEQUATE; TOXIC GRANULATION SLIGHT
[2018-08-07] MEDS ORDERED: LEVOFLOXACIN 750 MG TABLET PO SCH (22:00)
== END 2018-08-07 19:25 | disposition home health service (06) | DRG 180 ==
LOC: ER 17:51 → EH 23:40 → 3S 08-06 01:25
PROVIDERS: ADMIT Internal Medicine; ATTEND Internal Medicine
PROC: 5A09457 Assistance with Respiratory Ventilation, 24-96 Consecutive Hours, Continuous Positive Airway Pressure (ICD-10-PCS; principal; 2018-08-06)
PROC: 3E0F73Z Introduction of Anti-inflammatory into Respiratory Tract, Via Natural or Artificial Opening (ICD-10-PCS; 2018-08-06)
DX: C34.90 Malignant neoplasm of unspecified part of unspecified bronchus or lung (principal); J96.01 Acute respiratory failure with hypoxia; E46 Unspecified protein-calorie malnutrition; C79.31 Secondary malignant neoplasm of brain; E87.1 Hypo-osmolality and hyponatremia; J44.0 Chronic obstructive pulmonary disease with (acute) lower respiratory infection; R07.2 Precordial pain; E87.5 Hyperkalemia; I48.91 Unspecified atrial fibrillation; E11.65 Type 2 diabetes mellitus with hyperglycemia; K21.9 Gastro-esophageal reflux disease without esophagitis; F32.9 Major depressive disorder, single episode, unspecified; I25.2 Old myocardial infarction; Z79.899 Other long term (current) drug therapy; Z66 Do not resuscitate; Z92.3 Personal history of irradiation; Z99.81 Dependence on supplemental oxygen; Z95.5 Presence of coronary angioplasty implant and graft; Z87.891 Personal history of nicotine dependence; Z79.4 Long term (current) use of insulin; Z83.3 Family history of diabetes mellitus; Z82.49 Family history of ischemic heart disease and other diseases of the circulatory system; Z88.8 Allergy status to other drugs, medicaments and biological substances
CPT/HCPCS: 36415; 71045; 71275; 74177; 80048; 80053; 82550; 82803; 82962; 83880; 84484; 85025; 93005; 93010; 94640; 94660; 94667; 94799; 96360; 96361; 99285; J0610; J1170; J1644; J1815; J1956; J3490; J7030; J7620

== ENCOUNTER 2018-08-08 11:55 | Emergency (ER) | payer MEDICARE, MEDICAID ==
[2018-08-08] MEDS ORDERED: PREDNISONE 20 MG TABLET PO ONE (12:02)
[2018-08-08] MEDS ORDERED: IPRATROPIUM/ALBUTEROL 0.5-2.5 MG/3 ML AMPUL NEB ONE ×3 (12:02→18:51)
[2018-08-08] MEDS ORDERED: ASPIRIN 81 MG TABLET, CHEWABLE PO ONE (12:10)
--- NOTE | 2018-08-08 12:27 | ER Document Report ---
ED Respiratory Problem - General Mode of Arrival: Medic Information source: Patient TRAVEL OUTSIDE OF THE [place] IN LAST 30 DAYS: No COUNTRY TRAVELED TO/FROM: [place] <DIOGO RODRIGUES - Last Filed: 08/08/18 13:46> <IGNACIO SYLVESTER - Last Filed: 08/08/18 17:32> <ISMAEL BARNES - Last Filed: 08/08/18 20:21> <HUGH HUGHES - Last Filed: 08/09/18 05:54> - General Chief Complaint: Shortness Of Breath Stated Complaint: SHORTNESS OF BREATH Time Seen by Provider: 08/08/18 12:09 Notes: 62-year-old male with metastatic lung cancer that presents to the emergency department today with complaints of shortness of breath. Patient was admitted at this facility on 08/05 for shortness of breath and chronic chest pain. Patient was discharged yesterday afternoon (08/07) and he states "I wanted to go home but they didn't think it was a good idea". Unfortunately there is no explanation in the discharge summary, what his condition was, or what the plan was for further clarification so history is limited. (DIOGO RODRIGUES) This patient had a CT scan of his chest which showed significant progression of carcinomatosis in the right lung. He is currently being treated by Dr. Gonzales from hematology-oncology and Dr. Bautista from radiation-oncology. (IGNACIO SYLVESTER) - Related Data Allergies/Adverse Reactions: chlorpromazine HCl [From Thorazine] Allergy (Verified 06/30/18 12:37) faints Past Medical History - General Information source: Patient, [facility] Records Cannot obtain history due to: Uncooperative - Social History Smoking Status: Smoker,Current Status Unk Family History: Reviewed & Not Pertinent, DM, Hypertension - Past Medical History Cardiac Medical History: Reports: Hx Heart Attack Endocrine Medical History: Reports: Hx Diabetes Mellitus Type 2 Malignancy Medical History: Reports Hx Lung Cancer GI Medical History: Reports: Hx Gastroesophageal Reflux Disease Musculoskeletal Medical History: Psychiatric Medical History: Reports: Hx Depression Past Surgical History: Reports: Hx Cardiac Catheterization - +2 stents, Hx Cardiac Surgery - stents, Hx Oral Surgery. Denies: Hx Open Heart Surgery, Hx Pacemaker - Immunizations Hx Diphtheria, Pertussis, Tetanus Vaccination: Yes <DIOGO RODRIGUES - Last Filed: 08/08/18 13:46> Review of Systems - Review of Systems Constitutional: No symptoms reported EENT: No symptoms reported Cardiovascular: No symptoms reported Respiratory: See HPI, Short of breath Gastrointestinal: No symptoms reported Genitourinary: No symptoms reported Male Genitourinary: No symptoms reported Musculoskeletal: No symptoms reported Skin: No symptoms reported Hematologic/Lymphatic: No symptoms reported Neurological/Psychological: No symptoms reported -: Yes All other systems reviewed and negative <DIOGO RODRIGUES - Last Filed: 08/08/18 13:46> Physical Exam <DIOGO RODRIGUES - Last Filed: 08/08/18 13:46> <IGNACIO SYLVESTER - Last Filed: 08/08/18 17:32> <ISMAEL BARNES - Last Filed: 08/08/18 20:21> <HUGH HUGHES - Last Filed: 08/09/18 05:54> - Vital signs Vitals: Resp BP Pulse Ox 15 125/72 94 08/08/18 14:01 08/08/18 14:01 08/08/18 14:01 - Notes Notes: Physical Exam: General: Alert, appears chronically ill. HEENT: Normocephalic. Atraumatic. PERRL. Extraocular movements intact. Oropharynx clear. Neck: Supple. Non-tender. Respiratory: Mild respiratory distress. Inspiratory and expiratory wheezing bilaterally. Cardiovascular: Tachycardic, regular rhythm. Abdominal: Non-tender. No distension. Normal Bowel Sounds. Back: Non-tender. No deformity or step off. Extremities: Moves all four extremities. Upper extremities: Normal inspection. Normal ROM. Lower extremities: Normal inspection. No edema. Normal ROM. Neurological: Normal cognition. AAOx4. Normal speech. Psychological: Normal affect. Normal Mood. Skin: Warm. Dry. Bruising on abdomen. (DIOGO RODRIGUES) Course - Laboratory Result Diagrams: 08/08/18 12:25 08/08/18 12:25 <DIOGO RODRIGUES - Last Filed: 08/08/18 13:46> - Laboratory Result Diagrams: 08/08/18 12:25 08/08/18 12:25 - Diagnostic Test Radiology reviewed: Image reviewed, Reports reviewed - Chest x-ray is improved compared to 2 days ago suggesting that he has a diffuse pneumonia pattern rather than the carcinomatosis. - EKG Interpretation by Ct EKG shows normal: Sinus rhythm, [place], Intervals, QRS Complexes, ST-T Waves Rate: Tachycardia - 100 Voltage: Consistant with LVH P Waves: LAE - Consults Dr. Richards Time consulted: 15:30 Consulted provider: will come to ER - Transfer of Care Care transferred to following provider: Dr. Barnes <IGNAICO SYLVESTER - Last Filed: 08/08/18 17:32> - Laboratory Result Diagrams: 08/08/18 12:25 08/08/18 12:25 <ISMAEL BARNES - Last Filed: 08/08/18 20:21> - Laboratory Result Diagrams: 08/08/18 12:25 08/08/18 12:25 <HUGH HUGHES - Last Filed: 08/09/18 05:54> - Re-evaluation Re-evalutation: 08/08/18 18:19 Patient has been evaluated by Dr. Gonzales and transfer has been arranged to [facility] patient currently waiting 08/08/18 20:21 Dr. Will coming in was able to successfully transfer the patient. Review of the notes shows possible pneumonia both regional physician in transferring physician. We will start the patient back on antibiotics that the patient was previously on during his last hospitalization all home medications were also restarted for the patient along with his Eliquis amiodarone metoprolol Decadron. Patient otherwise resting comfortably stable at this time. (ISMAEL BARNES) 08/09/18 05:53 Patient is still pending transfer to [facility]. I reevaluate the patient. Respiratory status is stable on oxygen. Vital signs are stable. His pain medicine was changed to p.o. Dilaudid however the patient says that it is not controlling his pain and his pain was much better controlled with IV Dilaudid. I will switch him back to as needed IV Dilaudid every 2 hours. He otherwise has no further complaints at this time. (HUGH HUGHES) - Vital Signs Vital signs: Temp Pulse Resp BP Pulse Ox 16 109/77 93 08/09/18 05:01 08/09/18 05:00 08/09/18 05:01 - Laboratory Laboratory results interpreted by me: 08/08/18 08/08/18 08/08/18 12:25 12:25 17:40 WBC 29.8 H RDW 17.5 H Seg Neuts % (Manual) 90 H Lymphocytes % (Manual) 6 L Monocytes % (Manual) 2 L Abs Neuts (Manual) 26.8 H ABG pH 7.46 H ABG pO2 64.3 L ABG HCO3 28.8 H ABG Total CO2 30.0 H ABG O2 Saturation 93.6 L Sodium 135.9 L Potassium 5.2 H Chloride 91 L Carbon Dioxide 33 H BUN 34 H Glucose 270 H Calcium 10.4 H Alkaline Phosphatase 210 H Creatine Kinase 24 L Albumin 3.4 L - Transfer of Care Notes: 08/08/18 17:32 Patient is pending decision whether to be admitted here or to be transferred. Hospitalist as opposed to admitting the patient as the patient desires to remain a full code. (IGNACIO SYLVESTER) Critical Care Note - Critical Care Note Total time excluding time spent on procedures (mins): 35 <IGNACIO SYLVESTER - Last Filed: 08/08/18 17:32> Discharge <DIOGO RODRIGUES - Last Filed: 08/08/18 13:46> <IGNACIO SYLVESTER - Last Filed: 08/08/18 17:32> <ISMAEL BARNES - Last Filed: 08/08/18 20:21> <HUGH HUGHES - Last Filed: 08/09/18 05:54> - Discharge Clinical Impression: Dyspnea and respiratory abnormality, Hypercalcemia, Hyperkalemia, Opiate dependence, continuous Pneumonia Qualifiers: Pneumonia type: due to unspecified organism Laterality: bilateral Lung location : unspecified part of lung Qualified Code(s): J18.9 - Pneumonia, unspecified organism Metastatic lung cancer (metastasis from lung to other site) Qualifiers: Laterality: unspecified laterality Qualified Code(s): C34.90 - Malignant neoplasm of unspecified part of unspecified bronchus or lung Leukocytosis Qualifiers: Leukocytosis type: unspecified Qualified Code(s): D72.829 - Elevated white blood cell count, unspecified Referrals: DIONISIO GUERRERO DO [Primary Care Provider] - Follow up as needed Scribe Attestation: 08/08/18 13:06 I personally performed the services described in the documentation, reviewed and edited the documentation which was dictated to the scribe in my presence, and it accurately records my words and actions. (IGNACIO SYLVESTER) Scribe Documentation - Scribe Written by Jimmie:: Jimmie Aquino, 08/08/2018 1239 acting as scribe for :: Alexis <DIOGO RODRIGUES - Last Filed: 08/08/18 13:46>
[2018-08-08] MEDS ORDERED: HYDROMORPHONE HCL INJ/PF 2 MG/ML AMPULE IV ONE ×2 (12:37→19:06)
--- NOTE | 2018-08-08 12:42 | RADIOLOGY REPORT (SQ) ---
EXAM DESCRIPTION: CHEST SINGLE VIEW COMPLETED DATE/TIME: 08/08/2018 12:19 pm REASON FOR STUDY: shortness of breath COMPARISON: 08/05/2018 EXAM PARAMETERS: NUMBER OF VIEWS: One view. TECHNIQUE: Single frontal radiographic view of the chest acquired. RADIATION DOSE: NA LIMITATIONS: None. FINDINGS: LUNGS AND PLEURA: The previously described diffuse interstitial prominence and hazy patchy airspace disease appears improved as compared to the previous study with decreasing confluence. Res idual changes are identified. There is some blunting of the left costophrenic angle which I cannot e xclude is a small left pleural effusion. MEDIASTINUM AND HILAR STRUCTURES: The previously described hilar and mediastinal adenopathy appears l ess pronounced on the current study. HEART AND VASCULAR STRUCTURES: Cardiac silhouette is unchanged. BONES: No acute findings. HARDWARE: None in the chest. OTHER: No other significant finding. IMPRESSION: Overall interval improvement as noted above. TECHNICAL DOCUMENTATION: JOB ID: [id number] [employer]- All Rights Reserved Reading location - IP/workstation name: [email or web address]
[2018-08-08 12:45] LABS: HEMATOCRIT 42.5 % (37.9-51.0); HEMOGLOBIN 13.9 g/dL (13.5-17.0); MEAN CORPUSCULAR HEMOGLOBIN 29.1 pg (27.0-33.4); MEAN CORPUSCULAR HGB CONC 32.8 g/dL (32.0-36.0); MEAN CORPUSCULAR VOLUME 89 fl (80-97); PLATELET COUNT 390 10^3/uL (150-450); RED BLOOD COUNT 4.79 10^6/uL (4.35-5.55); RED CELL DISTRIBUTION WIDTH 17.5 % (11.5-14.0); WHITE BLOOD COUNT 29.8 10^3/uL (4.0-10.5)
[2018-08-08] MEDS: ALBUTEROL SULFATE 0.083% NEB 2.5 MG/3 ML AMPUL NEB SCH (12:57)
[2018-08-08 12:59] LABS: ALANINE AMINOTRANSFERASE 23 U/L (21-72); ALBUMIN 3.4 g/dL (3.5-5.0); ALKALINE PHOSPHATASE 210 U/L (38-126); ANION GAP 12 (5-19); ASPARTATE AMINO TRANSFERASE 32 U/L (17-59); BILIRUBIN,DIRECT 0.2 mg/dL (0.0-0.4); BILIRUBIN,TOTAL 1.2 mg/dL (0.2-1.3); BLOOD UREA NITROGEN 34 mg/dL (7-20); CALCIUM 10.4 mg/dL (8.4-10.2); CARBON DIOXIDE 33 mmol/L (22-30); CHLORIDE 91 mmol/L (98-107); CREATINE KINASE 24 U/L (55-170); GLUCOSE 270 mg/dL (75-110); POTASSIUM 5.2 mmol/L (3.6-5.0); SODIUM 135.9 mmol/L (137-145); TOTAL PROTEIN 6.7 g/dL (6.3-8.2)
[2018-08-08] MEDS ORDERED: NORMAL SALINE 1000 ML 1,000 ML IV ONE (13:02)
[2018-08-08 13:09] LABS: ABSOLUTE LYMPHOCYTES# (MANUAL) 2.1 10^3/uL (0.5-4.7); ABSOLUTE MONOCYTES # (MANUAL) 0.6 10^3/uL (0.1-1.4); ABSOLUTE NEUTROPHILS# (MANUAL) 26.8 10^3/uL (1.7-8.2); ANISOCYTOSIS 2+; BASOPHILS % (MANUAL) 0 % (0-2); EOSINOPHILS % (MANUAL) 1 % (0-6); HYPOCHROMASIA SLIGHT; LYMPHOCYTES % (MANUAL) 6 % (13-45); MONOCYTES % (MANUAL) 2 % (3-13); PLATELET CLUMPS PRESENT; PLATELET LARGE PRESENT; POLYCHROMASIA SLIGHT; SEGMENTED NEUTROPHILS % (MAN) 90 % (42-78); TOTAL CELLS COUNTED 100; TOXIC GRANULATION 2+
[2018-08-08 13:11] LABS: CREATINE KINASE MB 0.59 ng/mL (<4.55)
[2018-08-08 13:12] LABS: TROPONIN I < 0.012 ng/mL
[2018-08-08 17:51] LABS: ARTERIAL BLOOD BASE EXCESS 4.6 mmol/L; ARTERIAL BLOOD H2CO3 1.24 mmol/L (1.05-1.35); ARTERIAL BLOOD HCO3 28.8 mmol/L (20-24); ARTERIAL BLOOD O2 SATURATION 93.6 % (94-98); ARTERIAL BLOOD PCO2 41.1 mmHg (35-45); ARTERIAL BLOOD PH 7.46 (7.35-7.45); ARTERIAL BLOOD PO2 64.3 mmHg (80-100)
[2018-08-08 17:52] LABS: ARTERIAL BLOOD FIO2 4L
--- NOTE | 2018-08-08 18:16 | PDOC CONSULTATION ---
Consultation Consult Date: 08/08/18 Consult reason:: Hematology Oncology consultation was requested for ana marques metastatic lung cancer and worsening pulmonary function. History of Present Illness Admission Date/PCP: DIONISIO GUERRERO DO History of Present Illness: GÓMEZ ENRIQUEZ is a 62 year old male who was diagnosed with metastatic Non-small Cell lung cancer PD-L1 99% positive with known brain mets on 07/25/2018. pathology was from a metastatic abdominal wall mass. He has been receiving whole brain radiation therapy and has only a few more treatments left. Plan was to start Keytruda as inital therapy next week, once insurance approves, etc. However, over the last 7 days, he reports worsening dyspnea and fatigue. Today, he states that he is having some increased dyspnea, but this comes and goes. Some times are better than others. He continues his Dexamethasone and his headaches have now resolved. Two days ago, repeat CTA of the chest did NOT show any evidence of PE, but did show rapidly progressing lung process. It is unclear if this is carcinomatosis, or infectious process. He denies any recent Fevers. His WBC count is mildly elevated, but he has been on Dexamethasone. He denies any acute cough or other signs of an infectious process. Past Medical History Cardiac Medical History: Reports: Myocardial Infarction Denies: Congestive Heart Failure, Hypertension, Heart Murmur Pulmonary Medical History: Denies: Asthma, Bronchitis, Chronic Obstructive Pulmonary Disease (COPD), Pneumonia, Tuberculosis Neurological Medical History: Denies: Seizures Endocrine Medical History: Reports: Diabetes Mellitus Type 2 Malignancy Medical History: Reports: Lung Cancer GI Medical History: Reports: Gastroesophageal Reflux Disease Denies: Hepatitis, Hiatal Hernia Musculoskeltal Medical History: Psychiatric Medical History: Reports: Depression Hematology: Denies: Anemia, Sickle Cell Disease Past Surgical History Past Surgical History: Reports: Cardiac Catheterization - +2 stents Denies: Pacemaker Social History Smoking Status: Smoker,Current Status Unk Frequency of Alcohol Use: None Hx Recreational Drug Use: No Drugs: Marijuana Hx Prescription Drug Abuse: No Family History Family History: Reviewed & Not Pertinent, DM, Hypertension Parental Family History Reviewed: Yes Children Family History Reviewed: Yes Sibling(s) Family History Reviewed.: Yes Medication/Allergy Home Medications: Albuterol Sulfate [Ventolin HFA MDI 18 GM] 2 puff IH Q6HP PRN 07/25/18 Gabapentin [Neurontin 300 mg Capsule] 300 mg PO Q12 07/25/18 Isosorbide Mononitrate [Isosorbide Mononitrate ER] 30 mg PO QAM 07/25/18 Nitroglycerin [Nitrostat] 0.4 mg SL Q5MP PRN 07/25/18 Omeprazole 20 mg PO BIDACBS 07/25/18 Simvastatin [Zocor 20 mg Tablet] 20 mg PO QHS 07/25/18 Sitagliptin Phosphate [Januvia] 100 mg PO DAILY 07/25/18 Zolpidem Tartrate [Ambien] 10 mg PO QHS 07/25/18 Amiodarone HCl [Cordarone 200 mg Tablet] 200 mg PO BID #60 tablet 07/30/18 Apixaban [Eliquis 5 mg Tablet] 5 mg PO BID #60 tablet 07/30/18 Dexamethasone [Decadron 4 mg Tablet] 8 mg PO BID #120 tablet 07/30/18 Famotidine [Pepcid 20 mg Tablet] 20 mg PO Q12 #60 tablet 07/30/18 Metoprolol Succinate [Toprol Xl 50 mg Tab.sr] 50 mg PO Q12 #60 tab.sr.24h Hydromorphone HCl [Dilaudid 2 mg Tablet] 2 mg PO Q6HP PRN #30 tablet 08/07/18 Insulin Glargine,Hum.rec.anlog [Basaglar Kwikpen U-100] 20 unit SQ QAM #1 insuln.pen 08/07/18 Insulin Glargine,Hum.rec.anlog [Basaglar Kwikpen U-100] 55 units SQ QHS #2 insuln.pen 08/07/18 Levofloxacin [Levaquin 500 mg Tablet] 500 mg PO DAILY #5 tablet 08/07/18 Morphine Sulfate [Ms-Contin Sr 15 mg Tablet] 15 mg PO Q12 #30 tablet.sa Allergies/Adverse Reactions: chlorpromazine HCl [From Thorazine] Allergy (Verified 06/30/18 12:37) faints Review of Systems Constitutional: ABSENT: fever(s), headache(s) Eyes: ABSENT: visual disturbances Ears: ABSENT: hearing changes Nose, Mouth, and Throat: ABSENT: sore throat Cardiovascular: PRESENT: chest pain. ABSENT: palpitations Respiratory: PRESENT: dyspnea Gastrointestinal: PRESENT: abdominal pain, other - Poor appetite.. ABSENT: constipation, vomiting Genitourinary: ABSENT: dysuria Integumentary: ABSENT: rash Neurological: PRESENT: weakness. ABSENT: confusion, focal weakness Psychiatric: PRESENT: anxiety Hematologic/Lymphatic: ABSENT: lymphadenopathy Physical Exam Vital Signs: Intake & Output 08/07/18 08/08/18 08/09/18 06:59 06:59 06:59 Intake Total 1000 Balance 1000 Weight 66.6 kg General appearance: PRESENT: mild distress, well-developed, well-nourished Head exam: PRESENT: normocephalic Eye exam: PRESENT: EOMI Ear exam: PRESENT: normal external ear exam Mouth exam: PRESENT: tongue midline Neck exam: ABSENT: tenderness, thyromegaly Respiratory exam: PRESENT: wheezes Cardiovascular exam: PRESENT: RRR GI/Abdominal exam: PRESENT: normal bowel sounds Extremities exam: ABSENT: pedal edema Musculoskeletal exam: PRESENT: normal inspection Neurological exam: PRESENT: alert, awake, oriented to person, oriented to place , oriented to situation Psychiatric exam: PRESENT: agitated, appropriate affect Focused psych exam: ABSENT: paranoid, restlessness Skin exam: PRESENT: normal color Results Laboratory Results: 08/08/18 12:25 08/08/18 12:25 08/08/18 08/08/18 12:25 12:25 WBC 29.8 H RBC 4.79 Hgb 13.9 Hct 42.5 MCV 89 MCH 29.1 MCHC 32.8 RDW 17.5 H Plt Count 390 Seg Neutrophils % Not Reportable Lymphocytes % Not Reportable Monocytes % Not Reportable Eosinophils % Not Reportable Basophils % Not Reportable Absolute Neutrophils Not Reportable Absolute Lymphocytes Not Reportable Absolute Monocytes Not Reportable Absolute Eosinophils Not Reportable Absolute Basophils Not Reportable Sodium 135.9 L Potassium 5.2 H Chloride 91 L Carbon Dioxide 33 H Anion Gap 12 BUN 34 H Creatinine 0.70 Est GFR ( Amer) > 60 Est GFR (Non-Af Amer) > 60 Glucose 270 H Calcium 10.4 H Total Bilirubin 1.2 AST 32 ALT 23 Alkaline Phosphatase 210 H Total Protein 6.7 Albumin 3.4 L 08/08/18 08/08/18 12:25 12:25 Creatine Kinase 24 L CK-MB (CK-2) 0.59 Troponin I < 0.012 Impressions: Chest X-Ray 08/08/18 12:02 IMPRESSION: Overall interval improvement as noted above. Status: Image reviewed by me Assessment & Plan - Diagnosis (1) Metastatic lung cancer (metastasis from lung to other site) Qualifiers: Laterality: unspecified laterality Qualified Code(s): C34.90 - Malignant neoplasm of unspecified part of unspecified bronchus or lung Plan: Newly diagnosed PD-L1 Positive. Plan to start Keytruda LULU. Continue Radiation to the bran and taper Dexamethasone. (2) Dyspnea and respiratory abnormality Is this a current diagnosis for this admission?: Yes Plan: With worsening CT scan. Although this could be infectious, it may also be rapid progression of his cancer. I discussed options with the patient in detail. Patient wishes to remain a FULL CODE and to proceed with treatment, as I believe that he should respond well to the Keytruda and may have a very reasonable prognosis. However, there is also the possibility that he may continue to have worsening lung function and require intubation or bronchoscopy. - Plan Summary Plan Summary: Patient was discussed with Dr. Vo in the ED as well as Dr. Richards with Hospitalist group and Dr. Gurvinder Fried at [facility] in [place]. He has accepted the patient in transfer.
[2018-08-08] MEDS: LEVOFLOXACIN 750 MG/D5W RTU 750 MG/150 ML RTUPB IV SCH (19:02)
[2018-08-08] MEDS ORDERED: HYDROMORPHONE HCL 2 MG TABLET PO PRN (20:10)
[2018-08-08] MEDS ORDERED: ALBUTEROL SULFATE HFA (90 MCG/PUFF) 8 GM MDI (1 MDI/ER DISP) IH PRN (20:11)
[2018-08-08] MEDS: AMIODARONE HCL 200 MG TABLET PO SCH (20:40)
[2018-08-08] MEDS: METOPROLOL TARTRATE 25 MG TABLET PO SCH (20:40)
[2018-08-08] MEDS: DEXAMETHASONE 4 MG TABLET PO SCH (20:40)
[2018-08-08] MEDS: LANSOPRAZOLE 15 MG TAB.RAP.DR PO SCH (20:40)
[2018-08-08] MEDS ORDERED: DEXTROSE 50%-WATER SYRINGE 25 GM/50 ML DOSE IV PRN (20:57)
[2018-08-08] MEDS ORDERED: INSULIN REG, HUMAN 100 UNIT/ML 3 ML VIAL (PYX) SUBCUT PRN (20:57)
[2018-08-08] MEDS ORDERED: DEXTROSE 50%-WATER SYRINGE 12.5 GM/25 ML DOSE IV PRN (20:57)
[2018-08-08] MEDS ORDERED: GLUCAGON,HUMAN RECOMB 1 MG INJ IM PRN (20:57)
[2018-08-08] MEDS ORDERED: DEXTROSE 40% GEL 15 GM TUBE X 2 PO PRN (20:57)
[2018-08-08] MEDS ORDERED: DEXTROSE 40% GEL 15 GM TUBE PO PRN (20:57)
[2018-08-08] MEDS: GABAPENTIN 300 MG CAPSULE PO SCH (21:57)
[2018-08-08] MEDS ORDERED: SIMVASTATIN 10 MG TABLET PO SCH (22:00)
[2018-08-09] MEDS: HYDROMORPHONE HCL INJ/PF 2 MG/ML AMPULE IV PRN ×4 (05:54→15:06)
[2018-08-09] MEDS: LEVOFLOXACIN 750 MG/D5W RTU 750 MG/150 ML RTUPB IV SCH (09:21)
[2018-08-09] MEDS: METOPROLOL TARTRATE 25 MG TABLET PO SCH (09:25)
[2018-08-09] MEDS: DEXAMETHASONE 4 MG TABLET PO SCH (09:26)
[2018-08-09] MEDS: GABAPENTIN 300 MG CAPSULE PO SCH (09:26)
[2018-08-09] MEDS: AMIODARONE HCL 200 MG TABLET PO SCH (09:28)
[2018-08-09] MEDS: LANSOPRAZOLE 15 MG TAB.RAP.DR PO SCH (09:46)
--- NOTE | 2018-08-09 09:53 | ER Document Report ---
Doctor's Note Notes: 08/09/18 09:53 Patient seen and evaluated. He is hemodynamically stable on nasal cannula oxygen. He states he is feeling much better and denies any current shortness of breath. Repeat CBC and CMP were ordered. Patient is awaiting transfer to [facility] for admission.
[2018-08-09] MEDS ORDERED: APIXABAN 5 MG TABLET PO SCH (10:00)
[2018-08-09 11:41] LABS: HEMATOCRIT 39.2 % (37.9-51.0); HEMOGLOBIN 12.5 g/dL (13.5-17.0); MEAN CORPUSCULAR HEMOGLOBIN 29.1 pg (27.0-33.4); MEAN CORPUSCULAR VOLUME 91 fl (80-97); PLATELET COUNT 256 10^3/uL (150-450); RED BLOOD COUNT 4.32 10^6/uL (4.35-5.55); WHITE BLOOD COUNT 26.1 10^3/uL (4.0-10.5)
[2018-08-09 11:53] LABS: ALANINE AMINOTRANSFERASE 30 U/L (21-72); ALBUMIN 2.7 g/dL (3.5-5.0); ALKALINE PHOSPHATASE 151 U/L (38-126); ANION GAP 14 (5-19); ASPARTATE AMINO TRANSFERASE 26 U/L (17-59); BILIRUBIN,DIRECT 0.3 mg/dL (0.0-0.4); BILIRUBIN,TOTAL 0.9 mg/dL (0.2-1.3); BLOOD UREA NITROGEN 42 mg/dL (7-20); CALCIUM 9.6 mg/dL (8.4-10.2); CARBON DIOXIDE 26 mmol/L (22-30); CHLORIDE 91 mmol/L (98-107); TOTAL PROTEIN 5.6 g/dL (6.3-8.2)
[2018-08-09 12:00] LABS: ABSOLUTE LYMPHOCYTES# (MANUAL) 0.5 10^3/uL (0.5-4.7); ABSOLUTE NEUTROPHILS# (MANUAL) 25.6 10^3/uL (1.7-8.2); BASOPHILS % (MANUAL) 0 % (0-2); EOSINOPHILS % (MANUAL) 0 % (0-6); LYMPHOCYTES % (MANUAL) 2 % (13-45); MONOCYTES % (MANUAL) 0 % (3-13); SEGMENTED NEUTROPHILS % (MAN) 98 % (42-78); TOTAL CELLS COUNTED 100
[2018-08-09 12:02] LABS: ANISOCYTOSIS 1+; PLATELET COMMENT ADEQUATE; TOXIC GRANULATION 1+; TOXIC VACUOLATION PRESENT
[2018-08-09 12:03] LABS: GLUCOSE 391 mg/dL (75-110)
[2018-08-09] MEDS ORDERED: INSULIN REG, HUMAN 100 UNIT/ML 3 ML VIAL (PYX) IV ONE (12:26)
[2018-08-09] MEDS ORDERED: CALCIUM GLUCONATE 1000 MG/10 ML INJ IV ONE (12:26)
[2018-08-09] MEDS ORDERED: DEXTROSE 50%-WATER 25 GM/50 ML DISP.SYRIN IV ONE (12:26)
[2018-08-09] MEDS ORDERED: SODIUM POLYSTYRENE SULFONATE 15 GM/60 ML NG ONE (12:26)
[2018-08-09] MEDS ORDERED: ALBUTEROL SULFATE 0.083% NEB 2.5 MG/3 ML AMPUL NEB ONE (12:28)
[2018-08-09] MEDS ORDERED: SODIUM POLYSTYRENE SULFONATE 15 GM/60 ML ONE (12:57)
--- NOTE | 2018-08-09 14:13 | EKG REPORT ---
SEVERITY:- ABNORMAL ECG - SINUS RHYTHM MULTIPLE ATRIAL PREMATURE COMPLEXES PROBABLE LEFT ATRIAL ABNORMALITY : Confirmed by: Divya Medellin 09-Aug-2018 14:13:02
--- NOTE | 2018-08-09 14:15 | EKG REPORT ---
SEVERITY:- ABNORMAL ECG - SINUS TACHYCARDIA LEFT ATRIAL ABNORMALITY PROBABLE LEFT VENTRICULAR HYPERTROPHY : Confirmed by: Divya Medellin 09-Aug-2018 14:14:34
[2018-08-09 17:12] VITALS: BP 127/79
== END 2018-08-09 18:01 | disposition short-term general hospital (02) ==
LOC: ER 11:55
DX: J18.9 Pneumonia, unspecified organism (principal); C34.90 Malignant neoplasm of unspecified part of unspecified bronchus or lung; D72.829 Elevated white blood cell count, unspecified; E87.5 Hyperkalemia; E83.52 Hypercalcemia; F11.20 Opioid dependence, uncomplicated; R06.00 Dyspnea, unspecified; E11.9 Type 2 diabetes mellitus without complications; I25.2 Old myocardial infarction
CPT/HCPCS: 93005 ×2; 36415; 87070; 87205; 82553; 82962; 82803; 82550; 85025; 80053; 84484; 71045; 93010 ×2; A9270 ×18; J0610; J3490 ×2; J1170 ×2; J7030; J1956 ×2; 94640; 96361; 96365; 96366; 96375; 96376; 99291; J1815; J7512; J7620